=== PATIENT | male | born 1955 | race Caucasian/White ===

== ENCOUNTER → 2016-06-15 | Outpatient (CLI) | payer OTHER ==
--- NOTE | 2016-06-15 15:15 | NM ---
EXAMINATION TYPE: NM DatScan Brain SPECT DATE OF EXAM: 06/15/2016 3:11 PM COMPARISON: NONE HISTORY: TECHNIQUE: 10 drops of Lugol's solution was administered 1 hour prior to injection as a thyroid bloc robert agent. After the administration of 4.5 mCi I-123 Ioflupane DaTscan. Images obtained [address] injection. SPECT images of the brain were acquired with axial and coronal reconstructions. FINDINGS: The axial SPECT images demonstrate increased background activity and reduced activity withi n the bilateral striata. IMPRESSION: Abnormal appearance highly suggestive of idiopathic Parkinson's disease or Parkinsonian s yndrome.
== END | disposition home or self-care (01) ==
LOC: RADNMMAIN 09:57
PROVIDERS: ATTEND Psychiatry & Neurology Neurology
DX: R25.1 Tremor, unspecified (principal)
CPT/HCPCS: 78607; A9584

== ENCOUNTER → 2017-06-10 | Outpatient (CLI) | payer OTHER ==
--- NOTE | 2017-06-10 09:08 | US ---
EXAMINATION TYPE: US kidneys/renal and bladder DATE OF EXAM: 06/10/2017 COMPARISON: CT 10/24/2013 and US gallbladder 10/03/20132013 CLINICAL HISTORY: R31.9 hematuria. Weak urine stream, hematuria, lower back pain EXAM MEASUREMENTS: Right Kidney: 9.6 x 4.5 x 4.8 cm Left Kidney: 10.5 x 4.8 x 4.5 cm Right Kidney: no hydro or masses seen, inferior pole limited by overlying bowel gas Left Kidney: no hydro or masses seen, superior pole limited by overlying bowel gas Bladder: not fully distended, appears wnl as seen Bilateral Jets seen: no There is normal cortical medullary differentiation. No nephrolithiasis is seen. No masses are ident ified. The urinary bladder is anechoic but decompressed. Inferior margin of the bladder shows an imp ression likely due to prostate enlargement. IMPRESSION: Prostate is thought to be enlarged.
--- NOTE | 2017-06-13 07:25 | US ---
EXAMINATION TYPE: US prostate transrectal DATE OF EXAM: 06/10/2017 COMPARISON: NONE CLINICAL HISTORY: R39.12 weak urine stream. Weak urine stream, hematuria, lower back pain This examination was performed using the transrectal probe. EXAM MEASUREMENTS: Gland Size: 4.5 x 2.9 x 4.1cm Volume: 27.4ml Predicted PSA: 0.15 Actual PSA (if available):4.05 Heterogeneous gland with calcifications within central zone, 1.4 x 0.7 x 1.3cm hypoechoic area left b ase. IMPRESSION: Suspicious lesion left sided peripheral zone for which tissue diagnosis is recommended. Predicted PSA = volume x 0.12 ng/ml Calculated Volume = 0.5236 x L x W x H
== END | disposition home or self-care (01) ==
LOC: RADUSMAIN 07:46
PROVIDERS: ATTEND Internal Medicine
DX: R31.9 Hematuria, unspecified (principal); R39.12 Poor urinary stream
CPT/HCPCS: 76770; 76872

== ENCOUNTER 2018-02-22 17:17 | Emergency (ER) | payer OTHER ==
[2018-02-22 17:23] VITALS: BP 146/70; PULSE 80; RESP 18; TEMP 97.8
[2018-02-22] MEDS ORDERED: LIDOCAINE 1% INJ 10MG/ML (20 ML MDV) SQ STA (17:46)
[2018-02-22] MEDS ORDERED: GELATIN SPONGE,ABSORB (LARGE) 1 EACH SPONGE TOPICAL STA (17:48)
--- NOTE | 2018-02-22 17:53 | ED ---
General Adult HPI - General Chief complaint: Wound/Laceration Stated complaint: LEFT FINGER LACERATION LAWNMOWER BLADE Time Seen by Provider: 02/22/18 17:43 Source: patient, RN notes reviewed Mode of arrival: ambulatory Limitations: no limitations - History of Present Illness Initial comments: Patient 62-year-old male presented emergency room today with a chief complaint of laceration to the left middle finger that occurred approximately an hour ago. He does admit that he was cutting grass and put his hand underneath the running lawnmower to remove something and cut the tip of his finger off. Patient admits to pain locally. Patient states his tetanus is up-to-date within the past 5 years. Patient denies any other complaints or symptoms. Patient denies any recent fever, chills, shortness of breath, chest pain, back pain, abdominal pain, nausea or vomiting, or any other complaints. - Related Data Home Medications Medication Instructions Recorded Confirmed Aspirin 325 mg PO DAILY 10/24/13 10/24/13 Ferrous Sulfate [Feosol] 325 mg PO BID 10/24/13 10/24/13 Lisinopril 40 mg PO DAILY 10/24/13 10/24/13 Nicotine [Nicoderm Cq] 1 patch TRANSDERM DAILY 10/24/13 10/24/13 Omeprazole [PriLOSEC] 10 cap PO DAILY 10/24/13 10/24/13 traMADol HCl [Ultram] 1 tab PO Q6HR PRN 10/24/13 10/24/13 Previous Rx's Medication Instructions Recorded Cephalexin [Keflex] 500 mg PO Q12HR 10 Days cap 02/22/18 Allergies Allergy/AdvReac Type Severity Reaction Status Date / Time No Known Allergies Allergy Verified 02/22/18 17:22 Review of Systems ROS Statement: Those systems with pertinent positive or pertinent negative responses have been documented in the HPI. ROS Other: All systems not noted in ROS Statement are negative. 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 Neck: The neck is supple, there is no tenderness or JVD. Musculoskeletal: Patient does have a distal tip amputation of the third digit of the left hand. There is no active bleeding. Shows good range of motion. No other bony tenderness. Radial pulses 2+. Neurological: A&O x 3. CN II-XII intact, There are no obvious motor or sensory deficits. Coordination appears grossly intact. Speech is normal. Skin: Skin is warm and dry and no rashes or lesions are noted. Psychiatric: Normal mood and affect. Limitations: no limitations Course Vital Signs 02/22/18 17:20 Temperature 97.8 F Pulse Rate 80 Respiratory 18 Rate Blood Pressure 146/70 O2 Sat by Pulse 99 Oximetry Medical Decision Making - Medical Decision Making X-ray reviewed and does show distal tip amputation. Possibly small bone fragment. Patient's finger was irrigated under pressure with saline. His tetanus is up-to-date. He was given a dose of antibiotics here in the emergency room. Sterile nonstick dressing placed over top. He is advised follow-up with orthopedics tomorrow. Continue on antibiotics advised return for any other concerns. Disposition Clinical Impression: Amputation of finger tip Disposition: HOME SELF-CARE Condition: Good Instructions: Finger Amputation (ED) Additional Instructions: Please follow-up orthopedics tomorrow. Please use antibiotic as prescribed. Please return to emergency room symptoms increase or worsen or for any other concerns. Prescriptions: Cephalexin [Keflex] 500 mg PO Q12HR 10 Days cap Is patient prescribed a controlled substance at d/c from ED?: No Referrals: Haritha Castellano MD [Primary Care Provider] - 1-2 days Rajat Dawson MD [STAFF PHYSICIAN] - 1-2 days Time of Disposition: 18:28
--- NOTE | 2018-02-22 18:14 | XR ---
EXAMINATION TYPE: XR finger LT DATE OF EXAM: 02/22/2018 COMPARISON: NONE HISTORY: Trauma. Laceration TECHNIQUE: 3 views FINDINGS: There is some amputation of the soft tissues at the tip of the middle finger left hand. I s ee no fracture line. There is spurring at the DIP joint. IMPRESSION: Soft tissue amputation deformity. No fracture seen.
[2018-02-22] MEDS ORDERED: ceFAZolin 1,000 MG VIAL IM STA (18:21)
--- NOTE | 2018-02-23 05:47 | CDI ---
Documentation Clarification OP Dear Robert CANNON PA-C, PAC Please provide procedure done related to lidocaine administered. Thank you, Kedar Fields Mime Artist If you have any questions, please contact Medical Asst at [phone] [facility]
== END 2018-02-22 18:49 | disposition home or self-care (01) ==
LOC: EC 17:17
DX: S68.113A Complete traumatic metacarpophalangeal amputation of left middle finger, initial encounter (principal); I10 Essential (primary) hypertension; D64.9 Anemia, unspecified; F17.200 Nicotine dependence, unspecified, uncomplicated; Z79.82 Long term (current) use of aspirin; Z79.899 Other long term (current) drug therapy; W28.XXXA Contact with powered lawn mower, initial encounter; Y93.A6 Activity, grass drills; Y92.89 Other specified places as the place of occurrence of the external cause
CPT/HCPCS: 99283; 73140; J2001

== ENCOUNTER → 2019-04-05 | Outpatient (CLI) | payer OTHER ==
--- NOTE | 2019-04-05 10:47 | XR ---
EXAMINATION TYPE: XR chest 2V DATE OF EXAM: 04/05/2019 COMPARISON: 07/23/2013 HISTORY: Shortness of breath TECHNIQUE: Frontal and lateral views of the chest are obtained. FINDINGS: Scattered senescent parenchymal changes noted. No evidence for infiltrate. No evidence for atelectasis. Heart size is stable. Mediastinal structures are stable and grossly unremarkable. No evidence for hilar prominence. Degenerative changes dorsal spine. IMPRESSION: 1. No evidence for acute pulmonary disease.
[2019-04-05 12:33] LABS: Basophils % (A) 0 %; Eosinophils # (A) 0.2 k/uL (0-0.7); Eosinophils % (A) 2 %; HCT 31.3 % (39.0-53.0); HGB 10.6 gm/dL (13.0-17.5); Lymphocytes # (A) 1.3 k/uL (1.0-4.8); Lymphocytes % (A) 15 %; MCH 34.6 pg (25.0-35.0); MCHC 33.9 g/dL (31.0-37.0); MCV 101.8 fL (80.0-100.0); Mean Platelet Volume 9.3; Monocytes # (A) 0.7 k/uL (0-1.0); Monocytes % (A) 8 %; Neutrophils # (A) 6.1 k/uL (1.3-7.7); Neutrophils % (A) 73 %; Platelet Count 167 k/uL (150-450); RBC 3.08 m/uL (4.30-5.90); RDW 12.6 % (11.5-15.5); WBC 8.4 k/uL (3.8-10.6)
[2019-04-05 12:49] LABS: INR 0.9 (<1.2)
== END | disposition home or self-care (01) ==
LOC: LABPAT 09:52
PROVIDERS: ATTEND Orthopaedic Surgery Orthopaedic Surgery of the Spine
DX: Z01.812 Encounter for preprocedural laboratory examination (principal); Z01.818 Encounter for other preprocedural examination; M48.00 Spinal stenosis, site unspecified; M41.80 Other forms of scoliosis, site unspecified
CPT/HCPCS: 36415; 71046; 85025; 85610; 85730; 87070; 87086; 93005

== ENCOUNTER → 2019-04-10 | Outpatient (CLI) | payer MEDICARE, OTHER ==
[2019-04-10 11:04] LABS: Calcium 8.8 mg/dL (8.4-10.2); Potassium 4.5 mmol/L (3.5-5.1)
== END ==
LOC: LABPAT 10:00
PROVIDERS: ATTEND Orthopaedic Surgery Orthopaedic Surgery of the Spine
DX: Z01.812 Encounter for preprocedural laboratory examination (principal); M48.00 Spinal stenosis, site unspecified; M41.9 Scoliosis, unspecified
CPT/HCPCS: 80048; 86850; 86900; 86901

== ENCOUNTER → 2019-04-10 | Outpatient (CLI) | payer MEDICARE, OTHER ==
[2019-04-10 15:54] LABS: % Iron Saturation 13.49 (15.00-50.00)
== END ==
LOC: LABWHC1 10:04
PROVIDERS: ATTEND Internal Medicine
DX: D64.9 Anemia, unspecified (principal)
CPT/HCPCS: 36415; 82607; 83540; 83550

== ENCOUNTER 2019-04-18 06:22 | Inpatient (IN) | payer MEDICARE, OTHER ==
[2019-04-12 14:46] VITALS: BMI 27.0
[~2019-04-18 06:22] MED LIST: BACITRACIN 50,000 UNIT, POLYMYXIN B 500,000 UNIT in SODIUM CHLORIDE 0.9% IRRIGATIO 1,00... IRRIGATION ONE; DEXAMETHASONE SOD PHOSPHATE 10 MG/ML 1 ML VIAL IV ONE; HYDROmorphone 0.5 MG/0.5 ML SYRINGE IVP PRN; LACTATED RINGERS 1,000 ML IV SCH; MIDAZOLAM 2 MG/2 ML VIAL IV PRN; ONDANSETRON 4 MG/2 ML VIAL IVP ONE
[2019-04-18] MEDS ORDERED: LIDOCAINE 1% 20 ML VIAL (10MG/ML) FOR IV START INTRADERMA ONE (06:42)
[2019-04-18] MEDS ORDERED: PROPOFOL 10 MG/ML 20 ML VIAL IV ONE (07:25)
[2019-04-18] MEDS ORDERED: LIDOCAINE 1% INJ 10MG/ML (20 ML MDV) ONE (07:25)
[2019-04-18] MEDS ORDERED: ePHEDrine SULFATE/0.9% NACL/PF 50 MG/5 ML SYRINGE IV ONE (07:25)
[2019-04-18] MEDS ORDERED: KETAMINE 10 MG/ML 20 ML VIAL ONE (07:25)
[2019-04-18] MEDS ORDERED: diphenhydrAMINE 50 MG/ML 1 ML VIAL ONE (07:25)
[2019-04-18] MEDS ORDERED: ONDANSETRON 4 MG/2 ML VIAL ONE (07:25)
[2019-04-18] MEDS ORDERED: SODIUM CHLORIDE 0.9% IRRIG 1,000 ML BTL IRRIGATION ONE (07:25)
[2019-04-18] MEDS ORDERED: PHENYLEPHRINE-0.9% NACL SYG 1 MG/10 ML SYRINGE ONE (07:25)
[2019-04-18] MEDS ORDERED: HYDROmorphone (PF) 1 MG/ML ONE (07:25)
[2019-04-18] MEDS ORDERED: ALBUMIN HUMAN 5% (25gm) 500 ML VIAL IVPB ONE (07:25)
[2019-04-18] MEDS ORDERED: HEPARIN SODIUM,PORCINE 10,000 UNIT/ML 1 ML VIAL ONE (07:25)
[2019-04-18] MEDS ORDERED: MIDAZOLAM 2 MG/2 ML VIAL ONE (07:25)
[2019-04-18] MEDS ORDERED: ALBUTEROL INHALER 60 PUFF/8 GM INHALER INHALATION ONE (07:25)
[2019-04-18] MEDS ORDERED: ROCURONIUM BROMIDE 10 MG/ML 10 ML VIAL IV ONE (07:25)
[2019-04-18] MEDS ORDERED: fentaNYL (PF) 50 MCG/ML 2 ML AMP ONE (07:25)
[2019-04-18] MEDS ORDERED: LIDOCAINE 0.5%-EPI 1:200,000 50 ML VIAL SQ ONE (08:07)
[2019-04-18] MEDS ORDERED: THROMBIN (BOVINE) 5,000 UNIT VIAL TOPICAL ONE (08:46)
[2019-04-18] MEDS ORDERED: GELATIN SPONGE,ABSORB (SMALL) 1 EACH SPONGE TOPICAL ONE ×2 (08:46)
[2019-04-18] MEDS ORDERED: LACTATED RINGERS 1,000 ML IV ONE ×3 (08:47→12:50)
--- NOTE | 2019-04-18 09:00 | XR ---
EXAMINATION TYPE: XR lumbar spine 2 or 3V DATE OF EXAM: 04/18/2019 CLINICAL HISTORY: Low back pain. TECHNIQUE: Intraoperative Frontal and lateral images of the lumbar spine are obtained. COMPARISON: None. FINDINGS: Exam is for surgical planning and not for diagnostic purposes. Suboptimal due to portable t echnique and patient's large body habitus. Metallic pointer is thought present at posterior right L3 level. Scoliotic curvature noted on attempted frontal image to confirm positioning. IMPRESSION: As above.
[2019-04-18] MEDS ORDERED: SODIUM CHLORIDE 0.9% 50 ML with ceFAZolin 2,000 MG IV ONE ×4 (12:00)
[2019-04-18] MEDS ORDERED: BUPIVACAINE (PF) 0.5% 30 ML VIAL SQ ONE (13:15)
--- NOTE | 2019-04-18 13:22 | XR ---
EXAMINATION TYPE: XR lumbar spine 2 or 3V DATE OF EXAM: 04/18/2019 CLINICAL HISTORY: Hardware placement. TECHNIQUE: Intraoperative frontal and lateral images of the lumbar spine are obtained. COMPARISON: X-ray earlier today. FINDINGS: Exam is for surgical planning. There is new posterior interpedicular terri and screws from le ft L2-S1 level. Right side shows only new interpedicular screws L2-S1 level. New metallic disc materi al noted at L3-L4 and L4-L5 levels. Alignment remains satisfactory. IMPRESSION: As above.
[2019-04-18] MEDS ORDERED: NALOXONE 0.4 MG/ML 1 ML VIAL IV PRN (13:36)
[2019-04-18] MEDS ORDERED: HYDROmorphone 1 MG/ML 1 ML SYRINGE IVP PRN (13:36)
[2019-04-18] MEDS ORDERED: MAGNESIUM HYDROXIDE 2,400 MG/10 ML CUP PO PRN (13:36)
[2019-04-18] MEDS ORDERED: HYDROcodone/APAP 5-325MG 1 EACH TAB PO PRN ×2 (13:36)
[2019-04-18] MEDS ORDERED: BENZOCAINE/MENTHOL LOZENG 1 EACH LOZENGE MUCOUS MEM PRN (13:36)
[2019-04-18] MEDS ORDERED: HYDROmorphone 0.5 MG/0.5 ML SYRINGE IVP PRN (13:36)
--- NOTE | 2019-04-18 13:55 | P.OP ---
Date of Procedure: 04/18/19 Preoperative Diagnosis: Degenerative scoliosis, severe spinal stenosis, degenerative disc disease, facet arthrosis, low back pain, lower extremity radiculopathy Postoperative Diagnosis: Degenerative scoliosis, severe spinal stenosis, degenerative disc disease, facet arthrosis, low back pain, lower extremity radiculopathy Anesthesia: GETA Pathology: none sent Condition: stable Disposition: PACU Description of Procedure: BRIEF OPERATIVE NOTE Preoperative Diagnosis:Degenerative scoliosis, severe spinal stenosis, degenerative disc disease, facet arthrosis, low back pain, lower extremity radiculopathy Postoperative Diagnosis:Degenerative scoliosis, severe spinal stenosis, degenerative disc disease, facet arthrosis, low back pain, lower extremity radiculopathy Procedure: Wide bilateral Laminectomy and decompression with foraminotomies bilaterally L2-3 L3 4 L4 5 and L5-S1 Posterior lateral decompression and fusion L2-3 L3 4 L4 5 and L5-S1 Transforaminal lumbar interbody fusion for a 360 fusion L3 4 and L4 5 Discectomy for decompression L3 4 and L4 5 Placement of interbody graft L3 4 and L4 5 Local autogenous bone grafting Use of Cell Saver Harvesting of bone marrow aspirate in the pedicle and vertebral body of L4 Use of bone graft extenders Use of neuro monitoring Surgeon: Dr. Crane Precision Instrument Maker And Repairer: Gilmar LEBRON who is present throughout the entire the case persistence during positioning, dissection, exposure, visualization, and all crucial elements of the case as well as closure. Anesthesia: General anesthesia per Dr. Kelly Estimated blood loss: Approximately 600 mL with 194 back through Cell Saver Complications: None apparent Components implanted: K2M Randall pedicle screw system with 10 screws measuring 6.5 mm in diameter to rods to [place] interbody cages and one cross-link along with 10 mL of Bio4 bone graft as well as 30 mL of DBX bone fibers to supplement the local autogenous bone graft as well as the bone marrow aspirate Disposition: To recovery room in good stable condition. OPERATIVE INDICATIONS The patient has had long-standing issues in their lower back and lower extremities. He has a long history of severe pain with lower extremity radiculopathy. He was found have a severe short segment degenerative scoliotic curvature as well as severe stenosis at L2-3 L3 4 L4 5 and L5-S1. These findings correlate well with his low back and lower extremity symptoms. His symptoms have been progressive for him despite aggressive conservative care and he was not having significant benefit. He was having worsening ability to perform activities. The patient has been through conservative treatment. We discussed various treatment options including surgery, and the patient wishes to proceed with surgery We discussed the risk, patient's alternatives and benefits of surgery including but not limited to, risk of bleeding risk of infection, risk of need for further surgery, risk of decreased, loss of motion, muscle function, malunion nonunion, hardware failure, nerve damage, paralysis, heart attack, blindness and . OPERATIVE SUMMARY After discussing all the risks, patient alternatives and benefits at length, the patient elected to proceed with surgical intervention, signed informed consent, and presented for their procedure. The patient was seen and examined in the preoperative holding area and the surgical site was marked. The patient was g iven antibiotics and brought to the operating room. The patient was sedated and intubated by anesthesia in standard fashion. The patient was positioned on to the operating room table in a prone position on the appropriate frame which was well-padded and well molded. We were careful to pad any bony prominences and pressure points. We were careful to maintain the patient's cervical spine and good neutral alignment and position throughout. The patient was prepped and draped in a normal standard fashion. An appropriate timeout and keystone protocol performed. We were able to proceed with the surgery. The local wound area was infiltrated with local anesthetic. An incision was made at the midline longitudinally over the appropriate levels from L2 to S1. Dissection was taken down subcutaneously to the level of the fascia which was split midline. Dissection was taken over the lamina bilaterally over the facet joints and to the transverse processes from L2 to S1. Intraoperative x-ray was taken which showed a marker at the appropriate level at L3. With the appropriate level positively confirmed, we were able to proceed with placement of the pedicle holes and screws. The patient had obvious deformity with scoliotic curvature and rotation to his back which added to the complexity of the case. The patient had all their twitches back. The wound was copiously irrigated and suctioned dry as had been done periodically throughout the case. Screw holes were established similarly at each level at L2-L3 L4-L5 and S1 bilaterally. A sharp awl was used to establish the starting hole. It was palpated and found to have good for shaikh and good base. A monitored Steffee probe was used to establish the pedicle hole. It was positioned so there was no stimulation at 12 mA. The hole was palpated and found to have good for shaikh and a good base. The hole was tapped with the appropriate sized tap. At L4 on the right I was able to use a large bore Jamshidi needle to withdraw a pproximately 25 mL of bone marrow aspirate from the vertebral body for use later in the case as supplement to the graft. The transverse process or sacral ala was decorticated with a high-speed bur. I was able to use these holes to place the appropriate size screw and good alignment and good position with good bony purchase. When the screws were inserted there were stimulated, and found to have no stimulation at 20 mA. this was done at L2 L3 L4 and L5 and S1 bilaterally I was able to turn my attention to the decompression. decompression was performed with a combination of rongeurs, curettes, Kerrison rongeurs and a ball-tip feeler. He was found to have severe stenosis at L2-3 L3 4 L4 5 and L5- S1 particularly at L23 L3 4. I was able get excellent central and bilateral foraminal decompression. All of the bone that was removed was stripped and morcellized for use as autogenous bone graft later in the case. I was able to obtain good central decompression as well as wide bilateral foraminal decompression. There is no evidence of dural tear or leak. Good hemostasis was maintained. The wound was irrigated and suctioned dry. I performed a complete facetectomy at the appropriate level of L34 and L4 5 on the left side. All bone that was removed was saved for local autogenous bone grafting. I was able to gain access to the disc space at the appropriate level/levels of L3 4 and L4 5. Good hemostasis was maintained. I was able to protect the neurologic structures. Note was made of significant disc protrusion causing further stenosis and A discectomy was performed. This provided further decompression. I was also able to perform complete discectomy and endplate preparation with a combination of pituitary curettes, rasps and scrapers. With the interbody space prepared, I was able to do appropriate sizing. The appropriate size cage was chosen. The wound was irrigated and suctioned dry. The interbody space was packed with local autogenous bone graft and a small portion of bone graft substitute, as was the cage itself. Protecting the soft tissue structures, I was able place the cage in good alignment and good position with good fit and fill. There is no evidence of extrusion of the graft material nor protrusion of the interbody device. The wound was irrigated and suctioned dry. This was done first at L4 5 and then L3 4. This helped to provide some co rrection of the curvature as well. With the hardware intact, intraoperative x-ray was again taken which showed good alignment and position of the hardware at the appropriate levels from L2 to S1. We were then able to measure, contour and place the rods and appropriate hardware bilaterally. I was able to place capcrews, tighten them down, and torque them appropriately. I was able get some further correction of the scoliosis with placement of the rods. With this intact I was able to place the local autogenous bone graft with additional bone graft enhancer as necessary into the posterior lateral gutters bilaterally. With the bone graft intact, a stable construct, and good decompression at the appropriate levels, we were able to proceed with closure. Good hemostasis was maintained. There is no evidence of dural tear or leak. The fascia was closed for a watertight closure. The subcutaneous tissue was closed over a superficial drain. The subcuticular tissue was closed with absorbable suture. The wound was cleaned and dried and dressed with the appropriate dressing. The drapes were broken down. The patient was gently rolled back onto their hospital bed being careful to maintain their cervical spine and good neutral alignment and position. They were woken up by anesthesia, extubated, and brought to the recovery room in good stable condition. The patient will be admitted to the hospital for appropriate postoperative care, medical management and monitoring. We will continue to follow them closely about the postoperative course.
[2019-04-18] MEDS: GABAPENTIN 300 MG CAP PO SCH ×2 (15:55→21:40)
[2019-04-18] MEDS: SODIUM CHLORIDE 0.9% 1,000 ML IV SCH (16:11)
[2019-04-18] MEDS: PANTOPRAZOLE 40 MG TABLET PO SCH (16:17)
[2019-04-18] MEDS: ONDANSETRON 4 MG/2 ML VIAL IVP PRN (16:46)
[2019-04-18] MEDS: LISINOPRIL-HCTZ 20-12.5 MG 1 EACH TAB PO SCH (21:39)
[2019-04-18] MEDS: TOPIRAMATE 25 MG TAB PO SCH (21:40)
--- NOTE | 2019-04-18 22:11 | CONS ---
CONSULTATION DATE OF SERVICE: 04/18/2019 REASON FOR CONSULTATION: Advice regarding hypertension and multiple medical issues, requested by Dr. Crane. HISTORY OF PRESENT ILLNESS: This 63-year-old gentleman with a past medical history of hypertension, history of 50% blockage in the heart, history of nicotine dependence and history of cholecystectomy, being followed by Dr. Castellano in the outpatient setting, underwent bilateral laminectomy and decompression with foraminotomy bilaterally at L2-3, L3-4, L4-5 and L5-S1 for severe DJD and severe spinal stenosis. There is no history of any fever or rigors, no history of headache, loss of consciousness, no history of chest pain, palpitations, hematochezia, melena, nausea, diarrhea, fever, rigors or chills at this time. The patient also complains of mild postoperative nausea. PAST MEDICAL HISTORY: 1. History of hypertension. 2. History of cholecystectomy. 3. History of nicotine dependence. HOME MEDICATIONS: 1. Norvasc 10 mg each morning. 2. Topamax 25 mg at bedtime. 3. Flomax 0.4 daily. 4. Omeprazole 20 mg p.o. b.i.d. 5. Zestoretic 20/12.5 mg p.o. b.i.d. 6. Ibuprofen 400 mg p.o. t.i.d. 7. Neurontin 300 mg p.o. t.i.d. 8. Iron sulfate 320 mg p.o. daily. 9. Lipitor 40 mg p.o. daily. ALLERGIES: NONE. FAMILY HISTORY: History of cancer in the family. SOCIAL HISTORY: History of smoking on a daily basis with occasional THC. REVIEW OF SYSTEMS: ENT: No diminished hearing. No diminished vision. CARDIOVASCULAR SYSTEM: No angina, palpitations. RESPIRATORY SYSTEM: No cough, hemoptysis. GI: No nausea, vomiting. : No dysuria or retention. NERVOUS SYSTEM: No numbness, weakness. ALLERGY/IMMUNOLOGY: No asthma, hayfever. MUSCULOSKELETAL: As mentioned earlier. HEMATOLOGY/ONCOLOGY: No history of anemia. ENDOCRINE: No history of diabetes, hypothyroidism. CONSTITUTIONAL: As mentioned earlier. DERMATOLOGY: Negative. RHEUMATOLOGY: Negative. PSYCHIATRY: As mentioned earlier. PHYSICAL EXAMINATION: Patient is alert, oriented x3. Pulse is 76, blood pressure 116/69, respirations 16, temperature normal, pulse ox 93% on room air. HEENT: Conjunctivae normal. Oral mucosa moist. NECK: No jugular venous distention. No carotid bruit. No lymph node enlargement. CARDIOVASCULAR SYSTEM: S1, S2 muffled. RESPIRATORY SYSTEM: Breath sounds diminished at the bases. No rhonchi. No crackles. ABDOMEN: Soft, non-tender. No mass palpable. LEGS: No edema. No swelling. NERVOUS SYSTEM: Higher functions as mentioned earlier. Moves all 4 limbs. No focal motor or sensory deficit. LYMPHATICS: No lymph node palpable in neck, axillae or groin. SKIN: No ulcer, rash, bleeding. JOINTS: No active deforming arthropathy. EXAMINATION OF THE BACK: Status post surgery. LABS: The labs are noted. ASSESSMENT: 1. Status post bilateral laminectomy and decompression with foraminotomy bilaterally at L2-3, L3-4, L4-5 and L5-S1. 2. Hypertension. 3. History of anemia. 4. History of tremors. 5. History of cholecystectomy. 6. History of nicotine dependence. 7. History of tetrahydrocannabinol. 8. Mild postoperative nausea. RECOMMENDATIONS AND DISCUSSION: In this 63-year-old gentleman who presented after surgery, at this time I recommend to continue the current medications. I recommend resuming the home medications. DVT prophylaxis. I would also recommend proton pump inhibitors. Otherwise, we will follow the patient closely with you and the patient may be asked to follow with Dr. Castellano closely after discharge. Thank you, Dr. Crane, for letting us participate in the care of this patient. MMODL / IJN: [id number] /
[2019-04-19] MEDS: ONDANSETRON 4 MG/2 ML VIAL IVP PRN ×4 (00:51→18:48)
[2019-04-19] MEDS: SODIUM CHLORIDE 0.9% 1,000 ML IV SCH ×2 (07:59→17:28)
[2019-04-19] MEDS: LISINOPRIL-HCTZ 20-12.5 MG 1 EACH TAB PO SCH ×2 (08:05→21:02)
[2019-04-19] MEDS: SENNOSIDES-DOCUSATE SODIUM 1 EACH TAB PO SCH (08:05)
[2019-04-19] MEDS: GABAPENTIN 300 MG CAP PO SCH ×3 (08:05→21:01)
[2019-04-19] MEDS: TAMSULOSIN 0.4 MG CAP.ER.24H PO SCH (08:05)
[2019-04-19] MEDS: PANTOPRAZOLE 40 MG TABLET PO SCH (08:05)
[2019-04-19] MEDS: ATORVASTATIN 40 MG TAB PO SCH (08:05)
[2019-04-19] MEDS: amLODIPine 10 MG TAB PO SCH (08:05)
[2019-04-19 08:14] LABS: Basophils % (A) 0 %; Eosinophils % (A) 0 %; HCT 24.3 % (39.0-53.0); Lymphocytes # (A) 0.5 k/uL (1.0-4.8); Lymphocytes % (A) 3 %; MCH 34.1 pg (25.0-35.0); MCHC 34.1 g/dL (31.0-37.0); MCV 100.1 fL (80.0-100.0); Mean Platelet Volume 10.1; Monocytes # (A) 0.8 k/uL (0-1.0); Monocytes % (A) 5 %; Neutrophils # (A) 15.4 k/uL (1.3-7.7); Neutrophils % (A) 92 %; Platelet Count 145 k/uL (150-450); RBC 2.43 m/uL (4.30-5.90); RDW 12.6 % (11.5-15.5); WBC 16.8 k/uL (3.8-10.6)
[2019-04-19 08:18] LABS: HGB 8.3 gm/dL (13.0-17.5)
[2019-04-19 08:30] LABS: Calcium 8.6 mg/dL (8.4-10.2); Potassium 3.5 mmol/L (3.5-5.1)
[2019-04-19] MEDS ORDERED: FERROUS SULFATE 325 MG TAB PO SCH (09:00)
--- NOTE | 2019-04-19 10:01 | P.PN ---
Subjective Progress Note Date: 04/19/19 Principal diagnosis: Status post PLDF L2-S1 and TLIF L3-4 and L4-5 This is a 63 year-old male post PLDF L2-S1 and TLIF L3-4 and L4-[address] Crane. This is post-op day 1. The patient was evaluated at the bedside today. The patient denies nausea, vomiting, abdominal pain, shortness of breath, and chest pain this morning. He states his pain is only mildly controlled at this time. The patient has not been up with physical therapy but sat on the side of the bed last night. The patient's Hemovac was accidentally pulled out last night. Objective - Vital Signs Vital signs: Vital Signs Temp 97.7 F 04/19/19 07:00 Pulse 84 04/19/19 07:00 Resp 18 04/19/19 07:00 BP 125/61 04/19/19 07:00 Pulse Ox 97 04/19/19 07:00 Intake & Output 04/18/19 04/19/19 04/19/19 18:59 06:59 18:59 Intake Total 3202 900 Output Total 1025 1040 Balance 2177 -140 Intake: IV 3202 Intake, IV Titration 900 Amount Sodium Chloride 0.9% 1, 900 000 ml @ 75 mls/hr IV . [id number] [facility] Rx#:[id number] Output: Gastric Drainage 100 Drainage 140 Back 140 Urine 325 900 Uretheral ([place]) 900 Estimated Blood Loss 600 Other: Voiding Method Indwelling Catheter Indwelling Catheter Indwelling Catheter - Exam The patient is a 63-year-old female who is in no acute distress. He is alert and oriented 3. Abdomen is soft and nontender. Chest has good excursion with deep inspiration. Incision site is clean dry and intact. No erythema or purulent drainage. Hemovac site looks ok. Extremities reveal improved neurological change from prior to surgery. He has sustained dorsiflexion and plantar flexion and EHL function. He has good foot and ankle motion. Bilateral calves are soft and nontender. Neurological and circulatory status is intact. - Labs CBC & Chem 7: 04/19/19 07:41 04/19/19 07:41 Labs: Abnormal Lab Results - Last 24 Hours (Table) 04/19/19 04/19/19 Range/Units 07:41 07:41 WBC 16.8 H (3.8-10.6) k/uL RBC 2.43 L (4.30-5.90) m/uL Hgb 8.3 L D (13.0-17.5) gm/dL Hct 24.3 L (39.0-53.0) % MCV 100.1 H (80.0-100.0) fL Plt Count 145 L (150-450) k/uL Neutrophils # 15.4 H (1.3-7.7) k/uL Lymphocytes # 0.5 L (1.0-4.8) k/uL Chloride 109 H (98-107) mmol/L BUN 25 H (9-20) mg/dL Creatinine 1.38 H (0.66-1.25) mg/dL Glucose 128 H (74-99) mg/dL Assessment and Plan (1) Low back pain Current Visit: Yes Status: Acute Code(s): M54.5 - LOW BACK PAIN SNOMED Code(s): 309162791 (2) Degenerative scoliosis Current Visit: Yes Status: Acute Code(s): M41.50 - OTHER SECONDARY SCOLIOSIS, SITE UNSPECIFIED SNOMED Code(s): 053968185 (3) Spinal stenosis Current Visit: Yes Status: Acute Code(s): M48.00 - SPINAL STENOSIS, SITE UNSPECIFIED SNOMED Code(s): 79653854 (4) Degenerative disc disease Current Visit: Yes Status: Acute Code(s): HBE8765 - SNOMED Code(s): 91504068 (5) Radiculopathy Current Visit: Yes Status: Acute Code(s): M54.10 - RADICULOPATHY, SITE UNSPECIFIED SNOMED Code(s): 27491050 (6) Status post lumbar surgery Current Visit: Yes Status: Acute Code(s): Z98.890 - OTHER SPECIFIED POSTPROCEDURAL STATES SNOMED Code(s): 219305611 Plan: 1. Continue pain control, increase to [place] to 7.5. Dilaudid as needed for breakthrough pain. 2. SCDs for DVT prophylaxis 3. Start physical therapy and ambulation, discontinue mitchell catheter today. 4. Anticipate discharge home in 2-3 days depending on ambulatory status and pain control.
[2019-04-19 12:49] LABS: Basophils % (A) 0 %; Eosinophils % (A) 0 %; HCT 24.2 % (39.0-53.0); HGB 8.1 gm/dL (13.0-17.5); Lymphocytes # (A) 0.5 k/uL (1.0-4.8); Lymphocytes % (A) 3 %; MCH 33.7 pg (25.0-35.0); MCHC 33.6 g/dL (31.0-37.0); MCV 100.3 fL (80.0-100.0); Mean Platelet Volume 11.2; Monocytes # (A) 0.9 k/uL (0-1.0); Monocytes % (A) 5 %; Neutrophils # (A) 17.3 k/uL (1.3-7.7); Neutrophils % (A) 92 %; Platelet Count 134 k/uL (150-450); RBC 2.41 m/uL (4.30-5.90); RDW 12.7 % (11.5-15.5); WBC 18.8 k/uL (3.8-10.6)
[2019-04-19 13:00] LABS: Albumin 3.6 g/dL (3.5-5.0); Calcium 8.6 mg/dL (8.4-10.2); Potassium 3.6 mmol/L (3.5-5.1); Total Bilirubin 0.4 mg/dL (0.2-1.3); Total Protein 5.7 g/dL (6.3-8.2)
[2019-04-19] MEDS: PANTOPRAZOLE 40 MG/10 ML VIAL IVP SCH (13:08)
[2019-04-19] MEDS: HYDROcodone/APAP 7.5-325MG 1 EACH TAB PO PRN ×2 (13:08→18:47)
[2019-04-19] MEDS ORDERED: METOCLOPRAMIDE 5 MG/ML 2 ML VIAL IVP PRN (13:20)
[2019-04-19 20:20] LABS: Glucose,Whole Blood 148 mg/dL (75-99)
[2019-04-19] MEDS: TOPIRAMATE 25 MG TAB PO SCH (21:02)
[2019-04-19] MEDS: HEPARIN SODIUM,PORCINE 5,000 UNIT/ML 1 ML VIAL SQ SCH (21:03)
--- NOTE | 2019-04-19 23:11 | PN ---
PROGRESS NOTE DATE OF SERVICE: 04/19/2019 This 63-year-old gentleman who was admitted after laminectomy and decompression and foraminotomy is improving significantly. No chest pain. No palpitations. No fever. EXAM: Alert and oriented x3. The pulse is 88, blood pressure is 149/70, respirations 16, temperature 98.2, pulse ox 94% on 2 L HEENT: Conjunctivae normal. Oral mucosa moist. NECK: No jugular venous distention. No lymph node enlargement. CARDIOVASCULAR: S1, S2. RESPIRATORY: Diminished breath sounds at the bases. No rhonchi, no crackles. ABDOMEN: Soft, nontender. LEGS: No swelling. NERVOUS SYSTEM: No focal deficits. LABS: WBC 18.2, hemoglobin is 8.1, sodium 140, potassium 3.6, creatinine 1.33. ASSESSMENT: 1. Status post bilateral laminectomy decompression and foraminotomy bilaterally at L2- 3, L3-4, L4-5 and L5-S1. 2. Increased WBC, possibly reactive. 3. Anemia. 4. Hypertension. 5. History of tremors. 6. History of cholecystectomy. 7. History of nicotine dependence. 8. History of THC. 9. Mild postoperative nausea. 10.Possible acute renal failure. RECOMMENDATIONS AND DISCUSSION: Continue current medications, symptomatic treatment. The patient has significant nausea at this time. I recommend continue with IV fluids. Recommend to avoid NSAIDs and recommend IV fluids. Hold iron tablets at this time. IV Protonix. Guarded prognosis. Further recommendations to follow. MMODL / IJN: [id number] /
[2019-04-20] MEDS: HYDROcodone/APAP 7.5-325MG 1 EACH TAB PO PRN ×4 (02:49→22:04)
[2019-04-20] MEDS: SODIUM CHLORIDE 0.9% 1,000 ML IV SCH ×2 (03:35→19:15)
--- NOTE | 2019-04-20 07:58 | CDI ---
Documentation Clarification Form Date: 04/20/2019 7:51:15 AM From: Khushi HamptonJAH davis, CCDS Admit Date: 04/18/2019 6:22:00 AM Patient Name: Pascual Nolan Visit Number: [id number] Discharge Date: ATTENTION: The Clinical Documentation Specialists (CDI) and [facility] Coding Staff appreciate your assistance in clarifying documentation. Please respond to the clarification below the line at the bottom and electronically sign. The CDI & [facility] Coding staff will review the response and follow-up if needed. Please note: Queries are made part of the Legal Health Record. If you have any questions, please contact the author of this message via ITS. Dr. Jacki Rodriguez: A diagnosis of anemia lacks specificity to accurately reflect your patients severity of condition and clarification is needed. Anemia is documented in the medical management consult as a history of and also as a current diagnosis without further specificity. History/Risk Factors: Hypertension, Anemia, Nicotine dependence. Clinical indicators: Presented for elective spinal surgery: 360 degree fusion with discectomy L3-4 L4-5. Hemoglobin: 8.3* - 8.1* Hematocrit: 24.3* - 24.2* Treatment: IV Cefazolin, IV Dilaudid, IV Zofran, IV fluid rate 75 & IV Protonix. In order to capture the severity of condition, please clarify the type of anemia and etiology if known: Acute blood loss anemia o Please specify if this is a postoperative condition with cause & significance to the patient's surgery, if known. Acute on chronic blood loss anemia Chronic blood loss anemia Iron deficiency anemia Hemolytic anemia Drug induced anemia Nutritional anemia Anemia of other chronic disease, please specify: Unable to determine Other, please specify (Last Revision: February 2017) Unable to determine MTDD
[2019-04-20 08:19] LABS: Basophils % (A) 0 %; Eosinophils % (A) 0 %; HCT 22.9 % (39.0-53.0); HGB 7.9 gm/dL (13.0-17.5); Lymphocytes # (A) 0.6 k/uL (1.0-4.8); Lymphocytes % (A) 3 %; MCH 34.2 pg (25.0-35.0); MCHC 34.6 g/dL (31.0-37.0); MCV 98.9 fL (80.0-100.0); Monocytes # (A) 0.8 k/uL (0-1.0); Monocytes % (A) 5 %; Neutrophils # (A) 16.3 k/uL (1.3-7.7); Neutrophils % (A) 91 %; Platelet Count 150 k/uL (150-450); RBC 2.32 m/uL (4.30-5.90); RDW 12.9 % (11.5-15.5); WBC 17.9 k/uL (3.8-10.6)
[2019-04-20 08:28] LABS: Calcium 8.8 mg/dL (8.4-10.2); Potassium 3.5 mmol/L (3.5-5.1)
[2019-04-20] MEDS ORDERED: DIAZEPAM 5 MG TAB PO PRN (08:43)
--- NOTE | 2019-04-20 08:48 | P.PN ---
Subjective Progress Note Date: 04/20/19 Principal diagnosis: Status post PLDF L2-S1 and TLIF L3-4 and L4-5 This is a 63 year-old male post PLDF L2-S1 and TLIF L3-4 and L4-[address] Crane. This is post-op day 2. The patient was evaluated at the bedside today. The patient denies nausea, vomiting, abdominal pain, shortness of breath, and chest pain this morning. He states his pain is not controlled at this time. The patient has been up with physical therapy and ambulated in the hallway this mo rning. No new complaints today. Objective - Vital Signs Vital signs: Vital Signs Temp 98.3 F 04/20/19 07:00 Pulse 83 04/20/19 07:00 Resp 12 04/20/19 07:00 BP 147/68 04/20/19 07:00 Pulse Ox 93 L 04/20/19 07:00 Intake & Output 04/19/19 04/20/19 04/20/19 18:59 06:59 18:59 Intake Total 705 Output Total 900 375 Balance -900 330 Intake: Intake, IV Titration 225 Amount Sodium Chloride 0.9% 1, 225 000 ml @ 75 mls/hr IV . [id number] [facility] Rx#:[id number] Oral 480 Output: Urine 900 375 Uretheral ([place]) 900 Other: Voiding Method Indwelling Catheter Urinal # Voids 3 2 - Exam The patient is a 63-year-old male who is in no acute distress. He is alert and oriented 3. Abdomen is soft and nontender. Chest has good excursion with deep inspiration. Incision site is clean dry and intact. Some old drainage on the Optifoam dressing. No erythema or purulent drainage. Old hemovac site looks ok. Extremities reveal improved neurological change from prior to surgery. He has sustained dorsiflexion and plantar flexion and EHL function. He has good foot and ankle motion. Bilateral calves are soft and nontender. Neurological and circulatory status is intact. - Labs CBC & Chem 7: 04/20/19 07:09 04/20/19 07:09 Labs: Abnormal Lab Results - Last 24 Hours (Table) 04/19/19 04/19/19 04/19/19 Range/Units 12:38 12:38 20:08 WBC 18.8 H (3.8-10.6) k/uL RBC 2.41 L (4.30-5.90) m/uL Hgb 8.1 L (13.0-17.5) gm/dL Hct 24.2 L (39.0-53.0) % MCV 100.3 H (80.0-100.0) fL Plt Count 134 L (150-450) k/uL Neutrophils # 17.3 H (1.3-7.7) k/uL Lymphocytes # 0.5 L (1.0-4.8) k/uL Chloride 110 H (98-107) mmol/L BUN 25 H (9-20) mg/dL Creatinine 1.33 H (0.66-1.25) mg/dL Glucose 127 H (74-99) mg/dL POC Glucose (mg/dL) 148 H (75-99) mg/dL AST 71 H (17-59) U/L Total Protein 5.7 L (6.3-8.2) g/dL 04/20/19 04/20/19 Range/Units 07:09 07:09 WBC 17.9 H (3.8-10.6) k/uL RBC 2.32 L (4.30-5.90) m/uL Hgb 7.9 L (13.0-17.5) gm/dL Hct 22.9 L (39.0-53.0) % MCV (80.0-100.0) fL Plt Count (150-450) k/uL Neutrophils # 16.3 H (1.3-7.7) k/uL Lymphocytes # 0.6 L (1.0-4.8) k/uL Chloride 108 H (98-107) mmol/L BUN 26 H (9-20) mg/dL Creatinine (0.66-1.25) mg/dL Glucose 114 H (74-99) mg/dL POC Glucose (mg/dL) (75-99) mg/dL AST (17-59) U/L Total Protein (6.3-8.2) g/dL Assessment and Plan (1) Low back pain Current Visit: Yes Status: Acute Code(s): M54.5 - LOW BACK PAIN SNOMED Code(s): 084252222 (2) Degenerative scoliosis Current Visit: Yes Status: Acute Code(s): M41.50 - OTHER SECONDARY SCOLIOSI S, SITE UNSPECIFIED SNOMED Code(s): 681148742 (3) Spinal stenosis Current Visit: Yes Status: Acute Code(s): M48.00 - SPINAL STENOSIS, SITE UNSPECIFIED SNOMED Code(s): 87408443 (4) Degenerative disc disease Current Visit: Yes Status: Acute Code(s): IAG0609 - SNOMED Code(s): 17230956 (5) Radiculopathy Current Visit: Yes Status: Acute Code(s): M54.10 - RADICULOPATHY, SITE UNSPECIFIED SNOMED Code(s): 02376262 (6) Status post lumbar surgery Current Visit: Yes Status: Acute Code(s): Z98.890 - OTHER SPECIFIED POSTPROCEDURAL STATES SNOMED Code(s): 597473599 Plan: 1. Continue pain control with [place] to 7.5. Dilaudid as needed for breakthrough pain. Valium added today for muscle spasms. 2. SCDs for DVT prophylaxis 3. Continue physical therapy and ambulation. 4. Anticipate discharge home in 1-2 days depending on ambulatory status and pain control.
[2019-04-20] MEDS: PANTOPRAZOLE 40 MG/10 ML VIAL IVP SCH (09:04)
[2019-04-20] MEDS: LISINOPRIL-HCTZ 20-12.5 MG 1 EACH TAB PO SCH ×2 (09:23→21:01)
[2019-04-20] MEDS: HEPARIN SODIUM,PORCINE 5,000 UNIT/ML 1 ML VIAL SQ SCH ×2 (09:23→21:00)
[2019-04-20] MEDS: SENNOSIDES-DOCUSATE SODIUM 1 EACH TAB PO SCH (09:24)
[2019-04-20] MEDS: GABAPENTIN 300 MG CAP PO SCH ×3 (09:24→21:00)
[2019-04-20] MEDS: TAMSULOSIN 0.4 MG CAP.ER.24H PO SCH (09:24)
[2019-04-20] MEDS: amLODIPine 10 MG TAB PO SCH (09:24)
[2019-04-20] MEDS: ATORVASTATIN 40 MG TAB PO SCH (09:24)
[2019-04-20 14:59] VITALS: RESP 16
--- NOTE | 2019-04-20 17:27 | PN ---
PROGRESS NOTE DATE OF SERVICE: 04/20/2019 This 63-year-old gentleman admitted after back surgery is being closely monitored. Patient had elevated WBC, possibly reactive in nature. No chest pain. No palpitations. No fever. PHYSICAL EXAMINATION: Alert and oriented x3. Pulse 96, blood pressure 135/73, respirations 16, temperature 98.4, pulse ox 96% on room air. HEENT: Conjunctivae normal. NECK: No jugular venous distention. CARDIOVASCULAR SYSTEM: S1, S2 muffled. RESPIRATORY SYSTEM: Breath sounds diminished at the bases. No rhonchi. No crackles. ABDOMEN: Soft. LEGS: No edema. No swelling. NERVOUS SYSTEM: No focal deficit. EXAMINATION OF BACK: Status post surgery. LABS: WBC 17.9, hemoglobin 7.9. Otherwise, glucose 114. ASSESSMENT: 1. Status post bilateral laminectomy with decompression foraminectomy bilaterally, L2- 3, L3-4, L4-5 and L5-S1. 2. Increased white count, possibly reactive, improving. 3. History of anemia. 4. History of hypertension. 5. History of tremors. 6. History of cholecystectomy. 7. History of nicotine dependence. 8. History of tetrahydrocannabinol. 9. Mild postoperative nausea. 10.Possible acute renal failure. RECOMMENDATIONS AND DISCUSSION: I recommend to continue current medications, continue with the monitoring, symptomatic treatment. Otherwise, I would recommend incentive spirometry. The labs could be repeated on an outpatient basis. Further recommendations to follow. MMODL / DENILSONN: [id number] /
[2019-04-20] MEDS: TOPIRAMATE 25 MG TAB PO SCH (21:01)
[2019-04-21] MEDS: HYDROcodone/APAP 7.5-325MG 1 EACH TAB PO PRN ×2 (04:16→12:19)
[2019-04-21] MEDS: SODIUM CHLORIDE 0.9% 1,000 ML IV SCH (04:19)
[2019-04-21 07:42] VITALS: BP 140/69; PULSE 85; TEMP 98.6
[2019-04-21] MEDS: GABAPENTIN 300 MG CAP PO SCH (07:47)
[2019-04-21] MEDS: SENNOSIDES-DOCUSATE SODIUM 1 EACH TAB PO SCH (07:47)
[2019-04-21] MEDS: amLODIPine 10 MG TAB PO SCH (07:47)
[2019-04-21] MEDS: TAMSULOSIN 0.4 MG CAP.ER.24H PO SCH (07:48)
[2019-04-21] MEDS: HEPARIN SODIUM,PORCINE 5,000 UNIT/ML 1 ML VIAL SQ SCH (07:48)
[2019-04-21] MEDS: PANTOPRAZOLE 40 MG/10 ML VIAL IVP SCH (07:48)
[2019-04-21] MEDS: ATORVASTATIN 40 MG TAB PO SCH (07:48)
[2019-04-21] MEDS: LISINOPRIL-HCTZ 20-12.5 MG 1 EACH TAB PO SCH (07:49)
--- NOTE | 2019-04-21 09:41 | P.DS ---
Providers Date of admission: 04/18/19 06:22 Expected date of discharge: 04/21/19 Attending physician: Yvonne Crane Consults: 04/18/19 13:36 Consult Physician Routine Consulting Provider: Jacki Rodriguez Consult Reason/Comments: Medical management Do you want consulting provider notified?: Yes Primary care physician: Nona Ajbal - Discharge Diagnosis(es) (1) Low back pain Current Visit: Yes Status: Acute (2) Degenerative scoliosis Current Visit: Yes Status: Acute (3) Spinal stenosis Current Visit: Yes Status: Acute (4) Degenerative disc disease Current Visit: Yes Status: Acute (5) Radiculopathy Current Visit: Yes Status: Acute (6) Status post lumbar surgery Current Visit: Yes Status: Acute Hospital Course: The patient is a 63 -year-old male who is status post PLDF L2-S1 and TLIF L3-4 and L4-5 on 04/18/[address] Crane. Patient has known history of low back pain and presented to discuss options. After discussion and consideration, patient elected to proceed with surgery. The patient was seen preoperatively and medically cleared for surgery by his primary care physician. The procedure was performed without complications or sequelae. The patient was seen and evaluated at bedside today and denies any new complaints. Pain is reasonably controlled. Dressing is clean dry and intact. Incision is without drainage and erythema. His abdomen is soft and nontender. Dorsiflexion, plantarflexion, extensor hallucis longus positive sustaining bilaterally. Calves are soft and nontender. The patient has full foot and ankle motion wit hout difficulty. Patient's bilateral lower extremities are neurovascular intact. Patient is orthopedically stable for discharge to home today. See medication reconciliation for accurate list of discharge medications. Pertinent Studies: Laboratory Tests 04/20/19 04/20/19 07:09 07:09 WBC 17.9 H RBC 2.32 L Hgb 7.9 L Hct 22.9 L Neutrophils # 16.3 H Monocytes # 0.8 Chloride 108 H BUN 26 H Glucose 114 H Patient Condition at Discharge: Stable Plan - Discharge Summary Discharge Rx Participant: Yes New Discharge Prescriptions: New Hydrocodone/Acetaminophen [[place] 7.5-325] 1 - 2 tab PO Q4-6H PRN #50 tab PRN Reason: Pain Sennosides-Docusate Sodium [Senokot-S] 1 tab PO DAILY #30 tablet No Action Ferrous Sulfate [Feosol] 325 mg PO DAILY Topiramate [Topamax] 25 mg PO HS Tamsulosin [Flomax] 0.4 mg PO DAILY Lisinopril-Hctz 20-12.5 mg [Zestoretic 20-12.5] 1 tab PO BID amLODIPine BESYLATE 10 mg PO QAM Atorvastatin [Lipitor] 40 mg PO DAILY Omeprazole 20 mg PO BID Ibuprofen 400 mg PO TID Gabapentin [Neurontin] 300 mg PO TID Discharge Medication List Ferrous Sulfate [Feosol] 325 mg PO DAILY 10/24/13 [History] Atorvastatin [Lipitor] 40 mg PO DAILY 04/12/19 [History] Gabapentin [Neurontin] 300 mg PO TID 04/12/19 [History] Ibuprofen 400 mg PO TID 04/12/19 [History] Lisinopril-Hctz 20-12.5 mg [Zestoretic 20-12.5] 1 tab PO BID 04/12/19 [History] Omeprazole 20 mg PO BID 04/12/19 [History] Tamsulosin [Flomax] 0.4 mg PO DAILY 04/12/19 [History] Topiramate [Topamax] 25 mg PO HS 04/12/19 [History] amLODIPine BESYLATE 10 mg PO QAM 04/12/19 [History] Hydrocodone/Acetaminophen [[place] 7.5-325] 1 - 2 tab PO Q4-6H PRN #50 tab 04/21/19 [Rx] Sennosides-Docusate Sodium [Senokot-S] 1 tab PO DAILY #30 tablet 04/21/19 [Rx] Follow up Appointment(s)/Referral(s): Gilmar Lew, HEATH [PHYSICIAN SOFTWARE BUILD ENGINEER] - 2 Weeks (Patient may follow-up with Gilmar Lew PA-C or Dr. Dimas Crane at [facility] in 2-3 weeks following discharge. ) [facility], [NON-STAFF] - 1-2 Days Activity/Diet/Wound Care/Special Instructions: 1. Patient may shower with Optifoam dressing in place. 2. Patient to removed Optifoam dressing 10 days after surgery. 3. Patient should refrain from driving until at least after their first follow- up appointment in the office. 4. Patient should avoid excessive bending, twisting, and lifting; no lifting greater than 10 pounds 5. Take medications as prescribed 6. Do not soak in tub Discharge Disposition: HOME WITH HOME HEALTH SERVICES
--- NOTE | 2019-04-21 19:18 | PN ---
PROGRESS NOTE DATE OF SERVICE: 04/21/2019 This 63-year-old gentleman admitted after back surgery is improving significantly. No chest pain. No palpitations. No fever. EXAM: Alert and oriented x3. Pulse is 85, blood pressure 140/69, respirations 16, temperature 98.2, pulse ox 94% on 2 L. HEENT: Conjunctivae normal. Oral mucosa moist. NECK: No jugular venous distention. No lymph node enlargement. CARDIOVASCULAR: S1, S2. RESPIRATORY: Diminished breath sounds at the bases. No rhonchi, no crackles. ABDOMEN: Soft, nontender. BACK: Status post surgery. NERVOUS SYSTEM: No focal deficits. LABS: WBC 17.2, hemoglobin 7.9, sodium 142, potassium 3.5. ASSESSMENT: 1. Status post bilateral laminectomy and decompression foraminectomy bilaterally, L2- 3, L3-4, L4-5 and L5-S1. 2. Increased WBC, possibly reactive, improving. 3. History of anemia. 4. History of hypertension. 5. History of tremors. 6. History of cholecystectomy. 7. History of nicotine dependence. 8. History of THC. 9. Mild postoperative nausea. 10.Possible acute renal failure, improved. RECOMMENDATIONS AND DISCUSSION: Recommend to continue current medications, continue to monitor, continue symptomatic treatment. I recommend repeat labs in the outpatient setting. Otherwise, continue with the rest of the medications. Further recommendations to follow. Recommend close followup with primary physician in the outpatient setting. MMODL / IJN: [id number] /
--- NOTE | 2019-04-24 01:42 | CDI ---
Documentation Clarification Form Date: 04/24/19 From: Lalit Huffman Phone: If you have a question about this query, please contact Ginny Serrano [employer] Rec[employer]iter at [phone] between 8am and 5pm. Admit Date: 04/18/19 Discharge Date: 04/21/19 Patient Name: Pascual Nolan Visit Number: [id number] ATTENTION: The Clinical Documentation Specialists (CDI) and [facility] Coding Staff appreciate your assistance in clarifying documentation. Please respond to the clarification below the line at the bottom and electronically sign. The CDI & [facility] Coding staff will review the response and follow-up if needed. Please note: Queries are made part of the Legal Health Record. If you have any questions, please contact the author of this message via ITS. Dear Dr Royce Paige, A diagnosis of anemia lacks specificity to accurately reflect your patients severity of condition and clarification is needed. Anemia is documented in the medical management consult as a history of and also as a current diagnosis without further specificity by Dr. jess Echeverria. History/Risk Factors: Hypertension, Anemia, Nicotine dependence. Clinical indicators: Presented for elective spinal surgery: 360 degree fusion with discectomy L3-4 L4-5. Hemoglobin: 8.3* - 8.1* Hematocrit: 24.3* - 24.2* Treatment: IV Cefazolin, IV Dilaudid, IV Zofran, IV fluid rate 75 IV Protonix. Estimated blood loss: Approximately 600 mL with 194 back through [employer]. In order to capture the severity of condition, please clarify the type of anemia and etiology if known: Acute blood loss anemia o Please specify if this is a postoperative condition with cause significance to the patient's surgery, if known. Acute on chronic blood loss anemia Chronic blood loss anemia Iron deficiency anemia Hemolytic anemia Drug induced anemia Nutritional anemia Anemia of other chronic disease, please specify: Unable to determine Other, please specify The patient has has anemia and due to a number of sources. He is acute blood loss anemia as well as iron deficiency anemia. His acute blood loss anemia due to surgery has been stabilized and he will continue workup and treatment in terms of his iron deficiency anemia on outpatient basis. MTDD
== END 2019-04-21 14:13 | disposition home health service (06) | DRG 454 ==
LOC: 2ORMAIN 06:22 → 4SSUR 13:54
PROVIDERS: ADMIT Orthopaedic Surgery Orthopaedic Surgery of the Spine; ATTEND Orthopaedic Surgery Orthopaedic Surgery of the Spine
PROC: 0SG3071 Fusion of Lumbosacral Joint with Autologous Tissue Substitute, Posterior Approach, Posterior Column, Open Approach (ICD-10-PCS; principal; 2019-04-18 07:30)
PROC: 01NB0ZZ Release Lumbar Nerve, Open Approach (ICD-10-PCS; principal; 2019-04-18 07:30)
PROC: 00NY0ZZ Release Lumbar Spinal Cord, Open Approach (ICD-10-PCS; principal; 2019-04-18 07:30)
PROC: 0SG10AJ Fusion of 2 or more Lumbar Vertebral Joints with Interbody Fusion Device, Posterior Approach, Anterior Column, Open Approach (ICD-10-PCS; principal; 2019-04-18 07:30)
PROC: 30233H0 Transfusion of Autologous Whole Blood into Peripheral Vein, Percutaneous Approach (ICD-10-PCS; principal; 2019-04-18 07:30)
PROC: 0SG1071 Fusion of 2 or more Lumbar Vertebral Joints with Autologous Tissue Substitute, Posterior Approach, Posterior Column, Open Approach (ICD-10-PCS; principal; 2019-04-18 07:30)
PROC: 0ST20ZZ Resection of Lumbar Vertebral Disc, Open Approach (ICD-10-PCS; principal; 2019-04-18 07:30)
DX: M48.061 Spinal stenosis, lumbar region without neurogenic claudication (principal); N17.9 Acute kidney failure, unspecified; D62 Acute posthemorrhagic anemia; I10 Essential (primary) hypertension; R26.89 Other abnormalities of gait and mobility; M47.26 Other spondylosis with radiculopathy, lumbar region; D50.9 Iron deficiency anemia, unspecified; E78.2 Mixed hyperlipidemia; R11.0 Nausea; M41.56 Other secondary scoliosis, lumbar region; M51.16 Intervertebral disc disorders with radiculopathy, lumbar region; Z97.3 Presence of spectacles and contact lenses; Z90.49 Acquired absence of other specified parts of digestive tract; Z79.899 Other long term (current) drug therapy; Z86.2 Personal history of diseases of the blood and blood-forming organs and certain disorders involving the immune mechanism; Z86.59 Personal history of other mental and behavioral disorders; Z83.3 Family history of diabetes mellitus; Z82.49 Family history of ischemic heart disease and other diseases of the circulatory system; Z83.2 Family history of diseases of the blood and blood-forming organs and certain disorders involving the immune mechanism; Z80.9 Family history of malignant neoplasm, unspecified; Z87.891 Personal history of nicotine dependence
CPT/HCPCS: 72100; 80048; 80053; 85025; 86850; 86891; 86900; 86901

== ENCOUNTER → 2021-01-20 | Outpatient (CLI) | payer MEDICARE, OTHER ==
--- NOTE | 2021-02-04 13:41 | P.ARTDOP ---
Arterial Doppler LOWER EXTREMITY ARTERIAL DOPPLER: DATE OF SERVICE: 01/20/2021 Reason for study: Hip pain. Doppler waveforms: Multiphasic bilaterally throughout. Pulse volume recording: []. Pressure gradients: None. Ankle-brachial indices: Greater than 1 bilaterally. Toe brachial indices: 0.82 on the right, 0.63 on the left Impression: Normal study.
== END | disposition home or self-care (01) ==
LOC: RADUSWWP 13:33
PROVIDERS: ATTEND Internal Medicine
DX: I73.9 Peripheral vascular disease, unspecified (principal); M25.551 Pain in right hip
CPT/HCPCS: 93922

== ENCOUNTER → 2021-07-02 | Outpatient (CLI) | payer MEDICARE, OTHER ==
[2021-07-02 11:54] LABS: Appearance,Urine Clear (Clear); Bilirubin,Urine Negative (Negative); Blood,Urine Negative (Negative); Color,Urine Yellow; Glucose,Urine (UA) Negative (Negative); Hyaline Casts,Urine 3 /lpf (0-2); Ketones,Urine Negative (Negative); Leukocyte Esterase,Urine Trace (Negative); Mucus,Urine Rare /hpf; Nitrite,Urine Negative (Negative); Protein,Urine Trace (Negative); RBC,Urine 1 /hpf (0-5); Specific Gravity,Urine 1.019 (1.001-1.035); Squamous Epithelial Cell,Urine <1 /hpf (0-4); WBC,Urine 3 /hpf (0-5)
[2021-07-02 14:57] LABS: Basophils # (A) 0.04 X 10*3/uL (0.00-0.10); Basophils % (A) 0.5 %; Eosinophils % (A) 1.3 %; HCT 32.7 % (39.6-50.0); HGB 10.4 g/dL (13.0-17.0); Immature Grans, Automated 0.4 %; Lymphocytes # (A) 0.79 X 10*3/uL (0.90-5.00); Lymphocytes % (A) 10.2 %; MCHC 31.8 g/dL (32.0-37.0); MCV 100.6 fL (80.0-97.0); Mean Platelet Volume 12.3 fL (9.5-12.2); Monocytes # (A) 0.76 X 10*3/uL (0.20-1.00); Monocytes % (A) 9.8 %; NRBC Per 100 WBC 0 /100 WBCS (0.0-0.0); Neutrophils # (A) 6.05 X 10*3/uL (1.80-7.70); Neutrophils % (A) 77.8 %; Platelet Count 207 X 10*3/uL (140-440); RBC 3.25 X 10*6/uL (4.40-5.60); RDW 12.6 % (11.5-14.5); WBC 7.77 X 10*3/uL (4.50-10.00)
[2021-07-02 15:54] LABS: African American GFR (CKD) 55.9 (60.0-200.0); Anion Gap 10.4 mmol/L (10.00-18.00); BUN/Creat Ratio 11.22 Ratio (12.00-20.00); Blood Urea Nitrogen 16.6 mg/dL (9.0-27.0); Calcium 9.4 mg/dL (8.7-10.3); Carbon Dioxide 24.6 mmol/L (20.0-27.5); Non-African American GFR(CKD) 48.3 (60.0-200.0); Potassium 4.5 mmol/L (3.5-5.5)
== END | disposition home or self-care (01) ==
LOC: LABPAT 09:26
PROVIDERS: ATTEND Urology
DX: Z01.812 Encounter for preprocedural laboratory examination (principal); C61 Malignant neoplasm of prostate
CPT/HCPCS: 36415; 80048; 81001; 85025; 87086

== ENCOUNTER 2021-07-09 06:17 | Day surgery (SDC) | payer MEDICARE, OTHER ==
--- NOTE | 2021-07-06 08:54 | P.HPIHPCON ---
History of Present Illness H&P Date: 07/06/21 This is a 65-year-old male with history of [place] 7(3+4) prostate cancer, elected to proceed with radiation therapy. Option of SpaceOR placement was discussed with him. Discussed the risk which includes but not limited to bleeding, infection, rectal perforation. Discussed with him the rationale of doing this which is to reduce the rectal toxicity to the rectum from radiation. He understood all the risk and agreed to proceed Prostate size is 37 g Consent for Procedure: I have explained the operation/procedure to the patient, including the risks, benefits, side effects, alternative therapies (including not receiving the proposed treatment or service), the likelihood of the patient achieving his/her goals, and potential recuperation problems for the procedure/sedation/analgesia, as well as any blood products, if indicated. I also explained to the patient the risks, benefits and side effects of the alternatives, as well as the risks related to not receiving the proposed procedure, care, treatment, or services. 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 Past Drug Use History: Marijuana Additional Drug Use History / Comment(s): "Social Marijuana use." Aware no use 24 hrs prior to procedure. - Past Family History Brother(s) Family Medical History: Cancer Medications and Allergies Home Medications Medication Instructions Recorded Confirmed Type Ferrous Sulfate [Feosol] 325 mg PO DAILY 10/24/13 04/18/19 History Atorvastatin [Lipitor] 40 mg PO DAILY 04/12/19 04/18/19 History Gabapentin [Neurontin] 300 mg PO TID 04/12/19 04/18/19 History Ibuprofen 400 mg PO TID 04/12/19 04/18/19 History Lisinopril-Hctz 20-12.5 mg 1 tab PO BID 04/12/19 04/18/19 History [Zestoretic 20-12.5] Omeprazole 20 mg PO BID 04/12/19 04/18/19 History Tamsulosin [Flomax] 0.4 mg PO DAILY 04/12/19 04/18/19 History Topiramate [Topamax] 25 mg PO HS 04/12/19 04/18/19 History amLODIPine BESYLATE 10 mg PO QAM 04/12/19 04/18/19 History Hydrocodone/Acetaminophen [[place] 1 - 2 tab PO Q4-6H PRN #50 tab 04/21/19 Rx 7.5-325] Sennosides-Docusate Sodium 1 tab PO DAILY #30 tablet 04/21/19 Rx [Senokot-S] Allergies Allergy/AdvReac Type Severity Reaction Status Date / Time No Known Allergies Allergy Verified 04/18/19 06:48 Surgical - Exam - General no distress, no pain - Eyes normal ocular movement - ENT normal nares, normal mucosa - Respiratory normal expansion, normal respiratory effort - Abdomen Abdomen: soft, non tender Assessment and Plan Assessment: 65-year-old male with history of [place] 7(3+4) prostate cancer -OR for SpaceOR placement
[2021-07-07 12:58] VITALS: BMI 29.7
[2021-07-09] MEDS ORDERED: DEXAMETHASONE SOD PHOSPHATE 4 MG/ML 1 ML VIAL IV ONE (06:48)
[2021-07-09] MEDS ORDERED: ONDANSETRON 4 MG/2 ML VIAL IVP ONE (06:48)
[2021-07-09] MEDS ORDERED: LACTATED RINGERS 1,000 ML IV SCH (06:48)
[2021-07-09] MEDS ORDERED: MIDAZOLAM 2 MG/2 ML VIAL IV PRN (06:48)
[2021-07-09] MEDS ORDERED: LIDOCAINE 1% (10MG/ML) FOR IV START INTRADERMA PRN (06:48)
[2021-07-09 06:52] VITALS: PULSE 71; RESP 16; TEMP 97.6
[2021-07-09] MEDS ORDERED: HYDROmorphone 0.5 MG/0.5 ML SYRINGE IVP PRN (07:00)
[2021-07-09] MEDS ORDERED: PROPOFOL 10 MG/ML 20 ML VIAL IV ONE (07:32)
[2021-07-09] MEDS ORDERED: fentaNYL (PF) 50 MCG/ML 2 ML AMP ONE (07:32)
[2021-07-09] MEDS ORDERED: MIDAZOLAM 2 MG/2 ML VIAL ONE (07:32)
[2021-07-09] MEDS ORDERED: LIDOCAINE 2% (PF) 20 MG/ML 2 ML VIAL SQ ONE (08:00)
[2021-07-09 08:38] VITALS: BP 107/59
--- NOTE | 2021-07-09 08:50 | P.OP ---
Date of Procedure: 07/09/21 Preoperative Diagnosis: Adenocarcinoma the prostate Postoperative Diagnosis: Same Procedure(s) Performed: SpaceOAR Implant Anesthesia: MAC Surgeon: Martín Martin Estimated Blood Loss (ml): 10 IV fluids (ml): 400 Pathology: none sent Condition: stable Disposition: PACU Indications for Procedure: This is a 65-year-old male with history of Carnegie 7 (3+4) prostate cancer, elected to proceed with radiation therapy. Option of SpaceOAR implant was discussed with him, and he has elected to proceed with this to reduce rectal toxicity. Operative Findings: Excellent separation created between the prostate and rectum. Description of Procedure: The patient was taken to the operating room and placed in the dorsolithotomy position, with his legs supported in Toby stirrups. The external genitalia was prepped and draped sterilely. The Bruel and Kjaer transrectal ultrasound probe was placed intrarectally. The prostate was imaged. The probe was then placed within the stabilizing stand. A spinal needle was advanced under ultrasonic guidance to the level of the urogenital diaphragm, and lidocaine was used to infiltrate the tissues as the needle was withdrawn. Next, the SpaceOAR needle was passed through the midline of the perineum, 1-2 cm anterior to the anal opening. The needle was slowly advanced under ultrasonic guidance until the needle tip was located within the fat plane between the prostate and rectum, at the level of the mid prostate gland. The needle was confirmed to be midline on the axial imaging. A small amount of normal saline was injected for hydrodissection. Next, the SpaceOAR components were mixed and loaded into the Y connector per protocol. The Y connector was then connected to the needle, and the components were injected slowly over a course of approximately 12 seconds. A total of 10 ml was injected. Significant distance was created between the prostate and rectum, as desired. It should be noted that at no point was there any concern of rectal perforation. The needle was withdrawn, as well as the transrectal ultrasound probe, and the procedure was terminated. The patient tolerated the procedure well and was taken to the recovery room in stable condition.
== END 2021-07-09 08:59 | disposition home or self-care (01) ==
LOC: OR 06:17
PROVIDERS: ATTEND Urology
DX: C61 Malignant neoplasm of prostate (principal); I10 Essential (primary) hypertension; I45.5 Other specified heart block; D64.9 Anemia, unspecified; R25.1 Tremor, unspecified; F17.210 Nicotine dependence, cigarettes, uncomplicated; I25.10 Atherosclerotic heart disease of native coronary artery without angina pectoris; E78.5 Hyperlipidemia, unspecified; N28.9 Disorder of kidney and ureter, unspecified; K21.9 Gastro-esophageal reflux disease without esophagitis; Z97.2 Presence of dental prosthetic device (complete) (partial); Z79.1 Long term (current) use of non-steroidal anti-inflammatories (NSAID); Z80.9 Family history of malignant neoplasm, unspecified; Z79.899 Other long term (current) drug therapy
CPT/HCPCS: 55874; C1889; J2250; J1100; J0690; J2405; J3010; J2704; J2001

== ENCOUNTER → 2022-03-29 | Outpatient (CLI) | payer MEDICARE, OTHER | END | disposition home or self-care (01) | LOC: LABWHC1 10:28 | PROVIDERS: ATTEND Radiology Radiation Oncology | DX: C61 Malignant neoplasm of prostate (principal); Z90.49 Acquired absence of other specified parts of digestive tract; R35.1 Nocturia | CPT/HCPCS: 36415; 84153 ==

== ENCOUNTER → 2022-05-26 | Outpatient (CLI) | payer MEDICARE, OTHER ==
[2022-05-26 16:03] LABS: HGB 10.3 g/dL (13.0-17.0); MCH 33.9 pg (27.0-32.0); MCHC 33.2 g/dL (32.0-37.0); Mean Platelet Volume 11.6 fL (9.5-12.2); NRBC Per 100 WBC 0 /100 WBCS (0.0-0.0); Platelet Count 199 X 10*3/uL (140-440); RBC 3.04 X 10*6/uL (4.40-5.60); RDW 13.2 % (11.5-14.5)
[2022-05-26 16:25] LABS: % Iron Saturation 15.16 (15.00-50.00); Phosphorus 2.9 mg/dL (2.4-5.1); Uric Acid 7.2 mg/dL (3.7-8.7)
[2022-05-26 17:34] LABS: Appearance,Urine Clear (Clear); Bilirubin,Urine Negative (Negative); Blood,Urine Negative (Negative); Color,Urine Yellow (Yellow); Ketones,Urine Trace mg/dL (Negative); Nitrite,Urine Negative (Negative); PH, Urine 5.5 (5.0-8.0); Specific Gravity,Urine 1.025 (1.001-1.030)
[2022-05-26 17:40] LABS: African American GFR (CKD) 52.5 (60.0-200.0); Albumin 4.4 g/dL (3.8-4.9); Albumin/Globulin Ratio 2.26 (1.60-3.17); BUN/Creat Ratio 14.32 Ratio (12.00-20.00); Blood Urea Nitrogen 22.2 mg/dL (9.0-27.0); Calcium 9.5 mg/dL (8.7-10.3); Carbon Dioxide 27.8 mmol/L (20.0-27.5); Globulin 1.9 g/dL (1.6-3.3); Non-African American GFR(CKD) 45.3 (60.0-200.0); Potassium 4.6 mmol/L (3.5-5.5); Total Bilirubin 0.2 mg/dL (0.30-1.20); Total Protein 6.3 g/dL (6.2-8.2)
[2022-05-26 17:41] LABS: Bacteria,Urine Trace /HPF (None Seen)
[2022-05-27 12:15] LABS: Ferritin 17.3 ng/mL (22.0-322.0)
[2022-05-27 14:09] LABS: C-ANCA <1:20 Titer (<1:20)
== END | disposition home or self-care (01) ==
LOC: LABWHC1 09:20
PROVIDERS: ATTEND Nurse Practitioner Family
DX: N18.32 Chronic kidney disease, stage 3b (principal); D63.1 Anemia in chronic kidney disease; N39.0 Urinary tract infection, site not specified; E55.9 Vitamin D deficiency, unspecified; M10.9 Gout, unspecified
CPT/HCPCS: 36415; 80053; 81001; 82043; 82306; 82570; 82728; 83516; 83540; 83550; 83735; 83970; 84100; 84550; 85027; 86255

== ENCOUNTER → 2023-03-25 | Outpatient (CLI) | payer MEDICARE, OTHER | END | disposition home or self-care (01) | LOC: LABWHC1 09:41 | PROVIDERS: ATTEND Radiology Radiation Oncology | DX: C61 Malignant neoplasm of prostate (principal); K22.70 Barrett's esophagus without dysplasia; R35.1 Nocturia; Z90.49 Acquired absence of other specified parts of digestive tract | CPT/HCPCS: 36415; 84153 ==

== ENCOUNTER → 2023-09-15 | Outpatient (CLI) | payer MEDICARE, OTHER ==
[2023-09-15 10:14] LABS: INR 0.9 (<1.2); Partial Thromboplastin Time 23.2 sec (22.0-30.0); Prothrombin Time 9.9 sec (10.0-12.5)
--- NOTE | 2023-09-15 10:38 | XR ---
EXAMINATION TYPE: XR chest 2V DATE OF EXAM: 09/15/2023 COMPARISON: 04/05/2019 HISTORY: Preop evaluation TECHNIQUE: Frontal and lateral views of the chest are obtained. FINDINGS: There is no focal air space opacity, pleural effusion, or pneumothorax seen. The cardiac silhouette size is within normal limits. The osseous structures are intact. IMPRESSION: No acute cardiopulmonary process.
[2023-09-15 15:35] LABS: HCT 42.1 % (39.6-50.0); HGB 13.7 g/dL (13.0-17.0); MCH 34.9 pg (27.0-32.0); MCHC 32.5 g/dL (32.0-37.0); MCV 107.1 FL (80.0-97.0); Mean Platelet Volume 12.1 FL (9.5-12.2); NRBC Per 100 WBC 0 X 10*3/uL (0.00-0.01); Platelet Count 166 X 10*3/uL (140-440); RBC 3.93 X 10*6/uL (4.40-5.60); RDW 14.1 % (11.5-14.5); WBC 13.51 X 10*3/uL (4.50-10.00)
[2023-09-15 16:13] LABS: BUN/Creat Ratio 24.69 Ratio (12.00-20.00); Blood Urea Nitrogen 32.1 mg/dL (9.0-27.0); Calcium 9.4 mg/dL (8.7-10.3); Carbon Dioxide 31.2 mmol/L (21.6-31.8); Chloride 100 mmol/L (96-109); Glucose 109 mg/dL (70-110); Potassium 4.7 mmol/L (3.5-5.5); Sodium 141 mmol/L (135-145)
[2023-09-15 16:36] LABS: Basophils # (A) 0.03 X 10*3/uL (0.00-0.10); Basophils % (A) 0.2 %; Eosinophils # (A) 0.15 X 10*3/uL (0.04-0.35); Eosinophils % (A) 1.1 %; Lymphocytes % (A) 5.9 %; Monocytes # (A) 1.13 X 10*3/uL (0.20-1.00); Monocytes % (A) 8.4 %; Neutrophils # (A) 11.33 X 10*3/uL (1.80-7.70); Neutrophils % (A) 83.9 %
== END | disposition home or self-care (01) ==
LOC: LABPAT 08:41
PROVIDERS: ATTEND Orthopaedic Surgery Orthopaedic Surgery of the Spine
DX: Z01.818 Encounter for other preprocedural examination (principal); Z22.322 Carrier or suspected carrier of Methicillin resistant Staphylococcus aureus; M50.00 Cervical disc disorder with myelopathy, unspecified cervical region; R94.31 Abnormal electrocardiogram [ECG] [EKG]
CPT/HCPCS: 71046; 80048; 85025; 85610; 85730; 87070; 93005

== ENCOUNTER 2023-10-02 16:15 | Inpatient (IN) | payer MEDICARE, OTHER ==
--- NOTE | 2023-10-02 16:42 | ED ---
General Adult HPI - General Chief complaint: Shortness of Breath Stated complaint: DOMINIC Time Seen by Provider: 10/02/23 16:25 Source: patient, RN notes reviewed, old records reviewed Mode of arrival: ambulatory Limitations: no limitations - History of Present Illness Initial comments: Patient is a 67-year-old male who presents emergency department complaining of shortness of breath. Has a history of chronic tobacco use, hypertension, hyperlipidemia, prostate cancer. Also has chronic neck pain for which she is being worked up for possible cervical spine surgery with Dr. Crane. Patient states he recently completed treatment for pneumonia on an outpatient basis however over the last 1 to 2 days has gotten worse. Woke up today with nausea and vomiting as well as diarrhea. Denies any abdominal pain or chest pain. Is not normally on oxygen. Denies any known fevers. Has had symmetrical lower extremity pitting edema of his lower EXTR legs for the last few weeks as his cervical spine issue has caused him to be less active at home. Denies any other acute complaints at this time. Was hypoxic on room room air to 87 to 88%. Improved on 2 L nasal cannula. Presents for further evaluation. - Related Data Home Medications Medication Instructions Recorded Confirmed Atorvastatin [Lipitor] 40 mg PO DAILY 04/12/19 10/02/23 Lisinopril-Hctz 20-12.5 mg 1 tab PO DAILY 04/12/19 10/02/23 [Zestoretic 20-12.5] Tamsulosin [Flomax] 0.4 mg PO DAILY 04/12/19 10/02/23 amLODIPine BESYLATE 10 mg PO DAILY 04/12/19 10/02/23 Docusate Sodium [Dok] 100 mg PO DAILY 09/29/23 10/02/23 Ferrous Sulfate [Iron] 325 mg PO DAILY 09/29/23 10/02/23 Folic Acid 0.4 mg PO DAILY 09/29/23 10/02/23 Pantoprazole Sodium [Protonix] 40 mg PO DAILY 10/02/23 10/02/23 Allergies Allergy/AdvReac Type Severity Reaction Status Date / Time No Known Allergies Allergy Verified 10/02/23 17:35 Review of Systems ROS Statement: Those systems with pertinent positive or pertinent negative responses have been documented in the HPI. Review of Systems: CONST: Denies fever EYES: Denies blurry vision ENT: Denies nasal congestion C/V: Denies Chest pain RESP: Endorses cough GI: Endorses nausea, vomiting, diarrhea : Denies dysuria SKIN: Denies rash. MSK: Denies joint pain. NEURO: Denies headache ROS Other: All systems not noted in ROS Statement are negative. Past Medical History Past Medical History: Cancer, GERD/Reflux, Hyperlipidemia, Hypertension, Prostate Disorder Additional Past Medical History / Comment(s): 50% blockage in heart, anemia, tremors, prostate cancer History of Any Multi-Drug Resistant Organisms: None Reported Past Surgical History: Back Surgery, Cholecystectomy Additional Past Anesthesia/Blood Transfusion Reaction / Comment(s): "Woke up during gallbladder surgery." Past Psychological History: No Psychological Hx Reported Smoking Status: Current every day smoker Past Alcohol Use History: None Reported Past Drug Use History: None Reported - Past Family History Brother(s) Family Medical History: Cancer General Exam - General Exam Comments Initial Comments: General: Peers in mild respiratory distress. HEAD: Normal with no signs of head trauma. EYES: PERRLA, EOMI, conjunctiva normal, no discharge. ENT: Hearing grossly intact, normal oropharynx. RESPIRATORY: Coarse breath sounds with bilateral end expiratory wheezing. Hypoxia on room air to 88%. Improved on 2 L nasal cannula. Increased work of breathing. C/V: Regular rate and rhythm. S1 and S2 auscultated, symmetrical bilateral lower extremity pitting edema, peripheral pulses 2+ and intact throughout ABD: Abd is soft, nontender, nondistended EXT: Normal range of motion, no obvious deformity SKIN: No rashes or lesions observed on exposed skin. NEURO: Alert and oriented x 4. No focal deficits. Limitations: no limitations Course Vital Signs 10/02/23 10/02/23 10/02/23 16:26 16:50 17:56 Temperature 98.9 F Pulse Rate 88 96 92 Respiratory 28 H 24 Rate Blood Pressure 121/74 O2 Sat by Pulse 87 L 95 Oximetry 10/02/23 10/02/23 10/02/23 18:08 21:25 21:33 Temperature Pulse Rate 88 79 81 Respiratory Rate Blood Pressure O2 Sat by Pulse Oximetry Medical Decision Making - Medical Decision Making Was pt. sent in by a medical professional or institution (, PA, CORRECTIONAL CAPTAIN, urgent care, hospital, or senior care...) When possible be specific @ -No Did you speak to anyone other than the patient for history (EMS, parent, family, police, friend...)? What history was obtained from this source @ -No Did you review nursing and triage notes (agree or disagree)? Why? @ -I reviewed and agree with nursing and triage notes Were old charts reviewed (outside hosp., previous admission, EMS record, old EKG, old radiological studies, urgent care reports/EKG's, senior care records)? Report findings @ -No old charts were reviewed Differential Diagnosis (chest pain, altered mental status, abdominal pain women, abdominal pain men, vaginal bleeding, weakness, fever, dyspnea, syncope, headache, dizziness, GI bleed, back pain, seizure, CVA, palpatations, mental health, musculoskeletal)? @ -Differential Dyspnea: Coronary syndrome, arrhythmia, tamponade, asthma, COPD, pulmonary embolism, pneumonia, pneumothorax, pulmonary effusion, anaphylaxis, diabetic ketoacidosis, flailed chest, pulmonary contusion, diaphragmatic rupture, anemia, neuromuscular, this is not meant to be an all-inclusive list. EKG interpreted by me (3pts min.). @ -As above X-rays interpreted by me (1pt min.). @ -Chest x-ray shows no obvious acute cardiopulmonary process. CT interpreted by me (1pt min.). @ -None done U/S interpreted by me (1pt. min.). @ -None done What testing was considered but not performed or refused? (CT, X-rays, U/S, labs)? Why? @ -None What meds were considered but not given or refused? Why? @ -None Did you discuss the management of the patient with other professionals (professionals i.e. , PA, CORRECTIONAL CAPTAIN, lab, RT, psych nurse, social services specialist, senior sas developer, teacher, chief school finance officer, special education case manager)? Give summary @ -No Was smoking cessation discussed for >3mins.? @ -No Was critical care preformed (if so, how long)? @ -Yes 32 minutes. Were there social determinants of health that impacted care today? How? (Homelessness, low income, unemployed, alcoholism, drug addiction, transportation, low edu. Level, literacy, decrease access to med. care, custodial, rehab)? @ -No Was there de-escalation of care discussed even if they declined (Discuss DNR or withdrawal of care, Hospice)? DNR status @ -No What co-morbidities impacted this encounter? (DM, HTN, Smoking, COPD, CAD, Cancer, CVA, ARF, Chemo, Hep., AIDS, mental health diagnosis, sleep apnea, morbid obesity)? @ -None Was patient admitted / discharged? Hospital course, mention meds given and route, prescriptions, significant lab abnormalities, going to OR and other pertinent info. @ -Patient presents with new onset hypoxic respiratory failure. I do suspect infectious nature of this as patient had nausea and vomiting and diarrhea as well as productive cough and recent pneumonia. Also has a history of likely undiagnosed COPD with his chronic tobacco history. Patient placed on nasal cannula oxygen. Remainder the vital signs within acceptable limits. Will obtain basic labs, as well as provide DuoNeb breathing treatment, IV steroids and magnesium. Patient also receive IV Zofran. He was in agreement this plan. Chest x-ray unremarkable. EKG unremarkable. Patient's laboratory studies returned remarkable for leukocytosis of 16. Remainder the labs unremarkable including undetectable viral swabs. At this time, I updated the patient. He is still requiring supplemental oxygen at this time however wheezing is improved. I did discuss with him that with his chronic tobacco abuse I do believe he has undiagnosed COPD which is likely the current cause of his symptoms. He will be covered for tracheobronchitis with IV antibiotics and admitted to the hospital with hypoxic respiratory failure requiring nasal cannula oxygen. He will be continued on breathing treatments and IV steroids. Patient was in agreement this plan. Pulmonology consulted. I spoke with the admitting team, Dr. Vale who accepted the admission. Undiagnosed new problem with uncertain prognosis? @ -No Drug Therapy requiring intensive monitoring for toxicity (Heparin, Nitro, Insulin, Cardizem)? @ -No Were any procedures done? @ -No Diagnosis/symptom? @ -COPD, tracheobronchitis, hypoxic respiratory failure Acute, or Chronic, or Acute on Chronic? @ -Acute Uncomplicated (without systemic symptoms) or Complicated (systemic symptoms)? @ -Complicated Side effects of treatment? @ -None Exacerbation, Progression, or Severe Exacerbation] @ -No Poses a threat to life or bodily function? @ -Yes - Lab Data Result diagrams: 10/02/23 16:40 10/02/23 16:40 Lab Results 10/02/23 10/02/23 10/02/23 Range/Units 16:40 16:40 16:40 WBC 16.9 H (3.8-10.6) k/uL RBC 3.83 L (4.30-5.90) m/uL Hgb 13.6 (13.0-17.5) gm/dL Hct 40.5 (39.0-53.0) % MCV 105.8 H (80.0-100.0) fL MCH 35.4 H (25.0-35.0) pg MCHC 33.4 (31.0-37.0) g/dL RDW 13.0 (11.5-15.5) % Plt Count 190 (150-450) k/uL MPV 9.6 Neutrophils % 92 % Lymphocytes % 2 % Monocytes % 5 % Eosinophils % 1 % Basophils % 0 % Neutrophils # 15.6 H (1.3-7.7) k/uL Lymphocytes # 0.3 L (1.0-4.8) k/uL Monocytes # 0.8 (0-1.0) k/uL Eosinophils # 0.1 (0-0.7) k/uL Basophils # 0.0 (0-0.2) k/uL Macrocytosis Slight PT 10.4 (10.0-12.5) sec INR 0.9 (<1.2) APTT 19.0 L (22.0-30.0) sec Sodium 137 (137-145) mmol/L Potassium 4.3 (3.5-5.1) mmol/L Chloride 105 (98-107) mmol/L Carbon Dioxide 26 (22-30) mmol/L Anion Gap 6 mmol/L BUN 36 H (9-20) mg/dL Creatinine 1.06 (0.66-1.25) mg/dL Est GFR (CKD-EPI)AfAm 83 (>60 ml/min/1.73 sqM) Est GFR (CKD-EPI)NonAf 72 (>60 ml/min/1.73 sqM) Glucose 130 H (74-99) mg/dL Plasma Lactic Acid Quinn (0.7-2.0) mmol/L Calcium 8.8 (8.4-10.2) mg/dL Magnesium 1.8 (1.6-2.3) mg/dL Total Bilirubin 0.8 (0.2-1.3) mg/dL AST 23 (17-59) U/L ALT 26 (4-49) U/L Alkaline Phosphatase 74 (38-126) U/L NT-Pro-B Natriuret Pep 50 pg/mL Total Protein 6.1 L (6.3-8.2) g/dL Albumin 3.9 (3.5-5.0) g/dL Influenza Type A (PCR) (Not Detectd) Influenza Type B (PCR) (Not Detectd) RSV (PCR) (Not Detectd) SARS-CoV-2 (PCR) (Not Detectd) 10/02/23 10/02/23 Range/Units 16:40 16:40 WBC (3.8-10.6) k/uL RBC (4.30-5.90) m/uL Hgb (13.0-17.5) gm/dL Hct (39.0-53.0) % MCV (80.0-100.0) fL MCH (25.0-35.0) pg MCHC (31.0-37.0) g/dL RDW (11.5-15.5) % Plt Count (150-450) k/uL MPV Neutrophils % % Lymphocytes % % Monocytes % % Eosinophils % % Basophils % % Neutrophils # (1.3-7.7) k/uL Lymphocytes # (1.0-4.8) k/uL Monocytes # (0-1.0) k/uL Eosinophils # (0-0.7) k/uL Basophils # (0-0.2) k/uL Macrocytosis PT (10.0-12.5) sec INR (<1.2) APTT (22.0-30.0) sec Sodium (137-145) mmol/L Potassium (3.5-5.1) mmol/L Chloride (98-107) mmol/L Carbon Dioxide (22-30) mmol/L Anion Gap mmol/L BUN (9-20) mg/dL Creatinine (0.66-1.25) mg/dL Est GFR (CKD-EPI)AfAm (>60 ml/min/1.73 sqM) Est GFR (CKD-EPI)NonAf (>60 ml/min/1.73 sqM) Glucose (74-99) mg/dL Plasma Lactic Acid Quinn 0.8 (0.7-2.0) mmol/L Calcium (8.4-10.2) mg/dL Magnesium (1.6-2.3) mg/dL Total Bilirubin (0.2-1.3) mg/dL AST (17-59) U/L ALT (4-49) U/L Alkaline Phosphatase (38-126) U/L NT-Pro-B Natriuret Pep pg/mL Total Protein (6.3-8.2) g/dL Albumin (3.5-5.0) g/dL Influenza Type A (PCR) Not Detected (Not Detectd) Influenza Type B (PCR) Not Detected (Not Detectd) RSV (PCR) Not Detected (Not Detectd) SARS-CoV-2 (PCR) Not Detected (Not Detectd) - EKG Data -: EKG Interpreted by Me EKG Comments: 12-lead Electrocardiogram Interpretation Note EKG was reviewed and interpreted by myself. 12-lead ECG performed at 1647 is interpreted by me as revealing normal sinus rhythm at a rate of 96 beats per mi nute. Left axis deviation. AR interval is 175 ms, QRS duration is 67 ms, QTc is 354 ms.. There were no ST or T wave abnormalities to suggest myocardial ischemia or injury. R wave progression across the precordium was satisfactory. By my interpretation this EKG is non-diagnostic for acute ischemia. Critical Care Time Critical Care Time: Yes Total Critical Care Time: 32 Disposition Clinical Impression: COPD (chronic obstructive pulmonary disease), Tracheobronchitis, Hypoxic respiratory failure Disposition: ADMITTED IP TO THIS HOSP Condition: Stable Time of Disposition: 18:25
[2023-10-02 17:04] LABS: Basophils % (A) 0 %; Eosinophils # (A) 0.1 k/uL (0-0.7); Eosinophils % (A) 1 %; HCT 40.5 % (39.0-53.0); HGB 13.6 gm/dL (13.0-17.5); Lymphocytes # (A) 0.3 k/uL (1.0-4.8); Lymphocytes % (A) 2 %; MCH 35.4 pg (25.0-35.0); MCHC 33.4 g/dL (31.0-37.0); MCV 105.8 fL (80.0-100.0); Macrocytosis Slight; Mean Platelet Volume 9.6; Monocytes # (A) 0.8 k/uL (0-1.0); Monocytes % (A) 5 %; Neutrophils # (A) 15.6 k/uL (1.3-7.7); Neutrophils % (A) 92 %; Platelet Count 190 k/uL (150-450); RBC 3.83 m/uL (4.30-5.90); WBC 16.9 k/uL (3.8-10.6)
[2023-10-02] MEDS: methylPREDNISolone SOD SUCCI 125 MG/2 ML VIAL IV STA (17:14)
[2023-10-02 17:15] LABS: ALT 26 U/L (4-49); AST 23 U/L (17-59); African American GFR (CKD) 83 (>60 ml/min/1.73 sqM); Albumin 3.9 g/dL (3.5-5.0); Alkaline Phosphatase 74 U/L (38-126); Anion Gap 6 mmol/L; Blood Urea Nitrogen 36 mg/dL (9-20); Calcium 8.8 mg/dL (8.4-10.2); Carbon Dioxide 26 mmol/L (22-30); Chloride 105 mmol/L (98-107); Glucose 130 mg/dL (74-99); Magnesium 1.8 mg/dL (1.6-2.3); Non-African American GFR(CKD) 72 (>60 ml/min/1.73 sqM); Potassium 4.3 mmol/L (3.5-5.1); Sodium 137 mmol/L (137-145); Total Bilirubin 0.8 mg/dL (0.2-1.3); Total Protein 6.1 g/dL (6.3-8.2)
[2023-10-02] MEDS: ONDANSETRON 4 MG/2 ML VIAL IVP STA (17:15)
--- NOTE | 2023-10-02 17:16 | XR ---
EXAMINATION TYPE: XR chest 2V DATE OF EXAM: 10/02/2023 5:12 PM CLINICAL INDICATION:Male, 67 years old with history of difficulty breathing; [facility] COMPARISON: Chest radiographs from 09/15/2023 TECHNIQUE: XR chest 2V Frontal and lateral views of the chest. FINDINGS: Lungs/Pleura: Low lung volumes are present. There is no evidence of pleural effusion, focal consolida tion, or pneumothorax. Pulmonary vascularity: Unremarkable. Heart/mediastinum: Cardiomediastinal silhouette is unremarkable. Musculoskeletal: No acute osseous pathology. IMPRESSION: Low lung volumes with a generalized hazy appearance which could represent atelectasis versus pulmonar y edema correlate with serum BNP.
[2023-10-02 17:18] LABS: INR 0.9 (<1.2); Prothrombin Time 10.4 sec (10.0-12.5)
[2023-10-02] MEDS: MAGNESIUM SULFATE-D5W PMX 1 GM in DEXTROSE/WATER 1 100ML.BAG IVPB STA (17:18)
[2023-10-02 17:23] LABS: NT-Pro-B-Type Natriuretic Pept 50 pg/mL
[2023-10-02] MEDS: IPRATROPIUM-ALBUTEROL 3 ML NEB INHALATION STA (17:56)
[2023-10-02] MEDS ORDERED: ACETAMINOPHEN TAB 325 MG TAB PO PRN (18:18)
[2023-10-02] MEDS ORDERED: NALOXONE 0.4 MG/ML 1 ML VIAL IV PRN (18:18)
[2023-10-02] MEDS ORDERED: ONDANSETRON 4 MG/2 ML VIAL IVP PRN (18:18)
[2023-10-02] MEDS: IPRATROPIUM-ALBUTEROL 3 ML NEB INHALATION SCH (21:24)
[2023-10-02] MEDS: methylPREDNISolone SOD SUCCI 40 MG/ML 1 ML VIAL IV SCH (21:47)
[2023-10-02] MEDS: DOXYCYCLINE 100 MG in SODIUM CHLORIDE 0.9% 100 ML IVPB SCH (21:50)
[2023-10-02] MEDS: HEPARIN SODIUM,PORCINE 5,000 UNIT/ML 1 ML VIAL SQ SCH (23:54)
[2023-10-03 00:54] LABS: ABG Base Excess 5.2 mmol/L; ABG HCO3 31 mmol/L (21-25); ABG Oxygen Saturation 93.7 % (94-97); ABG PCO2 51 mmHg (35-45); ABG PH 7.39 (7.35-7.45); ABG PO2 70 mmHg (83-108); Allen Test Performed? Yes
--- NOTE | 2023-10-03 01:52 | P.HPIM ---
History of Present Illness H&P Date: 10/02/23 Chief Complaint: Generalized weakness diarrhea 67-year-old male with history of prostate cancer, hypertension, COPD not on home oxygen, CKD 3 Patient coming in for evaluation of 2-day history of generalized weakness worsening fatigue 1 day history of repeated diarrhea. Today while he was in the bathroom feeling very weak having diarrhea he sustained a fall denies any loss of consciousness or head injury he reports some occasional streaks of blood in his diarrhea but relates that to history of hemorrhoids he was feeling sick to the stomach but denies any vomiting he denies any coughing sore throat fevers however he recently was diagnosed with pneumonia and was treated with antibiotics and inhalers. Normally he does not use inhalers but have long history of smoking. Patient also reports bilateral lower extremity DVT but this may go ago for multiple weeks he relates that to decreased activity and being wheelchair dependent since his severe neck pain has progressed to requiring cervical spine surgery which is we waiting on Otherwise patient denies any known sick contacts recent travel or hospital stay. He does admit to recently using antibiotics for pneumonia. He is wheelchair dependent secondary to lower extremity weakness due to cervical spine degenerative joint disease review of systems Pertinent positives as noted in HPI. All other systems were reviewed and are negative on exam Constitutional: No acute distress, conversant, pleasant Eyes: Anicteric sclerae, moist conjunctiva, Pupils equal round reactive to light ENMT: NC/AT Oropharynx clear, no erythema, or exudates Neck: Supple, no masses, positive JVD No carotid bruits No thyromegaly Lungs: Clear to auscultation Clear to percussion Normal respiratory effort, no accessory muscle use Cardiovascular: Heart regular in rate and rhythm, No murmurs, gallops, or rubs +2 bilateral peripheral edema Abdominal: Soft Nontender, no guarding, rebound or rigidity Abdomen moving with respiration Normoactive bowel sounds Extremities: No digital cyanosis No clubbing Pedal pulses intact and symmetrical Radial pulses intact and symmetrical No calf tenderness Psychiatric: Alert and oriented to person, place and time Appropriate affect fair judgement Neuro Muscles Strength 4/5 in all 4 extremities Sensation to light touch grossly present throughout Cranial nerves II-XII grossly intact Past Medical History Past Medical History: Cancer, GERD/Reflux, Hyperlipidemia, Hypertension, Prostate Disorder Additional Past Medical History / Comment(s): 50% blockage in heart, anemia, tremors, prostate cancer History of Any Multi-Drug Resistant Organisms: None Reported Past Surgical History: Back Surgery, Cholecystectomy Additional Past Anesthesia/Blood Transfusion Reaction / Comment(s): "Woke up during gallbladder surgery." Past Psychological History: No Psychological Hx Reported Smoking Status: Current every day smoker Past Alcohol Use History: None Reported Past Drug Use History: None Reported - Past Family History Brother(s) Family Medical History: Cancer Medications and Allergies Home Medications Medication Instructions Recorded Confirmed Type Atorvastatin [Lipitor] 40 mg PO DAILY 04/12/19 10/02/23 History Lisinopril-Hctz 20-12.5 mg 1 tab PO DAILY 04/12/19 10/02/23 History [Zestoretic 20-12.5] Tamsulosin [Flomax] 0.4 mg PO DAILY 04/12/19 10/02/23 History amLODIPine BESYLATE 10 mg PO DAILY 04/12/19 10/02/23 History Docusate Sodium [Dok] 100 mg PO DAILY 09/29/23 10/02/23 History Ferrous Sulfate [Iron] 325 mg PO DAILY 09/29/23 10/02/23 History Folic Acid 0.4 mg PO DAILY 09/29/23 10/02/23 History Pantoprazole Sodium [Protonix] 40 mg PO DAILY 10/02/23 10/02/23 History Allergies Allergy/AdvReac Type Severity Reaction Status Date / Time No Known Allergies Allergy Verified 10/02/23 17:35 Physical Exam Vitals: Vital Signs Temp Pulse Resp BP Pulse Ox 10/03/23 01:20 87 10/03/23 01:11 87 20 117/62 92 L 10/03/23 01:05 85 10/03/23 00:00 77 20 120/75 92 L 10/02/23 23:00 82 20 128/77 93 L 10/02/23 22:00 77 20 153/64 94 L 10/02/23 21:52 98 20 129/76 98 10/02/23 21:33 81 10/02/23 21:25 79 10/02/23 19:00 101 H 20 136/78 94 L 10/02/23 18:08 88 10/02/23 17:56 92 10/02/23 17:00 98 20 121/77 95 10/02/23 16:50 96 24 95 10/02/23 16:26 98.9 F 88 28 H 121/74 87 L Intake and Output 10/02/23 10/02/23 10/03/23 14:59 22:59 06:59 Other: Weight 104.326 kg Results CBC & Chem 7: 10/02/23 16:40 10/02/23 16:40 Labs: Abnormal Lab Results - Last 24 Hours (Table) 10/02/23 10/02/23 10/02/23 Range/Units 16:40 16:40 16:40 WBC 16.9 H (3.8-10.6) k/uL RBC 3.83 L (4.30-5.90) m/uL MCV 105.8 H (80.0-100.0) fL MCH 35.4 H (25.0-35.0) pg Neutrophils # 15.6 H (1.3-7.7) k/uL Lymphocytes # 0.3 L (1.0-4.8) k/uL APTT 19.0 L (22.0-30.0) sec BUN 36 H (9-20) mg/dL Glucose 130 H (74-99) mg/dL Total Protein 6.1 L (6.3-8.2) g/dL Assessment and Plan Assessment: 67-year-old male with hypertension, CKD 3, clinical COPD coming in due to generalized weakness and a fall at home with 1 to 2-day history of new onset diarrhea recently was treated with antibiotics for upper respiratory infection/pneumonia discussed case with ED doctor and accepted the admission for exertional dyspnea to rule out CHF and diarrhea to rule out C. difficile with anticipated length of stay more than 2 midnights Acute hypoxic respiratory failure secondary to COPD exacerbation COPD exacerbation Chest x-ray showing pulmonary vascular congestion Acute respiratory viral panel negative for RSV influenza and COVID White count 16.9 elevated afebrile Follow-up cultures Continue with doxycycline 100 mg twice daily which was started as an anti- inflammatory for COPD exacerbation IV systemic steroids with Solu-Medrol 60 mg every 6 hours DuoNebs scheduled and as needed Acute diarrhea with recent treatment with antibiotic for pneumonia Check C. difficile Supportive care Bilateral leg edema and exertional dyspnea Rule out CHF check echocardiogram IV Lasix 20 mg IV push daily Daily weight Fluid restriction 2 L daily Hypertension controlled continue with Norvasc and lisinopril CKD 3 stable Avoid nephrotoxic meds Sodium 137 potassium 4.3 BUN 36 creatinine 1.06 BMP negative Chronic neck pain Patient has scheduled follow-up with orthospine for possible surgical intervention on her cervical spine once medically cleared and stable Pain control Full code DVT prophylaxis heparin subcu 3 times daily
--- NOTE | 2023-10-03 02:59 | P.CNPUL ---
History of Present Illness Consult date: 10/03/23 Requesting physician: Spike Trotter Reason for consult: COPD Chief complaint: Shortness of breath History of present illness: Patient is a 67-year-old white male with past medical history significant for chronic ongoing tobacco dependence, prostate cancer status post radiation, hypertension, hyperlipidemia, GERD, chronic kidney disease, among other things. His primary care provider is Dr. Castellano. Patient is a long-term tobacco smoker and does currently smoke approximately 1/2 pack/day. Denies ever previously being diagnosed with any lung disease such as COPD or asthma. Patient presented to the emergency room yesterday afternoon chiefly complaining of shortness of breath. States that he was recently treated outpatient for pneumonia 2 to 3 weeks ago. He was given a round of steroids and antibiotics, and initially felt better. States he finished his round of antibiotics and steroids. Since then, he is progressively more short of breath. He has occasional cough with a small amount of yellow sputum production. Denies hemoptysis. Denies chest pain. Denies fevers. He does admit some intermittent episodes of diarrhea. Denies mauricio blood or melanotic stools. Denies any significant abdominal pain. Denies nausea or vomiting. Oral intake has been reportedly good. Denies any urinary complaints. Patient is currently in the emergency department, room 22. He is on 2 L/min nasal cannula. SpO2 is 94%. He is lethargic, but does awaken and answer my questions and follows commands. He does quickly fall back asleep without verbal stimulation. ABG is a PaO2 of 70, pCO2 of 51, pH of 7.39. This was done on 2 L/min nasal cannula. Hypercapnia is compensated and likely chronic. Chest x-ray on arrival shows low lung volumes with generalized hazy appearance, likely atelectasis. NT proBNP only 50. Negative for influenza, RSV, COVID. CBC on arrival: WBC count 16.9, hemoglobin 13.6, hematocrit 40.5, platelets 190. BMP on arrival unremarkable. Afebrile. Vital signs are stable. Review of Systems REVIEW OF SYSTEMS: CONSTITUTIONAL: Denies any recent significant weight loss or weight gain. EYES: Denies change in vision. EARS, NOSE, MOUTH, THROAT: Denies headaches, denies sore throat. CARDIOVASCULAR: Denies chest pain, palpitations or syncopal episodes. Does admit some bilateral lower extremity swelling, noticed over the last 2 weeks.. RESPIRATORY: See HPI. GASTROINTESTINAL: See HPI GENITOURINARY: Denies hematuria, denies infections. MUSKULOSKELETAL: Denies pain, denies swelling. INTEGUMENTARY: Denies rash, denies eczema. NEUROLOGICAL: Denies recent memory loss, no recent seizure activity. PSYCHIATRIC: Denies anxiety, denies depression. HEMATOLOGIC/LYMPHATIC: Denies anemia, denies enlarged lymph node Past Medical History Past Medical History: Cancer, GERD/Reflux, Hyperlipidemia, Hypertension, Prostate Disorder Additional Past Medical History / Comment(s): 50% blockage in heart, anemia, tremors, prostate cancer History of Any Multi-Drug Resistant Organisms: None Reported Past Surgical History: Back Surgery, Cholecystectomy Additional Past Anesthesia/Blood Transfusion Reaction / Comment(s): "Woke up during gallbladder surgery." Past Psychological History: No Psychological Hx Reported Smoking Status: Current every day smoker Past Alcohol Use History: None Reported Past Drug Use History: None Reported - Past Family History Brother(s) Family Medical History: Cancer Medications and Allergies Home Medications Medication Instructions Recorded Confirmed Type Atorvastatin [Lipitor] 40 mg PO DAILY 04/12/19 10/02/23 History Lisinopril-Hctz 20-12.5 mg 1 tab PO DAILY 04/12/19 10/02/23 History [Zestoretic 20-12.5] Tamsulosin [Flomax] 0.4 mg PO DAILY 04/12/19 10/02/23 History amLODIPine BESYLATE 10 mg PO DAILY 04/12/19 10/02/23 History Docusate Sodium [Dok] 100 mg PO DAILY 09/29/23 10/02/23 History Ferrous Sulfate [Iron] 325 mg PO DAILY 09/29/23 10/02/23 History Folic Acid 0.4 mg PO DAILY 09/29/23 10/02/23 History Pantoprazole Sodium [Protonix] 40 mg PO DAILY 10/02/23 10/02/23 History Allergies Allergy/AdvReac Type Severity Reaction Status Date / Time No Known Allergies Allergy Verified 10/02/23 17:35 Physical Exam Vitals: Vital Signs Temp Pulse Resp BP Pulse Ox 10/03/23 01:20 87 10/03/23 01:11 87 20 117/62 92 L 10/03/23 01:05 85 05/13/24 00:00 77 20 120/75 92 L 10/02/23 23:00 82 20 128/77 93 L 10/02/23 22:00 77 20 153/64 94 L 10/02/23 21:52 98 20 129/76 98 10/02/23 21:33 81 10/02/23 21:25 79 10/02/23 19:00 101 H 20 136/78 94 L 10/02/23 18:08 88 10/02/23 17:56 92 10/02/23 17:00 98 20 121/77 95 10/02/23 16:50 96 24 95 10/02/23 16:26 98.9 F 88 28 H 121/74 87 L Intake and Output 10/02/23 10/02/23 10/03/23 14:59 22:59 06:59 Other: Weight 104.326 kg GENERAL EXAM: Lethargic, 67-year-old white male, fairly comfortable in no distress. HEAD: Normocephalic and atraumatic EYES: Normal reaction of pupils, equal size. NOSE: Clear with pink turbinates. THROAT: No erythema or exudates. NECK: No masses, no JVD. CHEST: No chest wall deformity. LUNGS: Equal air entry with scattered rhonchi. No crackles, wheezing, or focal dullness. On 2 L/min nasal cannula. SpO2 is 94%. No conversational dyspnea or accessory muscle use while at rest CVS: S1 and S2 normal with no audible murmur, regular rhythm. No extra heart sounds ABDOMEN: No hepatosplenomegaly, active bowel sounds, no guarding or rigidity. SPINE: No scoliosis or deformity SKIN: No rashes CENTRAL NERVOUS SYSTEM: No focal deficits, tone is normal in all 4 extremities. EXTREMITIES: There is mild bilateral lower extremity nonpitting edema. No clubbing, or cyanosis. Peripheral pulses are intact. Results - Laboratory Findings CBC and BMP: 10/02/23 16:40 10/02/23 16:40 PT/INR, D-dimer PT 10.4 sec (10.0-12.5) 10/02/23 16:40 INR 0.9 (<1.2) 10/02/23 16:40 Abnormal lab findings: Abnormal Labs 10/02/23 10/02/23 10/02/23 16:40 16:40 16:40 WBC 16.9 H RBC 3.83 L MCV 105.8 H MCH 35.4 H Neutrophils # 15.6 H Lymphocytes # 0.3 L APTT 19.0 L BUN 36 H Glucose 130 H Total Protein 6.1 L - Diagnostic Findings Chest x-ray: image reviewed Assessment and Plan Assessment: Acute hypoxemic respiratory failure, possibly secondary to acute COPD exacerb ation complicated by acute tracheobronchitis, Chest x-ray on arrival shows low lung volumes with generalized hazy appearance, likely atelectasis. NT proBNP only 50. No focal infiltrates or evidence of pneumonia. Negative for influenza, RSV, COVID. Acute leukocytosis Reportedly recently treated outpatient for pneumonia Frequent bouts of diarrhea and recent antibiotic use, rule out C. difficile Chronic ongoing tobacco dependence, currently smokes 1/2 pack/day Suspect underlying chronic obstructive pulmonary disease Chronic hypercapnic respiratory failure, likely secondary to above Bilateral lower extremity edema History of prostate cancer status post radiation History of hypertension History of hyperlipidemia History of GERD without esophagitis History of chronic kidney disease, stage III Plan: Patient's medications, labs, chest x-ray reviewed Continue supplemental oxygen, currently on 2 L/min nasal cannula Patient likely has some underlying COPD, will continue combination of DuoNebs and IV Solu-Medrol Continue empiric doxycycline, which was initiated in the emergency room Encourage pulmonary toileting Smoking cessation encouraged and nicotine replacement offered Echocardiogram is pending Check C. difficile We will continue to follow I have personally seen and examined the patient, performed the documentation and the assessment and plan as written. Number of minutes spent on the visit:20 . Time with Patient: Greater than 30
[2023-10-03 03:35] LABS: Appearance,Urine Clear (Clear); Bilirubin,Urine Negative (Negative); Blood,Urine Negative (Negative); Color,Urine Yellow; Glucose,Urine (UA) Negative (Negative); Ketones,Urine Negative (Negative); Leukocyte Esterase,Urine Negative (Negative); Nitrite,Urine Negative (Negative); Protein,Urine Trace (Negative); Urobilinogen,Urine <2.0 mg/dL (<2.0)
[2023-10-03] MEDS: methylPREDNISolone SOD SUCCI 40 MG/ML 1 ML VIAL IV SCH (08:46)
[2023-10-03] MEDS: DOCUSATE 100 MG CAP PO SCH (08:47)
[2023-10-03] MEDS: FUROSEMIDE 10 MG/ML 2 ML VIAL IV SCH (08:47)
[2023-10-03] MEDS: ATORVASTATIN 40 MG TAB PO SCH (08:47)
[2023-10-03] MEDS: FERROUS SULFATE 325 MG TAB PO SCH (08:48)
[2023-10-03] MEDS: PANTOPRAZOLE 40 MG TABLET PO SCH (08:48)
[2023-10-03] MEDS: NICOTINE 21MG/24HR PATCH TRANSDERM SCH (08:48)
[2023-10-03] MEDS: TAMSULOSIN 0.4 MG CAP.ER.24H PO SCH (08:48)
[2023-10-03] MEDS: amLODIPine 10 MG TAB PO SCH (08:48)
[2023-10-03 09:06] LABS: Basophils # (A) 0.01 X 10*3/uL (0.00-0.10); Basophils % (A) 0.1 %; Eosinophils # (A) 0 X 10*3/uL (0.04-0.35); Eosinophils % (A) 0 %; HCT 36.9 % (39.6-50.0); HGB 12.3 g/dL (13.0-17.0); Lymphocytes # (A) 0.21 X 10*3/uL (0.90-5.00); Lymphocytes % (A) 2.3 %; MCH 35.8 pg (27.0-32.0); MCHC 33.3 g/dL (32.0-37.0); MCV 107.3 FL (80.0-97.0); Mean Platelet Volume 12.5 FL (9.5-12.2); Monocytes # (A) 0.06 X 10*3/uL (0.20-1.00); Monocytes % (A) 0.6 %; NRBC Per 100 WBC 0 X 10*3/uL (0.00-0.01); Neutrophils # (A) 8.94 X 10*3/uL (1.80-7.70); Neutrophils % (A) 96.5 %; Platelet Count 155 X 10*3/uL (140-440); RBC 3.44 X 10*6/uL (4.40-5.60); RDW 13.2 % (11.5-14.5); WBC 9.27 X 10*3/uL (4.50-10.00)
[2023-10-03 09:15] LABS: ALT 22 U/L (10-49); AST 20 U/L (14-35); Alkaline Phosphatase 70 U/L (41-126); Blood Urea Nitrogen 31.9 mg/dL (9.0-27.0); Calcium 9.1 mg/dL (8.7-10.3); Carbon Dioxide 26.5 mmol/L (21.6-31.8); Chloride 102 mmol/L (96-109); Globulin 1.6 g/dL (1.6-3.3); Glucose 157 mg/dL (70-110); Potassium 4.3 mmol/L (3.5-5.5); Sodium 140 mmol/L (135-145); Total Bilirubin 0.5 mg/dL (0.3-1.2); Total Protein 5.6 g/dL (6.2-8.2)
[2023-10-03] MEDS: LISINOPRIL-HCTZ 20-12.5 MG 1 EACH TAB PO SCH (09:41)
--- NOTE | 2023-10-03 12:49 | CA ---
Transthoracic Echo Report Name: Pascual Nolan Age: 67 Gender: M : 1955 Exam Date: 10/03/2023 08:28 Exam Location: [facility] Ht (in): 73 Wt (lb): 230 Ordering Physician: Yamel Nunn MD Attending/Referring Phys: [id number], [facility] Daisy Frey RDCS Procedure CPT: Indications: edema , exertional dyspnea Cardiac Hx: Technical Quality: Fair Contrast 1: Total Dose (mL): Contrast 2: Total Dose (mL): MEASUREMENTS (Male / Female) Normal Values 2D ECHO LV Diastolic Diameter PLAX 4.3 cm 4.2 - 5.9 / 3.9 - 5.3 cm LV Systolic Diameter PLAX 3.1 cm IVS Diastolic Thickness 1.3 cm 0.6 - 1.0 / 0.6 - 0.9 cm LVPW Diastolic Thickness 1.2 cm 0.6 - 1.0 / 0.6 - 0.9 cm LV Relative Wall Thickness 0.6 RV Internal Dim ED PLAX 3.2 cm LA Systolic Diameter LX 3.7 cm 3.0 - 4.0 / 2.7 - 3.8 cm LV Diastolic Volume MOD 4C 115.9 cm??? LV Systolic Volume MOD 4C 50.9 cm??? LV Ejection Fraction MOD 4C 56.1 % LV Cardiac Index MOD 4C 1804.3 cm???/min???m??? LV Diastolic Length 4C 8.6 cm LV Systolic Length 4C 6.5 cm LV Diastolic Volume MOD 2C 80.0 cm??? LV Systolic Volume MOD 2C 34.0 cm??? LV Ejection Fraction MOD 2C 57.5 % LV Cardiac Index MOD 2C 1278.3 cm???/min???m??? LV Diastolic Length 2C 7.6 cm LV Systolic Length 2C 7.1 cm LA Volume 66.2 cm??? 18 - 58 / 22 - 52 cm??? LA Volume Index 28.3 cm???/m??? 16 - 28 cm???/m??? M-MODE Aortic Root Diameter MM 3.5 cm MV E Point Septal Separation 1.5 cm AV Cusp Separation MM 2.5 cm DOPPLER AV Peak Velocity 198.8 cm/s AV Peak Gradient 15.8 mmHg MV Area PHT 3.8 cm??? Mitral E Point Velocity 126.2 cm/s Mitral A Point Velocity 105.3 cm/s Mitral E to A Ratio 1.2 MV Deceleration Time 198.5 ms TR Peak Velocity 304.1 cm/s TR Peak Gradient 37.0 mmHg Right Ventricular Systolic Press 42.0 mmHg FINDINGS Left Ventricle Left ventricular ejection fraction is estimated at 55-60 %. Left ventricular cavity size normal. Normal left ventricular systolic function with no obvious regional wall motion abnormalities. Mildly increased left ventricular wall thickness. Right Ventricle Normal right ventricular size and function. Mild pulmonary hypertension. Right Atrium Normal right atrial size. Left Atrium Mildly increased left atrial volume. Mitral Valve Structurally normal mitral valve. No mitral stenosis, regurgitation or prolapse. Aortic Valve Trileaflet aortic valve. No aortic valve stenosis or regurgitation. Tricuspid Valve Structurally normal tricuspid valve. Mild tricuspid regurgitation. Pulmonic Valve Pulmonic valve not well visualized. . No pulmonic regurgitation. Pericardium No pericardial effusion. Aorta Normal size aortic root and proximal ascending aorta. CONCLUSIONS 1. Normal ventricle size and systolic function 2. Limited Doppler study with mild tricuspid regurgitation and mild pulmonary hypertension Previewed by: Dr. Veda Tomlin MD (Electronically Signed) Final Date: 03 Oct 2023 12:48
--- NOTE | 2023-10-03 16:37 | P.PN ---
Subjective Progress Note Date: 10/03/23 Hospital Course: 67-year-old male with history of prostate cancer, hypertension, COPD, CKD stage III, GERD, dyslipidemia, CAD presenting with generalized weakness and fatigue and history of repeated diarrhea. Patient is wheelchair dependent secondary to lower extremity weakness due to cervical spine degenerative joint disease. Patient is not on any oxygen at home. On initial presentation his respiratory was 28, saturating at 87% on room air. WBC was 16.9, creatinine 1.06, proBNP 50, respiratory viral panel negative. Chest x-ray independently interpreted showed interstitial opacities. Echocardiogram showed LVEF 55 to 60%, EKG showed normal sinus rhythm patient admitted for COPD exacerbation. Pulmonology consulted. Subjective: Patient seen and examined at bedside. No acute events overnight. Shortness of breath is improved. Has been having some cough. Denies any further bowel movements. Pertinent positives and negatives as discussed above, a complete review of systems was performed and all other systems are negative. Vitals Signs Reviewed. General: Nontoxic, no distress, appears at stated age Derm: Warm, dry Head: Atraumatic, normocephalic, symmetric Eyes: EOMI, no lid lag, anicteric sclera Mouth: No lip lesion, mucus membranes moist Cardiovascular: S1S2 reg, no murmur Lungs: Scattered wheezing, no accessory muscle use, supplemental oxygen Abdominal: Soft, nontender to palpation, no guarding, no appreciable organomegaly Ext: No gross muscle atrophy, trace peripheral edema, no contractures Neuro: CN II-XI grossly intact, no focal neuro deficits Psych: Alert, oriented, appropriate affect Data Reviewed Today: Pertinent Labs: Hemoglobin 12.3, creatinine 1.1 Imaging: Echocardiogram showed normal LV systolic function Assessment and Plan: Active: Acute hypoxic respiratory failure secondary to COPD exacerbation Nicotine dependence -Pulmonology note reviewed, continue empiric doxycycline 100 mg IV every 12 hours, wean oxygen, DuoNebs every 4 hours, Solu-Medrol 40 IV every 8 hours -Echocardiogram showed normal LV systolic function, proBNP has not been elevated, less likely to be CHF exacerbation -Patient is on Lasix 20 IV daily, will change to oral Lasix tomorrow, monitor renal function and electrolytes Chronic neck pain Wheelchair dependent Chronic debility -Was planned for outpatient surgical repair of cervical spine on Tuesday, however this would need to be pushed due to acute illness -Communicated with orthopedic surgery team's PA Resolved: Leukocytosis, likely reactive Chronic: Hypertension Dyslipidemia GERD BPH DVT ppx: Subcu heparin Code status: Full code Anticipated discharge place: Pending clinical course Anticipated discharge time: Pending clinical course Objective - Vital Signs Vital signs: Vital Signs Temp 98.2 F 10/03/23 12:50 Pulse 75 10/03/23 15:50 Resp 18 10/03/23 15:50 BP 100/68 10/03/23 12:50 Pulse Ox 92 L 10/03/23 12:50 FiO2 Intake & Output 10/02/23 10/03/23 10/03/23 18:59 06:59 18:59 Weight 104.326 kg - Labs CBC & Chem 7: 10/03/23 02:57 10/03/23 02:57 Labs: Abnormal Lab Results - Last 24 Hours (Table) 10/02/23 10/02/23 10/02/23 Range/Units 16:40 16:40 16:40 WBC 16.9 H (3.8-10.6) k/uL RBC 3.83 L (4.30-5.90) m/uL Hgb (13.0-17.0) g/dL Hct (39.6-50.0) % MCV 105.8 H (80.0-100.0) fL MCH 35.4 H (25.0-35.0) pg MPV (9.5-12.2) FL Immature Gran # (0.00-0.04) X 10*3/uL Neutrophils # 15.6 H (1.3-7.7) k/uL Lymphocytes # 0.3 L (1.0-4.8) k/uL Monocytes # (0.20-1.00) X 10*3/uL Eosinophils # (0.04-0.35) X 10*3/uL APTT 19.0 L (22.0-30.0) sec ABG pCO2 (35-45) mmHg ABG pO2 (83-108) mmHg ABG HCO3 (21-25) mmol/L ABG O2 Saturation (94-97) % BUN 36 H (9-20) mg/dL BUN/Creatinine Ratio (12.00-20.00) Ratio Glucose 130 H (74-99) mg/dL Total Protein 6.1 L (6.3-8.2) g/dL Urine Protein (Negative) 10/03/23 10/03/23 10/03/23 Range/Units 00:48 02:57 02:57 WBC (3.8-10.6) k/uL RBC 3.44 L (4.30-5.90) m/uL Hgb 12.3 L (13.0-17.0) g/dL Hct 36.9 L (39.6-50.0) % MCV 107.3 H (80.0-100.0) fL MCH 35.8 H (25.0-35.0) pg MPV 12.5 H (9.5-12.2) FL Immature Gran # 0.05 H (0.00-0.04) X 10*3/uL Neutrophils # 8.94 H (1.3-7.7) k/uL Lymphocytes # 0.21 L (1.0-4.8) k/uL Monocytes # 0.06 L (0.20-1.00) X 10*3/uL Eosinophils # 0 L (0.04-0.35) X 10*3/uL APTT (22.0-30.0) sec ABG pCO2 51 H (35-45) mmHg ABG pO2 70 L (83-108) mmHg ABG HCO3 31 H (21-25) mmol/L ABG O2 Saturation 93.7 L (94-97) % BUN 31.9 H (9-20) mg/dL BUN/Creatinine Ratio 29.00 H (12.00-20.00) Ratio Glucose 157 H (74-99) mg/dL Total Protein 5.6 L (6.3-8.2) g/dL Urine Protein (Negative) 10/03/23 Range/Units 03:12 WBC (3.8-10.6) k/uL RBC (4.30-5.90) m/uL Hgb (13.0-17.0) g/dL Hct (39.6-50.0) % MCV (80.0-100.0) fL MCH (25.0-35.0) pg MPV (9.5-12.2) FL Immature Gran # (0.00-0.04) X 10*3/uL Neutrophils # (1.3-7.7) k/uL Lymphocytes # (1.0-4.8) k/uL Monocytes # (0.20-1.00) X 10*3/uL Eosinophils # (0.04-0.35) X 10*3/uL APTT (22.0-30.0) sec ABG pCO2 (35-45) mmHg ABG pO2 (83-108) mmHg ABG HCO3 (21-25) mmol/L ABG O2 Saturation (94-97) % BUN (9-20) mg/dL BUN/Creatinine Ratio (12.00-20.00) Ratio Glucose (74-99) mg/dL Total Protein (6.3-8.2) g/dL Urine Protein Trace H (Negative)
[2023-10-04 09:01] LABS: BUN/Creat Ratio 32.08 Ratio (12.00-20.00); Blood Urea Nitrogen 38.5 mg/dL (9.0-27.0); Carbon Dioxide 28.9 mmol/L (21.6-31.8); Chloride 100 mmol/L (96-109); Glucose 175 mg/dL (70-110); Potassium 4.2 mmol/L (3.5-5.5); Sodium 140 mmol/L (135-145)
--- NOTE | 2023-10-04 12:47 | P.PN ---
Progress Note - Text Progress Note Date: 10/04/23 Patient is seen and examined today at bedside. He is well-known to our service and he is scheduled for surgery for his severe cervical stenosis with severe cervical myelopathy and upper and lower extremity weakness on schedule for tomorrow for anterior and posterior cervical decompression and fusion. Unfortunately the patient had to be hospitalized due to his acute lung issues. He has a number of medical issues and had significant exacerbation of his breathing and his overall status. He had new generalized weakness and diarrhea. He has occasional falls. This seemed to have had worsened with his breathing issues. Some of this is due to his myelopathy. He was diagnosed with pneumonia and was treated with antibiotics and inhalers. He feels he is making progress here in the hospital. He feels that the medication is helping his lungs and his breathing. He continues to have severe issues at his upper and lower extremities and difficulty with any walking. He is essentially in a wheelchair at home and has severe weakness of the bilateral upper extremities as well. He is eager to try to have surgery at his cervical spine On exam he has significant myelopathic hand bilaterally. He has weakness in his bilateral upper extremities and lower extremities. He has hyperreflexia. He is not able to stand on his own. He is breathing on nebulizer machine. His labs seem to be improving here in the hospital his white count has stabilized. Medicine has been monitoring the patient very closely Assessment and plan Severe cervical myelopathy with severe cervical stenosis scheduled for surgery 10/05/2023, tomorrow Pneumonia, actively being treated Multiple medical histories, issues The patient is making some progress with his medical treatment in terms of his pneumonia. He is eager to have his surgery but medicine does not feel that he would be stable for a significant surgery as scheduled. I would agree with this is that surgery would be quite involved and is scheduled to be somewhat lengthy for 5 to 7 hours. It is difficult to predict if he would be able to recover well from this and be able to be on vented after prolonged operation such as this. I agree with the medical service that I think it would be most felipe to postpone his surgery to make sure that he would be able to tolerate treatment. I understand that he has significant weakness at his upper extremities this has been somewhat chronic for him and does not seem to be acutely worsening. I think that he can have improvement in stabilization of his myelopathy with surgical intervention and I would still plan anterior and posterior cervical spinal surgery. Given his current status of his lungs we may consider staged procedure on separate days rather than 1 lengthy staged operative time. We may be able to break up the anesthesia time 2 under 3 hours for each portion of the procedure rather than 1 lengthy procedure potentially greater than 7 hours. I explained this to him. From a spine standpoint it would be okay for him to be discharged home when he is cleared with medicine and we could potentially plan for surgical intervention next week. We could consider surgery for , October 11 if the patient is cleared for surgical intervention by that point. I answered the patient's questions best my ability. I tried to explain it and discussed the risks involved with his medical status and the proposed surgery. I discussed the possibility of staging the procedure on different days for anterior and posterior cervical decompression and fusion to be done potentially on different days. I also discussed the possibility of surgery next week if he would be able to be cleared with medicine. He understands these things and is agreeable. We will cancel surgery for tomorrow and plan for rescheduling potentially next week
--- NOTE | 2023-10-04 12:55 | P.PN ---
Subjective Progress Note Date: 10/04/23 Patient is a 67-year-old white male with past medical history significant for chronic ongoing tobacco dependence, prostate cancer status post radiation, hypertension, hyperlipidemia, GERD, chronic kidney disease, among other things. His primary care provider is Dr. Castellano. Patient is a long-term tobacco smoker and does currently smoke approximately 1/2 pack/day. Denies ever previously being diagnosed with any lung disease such as COPD or asthma. Patient presented to the emergency room yesterday afternoon chiefly complaining of shortness of breath. States that he was recently treated outpatient for pneumonia 2 to 3 weeks ago. He was given a round of steroids and antibiotics, and initially felt better. States he finished his round of antibiotics and steroids. Since then, he is progressively more short of breath. He has occasional cough with a small amount of yellow sputum production. Denies hemoptysis. Denies chest pain. Denies fevers. He does admit some intermittent episodes of diarrhea. Denies mauricio blood or melanotic stools. Denies any significant abdominal pain. Denies nausea or vomiting. Oral intake has been reportedly good. Denies any urinary complaints. Patient is currently in the emergency department, room 22. He is on 2 L/min nasal cannula. SpO2 is 94%. He is lethargic, but does awaken and answer my questions and follows commands. He does quickly fall back asleep without verbal stimulation. ABG is a PaO2 of 70, pCO2 of 51, pH of 7.39. This was done on 2 L/min nasal cannula. Hypercapnia is compensated and likely chronic. Chest x-ray on arrival shows low lung volumes with generalized hazy appearance, likely atelectasis. NT proBNP only 50. Negative for influenza, RSV, COVID. CBC on arrival: WBC count 16.9, hemoglobin 13.6, hematocrit 40.5, platelets 190. BMP on arrival unremarkable. Afebrile. Vital signs are stable. The patient is seen today October 04, 2023 in follow-up on the regular medical floor. He is currently sitting up in bed. Awake and alert in no acute distress. Maintaining good O2 saturations in the 90s on 2 L/min per nasal cannula. Sodium 140. Potassium 4.2. Bicarb 29. BUN 38. Creatinine 1.2. Glucose 175. He is continued on DuoNeb inhalations. Empiric antibiotics in the form of doxycycline. NicoDerm patch in place. He remains on IV steroids. Remains on IV diuretics. Currently in a negative balance. Echocardiogram reveals a preserved left ventricular systolic function. No significant valvular abnormalities. Objective - Vital Signs Vital signs: Vital Signs Temp 98.2 F 10/04/23 07:31 Pulse 88 10/04/23 12:27 Resp 18 10/04/23 09:35 BP 142/71 10/04/23 07:31 Pulse Ox 95 10/04/23 09:26 FiO2 Intake & Output 10/03/23 10/04/23 10/04/23 18:59 06:59 18:59 Output Total 600 600 Balance -600 -600 Weight 101 kg Output: Urine 600 600 Other: Voiding Method Urinal - Exam GENERAL EXAM: Alert, pleasant 67-year-old male, on 2 L nasal cannula, c omfortable in no apparent distress. HEAD: Normocephalic. EYES: Normal reaction of pupils, equal size. NOSE: Clear with pink turbinates. THROAT: No erythema or exudates. NECK: No masses, no JVD. CHEST: No chest wall deformity. LUNGS: Equal air entry with bibasilar crackles. CVS: S1 and S2 normal with no audible murmur, regular rhythm. ABDOMEN: No hepatosplenomegaly, normal bowel sounds, no guarding or rigidity. SPINE: No scoliosis or deformity SKIN: No rashes CENTRAL NERVOUS SYSTEM: No focal deficits, tone is normal in all 4 extremities. EXTREMITIES: There is no peripheral edema. No clubbing, no cyanosis. Peripheral pulses are intact. - Labs CBC & Chem 7: 10/03/23 02:57 10/04/23 03:49 Labs: Abnormal Lab Results - Last 24 Hours (Table) 10/04/23 Range/Units 03:49 BUN 38.5 H (9.0-27.0) mg/dL BUN/Creatinine Ratio 32.08 H (12.00-20.00) Ratio Glucose 175 H (70-110) mg/dL Assessment and Plan Assessment: Acute hypoxemic respiratory failure, possibly secondary to acute COPD exacerbation complicated by acute tracheobronchitis, Chest x-ray on arrival show s low lung volumes with generalized hazy appearance, likely atelectasis. No focal infiltrates or evidence of pneumonia. Negative for influenza, RSV, COVID. NT proBNP only 50. Echocardiogram reveals preserved left ventricular systolic function. No significant valvular abnormalities. Acute leukocytosis, improved Reportedly recently treated outpatient for pneumonia Frequent bouts of diarrhea and recent antibiotic use, rule out C. difficile Chronic ongoing tobacco dependence, currently smokes 1/2 pack/day Suspect underlying chronic obstructive pulmonary disease Chronic hypercapnic respiratory failure, likely secondary to above Bilateral lower extremity edema History of prostate cancer status post radiation History of hypertension History of hyperlipidemia History of GERD without esophagitis History of chronic kidney disease, stage III Plan: The patient was seen and evaluated Echocardiogram, labs and medications reviewed Continue diuretics Continue empiric antibiotics Continue with bronchodilators and steroids Titrate the FiO2 as tolerated We will continue to follow I have personally seen and examined the patient, performed the documentation and the assessment and plan as written. Number of minutes spent on the visit: 10.
--- NOTE | 2023-10-04 14:11 | P.PN ---
Subjective Progress Note Date: 10/04/23 Hospital Course: 67-year-old male with history of prostate cancer, hypertension, COPD, CKD stage III, GERD, dyslipidemia, CAD presenting with generalized weakness and fatigue and history of repeated diarrhea. Patient is wheelchair dependent secondary to lower extremity weakness due to cervical spine degenerative joint disease. Patient is not on any oxygen at home. On initial presentation his respiratory was 28, saturating at 87% on room air. WBC was 16.9, creatinine 1.06, proBNP 50, respiratory viral panel negative. Chest x-ray independently interpreted showed interstitial opacities. Echocardiogram showed LVEF 55 to 60%, EKG showed normal sinus rhythm patient admitted for COPD exacerbation. Pulmonology consulted. Subjective: Patient seen and examined at bedside. No acute events overnight. Shortness of breath is improved. Has been having some cough. Pertinent positives and negatives as discussed above, a complete review of systems was performed and all other systems are negative. Vitals Signs Reviewed. General: Nontoxic, no distress, appears at stated age Derm: Warm, dry Head: Atraumatic, normocephalic, symmetric Eyes: EOMI, no lid lag, anicteric sclera Mouth: No lip lesion, mucus membranes moist Cardiovascular: S1S2 reg, no murmur Lungs: Scattered wheezing, no accessory muscle use, supplemental oxygen Abdominal: Soft, nontender to palpation, no guarding, no appreciable organomegaly Ext: No gross muscle atrophy, trace peripheral edema, no contractures Neuro: CN II-XI grossly intact, no focal neuro deficits Psych: Alert, oriented, appropriate affect Data Reviewed Today: Pertinent Labs: Creatinine 1.2, magnesium 2 Imaging: No new imaging Assessment and Plan: Active: Acute hypoxic respiratory failure secondary to COPD exacerbation Nicotine dependence -Pulmonology note reviewed, continue current therapy continue empiric doxycycline 100 mg IV every 12 hours, wean oxygen, DuoNebs every 4 hours, Solu- Medrol 40 IV every 8 hours -IV Lasix discontinued, started on oral Lasix 20 daily, CHF exacerbation less likely Chronic neck pain Severe cervical stenosis Wheelchair dependent Chronic debility -Seen by orthospine, plan for surgery next week -Patient would benefit from clearance from pulmonology prior to surgical procedure Resolved: Leukocytosis, likely reactive Chronic: Hypertension Dyslipidemia GERD BPH DVT ppx: Subcu heparin Code status: Full code Anticipated discharge place: Pending clinical course Anticipated discharge time: Pending clinical course Objective - Vital Signs Vital signs: Vital Signs Temp 98 F 10/04/23 13:39 Pulse 105 H 10/04/23 13:39 Resp 18 10/04/23 13:39 BP 91/52 10/04/23 13:39 Pulse Ox 94 L 10/04/23 13:39 FiO2 Intake & Output 10/03/23 10/04/23 10/04/23 18:59 06:59 18:59 Output Total 600 600 Balance -600 -600 Weight 101 kg Output: Urine 600 600 Other: Voiding Method Urinal - Labs CBC & Chem 7: 10/03/23 02:57 10/04/23 03:49 Labs: Abnormal Lab Results - Last 24 Hours (Table) 10/04/23 Range/Units 03:49 BUN 38.5 H (9.0-27.0) mg/dL BUN/Creatinine Ratio 32.08 H (12.00-20.00) Ratio Glucose 175 H (70-110) mg/dL Microbiology - Last 24 Hours (Table) 10/02/23 21:30 Blood Culture - Preliminary Blood 10/02/23 21:15 Blood Culture - Preliminary Blood
[2023-10-05 05:17] LABS: African American GFR (CKD) 78 (>60 ml/min/1.73 sqM); Anion Gap 3 mmol/L; Blood Urea Nitrogen 43 mg/dL (9-20); Carbon Dioxide 31 mmol/L (22-30); Chloride 103 mmol/L (98-107); Glucose 182 mg/dL (74-99); Non-African American GFR(CKD) 68 (>60 ml/min/1.73 sqM); Sodium 137 mmol/L (137-145)
[2023-10-05 05:21] LABS: Basophils % (A) 0 %; Eosinophils % (A) 0 %; HCT 38.2 % (39.0-53.0); HGB 12.7 gm/dL (13.0-17.5); Lymphocytes # (A) 0.4 k/uL (1.0-4.8); Lymphocytes % (A) 2 %; MCH 35.3 pg (25.0-35.0); MCHC 33.3 g/dL (31.0-37.0); Macrocytosis Moderate; Mean Platelet Volume 11.3; Monocytes # (A) 0.6 k/uL (0-1.0); Monocytes % (A) 4 %; Neutrophils # (A) 13.3 k/uL (1.3-7.7); Neutrophils % (A) 93 %; Platelet Count 203 k/uL (150-450); RDW 13.1 % (11.5-15.5); WBC 14.4 k/uL (3.8-10.6)
[2023-10-05] MEDS: FUROSEMIDE 20 MG TAB PO SCH (08:14)
[2023-10-05] MEDS: DOXYCYCLINE 100 MG CAP PO SCH (09:40)
--- NOTE | 2023-10-05 10:14 | P.PN ---
Progress Note - Text Progress Note Date: 10/05/23 Patient is seen and examined Medicine and pulmonary notes are appreciated Patient is continuing his antibiotics and steroid for his exacerbation of COPD. His oxygen saturation is improving and he feels more comfortable with his breathing. He is rescheduled for surgery for his cervical spine due to his severe cervical myelopathy with upper extremity weakness and lower extremity weakness and inability to ambulate and severe cervical stenosis. We are tentatively planning for surgery as soon as October 20, 2023 if he is able to be cleared by medicine and pulmonary medicine by that point. From an orthopedic standpoint it is okay for her to be managed as an outpatient when he is cleared by medicine and should present for his surgery as scheduled if he is able to be cleared.
--- NOTE | 2023-10-05 11:35 | P.PN ---
Subjective Progress Note Date: 10/05/23 Patient is a 67-year-old white male with past medical history significant for chronic ongoing tobacco dependence, prostate cancer status post radiation, hypertension, hyperlipidemia, GERD, chronic kidney disease, among other things. His primary care provider is Dr. Castellano. Patient is a long-term tobacco smoker and does currently smoke approximately 1/2 pack/day. Denies ever previously being diagnosed with any lung disease such as COPD or asthma. Patient presented to the emergency room yesterday afternoon chiefly complaining of shortness of breath. States that he was recently treated outpatient for pneumonia 2 to 3 weeks ago. He was given a round of steroids and antibiotics, and initially felt better. States he finished his round of antibiotics and steroids. Since then, he is progressively more short of breath. He has occasional cough with a small amount of yellow sputum production. Denies hemoptysis. Denies chest pain. Denies fevers. He does admit some intermittent episodes of diarrhea. Denies mauricio blood or melanotic stools. Denies any significant abdominal pain. Denies nausea or vomiting. Oral intake has been reportedly good. Denies any urinary complaints. Patient is currently in the emergency department, room 22. He is on 2 L/min nasal cannula. SpO2 is 94%. He is lethargic, but does awaken and answer my questions and follows commands. He does quickly fall back asleep without verbal stimulation. ABG is a PaO2 of 70, pCO2 of 51, pH of 7.39. This was done on 2 L/min nasal cannula. Hypercapnia is compensated and likely chronic. Chest x-ray on arrival shows low lung volumes with generalized hazy appearance, likely atelectasis. NT proBNP only 50. Negative for influenza, RSV, COVID. CBC on arrival: WBC count 16.9, hemoglobin 13.6, hematocrit 40.5, platelets 190. BMP on arrival unremarkable. Afebrile. Vital signs are stable. The patient is seen today October 04, 2023 in follow-up on the regular medical floor. He is currently sitting up in bed. Awake and alert in no acute distress. Maintaining good O2 saturations in the 90s on 2 L/min per nasal cannula. Sodium 140. Potassium 4.2. Bicarb 29. BUN 38. Creatinine 1.2. Glucose 175. He is continued on DuoNeb inhalations. Empiric antibiotics in the form of doxycycline. NicoDerm patch in place. He remains on IV steroids. Remains on IV diuretics. Currently in a negative balance. Echocardiogram reveals a preserved left ventricular systolic function. No significant valvular abnormalities. The patient is seen today October 05, 2023 in follow-up on the regular medical floor. He remains awake and alert in no acute distress. He is maintaining good O2 saturations in the 90s on 3 L/min per nasal cannula. No IV fluids. Blood cultures revealed no growth. White count 14.4. Hemoglobin 12.7. Platelets 203. Sodium 137. Potassium 4.0. Bicarb 31. BUN 43. Creatinine 1.11. Glucose 182. He remains on DuoNeb inhalations, Solu-Medrol, antibiotics in form of Vibramycin. Continue on oral diuretics. Heparin for DVT prophylaxis. NicoDerm patch in place. Objective - Vital Signs Vital signs: Vital Signs Temp 97.4 F L 10/05/23 07:15 Pulse 87 10/05/23 09:22 Resp 19 10/05/23 07:15 BP 137/74 10/05/23 07:15 Pulse Ox 95 10/05/23 09:10 FiO2 Intake & Output 10/04/23 10/05/23 10/05/23 18:59 06:59 18:59 Intake Total 240 Output Total 1450 500 600 Balance -1450 -500 -360 Intake: Oral 240 Output: Urine 1450 500 600 Other: Voiding Method Urinal Urinal - Exam GENERAL EXAM: Alert, pleasant 67-year-old male, on 3 L nasal cannula, comfortable in no apparent distress. HEAD: Normocephalic. EYES: Normal reaction of pupils, equal size. NOSE: Clear with pink turbinates. THROAT: No erythema or exudates. NECK: No masses, no JVD. CHEST: No chest wall deformity. LUNGS: Equal air entry with bibasilar crackles. CVS: S1 and S2 normal with no audible murmur, regular rhythm. ABDOMEN: No hepatosplenomegaly, normal bowel sounds, no guarding or rigidity. SPINE: No scoliosis or deformity SKIN: No rashes CENTRAL NERVOUS SYSTEM: No focal deficits, tone is normal in all 4 extremities. EXTREMITIES: There is no peripheral edema. No clubbing, no cyanosis. Peripheral pulses are intact. - Labs CBC & Chem 7: 10/05/23 04:00 10/05/23 04:00 Labs: Abnormal Lab Results - Last 24 Hours (Table) 10/05/23 10/05/23 Range/Units 04:00 04:00 WBC 14.4 H (3.8-10.6) k/uL RBC 3.60 L (4.30-5.90) m/uL Hgb 12.7 L (13.0-17.5) gm/dL Hct 38.2 L (39.0-53.0) % MCV 106.0 H (80.0-100.0) fL MCH 35.3 H (25.0-35.0) pg Neutrophils # 13.3 H (1.3-7.7) k/uL Lymphocytes # 0.4 L (1.0-4.8) k/uL Carbon Dioxide 31 H (22-30) mmol/L BUN 43 H (9-20) mg/dL Glucose 182 H (74-99) mg/dL Microbiology - Last 24 Hours (Table) 10/02/23 21:30 Blood Culture - Preliminary Blood 10/02/23 21:15 Blood Culture - Preliminary Blood Assessment and Plan Assessment: Acute hypoxemic respiratory failure, possibly secondary to acute COPD exacerb ation complicated by acute tracheobronchitis, Chest x-ray on arrival shows low lung volumes with generalized hazy appearance, likely atelectasis. No focal infiltrates or evidence of pneumonia. Negative for influenza, RSV, COVID. NT proBNP only 50. Echocardiogram reveals preserved left ventricular systolic function. No significant valvular abnormalities. Acute leukocytosis, improved Reportedly recently treated outpatient for pneumonia Frequent bouts of diarrhea and recent antibiotic use, rule out C. difficile Chronic ongoing tobacco dependence, currently smokes 1/2 pack/day Suspect underlying chronic obstructive pulmonary disease Chronic hypercapnic respiratory failure, likely secondary to above Bilateral lower extremity edema History of prostate cancer status post radiation History of hypertension History of hyperlipidemia History of GERD without esophagitis History of chronic kidney disease, stage III Plan: The patient was seen and evaluated Labs and medications reviewed Transition to oral antibiotics Transition to oral prednisone Titrate down the FiO2 as tolerated Educated regarding the importance of smoking cessation We will continue to follow I have personally seen and examined the patient, performed the documentation and the assessment and plan as written. Number of minutes spent on the visit: 10.
--- NOTE | 2023-10-05 14:14 | P.DS ---
Providers Date of admission: 10/02/23 18:24 Expected date of discharge: 10/05/23 Attending physician: Brooke Garvey DO Consults: 10/02/23 18:18 Consult Physician Routine Consulting Provider: Cristina Stone Consult Reason/Comments: copd, tracheobronchitis Do you want consulting provider notified?: Yes Primary care physician: Stated None Hospital Course: Discharge Diagnosis: Acute hypoxic respiratory failure Acute COPD exacerbation Nicotine dependence Chronic neck pain Severe cervical myelopathy Wheelchair dependent Chronic debility Hospital Course: 67-year-old male with history of prostate cancer, hypertension, COPD, CKD stage III, GERD, dyslipidemia, CAD presenting with generalized weakness and fatigue and history of repeated diarrhea. Patient is wheelchair dependent secondary to lower extremity weakness due to cervical spine degenerative joint disease. Patient is not on any oxygen at home. On initial presentation his respiratory was 28, saturating at 87% on room air. WBC was 16.9, creatinine 1.06, proBNP 50, respiratory viral panel negative. Chest x-ray independently interpreted showed interstitial opacities. Echocardiogram showed LVEF 55 to 60%, EKG showed normal sinus rhythm patient admitted for COPD exacerbation. Pulmonology consulted. Was on IV steroids and bronchodilators. Able to wean off of oxygen. Was seen by Ortho spine surgery, cervical surgery moved to 10/20/2023. Patient will follow-up with pulmonology and get outpatient PFTs prior to his surgery for clearance. Patient seen and examined at bedside. Vital signs reviewed and stable. General: Nontoxic, no distress, appears at stated age Derm: Warm, dry Head: Atraumatic, normocephalic, symmetric Eyes: EOMI, no lid lag, anicteric sclera Mouth: No lip lesion, mucus membranes moist Cardiovascular: S1S2 reg, no murmur Lungs: CTA bilateral, no rhonchi, no rales, no accessory muscle use Abdominal: Soft, nontender to palpation, no guarding, no appreciable organomega ly Ext: No gross muscle atrophy, no edema, no contractures Neuro: CN II-XI grossly intact, no focal neuro deficits Psych: Alert, oriented, appropriate affect A total of 33 minutes of time were spent preparing this complex discharge summary. Patient was discharged on 10/05/2023 at 1410. Patient Condition at Discharge: Stable Plan - Discharge Summary Discharge Rx Participant: Yes New Discharge Prescriptions: New Furosemide [Lasix] 20 mg PO DAILY #60 tab predniSONE [Deltasone] 40 mg PO DAILY #4 tab Budesonide-Formot 160-4.5 Mcg [Symbicort 160-4.5 Mcg Inhaler] 2 puff INHALATION BID #10.2 gm Doxycycline [Vibramycin] 100 mg PO BID #4 cap Continue Tamsulosin [Flomax] 0.4 mg PO DAILY Lisinopril-Hctz 20-12.5 mg [Zestoretic 20-12.5] 1 tab PO DAILY amLODIPine BESYLATE 10 mg PO DAILY Atorvastatin [Lipitor] 40 mg PO DAILY Ferrous Sulfate [Iron] 325 mg PO DAILY Folic Acid 0.4 mg PO DAILY Docusate Sodium [Dok] 100 mg PO DAILY Pantoprazole Sodium [Protonix] 40 mg PO DAILY Discharge Medication List Atorvastatin [Lipitor] 40 mg PO DAILY 04/12/19 [History] Lisinopril-Hctz 20-12.5 mg [Zestoretic 20-12.5] 1 tab PO DAILY 04/12/19 [History] Tamsulosin [Flomax] 0.4 mg PO DAILY 04/12/19 [History] amLODIPine BESYLATE 10 mg PO DAILY 04/12/19 [History] Docusate Sodium [Dok] 100 mg PO DAILY 09/29/23 [History] Ferrous Sulfate [Iron] 325 mg PO DAILY 09/29/23 [History] Folic Acid 0.4 mg PO DAILY 09/29/23 [History] Pantoprazole Sodium [Protonix] 40 mg PO DAILY 10/02/23 [History] Budesonide-Formot 160-4.5 Mcg [Symbicort 160-4.5 Mcg Inhaler] 2 puff INHALATION BID #10.2 gm 10/05/23 [Rx] Doxycycline [Vibramycin] 100 mg PO BID #4 cap 10/05/23 [Rx] Furosemide [Lasix] 20 mg PO DAILY #60 tab 10/05/23 [Rx] predniSONE [Deltasone] 40 mg PO DAILY #4 tab 10/05/23 [Rx] Follow up Appointment(s)/Referral(s): Saul Nobles DO [Doctor of Osteopathic Medicine] - 3 Days (PFT for surgical clearance.) None,Stated [Primary Care Provider] - 1-2 days Patient Instructions/Handouts: COPD (Chronic Obstructive Pulmonary Disease) (DC), Community Acquired Pneumonia (DC) Activity/Diet/Wound Care/Special Instructions: Tentatively scheduled for surgery 10/20/2023 for his cervical spine for stage I cervical decompression fusion Please see pulmonology prior to surgery for clearance. You will need pulmonary function testing as well. Discharge Disposition: HOME SELF-CARE
[2023-10-05 14:30] VITALS: BP 131/74; PULSE 94; RESP 16; TEMP 97.5
[2023-10-06] MEDS ORDERED: predniSONE 20 MG TAB PO SCH (09:00)
== END 2023-10-05 15:05 | disposition home or self-care (01) | DRG 190 ==
LOC: EC 16:15 → 4SSUR 18:24
PROVIDERS: ADMIT Internal Medicine; ATTEND Internal Medicine
DX: J44.1 Chronic obstructive pulmonary disease with (acute) exacerbation (principal); J96.01 Acute respiratory failure with hypoxia; J98.11 Atelectasis; J96.12 Chronic respiratory failure with hypercapnia; M47.12 Other spondylosis with myelopathy, cervical region; J20.9 Acute bronchitis, unspecified; E78.5 Hyperlipidemia, unspecified; F17.210 Nicotine dependence, cigarettes, uncomplicated; G89.29 Other chronic pain; I12.9 Hypertensive chronic kidney disease with stage 1 through stage 4 chronic kidney disease, or unspecified chronic kidney disease; N18.30 Chronic kidney disease, stage 3 unspecified; D64.9 Anemia, unspecified; K21.9 Gastro-esophageal reflux disease without esophagitis; E11.22 Type 2 diabetes mellitus with diabetic chronic kidney disease; I25.10 Atherosclerotic heart disease of native coronary artery without angina pectoris; R53.1 Weakness; Z99.3 Dependence on wheelchair; R19.7 Diarrhea, unspecified; M48.02 Spinal stenosis, cervical region; N40.0 Benign prostatic hyperplasia without lower urinary tract symptoms; J44.0 Chronic obstructive pulmonary disease with (acute) lower respiratory infection; I27.20 Pulmonary hypertension, unspecified; I07.1 Rheumatic tricuspid insufficiency; Z79.899 Other long term (current) drug therapy; Z87.01 Personal history of pneumonia (recurrent); Z92.3 Personal history of irradiation; Z85.46 Personal history of malignant neoplasm of prostate; Z71.6 Tobacco abuse counseling
CPT/HCPCS: 36415; 36600; 71046; 80048; 80053; 81003; 82805; 83605; 83735; 83880; 85025; 85610; 85730; 87040; 87636; 93005; 93306; 94640; 94760; 96365; 96366; 96367; 96372; 96375; 96376; 99291

== ENCOUNTER 2023-10-09 17:56 | Observation (INO) | payer MEDICARE, OTHER ==
[2023-10-09 18:08] VITALS: TEMP 98.3
[2023-10-09] MEDS: SODIUM CHLORIDE 0.9% 1,000 ML IV ONE ×2 (18:26→19:26)
--- NOTE | 2023-10-09 18:30 | ED ---
SOB HPI - General Chief Complaint: Shortness of Breath Stated Complaint: SOB Source: patient, EMS Mode of arrival: EMS - History of Present Illness Initial Comments: 67-year-old male with past medical history of COPD who presents emergency department with shortness of breath. States that today he became acutely short of breath. He does not wear oxygen at home. Patient is only hospitalized for similar. He was discharged home on steroids, doxycycline. He has been taking his medications as directed but continues to feel short of breath and anxious. EMS states that he had significant work of breathing and attempted to put him on a CPAP however he did not tolerate it. Denies any chest pain. No history of congestive heart failure. Denies any fevers or cough. Patient does arrive ma rkedly hypotensive. He was recently started on Lasix. States he has not been eating or drinking much. Does admit to having significant watery stools today. He did take 3 Imodium. Unsure if they were black or bloody as he states he did not look in the toilet. No other alleviating, precipitating or modifying factors - Related Data Home Medications Medication Instructions Recorded Confirmed Atorvastatin [Lipitor] 40 mg PO DAILY 04/12/19 10/02/23 Lisinopril-Hctz 20-12.5 mg 1 tab PO DAILY 04/12/19 10/02/23 [Zestoretic 20-12.5] Tamsulosin [Flomax] 0.4 mg PO DAILY 04/12/19 10/02/23 amLODIPine BESYLATE 10 mg PO DAILY 04/12/19 10/02/23 Docusate Sodium [Dok] 100 mg PO DAILY 09/29/23 10/02/23 Ferrous Sulfate [Iron] 325 mg PO DAILY 09/29/23 10/02/23 Folic Acid 0.4 mg PO DAILY 09/29/23 10/02/23 Pantoprazole Sodium [Protonix] 40 mg PO DAILY 10/02/23 10/02/23 Previous Rx's Medication Instructions Recorded Doxycycline [Vibramycin] 100 mg PO BID #4 cap 10/05/23 Fluticasone/Umeclidin/Vilanter 1 inhalation INHALATION DAILY #1 10/05/23 [Trelegy Ellipta 100-62.5-25] each Furosemide [Lasix] 20 mg PO DAILY #60 tab 10/05/23 predniSONE [Deltasone] 40 mg PO DAILY #4 tab 10/05/23 Allergies Allergy/AdvReac Type Severity Reaction Status Date / Time No Known Allergies Allergy Verified 10/09/23 18:06 Review of Systems ROS Statement: Those systems with pertinent positive or pertinent negative responses have been documented in the HPI. ROS Other: All systems not noted in ROS Statement are negative. Past Medical History Past Medical History: Cancer, COPD, GERD/Reflux, Hyperlipidemia, Hypertension, Prostate Disorder Additional Past Medical History / Comment(s): 50% blockage in heart, anemia, tremors, prostate cancer History of Any Multi-Drug Resistant Organisms: None Reported Past Surgical History: Back Surgery, Cholecystectomy, Heart Catheterization Additional Past Surgical History / Comment(s): heart cath 1995 Additional Past Anesthesia/Blood Transfusion Reaction / Comment(s): "Woke up during gallbladder surgery." Past Psychological History: No Psychological Hx Reported Smoking Status: Current every day smoker Past Alcohol Use History: None Reported Past Drug Use History: None Reported - Past Family History Brother(s) Family Medical History: Cancer Course Vital Signs 10/09/23 10/09/23 10/09/23 17:58 18:00 18:10 Temperature 98.3 F Pulse Rate 80 80 Respiratory 22 24 21 Rate Blood Pressure 80/52 95/52 O2 Sat by Pulse 87 L 98 Oximetry 10/09/23 10/09/23 10/09/23 18:25 18:30 18:50 Temperature Pulse Rate 64 83 70 Respiratory 18 21 22 Rate Blood Pressure 71/53 64/51 88/55 O2 Sat by Pulse 92 L 97 98 Oximetry 10/09/23 10/09/23 10/09/23 19:29 20:00 21:00 Temperature Pulse Rate 63 64 67 Respiratory 18 16 15 Rate Blood Pressure 90/56 86/51 86/68 O2 Sat by Pulse 96 95 96 Oximetry 10/09/23 10/09/23 10/10/23 22:00 23:00 00:53 Temperature Pulse Rate 66 57 L 73 Respiratory 16 15 18 Rate Blood Pressure 96/61 109/73 110/77 O2 Sat by Pulse 95 96 95 Oximetry Medical Decision Making - Medical Decision Making Was pt. sent in by a medical professional or institution (, PA, TECHNICAL SERVICES REPRESENTATIVE, urgent care, hospital, or prison...) When possible be specific @ -[No] Did you speak to anyone other than the patient for history (EMS, parent, family, police, friend...)? What history was obtained from this source @ -[No] Did you review nursing and triage notes (agree or disagree)? Why? @ -[I reviewed and agree with nursing and triage notes] Were old charts reviewed (outside hosp., previous admission, EMS record, old EKG, old radiological studies, urgent care reports/EKG's, prison records)? Report findings @ -[No old charts were reviewed] Differential Diagnosis (chest pain, altered mental status, abdominal pain women, abdominal pain men, vaginal bleeding, weakness, fever, dyspnea, syncope, headache, dizziness, GI bleed, back pain, seizure, CVA, palpatations, mental health, musculoskeletal)? @ -[not applicable] EKG interpreted by me (3pts min.). @ -Yes and demonstrates sinus rhythm with a rate of 72. IA interval 148. QRS 77. QTc of 380. No acute ST segment elevations X-rays interpreted by me (1pt min.). @ -[None done] CT interpreted by me (1pt min.). @ -[None done] U/S interpreted by me (1pt. min.). @ -[None done] What testing was considered but not performed or refused? (CT, X-rays, U/S, labs)? Why? @ -[None] What meds were considered but not given or refused? Why? @ -[None] Did you discuss the management of the patient with other professionals (professionals i.e. , PA, TECHNICAL SERVICES REPRESENTATIVE, lab, RT, psych nurse, geriatric social worker, motorcycle designer, teacher, tactical intelligence officer, rehabilitation case coordinator)? Give summary @ -[No] Was smoking cessation discussed for >3mins.? @ -[No] Was critical care preformed (if so, how long)? @ -[No] Were there social determinants of health that impacted care today? How? (Homelessness, low income, unemployed, alcoholism, drug addiction, transportation, low edu. Level, literacy, decrease access to med. care, residential, rehab)? @ -[No] Was there de-escalation of care discussed even if they declined (Discuss DNR or withdrawal of care, Hospice)? DNR status @ -[No] What co-morbidities impacted this encounter? (DM, HTN, Smoking, COPD, CAD, Cancer, CVA, ARF, Chemo, Hep., AIDS, mental health diagnosis, sleep apnea, morbid obesity)? @ -[None] Was patient admitted / discharged? Hospital course, mention meds given and route, prescriptions, significant lab abnormalities, going to OR and other pertinent info. @ -[hospital course] Undiagnosed new problem with uncertain prognosis? @ -[No] Drug Therapy requiring intensive monitoring for toxicity (Heparin, Nitro, Insulin, Cardizem)? @ -[No] Were any procedures done? @ -[No] Diagnosis/symptom? @ -[default] Acute, or Chronic, or Acute on Chronic? @ -[default] Uncomplicated (without systemic symptoms) or Complicated (systemic symptoms)? @ -[default] Side effects of treatment? @ -[No] Exacerbation, Progression, or Severe Exacerbation? @ -[No] Poses a threat to life or bodily function? How? (Chest pain, [place], [place], pneumonia, PE, COPD, DKA, ARF, appy, cholecystitis, CVA, Diverticulitis, Homicidal, Suicidal, threat to staff... and all critical care pts) @ -[No] - Lab Data Result diagrams: 10/09/23 18:09 10/09/23 18:09 Lab Results 10/09/23 10/09/23 10/09/23 Range/Units 18:09 18:09 18:09 WBC 16.0 H (3.8-10.6) k/uL RBC 4.10 L (4.30-5.90) m/uL Hgb 14.3 (13.0-17.5) gm/dL Hct 42.9 (39.0-53.0) % MCV 104.7 H (80.0-100.0) fL MCH 34.9 (25.0-35.0) pg MCHC 33.4 (31.0-37.0) g/dL RDW 13.1 (11.5-15.5) % Plt Count 118 L (150-450) k/uL MPV 11.0 Neutrophils % 89 % Lymphocytes % 4 % Monocytes % 6 % Eosinophils % 1 % Basophils % 0 % Neutrophils # 14.2 H (1.3-7.7) k/uL Lymphocytes # 0.6 L (1.0-4.8) k/uL Monocytes # 0.9 (0-1.0) k/uL Eosinophils # 0.2 (0-0.7) k/uL Basophils # 0.0 (0-0.2) k/uL Macrocytosis Slight PT 10.1 (10.0-12.5) sec INR 0.9 (<1.2) APTT 16.8 L (22.0-30.0) sec Sodium 135 L (137-145) mmol/L Potassium 4.4 (3.5-5.1) mmol/L Chloride 100 (98-107) mmol/L Carbon Dioxide 28 (22-30) mmol/L Anion Gap 7 mmol/L BUN 50 H (9-20) mg/dL Creatinine 1.96 H (0.66-1.25) mg/dL Est GFR (CKD-EPI)AfAm 39 (>60 ml/min/1.73 sqM) Est GFR (CKD-EPI)NonAf 34 (>60 ml/min/1.73 sqM) Glucose 119 H (74-99) mg/dL Lactic Ac Sepsis Rflx Plasma Lactic Acid Quinn (0.7-2.0) mmol/L Calcium 9.0 (8.4-10.2) mg/dL Total Bilirubin 0.8 (0.2-1.3) mg/dL AST 27 (17-59) U/L ALT 48 (4-49) U/L Alkaline Phosphatase 69 (38-126) U/L Troponin I (0.000-0.034) ng/mL NT-Pro-B Natriuret Pep 71 pg/mL Total Protein 6.2 L (6.3-8.2) g/dL Albumin 3.8 (3.5-5.0) g/dL 10/09/23 10/09/23 10/09/23 Range/Units 18:09 18:09 19:09 WBC (3.8-10.6) k/uL RBC (4.30-5.90) m/uL Hgb (13.0-17.5) gm/dL Hct (39.0-53.0) % MCV (80.0-100.0) fL MCH (25.0-35.0) pg MCHC (31.0-37.0) g/dL RDW (11.5-15.5) % Plt Count (150-450) k/uL MPV Neutrophils % % Lymphocytes % % Monocytes % % Eosinophils % % Basophils % % Neutrophils # (1.3-7.7) k/uL Lymphocytes # (1.0-4.8) k/uL Monocytes # (0-1.0) k/uL Eosinophils # (0-0.7) k/uL Basophils # (0-0.2) k/uL Macrocytosis PT (10.0-12.5) sec INR (<1.2) APTT (22.0-30.0) sec Sodium (137-145) mmol/L Potassium (3.5-5.1) mmol/L Chloride (98-107) mmol/L Carbon Dioxide (22-30) mmol/L Anion Gap mmol/L BUN (9-20) mg/dL Creatinine (0.66-1.25) mg/dL Est GFR (CKD-EPI)AfAm (>60 ml/min/1.73 sqM) Est GFR (CKD-EPI)NonAf (>60 ml/min/1.73 sqM) Glucose (74-99) mg/dL Lactic Ac Sepsis Rflx Y Plasma Lactic Acid Quinn 2.1 H* (0.7-2.0) mmol/L Calcium (8.4-10.2) mg/dL Total Bilirubin (0.2-1.3) mg/dL AST (17-59) U/L ALT (4-49) U/L Alkaline Phosphatase (38-126) U/L Troponin I <0.012 (0.000-0.034) ng/mL NT-Pro-B Natriuret Pep pg/mL Total Protein (6.3-8.2) g/dL Albumin (3.5-5.0) g/dL Disposition Clinical Impression: COPD exacerbation, Hypotension, PAIGE (acute kidney injury) Disposition: ADMITTED IP TO THIS HOSP Condition: Stable Is patient prescribed a controlled substance at d/c from ED?: No Time of Disposition: 20:36 Decision to Admit Reason: Admit from EC Decision Date: 10/09/23 Decision Time: 20:36
[2023-10-09] MEDS: methylPREDNISolone SOD SUCCI 125 MG/2 ML VIAL IV STA (18:32)
[2023-10-09 18:33] LABS: Basophils % (A) 0 %; Eosinophils # (A) 0.2 k/uL (0-0.7); Eosinophils % (A) 1 %; HCT 42.9 % (39.0-53.0); HGB 14.3 gm/dL (13.0-17.5); Lymphocytes # (A) 0.6 k/uL (1.0-4.8); Lymphocytes % (A) 4 %; MCH 34.9 pg (25.0-35.0); MCHC 33.4 g/dL (31.0-37.0); MCV 104.7 fL (80.0-100.0); Macrocytosis Slight; Monocytes # (A) 0.9 k/uL (0-1.0); Monocytes % (A) 6 %; Neutrophils # (A) 14.2 k/uL (1.3-7.7); Neutrophils % (A) 89 %; Platelet Count 118 k/uL (150-450); RDW 13.1 % (11.5-15.5)
[2023-10-09] MEDS: MAGNESIUM SULFATE-D5W PMX 1 GM in DEXTROSE/WATER 1 100ML.BAG IVPB STA (18:33)
--- NOTE | 2023-10-09 18:38 | XR ---
EXAMINATION TYPE: XR chest 2V DATE OF EXAM: 10/09/2023 6:23 PM CLINICAL INDICATION:Male, 67 years old with history of difficulty breathing; [facility] COMPARISON: Chest radiographs from 10/02/2023 TECHNIQUE: XR chest 2V Frontal and lateral views of the chest. FINDINGS: Lungs/Pleura: There is no evidence of pleural effusion, focal consolidation, or pneumothorax. Pulmonary vascularity: Unremarkable. Heart/mediastinum: Cardiomediastinal silhouette is unremarkable. Musculoskeletal: No acute osseous pathology. IMPRESSION: No acute cardiopulmonary disease/process.
[2023-10-09 18:50] LABS: INR 0.9 (<1.2); Prothrombin Time 10.1 sec (10.0-12.5)
[2023-10-09 18:51] LABS: ALT 48 U/L (4-49); AST 27 U/L (17-59); African American GFR (CKD) 39 (>60 ml/min/1.73 sqM); Albumin 3.8 g/dL (3.5-5.0); Alkaline Phosphatase 69 U/L (38-126); Anion Gap 7 mmol/L; Blood Urea Nitrogen 50 mg/dL (9-20); Carbon Dioxide 28 mmol/L (22-30); Chloride 100 mmol/L (98-107); Glucose 119 mg/dL (74-99); Non-African American GFR(CKD) 34 (>60 ml/min/1.73 sqM); Potassium 4.4 mmol/L (3.5-5.1); Sodium 135 mmol/L (137-145); Total Bilirubin 0.8 mg/dL (0.2-1.3); Total Protein 6.2 g/dL (6.3-8.2)
[2023-10-09 18:57] LABS: NT-Pro-B-Type Natriuretic Pept 71 pg/mL
[2023-10-09 19:22] LABS: Partial Thromboplastin Time 16.8 sec (22.0-30.0)
[2023-10-09] MEDS ORDERED: NALOXONE 0.4 MG/ML 1 ML VIAL IV PRN (20:36)
[2023-10-09] MEDS ORDERED: IPRATROPIUM-ALBUTEROL 3 ML NEB INHALATION PRN (21:25)
[2023-10-09] MEDS: SODIUM CHLORIDE 0.9% 1,000 ML IV SCH (21:29)
--- NOTE | 2023-10-10 00:40 | P.HPIM ---
History of Present Illness H&P Date: 10/09/23 Patient is a 67-year-old male with a PMH of COPD, severe cervical myelopathy with chronic debility (wheelchair dependent), who presented to the emergency room with complaints of shortness of breath and diarrhea. The patient reports that he has been experiencing multiple bouts of nonbloody nonmelanotic loose stools throughout the day today. Has been experiencing progressive dyspnea while at rest. Also reports feeling dizzy just prior to arriving at the emergency room. Took 2 Imodium's at home without significant relief of his diarrhea. Denied experiencing abdominal pain, chest discomfort, fever, chills, cough, nausea, vomiting. Reports feeling significantly better at the time of interview. Chest x-ray in the emergency room was unremarkable with EKG showing sinus rhythm at 72 bpm with left axis deviation, with T wave flattening in lead III, as reviewed by me with poor R wave progression. Laboratory evaluation was remarkable for leukocytosis of 16.0, lactic acid 2.1, sodium 135, BUN 50, creatinine 1.96, troponin less than 0.012 with proBNP 71. ED documentation reviewed and case discussed with ED provider. Review of systems: Pertinent positives and negatives as discussed in HPI, a complete review of systems was performed and all other systems are negative. Physical examination: Vital signs reviewed General: non toxic, no distress, appears older than stated age, overweight Derm: no unusual rashes/lesions, warm Head: atraumatic, normocephalic, symmetric Eyes: EOMI, no lid lag, anicteric sclera, pupils equal round reactive to light ENT: Nose and ears atraumatic Neck: No cervical lymphadenopathy, trachea midline, supple Mouth: no lip lesion, mucus membranes moist Cardiovascular: S1S2 reg, no murmur, positive dorsalis pedis pulse bilateral, no edema Lungs: Somewhat diminished air entry bilaterally with expiratory wheezing without rhonchi or rales, no accessory muscle use Abdominal: soft, nontender to palpation, no guarding Ext: muscle strength 4 out of 5 in all 4 extremities grossly, no gross muscle atrophy, no contractures, Neuro: CN II-XI grossly intact, no gross focal neuro deficits Psych: Alert, oriented, appropriate affect Assessment: PAIGE, suspect secondary to dehydration from diarrhea Mild acute COPD exacerbation Lactic acidosis, suspect due to dehydration Thrombocytopenia Chronic conditions: Severe cervical myelopathy Imaging: Chest x-ray in the emergency room was unremarkable with EKG showing sinus rhythm at 72 bpm with left axis deviation, with T wave flattening in lead III, as reviewed by me with poor R wave progression. Data Review: Laboratory evaluation was remarkable for leukocytosis of 16.0, lactic acid 2.1, sodium 135, BUN 50, creatinine 1.96, troponin less than 0.012 with proBNP 71. Plan: Obtain C. difficile testing Continue with IV fluids with normal saline 130 cc/h Continue with prednisone 40 mg p.o. daily DuoNebs [id number] and as needed Cardiac monitoring Monitor BMP and lactic acid levels Monitor CBC DVT prophylaxis: Lovenox subcu The patient is admitted with an anticipated less than 2 midnight stay for evaluation of diarrhea CODE STATUS: Full Code Discussed with: Patient Anticipated discharge place: Home Past Medical History Past Medical History: Cancer, COPD, GERD/Reflux, Hyperlipidemia, Hypertension, Prostate Disorder Additional Past Medical History / Comment(s): 50% blockage in heart, anemia, tremors, prostate cancer History of Any Multi-Drug Resistant Organisms: None Reported Past Surgical History: Back Surgery, Cholecystectomy, Heart Catheterization Additional Past Surgical History / Comment(s): heart cath 1995 Additional Past Anesthesia/Blood Transfusion Reaction / Comment(s): "Woke up during gallbladder surgery." Past Psychological History: No Psychological Hx Reported Smoking Status: Current every day smoker Past Alcohol Use History: None Reported Past Drug Use History: None Reported - Past Family History Brother(s) Family Medical History: Cancer Medications and Allergies Home Medications Medication Instructions Recorded Confirmed Type Atorvastatin [Lipitor] 40 mg PO DAILY 04/12/19 10/02/23 History Lisinopril-Hctz 20-12.5 mg 1 tab PO DAILY 04/12/19 10/02/23 History [Zestoretic 20-12.5] Tamsulosin [Flomax] 0.4 mg PO DAILY 04/12/19 10/02/23 History amLODIPine BESYLATE 10 mg PO DAILY 04/12/19 10/02/23 History Docusate Sodium [Dok] 100 mg PO DAILY 09/29/23 10/02/23 History Ferrous Sulfate [Iron] 325 mg PO DAILY 09/29/23 10/02/23 History Folic Acid 0.4 mg PO DAILY 09/29/23 10/02/23 History Pantoprazole Sodium [Protonix] 40 mg PO DAILY 10/02/23 10/02/23 History Doxycycline [Vibramycin] 100 mg PO BID #4 cap 10/05/23 Rx Fluticasone/Umeclidin/Vilanter 1 inhalation INHALATION DAILY #1 10/05/23 Rx [Trelegy Ellipta 100-62.5-25] each Furosemide [Lasix] 20 mg PO DAILY #60 tab 10/05/23 Rx predniSONE [Deltasone] 40 mg PO DAILY #4 tab 10/05/23 Rx Allergies Allergy/AdvReac Type Severity Reaction Status Date / Time No Known Allergies Allergy Verified 10/09/23 18:06 Physical Exam Vitals: Vital Signs Temp Pulse Resp BP Pulse Ox 10/09/23 23:00 57 L 15 109/73 96 10/09/23 22:00 66 16 96/61 95 10/09/23 21:00 67 15 86/68 96 10/09/23 20:00 64 16 86/51 95 10/09/23 19:29 63 18 90/56 96 10/09/23 18:50 70 22 88/55 98 10/09/23 18:30 83 21 64/51 97 10/09/23 18:25 64 18 71/53 92 L 10/09/23 18:10 80 21 95/52 98 10/09/23 18:00 24 10/09/23 17:58 98.3 F 80 22 80/52 87 L Intake and Output 10/09/23 10/09/23 10/10/23 14:59 22:59 06:59 Other: Weight 91.989 kg Results CBC & Chem 7: 10/10/23 03:05 10/10/23 03:05 Labs: Abnormal Lab Results - Last 24 Hours (Table) 10/09/23 10/09/23 10/09/23 Range/Units 18:09 18:09 18:09 WBC 16.0 H (3.8-10.6) k/uL RBC 4.10 L (4.30-5.90) m/uL MCV 104.7 H (80.0-100.0) fL Plt Count 118 L (150-450) k/uL Neutrophils # 14.2 H (1.3-7.7) k/uL Lymphocytes # 0.6 L (1.0-4.8) k/uL APTT 16.8 L (22.0-30.0) sec Sodium 135 L (137-145) mmol/L BUN 50 H (9-20) mg/dL Creatinine 1.96 H (0.66-1.25) mg/dL Glucose 119 H (74-99) mg/dL Plasma Lactic Acid Quinn (0.7-2.0) mmol/L Total Protein 6.2 L (6.3-8.2) g/dL 10/09/23 Range/Units 18:09 WBC (3.8-10.6) k/uL RBC (4.30-5.90) m/uL MCV (80.0-100.0) fL Plt Count (150-450) k/uL Neutrophils # (1.3-7.7) k/uL Lymphocytes # (1.0-4.8) k/uL APTT (22.0-30.0) sec Sodium (137-145) mmol/L BUN (9-20) mg/dL Creatinine (0.66-1.25) mg/dL Glucose (74-99) mg/dL Plasma Lactic Acid Quinn 2.1 H* (0.7-2.0) mmol/L Total Protein (6.3-8.2) g/dL
[2023-10-10 04:07] LABS: Basophils % (A) 0 %; Eosinophils % (A) 0 %; HCT 39.2 % (39.0-53.0); HGB 13.2 gm/dL (13.0-17.5); Lymphocytes # (A) 0.3 k/uL (1.0-4.8); Lymphocytes % (A) 2 %; MCH 35.3 pg (25.0-35.0); MCHC 33.6 g/dL (31.0-37.0); Macrocytosis Slight; Mean Platelet Volume 10.9; Monocytes # (A) 0.3 k/uL (0-1.0); Monocytes % (A) 2 %; Neutrophils # (A) 16.3 k/uL (1.3-7.7); Neutrophils % (A) 97 %; Platelet Count 176 k/uL (150-450); RBC 3.73 m/uL (4.30-5.90); RDW 13.1 % (11.5-15.5); WBC 16.9 k/uL (3.8-10.6)
[2023-10-10 04:30] LABS: African American GFR (CKD) 58 (>60 ml/min/1.73 sqM); Anion Gap 7 mmol/L; Blood Urea Nitrogen 45 mg/dL (9-20); Calcium 8.4 mg/dL (8.4-10.2); Carbon Dioxide 24 mmol/L (22-30); Chloride 105 mmol/L (98-107); Glucose 174 mg/dL (74-99); Non-African American GFR(CKD) 50 (>60 ml/min/1.73 sqM); Potassium 4.1 mmol/L (3.5-5.1); Sodium 136 mmol/L (137-145)
[2023-10-10 06:21] VITALS: BP 120/70; PULSE 76; RESP 16
[2023-10-10] MEDS ORDERED: IPRATROPIUM-ALBUTEROL 3 ML NEB INHALATION SCH ×2 (08:00)
[2023-10-10] MEDS ORDERED: predniSONE 20 MG TAB PO SCH (09:00)
[2023-10-10] MEDS ORDERED: ENOXAPARIN 40 MG/0.4 ML SYRINGE SQ SCH (09:00)
== END 2023-10-10 06:29 | disposition left against medical advice (07) ==
LOC: EC 17:56 → 3SCARD 20:38
PROVIDERS: ADMIT Internal Medicine; ATTEND Internal Medicine
DX: J44.1 Chronic obstructive pulmonary disease with (acute) exacerbation (principal); N17.9 Acute kidney failure, unspecified; I95.9 Hypotension, unspecified; E87.20 Acidosis, unspecified; R19.7 Diarrhea, unspecified; R53.81 Other malaise; G95.9 Disease of spinal cord, unspecified; D69.6 Thrombocytopenia, unspecified; D72.829 Elevated white blood cell count, unspecified; F17.200 Nicotine dependence, unspecified, uncomplicated; Z99.3 Dependence on wheelchair; Z79.51 Long term (current) use of inhaled steroids; Z79.52 Long term (current) use of systemic steroids; Z79.899 Other long term (current) drug therapy; Z53.29 Procedure and treatment not carried out because of patient's decision for other reasons
CPT/HCPCS: 96361; 96365; 96375; 99285; 36415; 93005; 83880; 80053; 80048; 83605; 84484; 85025 ×2; 85610; 85730; 71046; G0378 ×2; J3475; J2919

== ENCOUNTER → 2023-10-11 | Outpatient (CLI) | payer MEDICARE, OTHER ==
[2023-10-11 09:15] LABS: INR 0.9 (<1.2); Prothrombin Time 10.4 sec (10.0-12.5)
[2023-10-11 09:24] LABS: Partial Thromboplastin Time 21.2 sec (22.0-30.0)
[2023-10-11 15:39] LABS: Basophils # (A) 0.01 X 10*3/uL (0.00-0.10); Basophils % (A) 0.1 %; Eosinophils % (A) 0.9 %; HGB 13.4 g/dL (13.0-17.0); Lymphocytes % (A) 5.2 %; MCH 35.8 pg (27.0-32.0); MCHC 33.5 g/dL (32.0-37.0); Mean Platelet Volume 12.4 FL (9.5-12.2); Monocytes # (A) 0.75 X 10*3/uL (0.20-1.00); Monocytes % (A) 6.5 %; NRBC Per 100 WBC 0 X 10*3/uL (0.00-0.01); Neutrophils # (A) 9.99 X 10*3/uL (1.80-7.70); Neutrophils % (A) 86.7 %; Platelet Count 178 X 10*3/uL (140-440); RBC 3.74 X 10*6/uL (4.40-5.60); RDW 13.2 % (11.5-14.5); WBC 11.52 X 10*3/uL (4.50-10.00)
[2023-10-11 16:04] LABS: BUN/Creat Ratio 29.75 Ratio (12.00-20.00); Blood Urea Nitrogen 35.7 mg/dL (9.0-27.0); Carbon Dioxide 28.2 mmol/L (21.6-31.8); Chloride 103 mmol/L (96-109); Glucose 123 mg/dL (70-110); Potassium 4.6 mmol/L (3.5-5.5); Sodium 143 mmol/L (135-145)
[2023-10-11 16:05] LABS: ALT 43 U/L (10-49); AST 21 U/L (14-35); Albumin 4.1 g/dL (3.8-4.9); Albumin/Globulin Ratio 2.16 Ratio (1.60-3.17); Alkaline Phosphatase 66 U/L (41-126); Calcium 9.7 mg/dL (8.7-10.3); Globulin 1.9 g/dL (1.6-3.3); Total Bilirubin 0.4 mg/dL (0.3-1.2)
== END | disposition home or self-care (01) ==
LOC: LABPAT 08:07
PROVIDERS: ATTEND Orthopaedic Surgery Orthopaedic Surgery of the Spine
DX: Z01.812 Encounter for preprocedural laboratory examination (principal); M48.02 Spinal stenosis, cervical region; Z22.322 Carrier or suspected carrier of Methicillin resistant Staphylococcus aureus
CPT/HCPCS: 36415; 80053; 85025; 85610; 85730; 86850; 86900; 86901; 87070

== ENCOUNTER 2023-10-20 06:26 | Inpatient (IN) | payer MEDICARE, OTHER ==
[~2023-10-20 06:26] MED LIST changes: -BACITRACIN 50,000 UNIT, POLYMYXIN B 500,000 UNIT in SODIUM CHLORIDE 0.9% IRRIGATIO 1,00... IRRIGATION ONE; -DEXAMETHASONE SOD PHOSPHATE 10 MG/ML 1 ML VIAL IV ONE; -HYDROmorphone 0.5 MG/0.5 ML SYRINGE IVP PRN; -LACTATED RINGERS 1,000 ML IV SCH; +LIDOCAINE 1% (10MG/ML) FOR IV START INTRADERMA PRN; -MIDAZOLAM 2 MG/2 ML VIAL IV PRN; -ONDANSETRON 4 MG/2 ML VIAL IVP ONE; +ceFAZolin 1,000 MG in SODIUM CHLORIDE 0.9% IRRIGATIO 1,000 ML IRRIGATION PRN
[2023-10-20] MEDS ORDERED: HYDROmorphone 0.5 MG/0.5 ML SYRINGE IVP PRN ×2 (07:00→11:10)
[2023-10-20] MEDS ORDERED: fentaNYL (PF) 50 MCG/ML 2 ML AMP IVP PRN (07:00)
[2023-10-20 07:08] LABS: Glucose,Whole Blood 122 mg/dL (70-110)
[2023-10-20] MEDS: LACTATED RINGERS 1,000 ML IV SCH (07:17)
[2023-10-20] MEDS: IV FLUID CONTINUATION 1,000 ML IV ONE ×2 (07:18)
[2023-10-20] MEDS: MIDAZOLAM 2 MG/2 ML VIAL IV PRN (07:21)
[2023-10-20] MEDS: ONDANSETRON 4 MG/2 ML VIAL IVP ONE (07:21)
[2023-10-20] MEDS: LACTATED RINGERS 1,000 ML IV ONE ×2 (07:30→08:25)
[2023-10-20] MEDS: THROMBIN (BOVINE) 5,000 UNIT VIAL TOPICAL ONE (08:22)
[2023-10-20] MEDS: BUPIVACAINE (PF) 0.25% 30 ML VIAL SQ ONE (08:22)
[2023-10-20] MEDS: LIDOCAINE 1%-EPI 1:100,000 20 ML VIAL SQ ONE (08:22)
[2023-10-20] MEDS: ceFAZolin 1,000 MG in SODIUM CHLORIDE 0.9% IRRIGATIO 1,000 ML IRRIGATION PRN (08:22)
--- NOTE | 2023-10-20 08:34 | P.ANPRN ---
Procedure Note - Anesthesia - Invasive Line Right Arterial Line Time Out Performed: Yes Date of Procedure: 10/20/23 Time of Procedure: 07:15 Location of Patient: PreOp Preparation: Sterile Prep Arterial Line Location: Radial Ultrasound Used: Yes Purpose - Visualization and Identification of Vasculature: Yes Image Stored and Saved: Yes Narrative: Invasive line placement per sterile protocol utilized.[email or web address].
--- NOTE | 2023-10-20 09:34 | XR ---
EXAMINATION TYPE: XR cervical spine limited (crosstable lateral view) DATE OF EXAM: 10/20/2023 Comparison: None Clinical History: 67-year-old male NEEDLE PLACEMENT Findings: Intraoperative lateral view demonstrating metal needle at the anterior C4-C5 disc interspace. The pat ient is intubated. Impression: Intraoperative view showing metal needle at the anterior C4-C5 disc interspace.
[2023-10-20] MEDS ORDERED: HYDROmorphone 1 MG/ML 1 ML SYRINGE IVP PRN (11:10)
[2023-10-20] MEDS ORDERED: ONDANSETRON 4 MG/2 ML VIAL IVP PRN (11:11)
[2023-10-20] MEDS ORDERED: CYCLOBENZAPRINE 5 MG TAB PO PRN (11:11)
[2023-10-20] MEDS ORDERED: ACETAMINOPHEN TAB 325 MG TAB PO PRN (11:11)
--- NOTE | 2023-10-20 11:20 | P.OP ---
Date of Procedure: 10/20/23 Preoperative Diagnosis: Severe cervical stenosis C3-4 C4-5 C5-6 C6-7, cervical myelopathy, upper extremity weakness, lower extremity weakness, herniated nucleus pulposus C3-4 C4-5 C5-6 C6-7, degenerative disc disease Postoperative Diagnosis: Same Anesthesia: GETA Pathology: none sent Condition: stable Disposition: PACU Description of Procedure: BRIEF OPERATIVE NOTE Preoperative Diagnosis:Severe cervical stenosis C3-4 C4-5 C5-6 C6-7, cervical myelopathy, upper extremity weakness, lower extremity weakness, herniated nucleus pulposus C3-4 C4-5 C5-6 C6-7, degenerative disc disease Postoperative Diagnosis:Severe cervical stenosis C3-4 C4-5 C5-6 C6-7, cervical myelopathy, upper extremity weakness, lower extremity weakness, herniated nucleus pulposus C3-4 C4-5 C5-6 C6-7, degenerative disc disease Procedure: Anterior cervical decompression with discectomy and fusion C3-4 C4-5 C5-6 C6-7 Placement of interbody graft C3-4 C4-5 C5-6 C6-7 Application of anterior cervical plate [id number] Surgeon: Dr. Crane Risk Control Officer: day care assistant Anesthesia: General anesthesia Dr. Spain Estimated blood loss: Approximate 100 cc Complications: None apparent Components implanted: K2M Gry[place]a Ullin anterior cervical plate with screws and Vikos interbody allograft bone graft with 1 cc of DBX bone putty Disposition: To recovery room in good stable condition. OPERATIVE INDICATIONS The patient has had long-standing issues in their neck and upper extremities. He has had significant worsening over the past couple of months. He was having significant changes at his upper extremities and with his gait. He was evaluated and found to have evidence of severe cervical stenosis with cervical myelopathy and myelopathic hand with weakness at his upper extremities and lower extremities stemming from his cervical spine. The patient has been through conservative treatment. On evaluation we felt that his best chance of limiting the issues with his cervical myelopathy and giving him potential for improvement would be to pursue surgical intervention. We discussed various treatment options including surgery, and the patient wishes to proceed with surgery We discussed the risk, patient's alternatives and benefits of surgery including but not limited to, risk of bleeding risk of infection, risk of need for further surgery, risk of decreased, loss of motion, muscle function, malunion nonunion, hardware failure, nerve damage, paralysis, heart attack, and . We had actually scheduled a procedure for anterior and posterior cervical decompression and fusion at an earlier date however the patient has a number of medical issues and we had to be hospitalized. He has been managed appropriately and has had significant improvement and has been cleared for surgical intervention. It was still difficult to determine if he would be able to tolerate both anterior and posterior cervical surgery at one setting and so we decided to split the stage procedure and go ahead with anterior cervical decompression with discectomy and fusion. After discussing all the risk complications alternatives benefits and discussing all the issues as explained above he decided proceed with surgery and signed informed consent. OPERATIVE SUMMARY After discussing all the risks, patient alternatives and benefits at length, the patient elected to proceed with surgical intervention, signed informed consent, and presented for their procedure. The patient was seen and examined in the preoperative holding area and the surgical site was marked. The patient was given antibiotics and brought to the operating room. The patient was positioned on the operating room table in a supine position being careful to pad any bony prominences and pressure points. The patient was sedated and intubated by anesthesia in standard fashion. Once the airway and C- spine were stabilized the patient's arms were padded and tucked at her side, with her shoulders gently taped. The head was placed in a donut pad with the neck in good neutral alignment and position. We were careful to maintain the patient's cervical spine and good neutral alignment and position throughout. The patient was prepped and draped in a normal standard fashion. An appropriate timeout and keystone protocol performed. We were able to proceed with the surgery. The local wound area was infiltrated with local anesthetic. An incision was made longitudinally on the right side approximately 4 cm over the appropriate levels some from C3-C7. Dissection was taken down s ubcutaneously to the level of the platysma which was split in line with its fibers. Dissection was taken with a carotid approach, with the trachea and esophagus medial and the carotid sheath laterally. We dissected down to the anterior surface of the vertebral bodies. Intraoperative x-ray was taken which showed a marker at the appropriate level at C4-5. With the appropriate level positively confirmed, we were able to proceed with discectomy at the appropriate levels. I started at C6-7 and then moved to C5-6 and then C4-5 and then C3-4. All of the operative levels were exposed appropriately. The patient had all their twitches back, and there was no evidence of recurrent laryngeal issue. The wound was copiously irrigated and suctioned dry as had been done periodically throughout the case. At the appropriate level/levels, I first remove the osteophytes with the rongeur and then I was able to approach the disc. I established an annulotomy with an 11 blade scalpel. A discectomy was performed with a combination of pituitary rongeurs, curettes, a high-speed bur, and Kerrison rongeurs. The posterior longitudinal ligament was taken down as were any posterior osteophytes. There was severe central and bilateral foraminal stenosis noted with significant disc herniation. This was remedied with the decompression and discectomy at each level. This gave good central and bilateral foraminal decompression. There is no evidence of any dural tear or leak. The endplates were prepared with a high-speed bur. With the endplates in good parallel position, I was able to size for the appropriate size interbody graft. The wound was irrigated and suctioned dry the graft was prepared and malleted into position. It had good alignment and position with the anterior surface flush with the anterior surface of the vertebral bodies. This was done similarly the appropriate levels at C6-7 and then C5-6 and then C4-5 and then C3-4. With the grafts intact, I was able to measure and contour and appropriate sized plate. The plate was positioned at the midline over the appropriate levels from C3-C7. Screw holes were established with a hand drill and drill guide. Screws were placed in good alignment and position with excellent bony purchase. They were seated under the locking device. I tried to reproduce some cervical lordosis. The construct was checked and found to be stable. Intraoperative x- ray was taken which showed good alignment and position of the implants at the appropriate levels. There was no evidence of any dural tear or leak. Good hemostasis was maintained. The wound was copiously irrigated and suctioned dry as had been done periodically throughout the case. The platysma was closed with absorbable suture. The subcutaneous tissue was closed. The subcuticular tissue was closed with absorbable suture. The wound was cleaned and dried and dressed appropriately. A hard cervical collar was placed appropriately. The patient was woken up by anesthesia, extubated, transferred back gently to their hospital bed and brought to the recovery room in good stable condition. The patient will be admitted to the hospital for appropriate postoperative care, medical management and monitoring. We will continue to follow them closely about the postoperative course.
--- NOTE | 2023-10-20 11:54 | XR ---
EXAMINATION TYPE: XR cervical spine limited DATE OF EXAM: 10/20/2023 Comparison: Earlier today Clinical History: 67-year-old male Hardware Placement Findings and impression: Single intraoperative crosstable lateral view with the patient intubated. Interval placement of C3-C6 ACDF hardware with satisfactory appearing positioning.
[2023-10-20] MEDS: DEXAMETHASONE SOD PHOSPHATE 4 MG/ML 1 ML VIAL IV ONE (12:27)
[2023-10-20] MEDS: SODIUM CHLORIDE 0.9% 1,000 ML IV SCH (12:32)
[2023-10-20] MEDS: ATORVASTATIN 40 MG TAB PO SCH (20:48)
[2023-10-20] MEDS: HYDROcodone/APAP 5-325MG 1 EACH TAB PO PRN (20:48)
[2023-10-20] MEDS: TAMSULOSIN 0.4 MG CAP.ER.24H PO SCH (20:48)
[2023-10-20] MEDS: BENZOCAINE/MENTHOL LOZENG 1 EACH LOZENGE MUCOUS MEM PRN (20:48)
[2023-10-20] MEDS: SYMBICORT 80-4.5 MCG INHALER INHALATION SCH (21:07)
--- NOTE | 2023-10-20 21:22 | CONS ---
CONSULTATION REASON FOR CONSULTATION: Advice regarding hypertension, hyperlipidemia, requested by Orthopedic Surgery. HISTORY OF PRESENT ILLNESS: This is a 67-year-old gentleman with a past medical history of multiple medical problems including hypertension hyperlipidemia, underwent anterior cervical decompression, diskectomy and fusion for severe cervical stenosis, C3-C7. There is no history of any fever, rigors, or chills. The patient is slightly drowsy after surgery. PAST MEDICAL HISTORY: Hypertension, hyperlipidemia. Rest of the history and rest of the chart is also reviewed. HOME MEDICATIONS: Norvasc. Doses and rest of medications reviewed. ALLERGIES: None. FAMILY HISTORY: History of cancer. SOCIAL HISTORY: History of smoking currently. REVIEW OF SYSTEMS: A 14-point review is negative except as mentioned earlier. PHYSICAL EXAMINATION: VITAL SIGNS: Pulse 72, blood pressure 116/66, respirations 20. HEENT: Conjunctivae normal. NECK: Status post surgery. CARDIOVASCULAR: S1, S2. RESPIRATIONS: A few scattered rhonchi. ABDOMEN: Soft, nontender. LEGS: No edema. NERVOUS SYSTEM: No focal deficits. SKIN: No ulcer. LABORATORY DATA: Glucose 122. ASSESSMENT: 1. Status post anterior cervical decompression, diskectomy, and fusion for cervical stenosis, C3-C7. 2. Hypertension. 3. Hyperlipidemia. 4. History of gastroesophageal reflux disease. 5. History of cholecystectomy. RECOMMENDATIONS AND DISCUSSION: In this 67-year-old gentleman, who presented after surgery. At this time, I recommend to continue the current management and continue symptomatic treatment. Baseline labs. Otherwise, incentive spirometry. Resume home medications. Monitor blood sugars. We will follow the patient closely with you. The patient may be asked to follow with Dr. Au closely after discharge. MMODL / IJN: [id number] /
[2023-10-21 04:11] VITALS: TEMP 98.2
--- NOTE | 2023-10-21 08:02 | P.DS ---
Providers Date of admission: 10/20/23 06:26 Attending physician: Yvonne Crane Consults: 10/20/23 11:11 Consult Physician Routine Consulting Provider: Jacki Rodriguez Consult Reason/Comments: Medical management Do you want consulting provider notified?: Yes Primary care physician: [facility] Course: The patient presented on the day of admission as per their operative note. He has severe cervical myelopathy with severe stenosis and underwent anterior cervical decompression with discectomy and fusion C3-4 C4-5 C5-6 C6-7 and feels that he is doing well since his surgery. He says the character of his symptoms in his upper extremities have changed. He is not having any worsening of his symptoms or worsening strength. He has been voiding freely. His pain is well- controlled. Physical Exam The incision site is clean dry and intact. There is no erythema no drainage. There is no purulence no evidence of infection. His neck is soft and supple. He is in a hard collar Abdomen soft and nontender. Chest has good excursion with deep inspiration and expiration. The patient has active and passive range of motion intact at the upper and lower extremities. There is no acute change in neurologic status. Hospital Course Postoperative day #1 status post anterior cervical decompression with discectomy and fusion C3-C7 for his severe cervical stenosis with myelopathy and upper extremity lower extremity weakness the patient has been making good progress postoperatively. They have completed the prophylactic antibiotics without any signs or symptoms of infection. The patient has been able to advance their diet, and is tolerating diet adequately. The pain was initially controlled with IV medications and is now controlled appropriately with oral medications. The patient has been able to increase their mobilization. The patient has progressed appropriately. I think they are in good stable condition for discharge today. I will see him back in his 1 week and will decide further for the likely staged posterior decompression with fusion. If he is doing quite well we might be able to hold off and see how he continues to progress before doing the second stage. I discussed this with him again. They will be sent home with appropriate prescriptions. I answered their questions to the best of my ability in a language that they can understand and they are agreeable with the plan. They will follow up as directed. Patient Condition at Discharge: Fair Plan - Discharge Summary Discharge Rx Participant: Yes New Discharge Prescriptions: New HYDROcodone/APAP 5-325MG [Manati 5-325] 1 tab PO Q4HR PRN #42 tab PRN Reason: Pain No Action Tamsulosin [Flomax] 0.4 mg PO HS Lisinopril-Hctz 20-12.5 mg [Zestoretic 20-12.5] 1 tab PO QAM amLODIPine BESYLATE 10 mg PO QAM Atorvastatin [Lipitor] 40 mg PO HS Ferrous Sulfate [Iron] 325 mg PO DAILY Folic Acid 0.4 mg PO DAILY Fluticasone/Umeclidin/Vilanter [Trelegy Ellipta 100-62.5-25] 1 inhalation INHALATION QAM Pantoprazole Sodium [Protonix] 40 mg PO QAM Discharge Medication List Atorvastatin [Lipitor] 40 mg PO HS 04/12/19 [History] Lisinopril-Hctz 20-12.5 mg [Zestoretic 20-12.5] 1 tab PO QAM 04/12/19 [History] Tamsulosin [Flomax] 0.4 mg PO HS 04/12/19 [History] amLODIPine BESYLATE 10 mg PO QAM 04/12/19 [History] Ferrous Sulfate [Iron] 325 mg PO DAILY 09/29/23 [History] Folic Acid 0.4 mg PO DAILY 09/29/23 [History] Pantoprazole Sodium [Protonix] 40 mg PO QAM 10/02/23 [History] Fluticasone/Umeclidin/Vilanter [Trelegy Ellipta 100-62.5-25] 1 inhalation INHALATION QAM 10/19/23 [History] HYDROcodone/APAP 5-325MG [Manati 5-325] 1 tab PO Q4HR PRN #42 tab 10/21/23 [Rx] Follow up Appointment(s)/Referral(s): Yvonne Crane DO [Doctor of Osteopathic Medicine] - 1 Week Activity/Diet/Wound Care/Special Instructions: Keep hard cervical collar intact at all times except for bathing. Keep site clean. May shower with waterproof Tegaderm intact. Do not soak in a tub. After 72 hours postoperatively, patient May remove dressing and then may shower with area uncovered. Leave glue intact and allow it to fray off on its own. May ambulate as tolerated. Avoid heavy or rigorous activity. No repetitive bending twisting or lifting. No overhead work. Discharge Disposition: HOME SELF-CARE
[2023-10-21 08:49] VITALS: BP 145/65
[2023-10-21] MEDS: LISINOPRIL-HCTZ 20-12.5 MG 1 EACH TAB PO SCH (08:59)
[2023-10-21] MEDS: PANTOPRAZOLE 40 MG TABLET PO SCH (09:01)
[2023-10-21] MEDS: SENNOSIDES-DOCUSATE SODIUM 1 EACH TAB PO SCH (09:01)
[2023-10-21] MEDS: FERROUS SULFATE 325 MG TAB PO SCH (09:01)
[2023-10-21] MEDS: FOLIC ACID 1 MG TAB PO SCH (09:01)
[2023-10-21] MEDS: amLODIPine 10 MG TAB PO SCH (09:01)
[2023-10-21 09:08] LABS: Basophils # (A) 0.01 X 10*3/uL (0.00-0.10); Basophils % (A) 0.1 %; Eosinophils # (A) 0 X 10*3/uL (0.04-0.35); Eosinophils % (A) 0 %; HCT 32.7 % (39.6-50.0); HGB 11.4 g/dL (13.0-17.0); Lymphocytes # (A) 0.55 X 10*3/uL (0.90-5.00); Lymphocytes % (A) 3.9 %; MCH 36.4 pg (27.0-32.0); MCHC 34.9 g/dL (32.0-37.0); MCV 104.5 FL (80.0-97.0); Monocytes # (A) 0.93 X 10*3/uL (0.20-1.00); Monocytes % (A) 6.7 %; NRBC Per 100 WBC 0 X 10*3/uL (0.00-0.01); Neutrophils # (A) 12.42 X 10*3/uL (1.80-7.70); Neutrophils % (A) 88.8 %; Platelet Count 144 X 10*3/uL (140-440); RBC 3.13 X 10*6/uL (4.40-5.60); RDW 12.6 % (11.5-14.5); WBC 13.98 X 10*3/uL (4.50-10.00)
[2023-10-21 09:31] LABS: Blood Urea Nitrogen 13.2 mg/dL (9.0-27.0); Calcium 8.8 mg/dL (8.7-10.3); Carbon Dioxide 27.3 mmol/L (21.6-31.8); Chloride 106 mmol/L (96-109); Glucose 112 mg/dL (70-110); Potassium 4.2 mmol/L (3.5-5.5); Sodium 144 mmol/L (135-145)
[2023-10-21] MEDS: IPRATROPIUM 0.5 MG/2.5 ML NEBU INHALATION SCH (10:08)
[2023-10-21 10:35] VITALS: PULSE 85
[2023-10-21 12:27] VITALS: RESP 17
--- NOTE | 2023-10-21 17:53 | P.PN ---
Subjective Progress Note Date: 10/21/23 This is a pleasant 67-year-old male who was recently admitted under orthopedic services underwent C3-C7 anterior cervical discectomy with decompression and fusion for severe cervical stenosis. Patient is currently sitting up in the chair with a hard collar noted reports to feeling well and did well with physical therapy. Plan is for returning home with home care being arranged. Patient is afebrile with no reports of chest pain or shortness of breath. Patient encouraged to continue using incentive spirometer at least 10 times every hour while awake. Patient instructed to follow-up with primary care provider on discharge and continue to monitor blood pressures. Patient to resume blood pressure medication. Review of systems: Constitutional: No reports of fatigue, fever, or chills Cardiovascular: No reports of chest pain or palpitations Respiratory: No reports of shortness of breath or cough GI: reports of nausea, no reports of of vomiting, : No reports of dysuria or retention Neurovascular: No reports of generalized weakness All medications have been reviewed PHYSICAL EXAMINATION: GENERAL: The patient is alert and oriented x4, Well developed, well nourished. HEENT: Pupils are round and equally reacting to light. EOMI. no scleral icterus. No conjunctival pallor. Normocephalic, atraumatic. No pharyngeal erythema. No thyromegaly. CARDIOVASCULAR: S1 and S2 muffled PULMONARY: diminished breath sounds bilaterally with no wheezing or rhonchi noted. ABDOMEN: soft. Nontender on exam. non-distended, normoactive bowel sounds. No palpable organomegaly. MUSCULOSKELETAL: No joint swelling or deformity. EXTREMITIES: No cyanosis, clubbing, or pedal edema. NEUROLOGICAL: Gross neurological examination did not reveal any focal deficits. Diffuse weakness SKIN: No rashes. Assessment: Status post anterior cervical decompression, discectomy, and fusion for cervical stenosis, C3-C7 Hypertension history Hyperlipidemia History of GERD History of cholecystectomy GI prophylaxis DVT prophylaxis Full code Plan: Recommend to continue with current medications and management per orthopedic services. Patient was able to work with physical therapy currently sitting up in the chair with a hard collar noted and is being discharged per orthopedic services. Home medications reviewed and resumed as appropriate and instructed to resume blood pressure medications Continue with incentive spirometer use 10 times every hour while awake Recommend follow-up with primary care provider on discharge as well as keeping orthopedic appointment Patient is stable for discharge once cleared by orthopedics. Thank you kindly for this consultation we will continue to follow with orthopedics during hospitalization. The impression and plan of care has been dictated by Jacquelin Lockhart, nurse practitioner as directed. Dr. Michael MD I have performed a history and examination and MDM of this patient, discussed the same with the dictator, and agree with the dictator's assessment and plan as written ,documented as a scribe. Based on total visit time, I have performed more than 50% of the visit. Any additional findings or plans will be noted. Objective - Vital Signs Vital signs: Vital Signs Temp 98.2 F 10/21/23 06:43 Pulse 76 10/21/23 06:43 Resp 19 10/21/23 06:43 BP 145/65 10/21/23 06:43 Pulse Ox 92 L 10/21/23 06:43 FiO2 Intake & Output 10/20/23 10/21/23 10/21/23 18:59 06:59 18:59 Intake Total 2451 Output Total 500 1000 Balance 1951 -1000 Weight 102.06 kg Intake: IV 2451 Output: Urine 400 1000 Estimated Blood Loss 100 Other: Voiding Method Urinal # Voids 3 # Bowel Movements 0 - Labs CBC & Chem 7: 10/21/23 04:22 10/21/23 04:22
== END 2023-10-21 11:26 | disposition home or self-care (01) | DRG 473 ==
LOC: 2ORMAIN 06:26 → 4SSUR 11:36
PROVIDERS: ADMIT Orthopaedic Surgery Orthopaedic Surgery of the Spine; ATTEND Orthopaedic Surgery Orthopaedic Surgery of the Spine
PROC: 0RT30ZZ Resection of Cervical Vertebral Disc, Open Approach (ICD-10-PCS; 2023-10-20)
PROC: 0PU30KZ Supplement Cervical Vertebra with Nonautologous Tissue Substitute, Open Approach (ICD-10-PCS; 2023-10-20)
PROC: 0RG20A0 Fusion of 2 or more Cervical Vertebral Joints with Interbody Fusion Device, Anterior Approach, Anterior Column, Open Approach (ICD-10-PCS; principal; 2023-10-20 07:30)
DX: M50.01 Cervical disc disorder with myelopathy, high cervical region (principal); I10 Essential (primary) hypertension; E78.5 Hyperlipidemia, unspecified; M25.78 Osteophyte, vertebrae; M48.02 Spinal stenosis, cervical region; F17.210 Nicotine dependence, cigarettes, uncomplicated; K21.9 Gastro-esophageal reflux disease without esophagitis
CPT/HCPCS: 72040; 80048; 85025; 94640

== ENCOUNTER 2023-10-26 19:21 | Inpatient (IN) | payer MEDICARE, OTHER ==
--- NOTE | 2023-10-26 21:39 | CT ---
EXAMINATION TYPE: CT brain cspine wo con CT DLP: 1433.1 mGycm, Automated exposure control for dose reduction was used. DATE OF EXAM: 10/26/2023 9:07 PM COMPARISON: 10/24/2013 CLINICAL INDICATION:Male, 67 years old with history of s/p fall head injury; Recent neck surgery, fal l yesterday and hit head, no LOC. TECHNIQUE: Brain: Multiple axial CT images of the brain were obtained without IV contrast. Cspine: Axial CT images from the skull base to the inferior aspect of T2 we obtained without intraven ous contrast. Coronal and sagittal reformatted images were also reviewed. . FINDINGS: Brain: Extra-axial spaces: No abnormal extra-axial fluid collections. Ventricular system: Within normal limits Cerebral parenchyma: No acute intraparenchymal hemorrhage or mass effect. The hdez-white junction is well differentiated. Cerebellum: Unremarkable. Mass effect: No evidence of midline shift. Intracranial vasculature: unremarkable Soft tissues: Normal. Calvarium/osseous structures: No depressed skull fracture. Paranasal sinuses and mastoid air cells: Clear. Visualized orbits: Orbital contents are intact. Cervical spine: Fracture: None. Osseous structures: Fixation hardware at C3-C7. Hardware appears intact. No evidence for loosening. M ultilevel degenerative disc disease changes with endplate spurring and disc osteophyte complex's. Vertebral alignment: Within normal limits. Spinal canal/Neural Foramina: Disc osteophyte complexes at C5-C7 with at least mild spinal canal sten osis. Facet joint uncovertebral joint arthropathy scattered throughout the cervical spine with varyin g degrees of neural foraminal stenosis. Neck soft tissues: Prevertebral soft tissues are within normal limits. Other: The airway is patent. The lung apices are clear. IMPRESSION: 1. No acute intracranial process. 2. Postsurgical changes of the spine without evidence for hardware failure. 3. No evidence of cervical spine fracture. 4. Mild multilevel degenerative disc disease.
--- NOTE | 2023-10-26 22:40 | ED ---
Fall HPI - General Chief Complaint: Fall Stated Complaint: Fall, Left arm Injury, Feet Swelling Time Seen by Provider: 10/26/23 19:41 Source: patient Mode of arrival: wheelchair - History of Present Illness Initial Comments: 67-year-old male presenting to the ED with complaint of fall. Patient had discectomy and fusion C3-C7 on 10/20/[address] Crane. Initially, had plans for placement to inpatient rehab as patient has ongoing complaints of bilateral lower extremity weakness and has troubles ambulating secondary to this. However, patient reported that he wanted to go home at this time and deferred this option. States because of this ongoing issue, yesterday had a fall in his bathroom while attempting to get up. States he fell forward and hit his head on the toilet. Denies any other injuries other than hitting his head. Not on thinners. No preceding chest pain, shortness of breath, dizziness. Patient now presenting as he states that he would like to be put in a rehab facility. No other complaints at this time. - Related Data Home Medications Medication Instructions Recorded Confirmed Atorvastatin [Lipitor] 40 mg PO HS 04/12/19 10/20/23 Lisinopril-Hctz 20-12.5 mg 1 tab PO QAM 04/12/19 10/20/23 [Zestoretic 20-12.5] Tamsulosin [Flomax] 0.4 mg PO HS 04/12/19 10/20/23 amLODIPine BESYLATE 10 mg PO QAM 04/12/19 10/20/23 Ferrous Sulfate [Iron] 325 mg PO DAILY 09/29/23 10/20/23 Folic Acid 0.4 mg PO DAILY 09/29/23 10/20/23 Pantoprazole Sodium [Protonix] 40 mg PO QAM 10/02/23 10/20/23 Fluticasone/Umeclidin/Vilanter 1 inhalation INHALATION QAM 10/19/23 10/20/23 [Trelegy Ellipta 100-62.5-25] Previous Rx's Medication Instructions Recorded Acetaminophen Tab [Tylenol] 650 mg PO Q6HR PRN tab 10/21/23 HYDROcodone/APAP 5-325MG [[place] 1 tab PO Q4HR PRN #42 tab 10/21/23 5-325] Allergies Allergy/AdvReac Type Severity Reaction Status Date / Time No Known Allergies Allergy Verified 10/20/23 06:53 Review of Systems ROS Statement: Those systems with pertinent positive or pertinent negative responses have been documented in the HPI. ROS Other: All systems not noted in ROS Statement are negative. Past Medical History Past Medical History: Cancer, COPD, GERD/Reflux, Hyperlipidemia, Hypertension, Prostate Disorder Additional Past Medical History / Comment(s): 50% blockage in heart, anemia, tremors, prostate cancer. History of Any Multi-Drug Resistant Organisms: None Reported Past Surgical History: Back Surgery, Cholecystectomy, Heart Catheterization Additional Past Surgical History / Comment(s): heart cath 1995 Past Anesthesia/Blood Transfusion Reactions: Previous Problems w/ Anesthesia Additional Past Anesthesia/Blood Transfusion Reaction / Comment(s): "Woke up during gallbladder surgery." Past Psychological History: No Psychological Hx Reported Smoking Status: Current every day smoker Past Alcohol Use History: None Reported Past Drug Use History: None Reported - Past Family History Brother(s) Family Medical History: Cancer General Exam Limitations: no limitations General appearance: alert Head exam: Present: other (No collier signs or raccoon's eyes.) Eye exam: Present: normal appearance ENT exam: Present: other (Wearing an Ruthven collar) Respiratory exam: Present: normal lung sounds bilaterally Cardiovascular Exam: Present: regular rate GI/Abdominal exam: Present: soft, normal bowel sounds. Absent: distended, tenderness, guarding, rebound, rigid Extremities exam: Present: other (No midline thoracic or lumbar spinal tenderness to palpation.) Neurological exam: Present: alert, oriented X3 Skin exam: Present: warm, dry Course Vital Signs 10/26/23 19:23 Temperature 97.9 F Pulse Rate 79 Respiratory 18 Rate Blood Pressure 98/62 O2 Sat by Pulse 90 L Oximetry Medical Decision Making - Medical Decision Making Was pt. sent in by a medical professional or institution (, PA, SOAP CHIPPER, urgent care, hospital, or senior care...) When possible be specific @ -No Did you speak to anyone other than the patient for history (EMS, parent, family, police, friend...)? What history was obtained from this source @ -No Did you review nursing and triage notes (agree or disagree)? Why? @ -I reviewed and agree with nursing and triage notes Were old charts reviewed (outside hosp., previous admission, EMS record, old EKG, old radiological studies, urgent care reports/EKG's, senior care records)? Report findings @ -No old charts were reviewed Differential Diagnosis (chest pain, altered mental status, abdominal pain women, abdominal pain men, vaginal bleeding, weakness, fever, dyspnea, syncope, headache, dizziness, GI bleed, back pain, seizure, CVA, palpatations, mental health, musculoskeletal)? @ -Differential Musculoskeletal Muscular strain, contusion, ligament sprain, fracture, arthritis, septic arthritis, bursitis, cellulitis, muscle spasm, nerve compression, DVT, arterial occlusion, herpes zoster, electrolyte abnormality, tumor.... This is not meant to be in all inclusive list EKG interpreted by me (3pts min.). @ -None X-rays interpreted by me (1pt min.). @ -None done CT interpreted by me (1pt min.). @ -CT brain and cervical spine interpreted me which revealed no evidence of acute finding. U/S interpreted by me (1pt. min.). @ -None done What testing was considered but not performed or refused? (CT, X-rays, U/S, labs)? Why? @ -None What meds were considered but not given or refused? Why? @ -None Did you discuss the management of the patient with other professionals (professionals i.e. , PA, SOAP CHIPPER, lab, RT, psych nurse, clinical social work aide, entertainment manager, teacher, aoc airspace control officer, manager case management)? Give summary @ -Case discussed with Dr. Dawson, who is in agreement with admission however to Dr. Crane Was smoking cessation discussed for >3mins.? @ -No Was critical care preformed (if so, how long)? @ -No Were there social determinants of health that impacted care today? How? (Homelessness, low income, unemployed, alcoholism, drug addiction, transportation, low edu. Level, literacy, decrease access to med. care, detention, rehab)? @ -No Was there de-escalation of care discussed even if they declined (Discuss DNR or withdrawal of care, Hospice)? DNR status @ -No What co-morbidities impacted this encounter? (DM, HTN, Smoking, COPD, CAD, Cancer, CVA, ARF, Chemo, Hep., AIDS, mental health diagnosis, sleep apnea, morbid obesity)? @ -None Was patient admitted / discharged? Hospital course, mention meds given and route, prescriptions, significant lab abnormalities, going to OR and other pertinent info. @ -Admission 67-year-old male presenting to the ED status post fall. Patient has ongoing issues with generalized weakness and falls secondary to this. Had recent discectomy and fusion C3-C7 and was initially recommended placement in rehab facility however patient did not want to do so. Had a fall yesterday secondary to ongoing complaints of weakness and admits he hit his head on the toilet. Imaging studies reviewed. No acute findings of the brain. There are postsurgical changes however hardware appears intact. Patient will be admitted for placement. Undiagnosed new problem with uncertain prognosis? @ -No Drug Therapy requiring intensive monitoring for toxicity (Heparin, Nitro, Insulin, Cardizem)? @ -No Were any procedures done? @ -No Diagnosis/symptom? @ -Generalized weakness, status post fall Acute, or Chronic, or Acute on Chronic? @ -Acute Uncomplicated (without systemic symptoms) or Complicated (systemic symptoms)? @ -Uncomplicated Side effects of treatment? @ -No Exacerbation, Progression, or Severe Exacerbation? @ -No Poses a threat to life or bodily function? How? (Chest pain, [place], [place], pneumonia, PE, COPD, DKA, ARF, appy, cholecystitis, CVA, Diverticulitis, Homicidal, Suicidal, threat to staff... and all critical care pts) @ -No Disposition Clinical Impression: Fall Disposition: ADMITTED IP TO THIS HOSP Condition: Good Referrals: None,Stated [Primary Care Provider] - 1-2 days Time of Disposition: 21:30
[2023-10-26] MEDS ORDERED: ACETAMINOPHEN TAB 325 MG TAB PO PRN (22:54)
[2023-10-26] MEDS ORDERED: ONDANSETRON 4 MG/2 ML VIAL IVP PRN (22:54)
[2023-10-26] MEDS ORDERED: NALOXONE 0.4 MG/ML 1 ML VIAL IV PRN (22:54)
[2023-10-27] MEDS: HYDROmorphone 0.5 MG/0.5 ML SYRINGE IVP PRN (11:22)
[2023-10-27 12:46] VITALS: BP 151/73; PULSE 90; RESP 20; TEMP 99.5
[2023-10-27] MEDS ORDERED: BENZOCAINE/MENTHOL LOZENG 1 EACH LOZENGE MUCOUS MEM PRN (14:17)
[2023-10-27] MEDS ORDERED: MAGNESIUM HYDROXIDE 2,400 MG/30 ML CUP PO PRN (14:17)
[2023-10-27] MEDS ORDERED: HYDROcodone/APAP 5-325MG 1 EACH TAB PO PRN (14:17)
[2023-10-27] MEDS ORDERED: HYDROmorphone 1 MG/ML 1 ML SYRINGE IVP PRN (14:17)
[2023-10-27] MEDS ORDERED: HYDROmorphone 0.5 MG/0.5 ML SYRINGE IVP PRN (14:17)
[2023-10-27] MEDS ORDERED: CYCLOBENZAPRINE 10 MG TAB PO PRN (14:17)
[2023-10-27] MEDS ORDERED: ACETAMINOPHEN TAB 325 MG TAB PO PRN (14:18)
--- NOTE | 2023-10-27 14:25 | P.HPOR ---
History of Present Illness H&P Date: 10/27/23 Chief Complaint: Frequent falls, weakness The patient is a 67-year-old pleasant male who is seen and examined at bedside. He is well-known to our service. He has history of severe cervical myelopathy with myelomalacia with upper and lower extremity weakness and gait abnormality due to balance. The patient has recently undergone anterior cervical decompression with discectomy and fusion at C3-4 C4-5 C5-6 and C6-7 done on 10/20/2023. He initially did very well postoperatively and was mobilizing adequately with assistance. He was tolerating his diet adequately. He continues to have significant weakness. He was interested in try to go home and after discussions with him and his family he tried to return home postoperatively. However at home he has been struggling. He has had a couple of falls at home and he is having great difficulty with his mobility and his ambulation and transfers. He is having great difficulty with his daily activities including bathroom needs and bathing. He is not able to take care of himself and he does not have enough help at home to continue to be safe. He denies new changes in his motion or strength. He continues take medications for pain. Review of Systems Multiple falls at home. Some improvements with his upper extremity strength but still very limited function and difficulties with transfers and ambulation. Denies any new fevers chills or night sweats. He is swallowing better and tolerating his regular diet Denies any new problems with his incision site or surgical site Past Medical History Past Medical History: Cancer, COPD, GERD/Reflux, Hyperlipidemia, Hypertension, Prostate Disorder Additional Past Medical History / Comment(s): Severe cervical myelopathy with upper and lower extremity weakness due to his cervical stenosis with myelomalacia. Status post anterior cervical decompression with and fusion C3-3 7 on 10/20/2023. 50% blockage in heart, anemia, tremors, prostate cancer. History of Any Multi-Drug Resistant Organisms: None Reported Past Surgical History: Back Surgery, Cholecystectomy, Heart Catheterization Additional Past Surgical History / Comment(s): heart cath 1995 Past Anesthesia/Blood Transfusion Reactions: Previous Problems w/ Anesthesia Additional Past Anesthesia/Blood Transfusion Reaction / Comment(s): "Woke up during gallbladder surgery." Past Psychological History: No Psychological Hx Reported Smoking Status: Current every day smoker Past Alcohol Use History: None Reported Additional Past Alcohol Use History / Comment(s): Has been smoking for 50 yrs, trying to quit, down to 1/2 PPD. Past Drug Use History: None Reported Additional Drug Use History / Comment(s): "Social Marijuana use." Aware no use 24 hrs prior to procedure. - Past Family History Brother(s) Family Medical History: Cancer Medications and Allergies Home Medications Medication Instructions Recorded Confirmed Type Atorvastatin [Lipitor] 40 mg PO HS 04/12/19 10/27/23 History Lisinopril-Hctz 20-12.5 mg 1 tab PO DAILY 04/12/19 10/27/23 History [Zestoretic 20-12.5] Tamsulosin [Flomax] 0.4 mg PO HS 04/12/19 10/27/23 History amLODIPine BESYLATE 10 mg PO DAILY 04/12/19 10/27/23 History Ferrous Sulfate [Iron] 325 mg PO DAILY 09/29/23 10/27/23 History Folic Acid 0.4 mg PO DAILY 09/29/23 10/27/23 History Pantoprazole Sodium [Protonix] 40 mg PO DAILY 10/02/23 10/27/23 History Fluticasone/Umeclidin/Vilanter 1 puff INHALATION RT-DAILY 10/19/23 10/27/23 History [Trelegy Ellipta 100-62.5-25] Acetaminophen Tab [Tylenol] 650 mg PO Q6HR PRN tab 10/21/23 10/27/23 Rx HYDROcodone/APAP 5-325MG [[place] 1 tab PO Q4HR PRN #42 tab 10/21/23 10/27/23 Rx 5-325] Allergies Allergy/AdvReac Type Severity Reaction Status Date / Time No Known Allergies Allergy Verified 10/27/23 09:18 Physical Examination Osteopathic Statement: *. No significant issues noted on an osteopathic structural exam other than those noted in the History and Physical/Consult. - C Spine: dermatomal strength & reflexes bilateral Shoulder strength: flexion: 3/5 (His neck incision site appears to be healing appropriately. His neck is soft and supple. There is no drainage no swelling. His upper extremities he has great weakness with his hands and is unable to extend his fingers fully. He has 3 - strength with wrist flexion extension biceps and triceps) Results - Diagnostic results CT scan - cervical: report reviewed, image reviewed (New cervical CT scan is completed which shows his surgery at C3-C7. The hardware is intact and appears to be stable. There is no loosening. There is no new fractures. Postop changes are noted from C3-C7) Assessment and Plan Assessment: Cervical myelopathy with upper and lower extremity weakness Status post anterior cervical decompression with discectomy and fusion C3-4 C4-5 C5-6 C6-7 Gait abnormality due to myelopathy Multiple falls at home Inability to ambulate independently Plan: Cervical myelopathy with upper and lower extremity weakness Status post anterior cervical decompression with discectomy and fusion C3-4 C4-5 C5-6 C6-7 on October 20, 2023 Gait abnormality due to myelopathy Multiple falls at home Inability to ambulate independently The patient feels that he has made some progress postoperatively after his anterior cervical decompression and fusion at C3-4 C4-5 C5-6 and C6-7 for his cervical myelopathy, but he still having significant difficulties. He is not stable on his feet and has had a number of falls. He continues to have significant weakness in his arms though his pain is somewhat improved. He requires regular pain medications and spasm medications along with his home medications. The patient has had great deal of difficulty trying to manage at home and is not safe at home with the help that he has. He has had a number of falls and this is putting him in jeopardy in terms of his surgical recovery as well as the residual stenosis that is there that can cause further problems. I think that he needs in inpatient rehab or [facility] [facility] for continued monitoring, daily activities, physical therapy on a daily basis, and rehabilitation. I think that he would be much safer and would have a much better chance of successful outcome from his surgery with extended care. I discussed this with him and his at length. As I answered their questions best my ability and we are arranging for placement for him.
--- NOTE | 2023-10-27 14:33 | P.DS ---
Providers Date of admission: 10/26/23 22:09 Attending physician: Yvonne Crane Primary care physician: Stated None Hospital Course: The patient presented on the day of admission as per their operative note from 10/20/2023. The patient was able to be discharged home after his anterior cervical decompression with discectomy and fusion from C3-C7 for his severe cervical stenosis with cervical myelopathy and upper and lower extremity weakness and gait abnormality. However at home the patient has not been doing well has been struggling. He has had a number of falls and is having great difficulty with activities of daily living. He presented back to the hospital yesterday and was admitted in this regard. They are interested in placement and I think that is the best course of option for him. He denies any new changes in his upper or lower extremities. He still has great difficulty and significant weakness of bilateral upper extremities difficulty with any mobilization and ambulation. He is tolerating his regular diet. He is voiding freely. Physical Exam The incision site is clean dry and intact. There is no erythema no drainage. There is no purulence no evidence of infection. His neck is soft and supple Abdomen soft and nontender. Chest has good excursion with deep inspiration and expiration. The patient has active and passive range of motion intact at the upper and lower extremities. There is no acute change in neurologic status. He continues to have significant weakness at his bilateral upper extremities. He has great weakness with biceps triceps and throughout his hands He is unable to ambulate on his own. He has able to dorsiflex plantarflex but with about 3+ strength bilateral lower extremities Hospital Course The patient is postoperative from his anterior cervical decompression with discectomy and fusion C3-C7 due to his severe cervical stenosis with cervical myelopathy and upper and lower extremity weakness. The patient was making some progress and was hoping to be able to continue to heal at home however he has not been doing well at home and has been struggling. He has had multiple falls and had to return back to the hospital. They are not able to manage him appropriately and I think that he needs placement for continued strengthening mobilization and activities of daily living and to prevent further injury to himself. His imaging appears to be stable and he has made some progress but he needs significant help in order to continue to prosper. He has been accepted for placement for senior living and I think that is appropriate for him. I discussed this with him and answered his questions best my abilities and he is agreeable. Will continue his pain control with oral medications and continue his other home medications. Will plan to see him back in the office in 1 to 2 weeks for re check evaluation and repeat imaging. He will be discharged today to senior living with regular therapy. they will be sent home with appropriate prescriptions. I answered their questions to the best of my ability in a language that they can understand and they are agreeable with the plan. They will follow up as directed. Patient Condition at Discharge: Fair Plan - Discharge Summary Discharge Rx Participant: Yes New Discharge Prescriptions: New HYDROcodone/APAP 5-325MG [[place] 5-325] 1 - 2 tab PO Q6HR PRN #56 tab PRN Reason: Pain No Action Tamsulosin [Flomax] 0.4 mg PO HS Lisinopril-Hctz 20-12.5 mg [Zestoretic 20-12.5] 1 tab PO DAILY amLODIPine BESYLATE 10 mg PO DAILY Atorvastatin [Lipitor] 40 mg PO HS Ferrous Sulfate [Iron] 325 mg PO DAILY Folic Acid 0.4 mg PO DAILY Fluticasone/Umeclidin/Vilanter [Trelegy Ellipta 100-62.5-25] 1 puff INHALA TION RT-DAILY Pantoprazole Sodium [Protonix] 40 mg PO DAILY HYDROcodone/APAP 5-325MG [[place] 5-325] 1 tab PO Q4HR PRN #42 tab PRN Reason: Pain Acetaminophen Tab [Tylenol] 650 mg PO Q6HR PRN tab PRN Reason: Pain Discharge Medication List Atorvastatin [Lipitor] 40 mg PO HS 04/12/19 [History] Lisinopril-Hctz 20-12.5 mg [Zestoretic 20-12.5] 1 tab PO DAILY 04/12/19 [History] Tamsulosin [Flomax] 0.4 mg PO HS 04/12/19 [History] amLODIPine BESYLATE 10 mg PO DAILY 04/12/19 [History] Ferrous Sulfate [Iron] 325 mg PO DAILY 09/29/23 [History] Folic Acid 0.4 mg PO DAILY 09/29/23 [History] Pantoprazole Sodium [Protonix] 40 mg PO DAILY 10/02/23 [History] Fluticasone/Umeclidin/Vilanter [Trelegy Ellipta 100-62.5-25] 1 puff INHALATION RT-DAILY 10/19/23 [History] Acetaminophen Tab [Tylenol] 650 mg PO Q6HR PRN tab 10/21/23 [Rx] HYDROcodone/APAP 5-325MG [[place] 5-325] 1 tab PO Q4HR PRN #42 tab 10/21/23 [Rx] HYDROcodone/APAP 5-325MG [[place] 5-325] 1 - 2 tab PO Q6HR PRN #56 tab 10/27/23 [Rx] Follow up Appointment(s)/Referral(s): Yvonne Crane, [Doctor of Osteopathic Medicine] - 2 Weeks None,Stated [Primary Care Provider] - 1 Week Activity/Diet/Wound Care/Special Instructions: Avoid heavy or rigorous activity. Limited motion at cervical spine. Do not try to gain further motion of the cervical spine actively. May ambulate to tolerance with assistance. Continue physical therapy daily for activities of daily living, mobilization, ambulation, strength of his bilateral upper extremities and motion
[2023-10-27] MEDS: HYDROcodone/APAP 5-325MG 1 EACH TAB PO PRN (14:34)
[2023-10-27] MEDS ORDERED: SYMBICORT 80-4.5 MCG INHALER INHALATION SCH (20:00)
[2023-10-27] MEDS ORDERED: TAMSULOSIN 0.4 MG CAP.ER.24H PO SCH (21:00)
[2023-10-27] MEDS ORDERED: ATORVASTATIN 40 MG TAB PO SCH (21:00)
[2023-10-28] MEDS ORDERED: IPRATROPIUM 0.5 MG/2.5 ML NEBU INHALATION SCH (08:00)
[2023-10-28] MEDS ORDERED: LISINOPRIL-HCTZ 20-12.5 MG 1 EACH TAB PO SCH (09:00)
[2023-10-28] MEDS ORDERED: FERROUS SULFATE 325 MG TAB PO SCH (09:00)
[2023-10-28] MEDS ORDERED: amLODIPine 10 MG TAB PO SCH (09:00)
[2023-10-28] MEDS ORDERED: PANTOPRAZOLE 40 MG TABLET PO SCH (09:00)
[2023-10-28] MEDS ORDERED: FOLIC ACID 1 MG TAB PO SCH (09:00)
== END 2023-10-27 16:40 | DRG 552 ==
LOC: EC 19:21 → 5NMEDONC 22:09
PROVIDERS: ADMIT Orthopaedic Surgery Orthopaedic Surgery of the Spine; ATTEND Orthopaedic Surgery Orthopaedic Surgery of the Spine
DX: M50.01 Cervical disc disorder with myelopathy, high cervical region (principal); J44.9 Chronic obstructive pulmonary disease, unspecified; I10 Essential (primary) hypertension; E78.5 Hyperlipidemia, unspecified; R53.1 Weakness; R29.6 Repeated falls; R26.9 Unspecified abnormalities of gait and mobility; K21.9 Gastro-esophageal reflux disease without esophagitis; R25.1 Tremor, unspecified; F17.210 Nicotine dependence, cigarettes, uncomplicated; Z79.51 Long term (current) use of inhaled steroids; Z79.899 Other long term (current) drug therapy; Z98.1 Arthrodesis status; Z91.81 History of falling; Z85.46 Personal history of malignant neoplasm of prostate; W18.12XA Fall from or off toilet with subsequent striking against object, initial encounter; Y92.002 Bathroom of unspecified non-institutional (private) residence as the place of occurrence of the external cause
CPT/HCPCS: 70450; 72125; 99285

== ENCOUNTER 2023-11-07 16:17 | Inpatient (IN) | payer MEDICARE, OTHER ==
--- NOTE | 2023-11-07 17:06 | ED ---
General Adult HPI - General Chief complaint: Recheck/Abnormal Lab/Rx Stated complaint: Neck pain Time Seen by Provider: 11/07/23 16:19 Source: patient, family, RN/MD, EMS, RN notes reviewed Mode of arrival: EMS Limitations: no limitations - History of Present Illness Initial comments: Patient is a 67-year-old male present to the emergency department with concerns for neck pain. Patient did have neck surgery just a week ago. Patient has been in [facility]. Patient has not getting better since that time. Patient does plan on having a second neck surgery that has been moved up and now they are planning to do it on Tuesday. Patient is no longer able to move around and take care of himself. Patient does have right-sided weakness however that is not new. Patient was sent over from orthopedics for admission and plan for inpatient surgery. - Related Data Home Medications Medication Instructions Recorded Confirmed Atorvastatin [Lipitor] 40 mg PO HS 04/12/19 10/27/23 Lisinopril-Hctz 20-12.5 mg 1 tab PO DAILY 04/12/19 10/27/23 [Zestoretic 20-12.5] Tamsulosin [Flomax] 0.4 mg PO HS 04/12/19 10/27/23 amLODIPine BESYLATE 10 mg PO DAILY 04/12/19 10/27/23 Ferrous Sulfate [Iron] 325 mg PO DAILY 09/29/23 10/27/23 Folic Acid 0.4 mg PO DAILY 09/29/23 10/27/23 Pantoprazole Sodium [Protonix] 40 mg PO DAILY 10/02/23 10/27/23 Fluticasone/Umeclidin/Vilanter 1 puff INHALATION RT-DAILY 10/19/23 10/27/23 [Trelegy Ellipta 100-62.5-25] Previous Rx's Medication Instructions Recorded Acetaminophen Tab [Tylenol] 650 mg PO Q6HR PRN tab 10/21/23 Acetaminophen Tab [Tylenol] 650 mg PO Q6HR PRN tab 10/27/23 HYDROcodone/APAP 5-325MG [[place] 1 - 2 tab PO Q6HR PRN #56 tab 10/27/23 5-325] Allergies Allergy/AdvReac Type Severity Reaction Status Date / Time No Known Allergies Allergy Verified 11/07/23 16:44 Review of Systems ROS Statement: Those systems with pertinent positive or pertinent negative responses have been documented in the HPI. ROS Other: All systems not noted in ROS Statement are negative. Constitutional: Denies: fever Eyes: Denies: eye pain ENT: Denies: ear pain Cardiovascular: Denies: chest pain Endocrine: Reports: fatigue Gastrointestinal: Denies: abdominal pain Musculoskeletal: Reports: as per HPI Neurological: Reports: as per HPI, weakness Past Medical History Past Medical History: Cancer, COPD, GERD/Reflux, Hyperlipidemia, Hypertension, Prostate Disorder Additional Past Medical History / Comment(s): Severe cervical myelopathy with upper and lower extremity weakness due to his cervical stenosis with myelomalacia. Status post anterior cervical decompression with and fusion C3-3 7 on 10/20/2023. 50% blockage in heart, anemia, tremors, prostate cancer. History of Any Multi-Drug Resistant Organisms: None Reported Past Surgical History: Back Surgery, Cholecystectomy, Heart Catheterization Additional Past Surgical History / Comment(s): heart cath 1995 Past Anesthesia/Blood Transfusion Reactions: Previous Problems w/ Anesthesia Additional Past Anesthesia/Blood Transfusion Reaction / Comment(s): "Woke up during gallbladder surgery." Past Psychological History: No Psychological Hx Reported Smoking Status: Current every day smoker Past Alcohol Use History: None Reported Past Drug Use History: None Reported - Past Family History Brother(s) Family Medical History: Cancer General Exam Limitations: no limitations General appearance: alert, in no apparent distress Head exam: Present: normocephalic Eye exam: Present: normal appearance ENT exam: Present: normal oropharynx Neck exam: Present: other (Anterior neck incision is clean dry and intact) Respiratory exam: Present: normal lung sounds bilaterally Cardiovascular Exam: Present: regular rate, normal rhythm GI/Abdominal exam: Present: soft. Absent: tenderness Extremities exam: Present: normal inspection Neurological exam: Present: alert Expanded Neurological exam: Present: protecting the airway Speech: Present: fluid speech Motor strength exam: RUE: 2/1, LUE: 5, RLE: 3, LLE: 4 Eye Response: (4) open spontaneously Motor Response: (6) obeys commands Verbal Response: (5) oriented Psychiatric exam: Present: normal affect, normal mood Skin exam: Present: normal color Course Vital Signs 11/07/23 16:42 Temperature 98 F Pulse Rate 86 Respiratory 18 Rate Blood Pressure 93/61 O2 Sat by Pulse 91 L Oximetry EKG Findings - EKG Results: EKG: interpreted by ERMD (Left axis. Anterior Q waves), sinus rhythm, normal ST/T Medical Decision Making - Medical Decision Making Was pt. sent in by a medical professional or institution (, [facility], REFRIGERATED CARGO CLERK, urgent care, hospital, or [facility]...) When possible be specific @ -Patient was sent in by Dr. Rangel's office Did you speak to anyone other than the patient for history (EMS, parent, family, police, friend...)? What history was obtained from this source @ - is present helps provide history including recent surgery Did you review nursing and triage notes (agree or disagree)? Why? @ -I reviewed and agree with nursing and triage notes Were old charts reviewed (outside hosp., previous admission, EMS record, old EKG, old radiological studies, urgent care reports/EKG's, [facility] records)? Report findings @ -Office notes from Dr. Rangel Differential Diagnosis (chest pain, altered mental status, abdominal pain women, abdominal pain men, vaginal bleeding, weakness, fever, dyspnea, syncope, headache, dizziness, GI bleed, back pain, seizure, CVA, palpatations, mental health, musculoskeletal)? @ -Differential Musculoskeletal Muscular strain, contusion, ligament sprain, fracture, arthritis, septic arthritis, bursitis, cellulitis, muscle spasm, nerve compression, DVT, arterial occlusion, herpes zoster, electrolyte abnormality, tumor.... This is not meant to be in all inclusive list EKG interpreted by me (3pts min.). @ -As above X-rays interpreted by me (1pt min.). @ -None done CT interpreted by me (1pt min.). @ -None done U/S interpreted by me (1pt. min.). @ -None done What testing was considered but not performed or refused? (CT, X-rays, U/S, labs)? Why? @ -None What meds were considered but not given or refused? Why? @ -None Did you discuss the management of the patient with other professionals (professionals i.e. [facility] Rodriguez, REFRIGERATED CARGO CLERK, lab, RT, psych nurse, social welfare research worker, business office representative, teacher, electronic intelligence officer, case packer and sealer)? Give summary @ -Ortho Dr. Rahman who will admit patient covering for Dr. Rangel Was smoking cessation discussed for >3mins.? @ -No Was critical care preformed (if so, how long)? @ -No Were there social determinants of health that impacted care today? How? (Homelessness, low income, unemployed, alcoholism, drug addiction, transportation, low edu. Level, literacy, decrease access to med. care, care home, rehab)? @ -No Was there de-escalation of care discussed even if they declined (Discuss DNR or withdrawal of care, Hospice)? DNR status @ -No What co-morbidities impacted this encounter? (DM, HTN, Smoking, COPD, CAD, Cancer, CVA, ARF, Chemo, Hep., AIDS, mental health diagnosis, sleep apnea, morbid obesity)? @ -None Was patient admitted / discharged? Hospital course, mention meds given and route, prescriptions, significant lab abnormalities, going to OR and other pertinent info. @ -Patient presents with neck pain and weakness. Patient needs repeat surgery. Patient will be admitted for orthopedics. Admission orders written. Undiagnosed new problem with uncertain prognosis? @ -No Drug Therapy requiring intensive monitoring for toxicity (Heparin, Nitro, Insulin, Cardizem)? @ -No Were any procedures done? @ -No Diagnosis/symptom? @ -Weakness, neck pain Acute, or Chronic, or Acute on Chronic? @ -Acute on chronic, acute on chronic Uncomplicated (without systemic symptoms) or Complicated (systemic symptoms)? @ -Default Side effects of treatment? @ -No Exacerbation, Progression, or Severe Exacerbation? @ -No Poses a threat to life or bodily function? How? (Chest pain, USA, AR, pneumonia, PE, COPD, DKA, ARF, appy, cholecystitis, CVA, Diverticulitis, Homicidal, Suicidal, threat to staff... and all critical care pts) @ -No - Lab Data Lab Results 11/07/23 Range/Units 17:15 PT 11.6 (10.0-12.5) sec INR 1.1 (<1.2) APTT 23.1 (22.0-30.0) sec Disposition Clinical Impression: Weakness, Neck pain Disposition: ADMITTED IP TO THIS HOSP Is patient prescribed a controlled substance at d/c from ED?: No Referrals: Jalen Au MD [Primary Care Provider] - 1-2 days Time of Disposition: 17:36
[2023-11-07] MEDS: HYDROmorphone 1 MG/ML 1 ML SYRINGE IVP STA (17:23)
[2023-11-07] MEDS: SODIUM CHLORIDE 0.9% 1,000 ML IV STA (17:24)
[2023-11-07 17:37] LABS: Basophils # (A) 0.1 k/uL (0-0.2); Basophils % (A) 0 %; Eosinophils # (A) 0.2 k/uL (0-0.7); Eosinophils % (A) 1 %; HCT 38.2 % (39.0-53.0); HGB 12.9 gm/dL (13.0-17.5); Lymphocytes # (A) 0.8 k/uL (1.0-4.8); Lymphocytes % (A) 4 %; MCH 34.1 pg (25.0-35.0); MCHC 33.9 g/dL (31.0-37.0); MCV 100.6 fL (80.0-100.0); Mean Platelet Volume 8.9; Monocytes # (A) 0.8 k/uL (0-1.0); Monocytes % (A) 4 %; Neutrophils # (A) 17.3 k/uL (1.3-7.7); Neutrophils % (A) 90 %; RDW 12.6 % (11.5-15.5); WBC 19.2 k/uL (3.8-10.6)
[2023-11-07 17:39] LABS: ALT 27 U/L (4-49); African American GFR (CKD) >90 (>60 ml/min/1.73 sqM); Albumin 3.7 g/dL (3.5-5.0); Anion Gap 5 mmol/L; Blood Urea Nitrogen 25 mg/dL (9-20); Calcium 9.2 mg/dL (8.4-10.2); Carbon Dioxide 26 mmol/L (22-30); Chloride 101 mmol/L (98-107); Glucose 106 mg/dL (74-99); Non-African American GFR(CKD) 85 (>60 ml/min/1.73 sqM); Sodium 132 mmol/L (137-145); Total Bilirubin 0.9 mg/dL (0.2-1.3); Total Protein 6.2 g/dL (6.3-8.2)
[2023-11-07] MEDS ORDERED: ACETAMINOPHEN TAB 325 MG TAB PO PRN (17:39)
[2023-11-07 17:42] LABS: INR 1.1 (<1.2); Partial Thromboplastin Time 23.1 sec (22.0-30.0); Prothrombin Time 11.6 sec (10.0-12.5)
--- NOTE | 2023-11-07 17:43 | XR ---
EXAMINATION TYPE: XR chest 1V portable DATE OF EXAM: 11/07/2023 5:37 PM CLINICAL INDICATION:Male, 67 years old with history of weak; [facility] COMPARISON: Chest radiographs from 10/09/2023 TECHNIQUE: XR chest 1V portable Frontal view of the chest. FINDINGS: Lungs/Pleura: There is no evidence of pleural effusion, focal consolidation, or pneumothorax. Pulmonary vascularity: Unremarkable. Heart/mediastinum: Cardiomediastinal silhouette is unremarkable. Musculoskeletal: No acute osseous pathology. IMPRESSION: 1. No acute cardiopulmonary disease process. 2. COPD changes.
[2023-11-07 17:49] LABS: Platelet Count 383 k/uL (150-450)
[2023-11-07 17:59] LABS: AST 26 U/L (17-59); Alkaline Phosphatase 100 U/L (38-126); Potassium 4.7 mmol/L (3.5-5.1)
[2023-11-07] MEDS: SODIUM CHLORIDE 0.9% 1,000 ML IV SCH (18:01)
[2023-11-07] MEDS: FAMOTIDINE 20 MG TAB PO SCH (20:07)
[2023-11-07] MEDS: HYDROmorphone 0.5 MG/0.5 ML SYRINGE IVP PRN (22:30)
--- NOTE | 2023-11-08 07:27 | P.CONS ---
History of Present Illness - Reason for Consult Consult date: 11/08/23 Medical management Requesting physician: Yvonne Crnae - Chief Complaint Severe intractable cervical spine pain with worsening weakness on the right - History of Present Illness HISTORY OF PRESENT ILLNESS: 67-year-old with active medical history of cervical myelopathy, severe spinal stenosis, also known to have history of prostate cancer, hypertension, hyperlipidemia, COPD, chronic anemia, tremor, CAD with over 50 percentile blockage with angioplasty and stent placement. Patient had from October 20, 2023 C-spine decompression and fusion to C3-C7 area with some physical therapy initially and ended up going to custodial rehab for more physical therapy. Continue to have significant numbness and weakness on the right side mostly in the right upper extremity with some weakness in the right lower extremity as well. Was in to see Dr. Crane for his follow-up and found to have significant weakness in the right upper extremity more than expe cted the plan all along originally to have posterior decompression apparently was scheduled for 11/09/2023 but because of his symptoms was sent to the emergency department and decided to admit patient to the hospital for urgent surgery to go for possible decompression not a clear whether he need hardware or not of the cervical spine. REVIEW OF SYSTEMS: CONSTITUTIONAL: Well-developed no acute respiratory distress. In quite the discomfort and pain. EYES: No icterus sclerae, no conjunctivitis. EARS, NOSE, MOUTH, THROAT, and FACE: No sore throat, lymphadenopathy, carotid bruits or deformity. RESPIRATORY: No SOB cough or wheezes. CARDIOVASCULAR: No CP, Palpitation, PND, Orthopnea, or angina. GASTROINTESTINAL: No Abd pain, Nausea or vomiting, no Diarrhea or constipation, No GI Bleed, no distention or masses. GENITOURINARY: Negative for Hematuria or UTI, no kidney stones. INTEGUMENT/BREAST: Negative for any muscular injury with mild osteoarthritis.. HEMATOLOGIC/LYMPHATIC: Negative for bleed or purpura. MUSCULOSKELTAL: Significant myalgia and arthralgia severe neck pain. NEURLOGICAL: No LOC, Sz or syncope, blurred vision dizziness or abnormality. Qu ite the pain and discomfort in the cervical spine area with weakness in the right side.. BEHAVIORAL/PSYCH: Negative. ENDOCRINE: Negative. PHYSICAL EXAMINATION: General Appearance: Alert, cooperative, no distress, appears stated age. Neck HEENT: Supple, no lymphadenopathy, no thyroid enlargement, no carotid bruits. Significant pain and discomfort in the cervical spine area incision and anterior side of the cervical spine looks fine Lungs: Clear to auscultation without crackles or wheezes no rhonchi, no deformity. Chest Wall: Chest wall normal expansion with deep inspiration no tenderness and no deformity was found on exam, no costochondral pain or discomfort. Heart: Regular rate and rhythm, S1, S2 normal, no murmur, rub or gallop. Back: Symmetric, no curvature, ROM normal, no CVA tenderness. Abdomen: Soft, non-tender, bowel sounds active all four quadrants, no masses, no organomegaly. Extremities: Extremities normal, atraumatic, no cyanosis or edema. Pulses: 2+ and symmetric. Skin: Skin color, texture, tugor normal, no rashes or lesions. Neurologic: Alert oriented x3 cranial nerves II through XII intact, upper extremity has significant weakness in the right side compared to the left side. ASSESSMENT AND PLAN: _Severe cervical spine myelopathy and significant pain and discomfort with weakness in the right side: Patient apparently was going back to the OR for another surgery at this point. _Debilitated with worsening pain and discomfort: Continue to have significant weakness in the right side did not improve well still require cervical spine collar along with more help with PT and OT which will be done after surgery this time. _Hypertension: Still on amlodipine 5 mg a day along with lisinopril hydrochlorothiazide 20/12.5 mg a day, will hold off medication because blood pressure remain well-controlled. _Hyperlipidemia: Remain on atorvastatin 40 mg a day. _COPD: Remain on DuoNeb along with Trelegy resume both medication. Still having mild symptoms might benefit and require oxygen as well and if needed will start smaller dose of steroid. _History of prostate cancer postradiation therapy no sign of obstruction still on Flomax currently still able to void on his own. _Hiatal hernia/GERD: Continue omeprazole 20 mg a day. _Chronic anemia: Has been on iron and folate acid continue both. _GI prophylaxis: Will continue omeprazole 20 mg a day. _DVT prophylaxis: Knee-high MIGDALIA hose and early mobilization to be done. CODE STATUS: Full code. Dr. Crane thank you much for the consult, with the urgent need for the surgery I do not see any absolute indication, patient has been off anti-inflammatory medication will watch him hemodynamically during after surgery in the meanwhile resume home meds and watch for any urinary retention also will have slightly bit more tighter program for his COPD for better oxygenation and help and recovery. If I can be any further help to please let me know. Past Medical History Past Medical History: Cancer, COPD, GERD/Reflux, Hyperlipidemia, Hypertension, Prostate Disorder Additional Past Medical History / Comment(s): Severe cervical myelopathy with upper and lower extremity weakness due to his cervical stenosis with myelomalacia. Status post anterior cervical decompression with and fusion C3-3 7 on 10/20/2023. 50% blockage in heart, anemia, tremors, prostate cancer. History of Any Multi-Drug Resistant Organisms: None Reported Past Surgical History: Back Surgery, Cholecystectomy, Heart Catheterization Additional Past Surgical History / Comment(s): heart cath 1995 Past Anesthesia/Blood Transfusion Reactions: Previous Problems w/ Anesthesia Additional Past Anesthesia/Blood Transfusion Reaction / Comm: "Woke up during gallbladder surgery." Past Psychological History: No Psychological Hx Reported Smoking Status: Current every day smoker Past Alcohol Use History: None Reported Additional Past Alcohol Use History / Comment(s): Has been smoking for 50 yrs, trying to quit, down to 1/2 PPD. Nothing in past 12 days. Past Drug Use History: None Reported Additional Drug Use History / Comment(s): "Social Marijuana use." Aware no use 24 hrs prior to procedure. Denies any alcohol - Past Family History Brother(s) Family Medical History: Cancer Medications and Allergies Home Medications Medication Instructions Recorded Confirmed Type Atorvastatin [Lipitor] 40 mg PO HS 04/12/19 11/07/23 History Lisinopril-Hctz 20-12.5 mg 1 tab PO DAILY 04/12/19 11/07/23 History [Zestoretic 20-12.5] Tamsulosin [Flomax] 0.4 mg PO HS 04/12/19 11/07/23 History Ferrous Sulfate [Iron] 325 mg PO DAILY 09/29/23 11/07/23 History Folic Acid 0.4 mg PO DAILY 09/29/23 11/07/23 History Fluticasone/Umeclidin/Vilanter 1 puff INHALATION RT-DAILY 10/19/23 11/07/23 History [Trelegy Ellipta 100-62.5-25] Acetaminophen Tab [Tylenol] 650 mg PO Q6HR PRN tab 10/27/23 11/07/23 Rx HYDROcodone/APAP 5-325MG [[place] 1 - 2 tab PO Q6HR PRN #56 tab 10/27/23 11/07/23 Rx 5-325] Clotrimazole/Betameth Cream 1 applic TOPICAL Q12H 11/07/23 11/07/23 History [Lotrisone] Doxycycline Monohydrate 100 mg PO BID 11/07/23 11/07/23 History Ipratropium-Albuterol Nebulize 3 ml INHALATION RT-QID 11/07/23 11/07/23 History [Duoneb 0.5 mg-3 mg/3 ml Soln] Omeprazole 20 mg PO DAILY 11/07/23 11/07/23 History amLODIPine [Norvasc] 5 mg PO DAILY 11/07/23 11/07/23 History methocarbamoL [Robaxin-750] 750 mg PO Q8H 11/07/23 11/07/23 History Allergies Allergy/AdvReac Type Severity Reaction Status Date / Time No Known Allergies Allergy Verified 11/07/23 16:44 Physical Exam Vitals: Vital Signs Temp Pulse Pulse Resp BP BP Pulse Ox 11/08/23 00:56 98.2 F 69 17 119/70 91 L 11/07/23 21:26 98.2 F 72 18 102/69 91 L 11/07/23 20:52 98.8 F 78 20 112/65 95 11/07/23 20:34 76 18 122/79 90 L 11/07/23 19:12 87 18 107/67 90 L 11/07/23 18:42 57 L 18 104/54 92 L 11/07/23 18:41 98.6 F 90 18 104/54 92 L 11/07/23 16:42 98 F 86 18 93/61 91 L Intake and Output 11/07/23 11/07/23 11/08/23 14:59 22:59 06:59 Output Total 200 Balance -200 Output: Urine 200 Other: Voiding Method External Catheter # Voids 1 Weight 90.718 kg Results CBC & Chem 7: 11/07/23 17:15 11/07/23 17:15 Labs: Abnormal Lab Results - Last 24 Hours (Table) 06/17/24 06/17/24 Range/Units 17:15 17:15 WBC 19.2 H (3.8-10.6) k/uL RBC 3.80 L (4.30-5.90) m/uL Hgb 12.9 L (13.0-17.5) gm/dL Hct 38.2 L (39.0-53.0) % MCV 100.6 H (80.0-100.0) fL Neutrophils # 17.3 H (1.3-7.7) k/uL Lymphocytes # 0.8 L (1.0-4.8) k/uL Sodium 132 L (137-145) mmol/L BUN 25 H (9-20) mg/dL Glucose 106 H (74-99) mg/dL Total Protein 6.2 L (6.3-8.2) g/dL
[2023-11-08] MEDS: FERROUS SULFATE 325 MG TAB PO SCH (07:44)
[2023-11-08] MEDS: amLODIPine 5 MG TAB PO SCH (07:44)
[2023-11-08] MEDS: FOLIC ACID 1 MG TAB PO SCH (07:44)
[2023-11-08] MEDS: PANTOPRAZOLE 40 MG TABLET PO SCH (07:44)
--- NOTE | 2023-11-08 09:01 | P.HPOR ---
History of Present Illness H&P Date: 11/08/23 Chief Complaint: Inability to mobilize, UE & LE weakness, cervical stenosis History of present illness: Patient is a very pleasant 67-year-old male well-known to our service who is status post C3-4, C4-5, C5-6, and C6-7 anterior cervical decompression and fusion performed on 10/26/2023. He was originally scheduled to undergo two-stage anterior and posterior cervical decompression and fusion. Due to clearance, his initial surgical date was canceled. He then underwent his anterior cervical decompression and fusion on 10/20/2023. Following surgical intervention, he has continued have significant difficulty with mobilization and ambulation. He has profound weakness with his right upper extremity and lower extremity. He has weakness with his left upper extremity left lower extremity as well but much better range of motion as compared to the right. He was discharged to a rehabilitation facility and has remained there postoperatively. He was seen and examined in our office yesterday. He states he continues have significant difficulty with his mobilization and does not feel he is making significant progress. Given his significant difficulty and his known severe spinal stenosis, he was admitted to [facility] with plans to proceed forward with posterior cervical decompression and fusion at C3-4, C4-5, C5-6, and C6-7 tomorrow, 11/09/2023. Patient feels he is ready to proceed forward surgical intervention tomorrow. He has been seen and examined by medicine who has already cleared the patient for surgical intervention tomorrow. Patient's other medical diagnoses include COPD, hyperlipidemia, hypertension, and history of prostate cancer. Past Medical History Past Medical History: Cancer, COPD, GERD/Reflux, Hyperlipidemia, Hypertension, Prostate Disorder Additional Past Medical History / Comment(s): Severe cervical myelopathy with upper and lower extremity weakness due to his cervical stenosis with myelomalacia. Status post anterior cervical decompression with and fusion C3-3 7 on 10/20/2023. 50% blockage in heart, anemia, tremors, prostate cancer. History of Any Multi-Drug Resistant Organisms: None Reported Past Surgical History: Back Surgery, Cholecystectomy, Heart Catheterization Additional Past Surgical History / Comment(s): heart cath 1996 Past Anesthesia/Blood Transfusion Reactions: Previous Problems w/ Anesthesia Additional Past Anesthesia/Blood Transfusion Reaction / Comment(s): "Woke up d uring gallbladder surgery." Past Psychological History: No Psychological Hx Reported Smoking Status: Current every day smoker Past Alcohol Use History: None Reported Additional Past Alcohol Use History / Comment(s): Has been smoking for 50 yrs, trying to quit, down to 1/2 PPD. Nothing in past 12 days. Past Drug Use History: None Reported Additional Drug Use History / Comment(s): "Social Marijuana use." Aware no use 24 hrs prior to procedure. Denies any alcohol - Past Family History Brother(s) Family Medical History: Cancer Medications and Allergies Home Medications Medication Instructions Recorded Confirmed Type Atorvastatin [Lipitor] 40 mg PO HS 04/12/19 11/07/23 History Lisinopril-Hctz 20-12.5 mg 1 tab PO DAILY 04/12/19 11/07/23 History [Zestoretic 20-12.5] Tamsulosin [Flomax] 0.4 mg PO HS 04/12/19 11/07/23 History Ferrous Sulfate [Iron] 325 mg PO DAILY 09/29/23 11/07/23 History Folic Acid 0.4 mg PO DAILY 09/29/23 11/07/23 History Fluticasone/Umeclidin/Vilanter 1 puff INHALATION RT-DAILY 10/19/23 11/07/23 History [Trelegy Ellipta 100-62.5-25] Acetaminophen Tab [Tylenol] 650 mg PO Q6HR PRN tab 10/27/23 11/07/23 Rx HYDROcodone/APAP 5-325MG [Wilmer 1 - 2 tab PO Q6HR PRN #56 tab 10/27/23 11/07/23 Rx 5-325] Clotrimazole/Betameth Cream 1 applic TOPICAL Q12H 11/07/23 11/07/23 History [Lotrisone] Doxycycline Monohydrate 100 mg PO BID 11/07/23 11/07/23 History Ipratropium-Albuterol Nebulize 3 ml INHALATION RT-QID 11/07/23 11/07/23 History [Duoneb 0.5 mg-3 mg/3 ml Soln] Omeprazole 20 mg PO DAILY 11/07/23 11/07/23 History amLODIPine [Norvasc] 5 mg PO DAILY 11/07/23 11/07/23 History methocarbamoL [Robaxin-750] 750 mg PO Q8H 11/07/23 11/07/23 History Allergies Allergy/AdvReac Type Severity Reaction Status Date / Time No Known Allergies Allergy Verified 11/07/23 16:44 Physical Examination Physical exam: Patient is awake, alert, and oriented 3 Vital signs stable Adequate chest excursion with deep inspiration and expiration Examination of the cervical spine reveals skin is intact with no abrasions, lacerations, or bruises; no erythema, purulence or signs of infection Adequate but reduced range of motion of the cervical spine with adequate flexion, extension, and bilateral rotation Surgical incision site over the anterior cervical spine is healing appropriately No bruising, erythema, drainage, or obvious sign of infection over the surgical site of the anterior cervical spine Profound weakness with his right upper extremity and right lower extremity Patient is able to perform active range of motion of his left upper extremity and left lower extremity but continues to be weak throughout range of motion No signs or symptoms of DVT; no calf pain Results - Labs Labs: Abnormal Lab Results - Last 24 Hours (Table) 11/07/23 11/07/23 Range/Units 17:15 17:15 WBC 19.2 H (3.8-10.6) k/uL RBC 3.80 L (4.30-5.90) m/uL Hgb 12.9 L (13.0-17.5) gm/dL Hct 38.2 L (39.0-53.0) % MCV 100.6 H (80.0-100.0) fL Neutrophils # 17.3 H (1.3-7.7) k/uL Lymphocytes # 0.8 L (1.0-4.8) k/uL Sodium 132 L (137-145) mmol/L BUN 25 H (9-20) mg/dL Glucose 106 H (74-99) mg/dL Total Protein 6.2 L (6.3-8.2) g/dL H & H 11/07/23 Range/Units 17:15 Hgb 12.9 L (13.0-17.5) gm/dL Hct 38.2 L (39.0-53.0) % Coagulation 11/07/23 Range/Units 17:15 INR 1.1 (<1.2) Result Diagrams: 11/07/23 17:15 11/07/23 17:15 Assessment and Plan Assessment: Assessment: Status post C3-4, C4-5, C5-6, and C6-7 anterior cervical decompression and fusion performed on 10/20/2023 C3-4, C4-5, C5-6, and C6-7 severe cervical spinal stenosis Cervical myelopathy Inability to ambulate and mobilize independently Upper extremity weakness greater on the right than the left Lower extremity weakness greater on the right than the left Cervical herniated nucleus pulposus Cervical degenerative disc disease COPD Hypertension Hyperlipidemia History of prostate cancer postradiation (1) Unable to mobilize in home Current Visit: Yes Status: Acute Code(s): R26.89 - OTHER ABNORMALITIES OF GAIT AND MOBILITY SNOMED Code(s): 120736517 (2) Upper extremity weakness Current Visit: Yes Status: Acute Code(s): R29.898 - OTH SYMPTOMS AND SIGNS INVOLVING THE MUSCULOSKELETAL SYSTEM SNOMED Code(s): 929035713 (3) Lower extremity weakness Current Visit: Yes Status: Acute Code(s): R29.898 - OTH SYMPTOMS AND SIGNS INVOLVING THE MUSCULOSKELETAL SYSTEM SNOMED Code(s): 606126738 (4) Cervical myelopathy Current Visit: Yes Status: Acute Code(s): G95.9 - DISEASE OF SPINAL CORD, UNSPECIFIED SNOMED Code(s): 612473513 (5) Cervical stenosis of spinal canal Current Visit: Yes Status: Acute Code(s): M48.02 - SPINAL STENOSIS, CERVICAL REGION SNOMED Code(s): 90328113 (6) Status post cervical spinal fusion Current Visit: Yes Status: Acute Code(s): Z98.1 - ARTHRODESIS STATUS SNOMED Code(s): 0987905640360 (7) Hypertension Current Visit: Yes Status: Acute Code(s): I10 - ESSENTIAL (PRIMARY) H YPERTENSION SNOMED Code(s): 70838530 (8) Hyperlipidemia Current Visit: Yes Status: Acute Code(s): E78.5 - HYPERLIPIDEMIA, UNSPECIFIED SNOMED Code(s): 38074457 (9) History of prostate cancer Current Visit: Yes Status: Acute Code(s): Z85.46 - PERSONAL HISTORY OF MALIGNANT NEOPLASM OF PROSTATE SNOMED Code(s): 624072537 (10) Degenerative cervical disc Current Visit: Yes Status: Acute Code(s): M50.30 - OTHER CERVICAL DISC DEGENERATION, UNSP CERVICAL REGION SNOMED Code(s): 80346472 (11) Cervical herniated disc Current Visit: Yes Status: Acute Code(s): M50.20 - OTHER CERVICAL DISC DISPLACEMENT, UNSP CERVICAL REGION SNOMED Code(s): 609512335 (12) Neck pain Current Visit: Yes Status: Acute Code(s): M54.2 - CERVICALGIA SNOMED Code(s): 78581687 (13) COPD (chronic obstructive pulmonary disease) Current Visit: No Status: Acute Code(s): J44.9 - CHRONIC OBSTRUCTIVE PULMONARY DISEASE, UNSPECIFIED SNOMED Code(s): 66089409 Plan: Plan: Patient is status post C3-4, C4-5, C5-6, and C6-7 anterior cervical decompression and fusion performed on 10/26/2023. He is known to have C3-4, C4-5, C5-6, and C6-7 severe cervical spinal stenosis. He was originally scheduled to undergo two-stage anterior and posterior cervical decompression and fusion. Due to clearance, his initial surgical date was canceled. He then underwent his anterior cervical decompression and fusion on 10/20/2023. Following surgical intervention, he has continued have significant difficulty with mobilization and ambulation. He has profound weakness with his right upper extremity and lower extremity. He has weakness with his left upper extremity left lower extremity as well but much better range of motion as compared to the right. He was discharged to a rehabilitation facility and has remained there postoperatively. He was seen and examined in our office yesterday. He states he continues have significant difficulty with his mobilization and does not feel he is making significant progress. Given his significant difficulty and his known severe spinal stenosis, he was admitted to [facility] with plans to proceed forward with posterior cervical decompression and fusion at C3-4, C4-5, C5-6, and C6/7 tomorrow, 11/09/2023. Patient feels he is ready to proceed forward surgical intervention tomorrow. Patient may remain in bed until following surgical intervention tomorrow. We did discuss we will plan to place him in a hard cervical collar at the time of surgical intervention. We will also add hydrocodone 5 mg / 325 mg, 1-2 tabs, every 6 hours as needed for pain as well as baclofen 10 mg, 1 tab, 3 times daily, as needed for muscle spasm. Patient has been seen and examined by Dr. Au and medicine who has cleared the patient for surgical intervention tomorrow. Patient may continue with regular diet today. He will become NPO status at midnight, 11/09/2023 in anticipation for surgical intervention. Time with Patient: Greater than 30
[2023-11-08] MEDS: SYMBICORT 80-4.5 MCG INHALER INHALATION SCH (09:06)
[2023-11-08] MEDS: IPRATROPIUM-ALBUTEROL 3 ML NEB INHALATION SCH (09:06)
[2023-11-08] MEDS: TAMSULOSIN 0.4 MG CAP.ER.24H PO SCH (20:24)
[2023-11-08] MEDS: ATORVASTATIN 40 MG TAB PO SCH (20:24)
[2023-11-08] MEDS: HYDROcodone/APAP 5-325MG 1 EACH TAB PO PRN (23:41)
[2023-11-09] MEDS ORDERED: VANCOMYCIN IV PER PHARMACY 1 EACH MISC MISCELLANE PRN (07:34)
[2023-11-09] MEDS: IV FLUID CONTINUATION 1,000 ML IV ONE (07:39)
[2023-11-09] MEDS: LACTATED RINGERS 1,000 ML BAG IV STA (07:57)
[2023-11-09] MEDS: MIDAZOLAM 2 MG/2 ML VIAL IVP ONE (08:02)
[2023-11-09] MEDS: VANCOMYCIN 1,250 MG in SODIUM CHLORIDE 0.9% 250 ML IVPB PRN (08:10)
[2023-11-09] MEDS ORDERED: fentaNYL (PF) 50 MCG/ML 2 ML AMP ONE (08:20)
[2023-11-09] MEDS ORDERED: LIDOCAINE 1% INJ 10MG/ML (20 ML MDV) ONE (08:20)
[2023-11-09] MEDS ORDERED: SUCCINYLCHOLINE CHLORIDE 200 MG/10 ML VIAL IV ONE (08:20)
[2023-11-09] MEDS ORDERED: KETAMINE HCL IN 0.9 % NACL 50 MG/5 ML SYRINGE ONE (08:20)
[2023-11-09] MEDS ORDERED: SUGAMMADEX SODIUM 200 MG/2 ML SDV IV ONE (08:20)
[2023-11-09] MEDS ORDERED: ROCURONIUM 10 MG/ML (5 ML VIAL) IV ONE (08:20)
[2023-11-09] MEDS ORDERED: PHENYLEPHRINE-0.9% NACL SYG 1,000 MCG/10 ML SYRINGE ONE (08:20)
[2023-11-09] MEDS ORDERED: PHENYLEPHRINE 10 MG/ML VIAL ONE (08:20)
[2023-11-09] MEDS ORDERED: PROPOFOL 10 MG/ML 20 ML VIAL IV ONE (08:20)
[2023-11-09] MEDS: ONDANSETRON 4 MG/2 ML VIAL IVP STA (08:23)
[2023-11-09] MEDS: BACITRACIN ZINC 500 UNIT/GM OINT 28.4 GM TUBE TOPICAL ONE (09:20)
[2023-11-09] MEDS: LIDOCAINE 2%-EPI 1:100,000 20 ML VIAL SQ ONE ×2 (09:28)
[2023-11-09] MEDS: BUPIVACAINE (PF) 0.25% 30 ML VIAL SQ ONE ×2 (09:28)
[2023-11-09] MEDS: LACTATED RINGERS 1,000 ML IV ONE ×2 (09:30→12:03)
[2023-11-09] MEDS: THROMBIN (BOVINE) 5,000 UNIT VIAL MISCELLANE ONE (09:43)
[2023-11-09] MEDS: ceFAZolin 1,000 MG in SODIUM CHLORIDE 0.9% 1,000 ML IRRIGATION ONE (09:44)
--- NOTE | 2023-11-09 11:05 | P.ANPRN ---
Procedure Note - Anesthesia - Invasive Line Left Arterial Line Date of Procedure: 11/09/23 Time of Procedure: 08:00 Location of Patient: PreOp Preparation: Sterile Prep, Sterile Dressing Arterial Line Location: Briachial Ultrasound Used: Yes Purpose - Visualization and Identification of Vasculature: Yes Image Stored and Saved: Yes Narrative: Invasive line placement per sterile protocol utilized.
[2023-11-09] MEDS ORDERED: BENZOCAINE/MENTHOL LOZENG 1 EACH LOZENGE MUCOUS MEM PRN (12:28)
[2023-11-09] MEDS ORDERED: HYDROcodone/APAP 5-325MG 1 EACH TAB PO PRN (12:28)
[2023-11-09] MEDS ORDERED: methocarbamoL 750 MG TAB PO PRN (12:30)
[2023-11-09] MEDS ORDERED: VANCOMYCIN 1,250 MG in SODIUM CHLORIDE 0.9% 250 ML IVPB SCH (12:45)
--- NOTE | 2023-11-09 12:53 | P.OP ---
Date of Procedure: 11/09/23 Preoperative Diagnosis: Severe cervical stenosis C3-4 C4-5 C5-6 C6-7, severe cervical myelopathy, upper and lower extremity weakness, myelopathic hand, degenerative disc disease, status post anterior cervical decompression with discectomy and fusion C3-4 C4-5 C5-6 C6-7 Postoperative Diagnosis: Same Anesthesia: GETA Pathology: none sent Condition: stable Disposition: PACU Description of Procedure: BRIEF OPERATIVE NOTE Preoperative Diagnosis:Severe cervical stenosis C3-4 C4-5 C5-6 C6-7, severe cervical myelopathy, upper and lower extremity weakness, myelopathic hand, degenerative disc disease, status post anterior cervical decompression with discectomy and fusion C3-4 C4-5 C5-6 C6-7 Postoperative Diagnosis:Severe cervical stenosis C3-4 C4-5 C5-6 C6-7, severe cervical myelopathy, upper and lower extremity weakness, myelopathic hand, degenerative disc disease, status post anterior cervical decompression with discectomy and fusion C3-4 C4-5 C5-6 C6-7 Procedure: Posterior cervical wide decompression C3-4 C4-5 C5-6 C6-7, posterior cervical fusion C3-4 C4-5 C5-6 C6-7, placement of lateral mass screws and pedicle screws at C5 345 and 7, placement of [place] headend technician for positioning, use of CT-guided navigation for placement of hardware, local autogenous bone grafting, neuromonitoring Surgeon: Dr. Crane Rn Clinical Documentation: Gilmar LEBRON who is present throughout the entire the case persistence during positioning, dissection, exposure, visualization, and all crucial elements of the case as well as closure. Anesthesia: General anesthesia per Dr. Will Estimated blood loss: Approximately 150 cc Complications: None apparent Components implanted: [place] K2 M posterior cervical screw system with 3.5 and 4.0 millimeter screws and 2 rods with local autogenous bone grafting and DBX bone fibers Disposition: To recovery room in good stable condition. OPERATIVE INDICATIONS Patient is a 67-year-old male with longstanding history of severe issues at his upper extremities and his neck. He has been having severe weakness and changes in his gait and difficulties with his mobilization and dexterity. Patient was found to have severe cervical stenosis and severe cervical myelopathy which correlated well with his neck and cervical and upper extremity findings and lower extremity findings. Patient was initially slated for a two-stage anterior and posterior cervical spinal fusion. He had a number of health issues which prohibited going through both stages simultaneously. He had undergone anterior cervical decompression with discectomy and fusion C3-4 C4-5 C5-6 C6-7 as per his prior operative notes which had gone on appropriately. Postoperatively he is not been making rapid progression. He continues to have severe weakness instability as he ambulates and difficulty with any mobilization. We felt he had to go through with his posterior cervical decompression and fusion as well. We discussed this at length. We discussed the different risk complications alternatives and benefits including but limited to the risk of bleeding risk infection was significant for the surgery risk of decrease loss of motion loss of function malunion nonunion hardware failure nerve damage paralysis heart attack blindness as well as fact that surgery may not alleviate his symptoms was explained. Patient like to proceed with surgical intervention and presented for posterior cervical decompression with fusion at C3-4 C4-5 C5-6 and C6-7. OPERATIVE SUMMARY After discussing all the risks, patient alternatives and benefits at length, the patient elected to proceed with surgical intervention, signed informed consent, and presented for their procedure. The patient was seen and examined in the preoperative holding area and the surgical site was marked. The patient was given antibiotics and brought to the operating room. The patient was sedated and intubated by anesthesia in standard fashion. I then sterilized the lateral aspect of his scalp and placed a Beard headend technician clamp appropriately with appropriate tensioning and stability. The patient was positioned on to the operating room table in a prone position on the appropriate frame which was well-padded and well molded. His head was placed in the Beard headend technician clamp and secured appropriately with his neck in good neutral alignment and position. We were careful to pad any bony prominences and pressure points. We were careful to maintain the patient's cervical spine and good neutral alignment and position throughout. His arms were padded and tucked at his sides appropriately. His posterior hair was shaved. The patient was prepped and draped in a normal standard fashion. An appropriate timeout and keystone protocol performed. We were able to proceed with the surgery. The local wound area was infiltrated with local anesthetic. An incision was made at the midline longitudinally over the appropriate levels from C3-C7. Dissection was taken down subcutaneously to the level of the fascia which was split midline. Dissection was taken over the lamina bilaterally over the facet joints and to the lateral masses from C3-C6 and 7. Intraoperative x- ray was taken which showed a marker at the appropriate level at C4-5. With the appropriate level positively confirmed, we were able to proceed with placement of the pedicle holes and screws. At this point we are able to dissect out at the T1 spinous process and placed a older adult social work specialist clamp for appropriate spin with the CT-guided navigation system. The area was draped and we provided a spin to visualize each area appropriately. The patient had all their twitches back. The wound was copiously irrigated and suctioned dry as had been done periodically throughout the case. I started with pedicle screws at C7 and then moved to lateral mass screws at C3-4 and 5 bilaterally. Screw holes were established similarly at each level. The lateral masses and facet joints were decorticated with a high-speed bur. I was able to use these holes to place the appropriate size screw and good alignment and good position with good bony purchase. I was able to place pedicle screws at C7 and lateral mass screws at C3-4 and 5. Spin was again completed to show excellent alignment position of all the screws at each level. I was able to turn my attention to the decompression. decompression was performed with a combination of high-speed bur rongeurs, curettes, Kerrison rongeurs and a ball-tip feeler. I did complete laminectomy at C3-4 C4-5 and C5- 6 and C6-7 removing the lamina of C4-5 and 6. All of the bone that was removed was stripped and morcellized for use as autogenous bone graft later in the case. I was able to obtain excellent central decompression as well as wide bilateral foraminal decompression. There is no evidence of dural tear or leak. Good hemostasis was maintained. The wound was irrigated and suctioned dry. With the hardware intact, intraoperative x-ray was again taken which showed good alignment and position of the hardware at the appropriate levels from C3-C7. We were then able to measure, contour and place the rods and appropriate hardware bilaterally. I was able to place capcrews, tighten them down, and shear them off appropriately. The screw heads were torqued appropriately with this intact I was able to place the local autogenous bone graft with additional bone graft enhancer as necessary into the posterior lateral gutters bilaterally. With the bone graft intact, a stable construct, and good decompression at the appropriate levels, we were able to proceed with closure. Good hemostasis was maintained. There is no evidence of dural tear or leak. The fascia was closed for a watertight closure. The subcutaneous tissue was closed over a superficial drain. The subcuticular tissue was closed with absorbable suture. The wound was cleaned and dried and dressed with the appropriate dressing. The drapes were broken down. The patient was gently rolled back onto their hospital bed being careful to maintain their cervical spine and good neutral alignment and position. The Beard headend technician was removed and there is no evidence of any bleeding at the sites. He was placed in a hard cervical collar appropriately. They were woken up by anesthesia, extubated, and brought to the recovery room in good stable condition. The patient will be admitted to the hospital for appropriate postoperative care, medical management and monitoring. We will continue to follow them closely about the postoperative course.
[2023-11-09] MEDS: HYDROmorphone 0.5 MG/0.5 ML SYRINGE IVP ONE (13:19)
--- NOTE | 2023-11-09 13:27 | XR ---
EXAMINATION TYPE: XR cervical spine limited, FL guidance operating room Intraoperative/procedural flu oroscopic services were provided. Total fluoroscopy time is 24 seconds with a total of 5 submitted im ages to PACS. Please see the operative/procedural note for further details. DAP: 373.73 Gycm2
[2023-11-09] MEDS: ONDANSETRON 4 MG/2 ML VIAL IM STA (14:11)
[2023-11-09] MEDS: SODIUM CHLORIDE 0.9% 1,000 ML IV SCH (14:20)
[2023-11-09] MEDS: VANCOMYCIN 1,500 MG in SODIUM CHLORIDE 0.9% 500 ML 500 ML IVPB SCH (19:37)
[2023-11-09] MEDS: HYDROmorphone 1 MG/ML 1 ML SYRINGE IVP PRN (19:37)
[2023-11-10] MEDS: BACLOFEN 10 MG TAB PO PRN (02:45)
[2023-11-10] MEDS ORDERED: diazePAM 5 MG TAB PO PRN (05:42)
--- NOTE | 2023-11-10 06:17 | P.PN ---
Subjective Progress Note Date: 11/09/23 HISTORY OF PRESENT ILLNESS: 67-year-old with active medical history of cervical myelopathy, severe spinal stenosis, also known to have history of prostate cancer, hypertension, hy perlipidemia, COPD, chronic anemia, tremor, CAD with over 50 percentile blockage with angioplasty and stent placement. Patient had from October 20, 2023 C-spine decompression and fusion to C3-C7 area with some physical therapy initially and ended up going to assisted rehab for more physical therapy. Continue to have significant numbness and weakness on the right side mostly in the right upper extremity with some weakness in the right lower extremity as well. Was in to see Dr. Crane for his follow-up and found to have significant weakness in the right upper extremity more than expected the plan all along originally to have posterior decompression apparently was scheduled for 11/09/2023 but because of his symptoms was sent to the emergency department and decided to admit patient to the hospital for urgent surgery to go for possible decompression not a clear whether he need hardware or not of the cervical spine. 11/09/2023: Patient apparently will be going for surgery today for posterior cervical decompression and fusion at C3-4, C4-5, C5-6 and C6-7. He continues to have significant weakness in the right upper extremity and lower extremity as well from the severity of his compression, spinal stenosis, and cervical neuropathy. Hopefully will advance to physical therapy little bit faster after his procedures done this time at this point patient remain require more help than what he can do at home hopefully after 1 or 2 extra day in the hospital might require to go back to rehab. REVIEW OF SYSTEMS: CONSTITUTIONAL: Well-developed no acute respiratory distress. In quite the discomfort and pain. EYES: No icterus sclerae, no conjunctivitis. EARS, NOSE, MOUTH, THROAT, and FACE: No sore throat, lymphadenopathy, carotid bruits or deformity. RESPIRATORY: No SOB cough or wheezes. CARDIOVASCULAR: No CP, Palpitation, PND, Orthopnea, or angina. GASTROINTESTINAL: No Abd pain, Nausea or vomiting, no Diarrhea or constipation, No GI Bleed, no distention or masses. GENITOURINARY: Negative for Hematuria or UTI, no kidney stones. INTEGUMENT/BREAST: Negative for any muscular injury with mild osteoarthritis.. HEMATOLOGIC/LYMPHATIC: Negative for bleed or purpura. MUSCULOSKELTAL: Significant myalgia and arthralgia severe neck pain. NEURLOGICAL: No LOC, Sz or syncope, blurred vision dizziness or abnormality. Quite the pain and discomfort in the cervical spine area with weakness in the right side.. BEHAVIORAL/PSYCH: Negative. ENDOCRINE: Negative. PHYSICAL EXAMINATION: General Appearance: Alert, cooperative, no distress, appears stated age. Neck HEENT: Supple, no lymphadenopathy, no thyroid enlargement, no carotid bruits. Significant pain and discomfort in the cervical spine area incision and anterior side of the cervical spine looks fine Lungs: Clear to auscultation without crackles or wheezes no rhonchi, no deformity. Chest Wall: Chest wall normal expansion with deep inspiration no tenderness and no deformity was found on exam, no costochondral pain or discomfort. Heart: Regular rate and rhythm, S1, S2 normal, no murmur, rub or gallop. Back: Symmetric, no curvature, ROM normal, no CVA tenderness. Abdomen: Soft, non-tender, bowel sounds active all four quadrants, no masses, no organomegaly. Extremities: Extremities normal, atraumatic, no cyanosis or edema. Pulses: 2+ and symmetric. Skin: Skin color, texture, tugor normal, no rashes or lesions. Neurologic: Alert oriented x3 cranial nerves II through XII intact, upper extremity has significant weakness in the right side compared to the left side. ASSESSMENT AND PLAN: _Severe cervical spine myelopathy and significant pain and discomfort with weakness in the right side: Is going back today for posterior cervical fusion and dissected. _Debilitated with worsening pain and discomfort: Patient is currently bedridden and requires more than 1 person assistance not able to ambulate with a weakness in his right side will require more help hopefully this will improve to some degree after surgery. _Hypertension: Still on amlodipine 5 mg a day and keep holding lisinopril the blood pressure still slightly below. _Hyperlipidemia: Remain on atorvastatin 40 mg a day. _COPD: Remain on DuoNeb along with Trelegy resume both medication. Still having mild symptoms might benefit and require oxygen as well and if needed will start smaller dose of steroid. _History of prostate cancer postradiation therapy no sign of obstruction still on Flomax currently still able to void on his own. _Hiatal hernia/GERD: Continue omeprazole 20 mg a day. _Chronic anemia: Has been on iron and folate acid continue both. _Chronic pain management, remain on baclofen, [place] 5/325 mg every 6 hours and still on Dilaudid while in the hospital. _GI prophylaxis: Will continue omeprazole 20 mg a day. _DVT prophylaxis: Knee-high MIGDALIA hose and early mobilization to be done. Patient be going for surgery today require more help with physical therapy and Occupational Therapy afterward he still has significant weakness in the right side. Objective - Vital Signs Vital signs: Vital Signs Temp 98 F 11/09/23 00:42 Pulse 84 11/09/23 00:42 Resp 17 11/09/23 00:42 BP 99/57 11/09/23 00:42 Pulse Ox 95 11/09/23 00:42 FiO2 Intake & Output 11/08/23 11/08/23 11/09/23 06:59 18:59 06:59 Output Total 500 850 200 Balance -500 -850 -200 Weight 90.718 kg Output: Urine 500 850 200 Other: Voiding Method External Catheter External Catheter Diaper External Catheter # Voids 2 1 # Bowel Movements 1 - Labs CBC & Chem 7: 11/07/23 17:15 11/07/23 17:15
[2023-11-10] MEDS: HYDROcodone/APAP 7.5-325MG 1 EACH TAB PO PRN (07:05)
--- NOTE | 2023-11-10 07:18 | P.PN ---
Progress Note - Text Progress Note Date: 11/10/23 Postoperative day #1 Patient is seen and examined today at bedside. The patient has some significant pain around the surgical site as expected posteriorly. This is different than his prior pain and is expected with the posterior cervical surgery. I explained this to him today. Pain is being controlled with medication. He has not yet been up and out of bed. He is voiding freely. He has been able to swallow and tolerate some diet. He feels his arms and legs have been able to move better since last night after his surgery. He still has significant weakness at his bilateral upper and lower extremities. Physical Exam Afebrile with stable vital signs Abdomen is soft nontender. Chest has good excursion deep and space expiration The incision site is clean dry and intact. The dressing on the back of his neck is intact. Hard collar is intact. No erythema there is no purulence. Extremities have not had neurologic change from prior to surgery. There is still weakness particularly on the right upper extremity and right side. He is able to move his arms and legs and says that he feels like his arms and legs are moving better today. He is not having any decline. Calves and thighs were soft nontender without evidence of DVT. Assessment/Plan Severe cervical stenosis with myelopathy postoperative day #1 status post posterior cervical decompression and fusion C3-C7 Postoperative day #20 status post anterior cervical decompression and fusion C3- C7 Bilateral upper and lower extremity weakness worse on the right than the left Upper extremity contractures at the hands right worse than left Patient is progressing as expected from the surgery. We expected him to have m ore pain with the surgery than his last surgery and he has been experiencing that overnight. He is managing adequately with medications. He should keep his hard cervical collar intact essentially all the time. We need to improve his mobility and his function of his extremities. He is developing contractures in his upper extremities, and needs functional physical therapy and Occupational Therapy for his activities of daily living as well as his mobilization and transfers We will continue to increase the patient's mobilization with therapy. I think he will be in the hospital another night or 2 before he is able to return to rehab so that he can be more significantly functional to participate with his therapy We will continue pain control with oral or IV medications. We'll continue to fo llow patient closely.
[2023-11-10] MEDS: SENNOSIDES-DOCUSATE SODIUM 1 EACH TAB PO SCH (07:58)
[2023-11-10] MEDS: LISINOPRIL-HCTZ 20-12.5 MG 1 EACH TAB PO SCH (07:58)
[2023-11-10] MEDS: NALOXONE 0.4 MG/ML 1 ML VIAL IV PRN (11:56)
[2023-11-10] MEDS: diazePAM 5 MG TAB PO PRN (14:03)
--- NOTE | 2023-11-10 15:48 | XR ---
EXAMINATION TYPE: XR chest 1V portable DATE OF EXAM: 11/10/2023 3:33 PM CLINICAL INDICATION:Male, 67 years old with history of congestion; COMPARISON: Chest radiographs from 11/07/2023 TECHNIQUE: XR chest 1V portable Frontal view of the chest. FINDINGS: Lungs/Pleura: There is no evidence of pleural effusion, focal consolidation, or pneumothorax. Pulmonary vascularity: Unremarkable. Heart/mediastinum: Cardiomediastinal silhouette is unremarkable. Musculoskeletal: No acute osseous pathology. There is fixation hardware in the lower cervical spine. IMPRESSION: Low lung volumes, no evidence for airspace consolidation.
[2023-11-10] MEDS: busPIRone HCl 5 MG TAB PO PRN (18:26)
[2023-11-10 18:42] LABS: Glucose,Whole Blood 140 mg/dL (70-110)
[2023-11-10 18:55] LABS: ABG Base Excess 5.7 mmol/L; ABG HCO3 31 mmol/L (21-25); ABG Oxygen Saturation 82.6 % (94-97); ABG PCO2 46 mmHg (35-45); ABG PH 7.43 (7.35-7.45); ABG TCO2 32 mmol/L (19-24); Allen Test Performed? Yes
[2023-11-10 18:58] LABS: ABG PO2 44 mmHg (83-108)
[2023-11-10] MEDS ORDERED: RX INFO: IV CONTRAST WAS GIVEN 1 EACH MISC MISCELLANE PRN (20:28)
[2023-11-10 20:43] LABS: Glucose,Whole Blood 125 mg/dL (70-110)
[2023-11-10 20:55] LABS: ABG Base Excess 5.7 mmol/L; ABG HCO3 30 mmol/L (21-25); ABG Oxygen Saturation 97.4 % (94-97); ABG PCO2 44 mmHg (35-45); ABG PH 7.45 (7.35-7.45); ABG PO2 82 mmHg (83-108); ABG TCO2 32 mmol/L (19-24); Allen Test Performed? Yes
[2023-11-10 21:09] LABS: Basophils % (A) 0 %; Eosinophils # (A) 0.1 k/uL (0-0.7); Eosinophils % (A) 0 %; HCT 33.8 % (39.0-53.0); HGB 11.3 gm/dL (13.0-17.5); Lymphocytes # (A) 0.6 k/uL (1.0-4.8); Lymphocytes % (A) 2 %; MCH 34.4 pg (25.0-35.0); MCHC 33.4 g/dL (31.0-37.0); MCV 102.9 fL (80.0-100.0); Macrocytosis Slight; Mean Platelet Volume 9.8; Monocytes # (A) 1.8 k/uL (0-1.0); Monocytes % (A) 7 %; Neutrophils # (A) 23.5 k/uL (1.3-7.7); Neutrophils % (A) 90 %; Platelet Count 241 k/uL (150-450); Poikilocytosis Slight; RBC 3.29 m/uL (4.30-5.90); RDW 13.1 % (11.5-15.5); WBC 26.2 k/uL (3.8-10.6)
[2023-11-10 21:15] LABS: ALT 19 U/L (4-49); AST 26 U/L (17-59); African American GFR (CKD) >90 (>60 ml/min/1.73 sqM); Albumin 3.1 g/dL (3.5-5.0); Alkaline Phosphatase 83 U/L (38-126); Anion Gap 3 mmol/L; Blood Urea Nitrogen 15 mg/dL (9-20); Calcium 8.4 mg/dL (8.4-10.2); Carbon Dioxide 28 mmol/L (22-30); Chloride 102 mmol/L (98-107); Glucose 114 mg/dL (74-99); Magnesium 1.7 mg/dL (1.6-2.3); Non-African American GFR(CKD) >90 (>60 ml/min/1.73 sqM); Potassium 4.1 mmol/L (3.5-5.1); Sodium 133 mmol/L (137-145); Total Bilirubin 0.8 mg/dL (0.2-1.3); Total Protein 5.3 g/dL (6.3-8.2)
[2023-11-10] MEDS: FUROSEMIDE 10 MG/ML 2 ML VIAL IV ONE ×2 (21:57→23:30)
--- NOTE | 2023-11-10 22:06 | CT ---
EXAMINATION TYPE: CT angio chest CT DLP: 619.4 mGycm, Automated exposure control for dose reduction was used. DATE OF EXAM: 11/10/2023 9:51 PM COMPARISON: Chest radiograph from same day. CLINICAL INDICATION:Male, 67 years old with history of PULMONARY EMBOLUS; Chest pain, SOB, post surge ry TECHNIQUE/CONTRAST: CTA scan of the thorax is performed with IV Contrast, patient injected with 80ml mL of Isovue 370, CA P images are created and reviewed these are created on a separate workstation.. FINDINGS: Pulmonary Artery: Evaluation of the pulmonary arteries is limited secondary to bolus timing. No evide nce of filling defects within the main pulmonary artery. The pulmonary artery is of normal caliber. Lungs/Pleura: Subsegmental atelectasis is identified in the lung bases. Airway: Large airways are patent. Heart: Heart is within normal limits for size. Vasculature: Mild atherosclerotic calcifications are present throughout the aorta and its branches. Mediastinum: No gross evidence of adenopathy. Musculoskeletal: Partially visualized cervical fusion hardware. Postsurgical changes and foci of gas are noted in the posterior soft tissues. Mild multilevel degenerative changes of thoracic spine. Lower neck: No significant findings. Upper Abdomen: No significant findings. IMPRESSION: 1. Limited exam due to contrast bolus timing without evidence of embolus within the main pulmonary ar uma. 2. Atelectasis involving the lower lungs. 3. Partially visualized postsurgical changes.
[2023-11-10] MEDS: ACETAMINOPHEN TAB 325 MG TAB PO PRN (22:35)
--- NOTE | 2023-11-10 23:01 | P.PN ---
Subjective Progress Note Date: 11/10/23 HISTORY OF PRESENT ILLNESS: 67-year-old with active medical history of cervical myelopathy, severe spinal stenosis, also known to have history of prostate cancer, hypertension, hy perlipidemia, COPD, chronic anemia, tremor, CAD with over 50 percentile blockage with angioplasty and stent placement. Patient had from October 20, 2023 C-spine decompression and fusion to C3-C7 area with some physical therapy initially and ended up [facility] physical therapy. Continue to have significant numbness and weakness on the right side mostly in the right upper extremity with some weakness in the right lower extremity as well. Was in to see Dr. Crane for his follow-up and found to have significant weakness in the right upper extremity more than expected the plan all along originally to have posterior decompression apparently was scheduled for 11/09/2023 but because of his symptoms was sent to the emergency department and decided to admit patient to the hospital for urgent surgery to go for possible decompression not a clear whether he need hardware or not of the cervical spine. 11/09/2023: Patient apparently will be going for surgery today for posterior cervical decompression and fusion at C3-4, C4-5, C5-6 and C6-7. He continues to have significant weakness in the right upper extremity and lower extremity as well from the severity of his compression, spinal stenosis, and cervical neuropathy. Hopefully will advance to physical therapy little bit faster after his procedures done this time at this point patient remain require more help than what he can do at home hopefully after 1 or 2 extra day in the hospital might require to go back to rehab. 11/10/2023: Patient had his surgery yesterday for posterior cervical wide dec ompression at C3-4, C4-5, C5-6 and C6/7. And ended up placing some hardware C5 3 4 and 5 lumbar 7. The patient is in bed still have quite a bit of pain he is bothered by the cervical collar specially the hard shell for now restricting him little bit. He had mild throat congestion mostly without any shortness of breath revealed finding no sign of aspiration no fever or chills. He is continue to have slight hypoxia. May require O2 nonproductive monoblock. Also still slightly bit confused. REVIEW OF SYSTEMS: CONSTITUTIONAL: Well-developed no acute respiratory distress. In quite the discomfort and pain. EYES: No icterus sclerae, no conjunctivitis. EARS, NOSE, MOUTH, THROAT, and FACE: No sore throat, lymphadenopathy, carotid bruits or deformity. RESPIRATORY: No SOB cough or wheezes. CARDIOVASCULAR: No CP, Palpitation, PND, Orthopnea, or angina. GASTROINTESTINAL: No Abd pain, Nausea or vomiting, no Diarrhea or constipation, No GI Bleed, no distention or masses. GENITOURINARY: Negative for Hematuria or UTI, no kidney stones. INTEGUMENT/BREAST: Negative for any muscular injury with mild osteoarthritis.. HEMATOLOGIC/LYMPHATIC: Negative for bleed or purpura. MUSCULOSKELTAL: Significant myalgia and arthralgia severe neck pain. NEURLOGICAL: No LOC, Sz or syncope, blurred vision dizziness or abnormality. Quite the pain and discomfort in the cervical spine area with weakness in the right side.. BEHAVIORAL/PSYCH: Negative. ENDOCRINE: Negative. PHYSICAL EXAMINATION: General Appearance: Alert, cooperative, no distress, appears stated age. Neck HEENT: Supple, no lymphadenopathy, no thyroid enlargement, no carotid brui ts. Significant pain and discomfort in the cervical spine area incision and anterior side of the cervical spine looks fine Lungs: Clear to auscultation without crackles or wheezes no rhonchi, no defo rmity. Chest Wall: Chest wall normal expansion with deep inspiration no tenderness and no deformity was found on exam, no costochondral pain or discomfort. Heart: Regular rate and rhythm, S1, S2 normal, no murmur, rub or gallop. Back: Symmetric, no curvature, ROM normal, no CVA tenderness. Abdomen: Soft, non-tender, bowel sounds active all four quadrants, no masses, no organomegaly. Extremities: Extremities normal, atraumatic, no cyanosis or edema. Pulses: 2+ and symmetric. Skin: Skin color, texture, tugor normal, no rashes or lesions. Neurologic: Alert oriented x3 cranial nerves II through XII intact, upper extremity has significant weakness in the right side compared to the left side. ASSESSMENT AND PLAN: _Severe cervical spine myelopathy and significant pain and discomfort with weakness in the right side he had decompression of the posterior area along with hardware. _Debilitated with worsening pain and discomfort: Patient is currently bedridden and requires more than 1 person assistance not able to ambulate with a weakness in his right side will require more help hopefully this will improve to some degree after surgery. _Slight confusion: Most likely primary: Metabolic at this point hopefully treat underlying disease and should improve. _Hypertension: Still on amlodipine 5 mg a day and keep holding lisinopril the blood pressure still slightly below. _Hyperlipidemia: Remain on atorvastatin 40 mg a day. _COPD: Remain on DuoNeb along with Trelegy resume both medication. Still having mild symptoms might benefit and require oxygen as well and if needed will start smaller dose of steroid. _History of prostate cancer postradiation therapy no sign of obstruction still on Flomax currently still able to void on his own. _Hiatal hernia/GERD: Continue omeprazole 20 mg a day. _Chronic anemia: Has been on iron and folate acid continue both. _Chronic pain management, remain on baclofen, [place] 5/325 mg every 6 hours and still on Dilaudid while in the hospital. _GI prophylaxis: Will continue omeprazole 20 mg a day. _DVT prophylaxis: Knee-high MIGDALIA hose and early mobilization to be done. Had surgery already. A little confused, pain is under control expectation patient to submit show today. Also continues to have significant discomfort on the surgical site area shooting down to to the right upper extremity mostly. Initiate and titrate physical therapy gradually at this point. Objective - Vital Signs Vital signs: Vital Signs Temp 98.3 F 11/10/23 00:45 Pulse 96 11/10/23 00:45 Resp 18 11/10/23 00:45 BP 128/71 11/10/23 00:45 Pulse Ox 90 L 11/10/23 00:45 FiO2 Intake & Output 11/09/23 11/09/23 11/10/23 06:59 18:59 06:59 Intake Total 1501 Output Total 550 650 275 Balance -550 851 -275 Weight 90.718 kg Intake: IV 1501 Output: Urine 550 500 275 Estimated Blood Loss 150 Other: Voiding Method Diaper Diaper External Catheter External Catheter # Voids 2 1 - Labs CBC & Chem 7: 11/10/23 20:51 11/10/23 20:51
[2023-11-10] MEDS: MORPHINE SULFATE 2 MG/ML SYRINGE IVP STA (23:30)
[2023-11-11] MEDS: propofoL 100 ML IV ONE (00:09)
[2023-11-11] MEDS: HYDROmorphone 1 MG/ML 1 ML SYRINGE IVP PRN (01:08)
[2023-11-11 01:11] LABS: ABG Base Excess 4.1 mmol/L; ABG HCO3 30 mmol/L (21-25); ABG Oxygen Saturation 100.3 % (94-97); ABG PCO2 48 mmHg (35-45); ABG PO2 231 mmHg (83-108); ABG TCO2 31 mmol/L (19-24); Allen Test Performed? Yes
[2023-11-11] MEDS: SODIUM CHLORIDE 0.9% 1,000 ML IV ONE ×2 (01:45→21:24)
[2023-11-11] MEDS: NOREPINEPHRINE 4 MG in SODIUM CHLORIDE 0.9% 250 ML IV SCH (01:46)
--- NOTE | 2023-11-11 01:55 | XR ---
EXAM: XR Chest, 1 View CLINICAL HISTORY: ITS.REASON XR Reason: Apnea episodes TECHNIQUE: Frontal view of the chest. COMPARISON: CXR 11/10/2023. FINDINGS: Lungs: Unremarkable. No consolidation. Pleural space: Unremarkable. No pneumothorax. Heart: Unremarkable. No cardiomegaly. Mediastinum: Unremarkable. Normal mediastinal contour. Bones/joints: Anterior and posterior cervical fusion hardware. No acute fracture. Soft tissues: Cutaneous skin harris. Tubes, lines and devices: Feeding tube terminates in the stomach. Endotracheal tube terminates 4 cm above the radha. IMPRESSION: 1. Feeding tube terminates in the stomach. 2. Endotracheal tube terminates 4 cm above the radha.
[2023-11-11] MEDS: HYDROmorphone 0.5 MG/0.5 ML SYRINGE IVP PRN (03:19)
[2023-11-11 04:18] LABS: Basophils % (A) 0 %; Eosinophils # (A) 0.1 k/uL (0-0.7); Eosinophils % (A) 0 %; HCT 31.2 % (39.0-53.0); HGB 10.4 gm/dL (13.0-17.5); Lymphocytes # (A) 0.6 k/uL (1.0-4.8); Lymphocytes % (A) 3 %; MCH 34.2 pg (25.0-35.0); MCHC 33.3 g/dL (31.0-37.0); MCV 102.8 fL (80.0-100.0); Macrocytosis Slight; Mean Platelet Volume 9.6; Monocytes # (A) 1.2 k/uL (0-1.0); Monocytes % (A) 6 %; Neutrophils # (A) 17.2 k/uL (1.3-7.7); Neutrophils % (A) 90 %; Platelet Count 226 k/uL (150-450); RBC 3.04 m/uL (4.30-5.90); RDW 12.8 % (11.5-15.5); WBC 19.1 k/uL (3.8-10.6)
[2023-11-11 04:29] LABS: African American GFR (CKD) >90 (>60 ml/min/1.73 sqM); Anion Gap 4 mmol/L; Blood Urea Nitrogen 14 mg/dL (9-20); Carbon Dioxide 28 mmol/L (22-30); Chloride 102 mmol/L (98-107); Glucose 109 mg/dL (74-99); Non-African American GFR(CKD) >90 (>60 ml/min/1.73 sqM); Potassium 3.4 mmol/L (3.5-5.1); Sodium 134 mmol/L (137-145)
--- NOTE | 2023-11-11 05:06 | CT ---
EXAM: CT Head Without Intravenous Contrast CLINICAL HISTORY: ITS.REASON CT Reason: AMS TECHNIQUE: Axial computed tomography images of the head/brain without intravenous contrast. CTDI is 49.1 mGy and DLP is 1168.4 mGy-cm. This CT exam was performed using one or more of the following dose reduction techniques: automated exposure control, adjustment of the mA and/or kV according to patient size, and/or use of iterative reconstruction technique. COMPARISON: No relevant prior studies available. FINDINGS: No acute intracranial hemorrhage. No midline shift or mass effect. The territorial hdez-white matter differentiation is maintained throughout. Age-related cerebral volume loss. Periventricular and subcortical white matter hypoattenuation, consistent with chronic microangiopathy. The visualized orbits appear grossly unremarkable. The calvarium is intact. The visualized paranasal sinuses and mastoid air cells are grossly clear. IMPRESSION: No acute intracranial hemorrhage, midline shift, or mass effect.
[2023-11-11] MEDS: POTASSIUM BICARBONATE/CIT AC 20 MEQ TABLET.EFF NG-TUBE SCH ×2 (05:46→20:41)
--- NOTE | 2023-11-11 07:48 | P.CRDCN ---
History of Present Illness Consult date: 11/11/23 History of present illness: History of Present Illness: The patient is a 67-year-old male who was admitted with severe cervical myelopathy with upper and lower extremities weakness and severe cervical stenosis, underwent surgery by Dr. Crane on November 08 with anterior cervical decompression and fusion. Yesterday he became more dyspneic, transferred to the ICU and subsequently intubated. Cardiology consultation was requested. Reviewing the records patient has a history of CAD with stenting although details are not available. According to the records there is no documented history of CHF or malignant arrhythmia. He had an echocardiogram performed in September of this year that showed a preserved systolic function. According to the record patient has a history of chronic tobacco use history of prostate cancer, hypertension and hyperlipidemia. He had an admission for exacerbation of COPD in September. Prior to intubation he had sinus arrhythmia with PACs and PVCs that resolved. He had a brief episode of hypertension but he is not on any vasopressors at this point. He is in sinus mechanism and hemodynamically stable. Intubated and sedated. His chest CT angiogram did not reveal evidence of pulmonary embolism. Medications: Her home include atorvastatin 40 mg daily, amlodipine 5 mg daily, iron, Flomax, omeprazole, Trelegy, folic acid Review of Systems: Could not be obtained, patient intubated and sedated Physical Examination: 67-year-old male intubated,Blood pressure 137/50, Heart rate 70 Head: Normocephalic. Eyes: Sclerae nonicteric. Neck: Collar noted Lungs: Clear to auscultation. Heart: Regular rate and rhythm, S1-S2, no S3, no rub. No murmur. Abdomen: Soft , positive bowel sounds no organomegaly. Extremities: No edema, intact distal pulses. Labs: Hemoglobin 10.4, WBC 19.1, potassium 3.4. BUN 14, creatinine 0.70. Troponin less than 0.012. Blood gases this morning revealed a pH 7.4, pCO2 48 and pO2 231. EKG: Pending Impression: 1. Respiratory failure, hypoxemia and possible exacerbation of COPD. No evidence to suggest ischemia or acute CHF 2. Status post cervical fusion 3. Prior history of smoking 4. History of hypertension 5. History of hyperlipidemia 6. History of CAD although details not available Plan: 1. Obtain an echocardiogram with Doppler 2. Management of ventilator per pulmonary service 3. Follow renal functions 4. Adjust antihypertensive regimen depending on blood pressure reading after extubation 5. Depending on his progress further recommendations will be made 6. Resume aspirin and statin when extubated 7. Thank you for this consult we will follow with you Past Medical History Past Medical History: Cancer, COPD, GERD/Reflux, Hyperlipidemia, Hypertension, Prostate Disorder Additional Past Medical History / Comment(s): Severe cervical myelopathy with upper and lower extremity weakness due to his cervical stenosis with myelomalac ia. Status post anterior cervical decompression with and fusion C3-3 7 on 10/20/2023. 50% blockage in heart, anemia, tremors, prostate cancer. History of Any Multi-Drug Resistant Organisms: None Reported Past Surgical History: Back Surgery, Cholecystectomy, Heart Catheterization Additional Past Surgical History / Comment(s): heart cath 1995 Past Anesthesia/Blood Transfusion Reactions: Previous Problems w/ Anesthesia Additional Past Anesthesia/Blood Transfusion Reaction / Comment(s): "Woke up during gallbladder surgery." Past Psychological History: No Psychological Hx Reported Smoking Status: Current every day smoker Past Alcohol Use History: None Reported Additional Past Alcohol Use History / Comment(s): Has been smoking for 50 yrs, trying to quit, down to 1/2 PPD. Nothing in past 12 days. Past Drug Use History: None Reported Additional Drug Use History / Comment(s): "Social Marijuana use." Aware no use 24 hrs prior to procedure. Denies any alcohol - Past Family History Brother(s) Family Medical History: Cancer Medications and Allergies Home Medications Medication Instructions Recorded Confirmed Type Atorvastatin [Lipitor] 40 mg PO HS 04/12/19 11/07/23 History Lisinopril-Hctz 20-12.5 mg 1 tab PO DAILY 04/12/19 11/07/23 History [Zestoretic 20-12.5] Tamsulosin [Flomax] 0.4 mg PO HS 04/12/19 11/07/23 History Ferrous Sulfate [Iron] 325 mg PO DAILY 09/29/23 11/07/23 History Folic Acid 0.4 mg PO DAILY 09/29/23 11/07/23 History Fluticasone/Umeclidin/Vilanter 1 puff INHALATION RT-DAILY 10/19/23 11/07/23 History [Trelegy Ellipta 100-62.5-25] Acetaminophen Tab [Tylenol] 650 mg PO Q6HR PRN tab 10/27/23 11/07/23 Rx HYDROcodone/APAP 5-325MG [[place] 1 - 2 tab PO Q6HR PRN #56 tab 10/27/23 11/07/23 Rx 5-325] Clotrimazole/Betameth Cream 1 applic TOPICAL Q12H 11/07/23 11/07/23 History [Lotrisone] Doxycycline Monohydrate 100 mg PO BID 11/07/23 11/07/23 History Ipratropium-Albuterol Nebulize 3 ml INHALATION RT-QID 11/07/23 11/07/23 History [Duoneb 0.5 mg-3 mg/3 ml Soln] Omeprazole 20 mg PO DAILY 11/07/23 11/07/23 History amLODIPine [Norvasc] 5 mg PO DAILY 11/07/23 11/07/23 History methocarbamoL [Robaxin-750] 750 mg PO Q8H 11/07/23 11/07/23 History Allergies Allergy/AdvReac Type Severity Reaction Status Date / Time No Known Allergies Allergy Verified 11/07/23 16:44 Physical Exam Vitals: Vital Signs Temp Pulse Pulse Resp BP BP Pulse Ox 11/11/23 07:00 73 20 100 11/11/23 06:45 76 20 99 11/11/23 06:30 71 20 100 11/11/23 06:15 72 20 99 11/11/23 06:00 72 20 99 11/11/23 05:45 72 20 99 11/11/23 05:31 74 20 99 11/11/23 05:16 74 20 98 11/11/23 05:00 76 20 98 11/11/23 04:45 75 20 98 11/11/23 04:30 74 20 98 11/11/23 04:15 73 20 98 11/11/23 04:00 99.1 F 81 20 100 11/11/23 03:45 73 20 100 11/11/23 03:32 11/11/23 03:30 71 20 95 11/11/23 03:15 71 20 98 11/11/23 03:00 79 20 96 11/11/23 02:45 78 20 11/11/23 02:30 76 20 100 11/11/23 02:00 74 20 100 11/11/23 01:30 77 20 97 11/11/23 01:13 06/21/24 01:00 81 20 100/62 100 11/11/23 00:30 92 20 85/56 100 11/11/23 00:00 99.6 F 100 22 113/57 99 11/10/23 23:56 11/10/23 23:30 85 19 105/59 98 11/10/23 23:20 88 17 105/59 97 11/10/23 23:04 11/10/23 23:00 100 24 144/83 97 11/10/23 22:30 86 22 93 L 11/10/23 22:00 77 24 122/72 95 11/10/23 21:30 96 38 H 89 L 11/10/23 21:11 71 11/10/23 21:04 85 11/10/23 21:00 77 27 H 122/72 97 11/10/23 20:37 87 18 95 11/10/23 18:23 98.8 F 98 19 113/62 95 11/10/23 16:35 96 11/10/23 16:23 92 11/10/23 13:59 98.2 F 100 19 104/68 93 L 11/10/23 12:48 88 11/10/23 12:36 88 11/10/23 11:56 16 11/10/23 09:21 100 11/10/23 09:06 100 FiO2 11/11/23 07:00 11/11/23 06:45 11/11/23 06:30 11/11/23 06:15 11/11/23 06:00 11/11/23 05:45 11/11/23 05:31 11/11/23 05:16 11/11/23 05:00 11/11/23 04:45 11/11/23 04:30 11/11/23 04:15 11/11/23 04:00 50 11/11/23 03:45 11/11/23 03:32 50 11/11/23 03:30 11/11/23 03:15 11/11/23 03:00 11/11/23 02:45 11/11/23 02:30 11/11/23 02:00 11/11/23 01:30 11/11/23 01:13 50 11/11/23 01:00 11/11/23 00:30 100 11/11/23 00:00 100 11/10/23 23:56 100 11/10/23 23:30 11/10/23 23:20 11/10/23 23:04 50 11/10/23 23:00 50 11/10/23 22:30 11/10/23 22:00 11/10/23 21:30 11/10/23 21:11 11/10/23 21:04 11/10/23 21:00 11/10/23 20:37 11/10/23 18:23 11/10/23 16:35 11/10/23 16:23 11/10/23 13:59 11/10/23 12:48 11/10/23 12:36 11/10/23 11:56 11/10/23 09:21 11/10/23 09:06 Intake and Output 11/10/23 11/11/23 11/11/23 22:59 06:59 14:59 Intake Total 75 864.646 75 Output Total 120 1010 115 Balance -45 -145.354 -40 Intake: IV 75 675 75 Sodium Chloride 0.9% 1, 75 675 75 000 ml @ 75 mls/hr IV . [id number] ROSA Rx#:[id number] Intake, IV Titration 189.646 Amount Norepinephrine 4 mg In 31.798 Sodium Chloride 0.9% 250 ml @ 0.03 MCG/KG/MIN 10. 369 mls/hr IV .Q24H ROSA Rx#:[id number] propofoL 1,000 mg In 157.848 Empty Bag 1 bag @ 15 MCG/ KG/MIN 8.165 mls/hr IV . [id number] ROSA Rx#:[id number] Output: Urine 120 1010 115 Other: Voiding Method Indwelling Catheter Indwelling Catheter # Bowel Movements 1 Weight 91.4 kg ABP, PAP, CO, CI - Last 8 Hours Arterial Blood Pressure 137/51 Arterial Blood Pressure 140/54 Arterial Blood Pressure 124/48 Arterial Blood Pressure 129/49 Arterial Blood Pressure 119/47 Arterial Blood Pressure 128/50 Arterial Blood Pressure 129/49 Arterial Blood Pressure 128/49 Arterial Blood Pressure 127/49 Arterial Blood Pressure 128/49 Arterial Blood Pressure 137/53 Arterial Blood Pressure 120/49 Arterial Blood Pressure 118/52 Arterial Blood Pressure 112/46 Arterial Blood Pressure 124/43 Arterial Blood Pressure 141/53 Arterial Blood Pressure 127/48 Arterial Blood Pressure 114/47 Arterial Blood Pressure 96/44 Results 11/11/23 03:55 11/11/23 03:55 Cardiac Enzymes 11/10/23 11/10/23 Range/Units 20:51 23:37 AST 26 (17-59) U/L Troponin I <0.012 (0.000-0.034) ng/mL CBC 11/10/23 11/11/23 Range/Units 20:51 03:55 WBC 26.2 H 19.1 H (3.8-10.6) k/uL RBC 3.29 L 3.04 L (4.30-5.90) m/uL Hgb 11.3 L 10.4 L (13.0-17.5) gm/dL Hct 33.8 L 31.2 L (39.0-53.0) % Plt Count 241 226 (150-450) k/uL Comprehensive Metabolic Panel 11/10/23 11/11/23 Range/Units 20:51 03:55 Sodium 133 L 134 L (137-145) mmol/L Potassium 4.1 3.4 L (3.5-5.1) mmol/L Chloride 102 102 (98-107) mmol/L Carbon Dioxide 28 28 (22-30) mmol/L BUN 15 14 (9-20) mg/dL Creatinine 0.64 L 0.70 (0.66-1.25) mg/dL Glucose 114 H 109 H (74-99) mg/dL Calcium 8.4 8.0 L (8.4-10.2) mg/dL AST 26 (17-59) U/L ALT 19 (4-49) U/L Alkaline Phosphatase 83 (38-126) U/L Total Protein 5.3 L (6.3-8.2) g/dL Albumin 3.1 L (3.5-5.0) g/dL Current Medications Generic Name Dose Route Start Last Admin Trade Name Freq PRN Reason Stop Dose Admin Acetaminophen 650 mg 11/08/23 05:52 11/10/23 22:35 Acetaminophen Tab 325 Mg Tab PO 650 mg Q6HR PRN Administration Mild Pain or Fever > 100.5 Hydrocodone Bitart/Acetaminophen 1 each 11/09/23 12:30 Hydrocodone/Apap 5-325mg 1 Each Tab PO Q6HR PRN Pain Hydrocodone Bitart/Acetaminophen 1 each 11/10/23 05:42 11/10/23 07:05 Hydrocodone/Apap 7.5-325mg 1 Each Tab PO 1 each Q4HR PRN Administration Pain Albuterol/Ipratropium 3 ml 11/08/23 08:00 11/10/23 21:00 Ipratropium-Albuterol 3 Ml Neb INHALATION 3 ml RT-QID ROSA Administration Amlodipine Besylate 5 mg 11/08/23 09:00 11/10/23 07:58 Amlodipine 5 Mg Tab PO Not Given DAILY ROSA Atorvastatin Calcium 40 mg 11/08/23 21:00 11/10/23 20:19 Atorvastatin 40 Mg Tab PO 40 mg HS ROSA Administration Baclofen 10 mg 11/08/23 08:55 11/10/23 07:05 Baclofen 10 Mg Tab PO 10 mg TID PRN Administration Muscle Spasm Benzocaine/Menthol 1 each 11/09/23 12:28 Benzocaine/Menthol Lozeng 1 Each Lozenge MUCOUS MEM Q4HR PRN Sore Throat Budesonide/Formoterol Fumarate 1 puff 11/08/23 08:00 11/10/23 21:00 Symbicort 80-4.5 Mcg Inhaler INHALATION 1 puff RT-BID ROSA Administration Buspirone HCl 5 mg 11/10/23 18:16 11/10/23 18:26 Buspirone Hcl 5 Mg Tab PO 5 mg QID PRN Administration Anxiety Chlorhexidine Gluconate 15 ml 11/11/23 09:00 Chlorhexidine Gluconate 15 Ml Cup MUCOUS MEM BID ROSA Diazepam 5 mg 11/10/23 12:38 11/10/23 14:03 Diazepam 5 Mg Tab PO 5 mg QID PRN Administration Anxiety Famotidine 20 mg 11/07/23 21:00 11/10/23 20:19 Famotidine 20 Mg Tab PO 20 mg BID ROSA Administration Ferrous Sulfate 325 mg 11/08/23 09:00 11/10/23 07:58 Ferrous Sulfate 325 Mg Tab PO 325 mg DAILY ROSA Administration Folic Acid 0.5 mg 11/08/23 09:00 11/10/23 07:58 Folic Acid 1 Mg Tab PO 0.5 mg DAILY ROSA Administration Lisinopril/HCTZ 1 each 11/10/23 09:00 11/10/23 07:58 Lisinopril-Hctz 20-12.5 Mg 1 Each Tab PO Not Given DAILY ROSA Hydromorphone HCl 0.5 mg 11/09/23 12:28 11/11/23 03:19 Hydromorphone 0.5 Mg/0.5 Ml Syringe IVP 0.5 mg Q4HR PRN Administration Pain Hydromorphone HCl 1 mg 11/09/23 12:28 11/11/23 01:08 Hydromorphone 1 Mg/Ml 1 Ml Syringe IVP 1 mg Q4HR PRN Administration Pain Sodium Chloride 1,000 mls @ 75 mls/hr 11/09/23 12:30 11/11/23 05:48 Saline 0.9% IV 75 mls/hr .[id number] ROSA Administration Propofol 1,000 mg/ IV Solution 100 mls @ 8.165 mls/hr 11/10/23 23:45 11/11/23 06:46 IV 50 mcg/kg/min .[id number] ROSA 27.215 mls/hr Administration Protocol 15 MCG/KG/MIN Norepinephrine Bitartrate 4 mg 254 mls @ 10.369 mls/hr 11/11/23 01:30 11/11/23 05:15 / Sodium Chloride IV 0 mcg/kg/min .Q24H ROSA 0 mls/hr Titration Protocol 0.03 MCG/KG/MIN Methocarbamol 750 mg 11/09/23 12:30 Methocarbamol 750 Mg Tab PO Q8H PRN Spasms Miscellaneous Information 1 each 11/10/23 20:28 Rx Info: Iv Contrast Was Given 1 Each Misc MISCELLANE 11/12/23 20:28 DAILY PRN Per Protocol Naloxone HCl 0.2 mg 11/07/23 17:39 11/10/23 11:56 Naloxone 0.4 Mg/Ml 1 Ml Vial IV 0.2 mg Q2M PRN Administration Opioid Reversal Ondansetron HCl 4 mg 11/09/23 12:28 Ondansetron 4 Mg/2 Ml Vial IVP Q8HR PRN Nausea And Vomiting Pantoprazole Sodium 40 mg 11/08/23 09:00 11/10/23 07:58 Pantoprazole 40 Mg Tablet PO 40 mg DAILY ROSA Administration Senna/Docusate Sodium 1 each 11/10/23 09:00 11/10/23 07:58 Sennosides-Docusate Sodium 1 Each Tab PO 1 each DAILY ROSA Administration Tamsulosin HCl 0.4 mg 11/08/23 21:00 11/10/23 20:19 Tamsulosin 0.4 Mg Cap.Er.24h PO 0.4 mg HS ROSA Administration Intake and Output 11/10/23 11/11/23 11/11/23 22:59 06:59 14:59 Intake Total 75 864.646 75 Output Total 120 1010 115 Balance -45 -145.354 -40 Intake: IV 75 675 75 Sodium Chloride 0.9% 1, 75 675 75 000 ml @ 75 mls/hr IV . [id number] ROSA Rx#:[id number] Intake, IV Titration 189.646 Amount Norepinephrine 4 mg In 31.798 Sodium Chloride 0.9% 250 ml @ 0.03 MCG/KG/MIN 10. 369 mls/hr IV .Q24H ROSA Rx#:[id number] propofoL 1,000 mg In 157.848 Empty Bag 1 bag @ 15 MCG/ KG/MIN 8.165 mls/hr IV . [id number] ROSA Rx#:[id number] Output: Urine 120 1010 115 Other: Voiding Method Indwelling Catheter Indwelling Catheter # Bowel Movements 1 Weight 91.4 kg 11/11/23 03:55 11/11/23 03:55
--- NOTE | 2023-11-11 07:56 | P.PN ---
Progress Note - Text Progress Note Date: 11/11/23 The patient is seen and examined in the intensive care unit this morning. Patient is intubated overnight. He is postoperative day #2 status post posterior cervical decompression and fusion C3-7 for severe cervical stenosis with myelopathy, myelomalacia cord dysfunction and upper and lower extremity weakness. He is 2 weeks postop from his anterior cervical decompression and fusion for the same diagnosis. When he was seen yesterday morning he was a bit confused but he was comfortable on room air and conversing appropriately. He had felt that his upper extremities had been making some progress. Through the day he became more confused and was having desaturations with his oxygen. He was placed on further assistance and then moved to the intensive care unit. He was managing through the afternoon with BiPAP. His chest x-ray showed decreased volumes. Later in the evening he was having periods of apnea. He was having significant desaturations and the decision was made to have him intubated to protect his airway. He is continue to have further workup in terms of his brain and chest and cardiac status. The CT of the brain does not show any evidence of stroke. The CT of the chest does not show any evidence of embolus, but the test is suboptimal. Currently he has ventilated without pressors and sedated. His blood pressure is remaining stable and saturating appropriately on the vent On exam Ventilator is intact. He is sedated His chest seems to have good excursion with inspiration expiration on the vent He has some diffuse swelling of his right upper extremity. His neck incision anteriorly is clean dry and intact without any evidence of infection. Posteriorly his dressing is intact with scant serosanguineous drainage. He seems to have evacuated some fluid collection yesterday but does not have any active bleeding. Assessment and plan Severe cervical myelopathy Postoperative day #2 status post posterior cervical decompression fusion C3-7 and 2 weeks postop from anterior cervical decompression and fusion C3-C7 for his myelopathy Severe respiratory compromise necessitating intubation overnight. History of COPD No obvious sign of cardiac event or pulmonary embolus. Currently patient is maintaining adequately on the vent. His troponins have been negative and he had a recent echo and discussions with cardiology do not lean toward an acute cardiac event He has recent history of COPD exacerbation but was not having respiratory troubles after his procedure 2 weeks ago. His checks x-ray shows some low volumes but does not seem to have acute process. CT scan does not indicate obvious embolus but is somewhat suboptimal. Is difficult to determine the nature of his respiratory compromise fully. I do not think that the cervical spine incision site has any acute issue postoperatively the drainage is decreased and I do not think he has active bleed ing. The patient is going to continue management in intensive care unit as per critical care. The appropriate services are managing as well. He will continue to have critical management and monitoring on the ventilator. He will likely stay on the ventilator over the next couple of days before attempting to wean off. Continue current management through medical services and critical care.
[2023-11-11] MEDS: ONDANSETRON 4 MG/2 ML VIAL IVP PRN (08:44)
[2023-11-11] MEDS: CHLORHEXIDINE GLUCONATE 15 ML CUP MUCOUS MEM SCH (10:27)
[2023-11-11 11:34] LABS: Glucose,Whole Blood 117 mg/dL (70-110)
[2023-11-11 11:42] LABS: ABG Base Excess 5.5 mmol/L; ABG HCO3 30 mmol/L (21-25); ABG Oxygen Saturation 97.7 % (94-97); ABG PCO2 44 mmHg (35-45); ABG PH 7.44 (7.35-7.45); ABG PO2 89 mmHg (83-108); ABG TCO2 32 mmol/L (19-24); Allen Test Performed? Yes
--- NOTE | 2023-11-11 11:54 | P.CNPUL ---
History of Present Illness Consult date: 11/11/23 Requesting physician: Jalen Au Reason for consult: other (Impending respiratory failure) Chief complaint: Neck pain with radiculopathy History of present illness: This is a 67-year-old white male with known history of cervical myelopathy and upper and lower extremities weakness with severe cervical stenosis, on November 08, patient underwent anterior cervical decompression and fusion, patient developed postoperative shortness of breath, I was notified about this patient from his primary care physician/, arrange for the patient to go to the ICU mostly because of his low O2 saturation and abnormal ABG showing a pO2 in the 40s. His initial ABG was done while the patient was on the medical floor and this was on 40% FiO2 showed a pO2 of 44 pCO2 of 46 pH of 7.43. Chest x-ray with basically unremarkable, CT angiogram of the chest was also unremarkable. Patient was sent to the ICU shortly after this ABG, and in the ICU he was noted to have more dyspnea, placed on BiPAP, went on to develop more dyspnea and I was notified by the nurse that the patient was struggling to breathe. Hence I recommended intubation and mechanical ventilation. Patient is now on assist-control rate of 20 tidal volume 450 FiO2 50% and PEEP of 5 ABG postintubation showed a pO2 of 231 pCO2 48 pH of 7.41. This morning the patient was taken off propofol which was 50 mcg/kg/min, and I recommended 8 again a trial of pressure support and CPAP with a pressure support of 8 and CPAP of 5 for 2 hours. Repeat ABG after that showed a pO2 of 89 pCO2 44 pH of 7.44 hence we will try to extubate the patient to BiPAP and will keep the patient in the ICU for close monitoring. May consider sending the patient down for a sniff test, considering his recent cervical surgery, I would be concerned about the possibility of diaphragm paralysis. In the meantime I would recommend holding narcotics and sedatives, and I would recommend placing the patient on the bronchodilators for his underlying presumptive COPD. Review of Systems ROS unobtainable: due to endotracheal tube Past Medical History Past Medical History: Cancer, COPD, GERD/Reflux, Hyperlipidemia, Hypertension, Prostate Disorder Additional Past Medical History / Comment(s): Severe cervical myelopathy with upper and lower extremity weakness due to his cervical stenosis with myelomalacia. Status post anterior cervical decompression with and fusion C3-3 7 on 10/20/2023. 50% blockage in heart, anemia, tremors, prostate cancer. History of Any Multi-Drug Resistant Organisms: None Reported Past Surgical History: Back Surgery, Cholecystectomy, Heart Catheterization Additional Past Surgical History / Comment(s): heart cath 1995 Past Anesthesia/Blood Transfusion Reactions: Previous Problems w/ Anesthesia Additional Past Anesthesia/Blood Transfusion Reaction / Comment(s): "Woke up during gallbladder surgery." Past Psychological History: No Psychological Hx Reported Smoking Status: Current every day smoker Past Alcohol Use History: None Reported Additional Past Alcohol Use History / Comment(s): Has been smoking for 50 yrs, trying to quit, down to 1/2 PPD. Nothing in past 12 days. Past Drug Use History: None Reported Additional Drug Use History / Comment(s): "Social Marijuana use." Aware no use 24 hrs prior to procedure. Denies any alcohol - Past Family History Brother(s) Family Medical History: Cancer Medications and Allergies Home Medications Medication Instructions Recorded Confirmed Type Atorvastatin [Lipitor] 40 mg PO HS 04/12/19 11/07/23 History Lisinopril-Hctz 20-12.5 mg 1 tab PO DAILY 04/12/19 11/07/23 History [Zestoretic 20-12.5] Tamsulosin [Flomax] 0.4 mg PO HS 04/12/19 11/07/23 History Ferrous Sulfate [Iron] 325 mg PO DAILY 09/29/23 11/07/23 History Folic Acid 0.4 mg PO DAILY 09/29/23 11/07/23 History Fluticasone/Umeclidin/Vilanter 1 puff INHALATION RT-DAILY 10/19/23 11/07/23 History [Trelegy Ellipta 100-62.5-25] Acetaminophen Tab [Tylenol] 650 mg PO Q6HR PRN tab 10/27/23 11/07/23 Rx HYDROcodone/APAP 5-325MG [[place] 1 - 2 tab PO Q6HR PRN #56 tab 10/27/23 11/07/23 Rx 5-325] Clotrimazole/Betameth Cream 1 applic TOPICAL Q12H 11/07/23 11/07/23 History [Lotrisone] Doxycycline Monohydrate 100 mg PO BID 11/07/23 11/07/23 History Ipratropium-Albuterol Nebulize 3 ml INHALATION RT-QID 11/07/23 11/07/23 History [Duoneb 0.5 mg-3 mg/3 ml Soln] Omeprazole 20 mg PO DAILY 11/07/23 11/07/23 History amLODIPine [Norvasc] 5 mg PO DAILY 11/07/23 11/07/23 History methocarbamoL [Robaxin-750] 750 mg PO Q8H 11/07/23 11/07/23 History Allergies Allergy/AdvReac Type Severity Reaction Status Date / Time No Known Allergies Allergy Verified 11/07/23 16:44 Physical Exam Vitals: Vital Signs Temp Pulse Pulse Resp BP BP Pulse Ox 11/11/23 11:00 84 27 H 109/61 96 11/11/23 10:30 89 25 H 100/62 96 11/11/23 10:00 93 21 95 11/11/23 09:30 87 26 H 95 11/11/23 09:11 11/11/23 09:09 85 11/11/23 09:00 85 20 96 11/11/23 08:54 84 11/11/23 08:30 79 20 98 11/11/23 08:00 100.1 F H 74 20 100 11/11/23 07:30 75 20 99 11/11/23 07:00 73 20 100 11/11/23 06:45 76 20 99 11/11/23 06:30 71 20 100 11/11/23 06:15 72 20 99 11/11/23 06:00 72 20 99 11/11/23 05:45 72 20 99 11/11/23 05:31 74 20 99 11/11/23 05:16 74 20 98 11/11/23 05:00 76 20 98 11/11/23 04:45 75 20 98 11/11/23 04:30 74 20 98 11/11/23 04:15 73 20 98 11/11/23 04:00 99.1 F 81 20 100 11/11/23 03:45 73 20 100 11/11/23 03:32 11/11/23 03:30 71 20 95 11/11/23 03:15 71 20 98 11/11/23 03:00 79 20 96 11/11/23 02:45 78 20 11/11/23 02:30 76 20 100 11/11/23 02:00 74 20 100 11/11/23 01:30 77 20 97 11/11/23 01:13 11/11/23 01:00 81 20 100/62 100 11/11/23 00:30 92 20 85/56 100 11/11/23 00:00 99.6 F 100 22 113/57 99 11/10/23 23:30 85 19 105/59 98 11/10/23 23:20 88 17 105/59 97 11/10/23 23:04 11/10/23 23:00 100 24 144/83 97 11/10/23 22:30 86 22 93 L 11/10/23 22:00 77 24 122/72 95 11/10/23 21:30 96 38 H 89 L 11/10/23 21:11 71 11/10/23 21:04 85 11/10/23 21:00 77 27 H 122/72 97 11/10/23 20:37 87 18 95 11/10/23 18:23 98.8 F 98 19 113/62 95 11/10/23 16:35 96 11/10/23 16:23 92 11/10/23 13:59 98.2 F 100 19 104/68 93 L 11/10/23 12:48 88 11/10/23 12:36 88 11/10/23 11:56 16 FiO2 11/11/23 11:00 11/11/23 10:30 11/11/23 10:00 11/11/23 09:30 11/11/23 09:11 45 11/11/23 09:09 45 11/11/23 09:00 11/11/23 08:54 11/11/23 08:30 45 11/11/23 08:00 50 11/11/23 07:30 50 11/11/23 07:00 11/11/23 06:45 11/11/23 06:30 11/11/23 06:15 11/11/23 06:00 11/11/23 05:45 11/11/23 05:31 11/11/23 05:16 11/11/23 05:00 11/11/23 04:45 11/11/23 04:30 11/11/23 04:15 11/11/23 04:00 50 11/11/23 03:45 11/11/23 03:32 50 11/11/23 03:30 11/11/23 03:15 11/11/23 03:00 11/11/23 02:45 11/11/23 02:30 11/11/23 02:00 11/11/23 01:30 11/11/23 01:13 50 11/11/23 01:00 11/11/23 00:30 100 11/11/23 00:00 100 11/10/23 23:30 11/10/23 23:20 11/10/23 23:04 50 11/10/23 23:00 50 11/10/23 22:30 11/10/23 22:00 11/10/23 21:30 11/10/23 21:11 11/10/23 21:04 11/10/23 21:00 11/10/23 20:37 11/10/23 18:23 11/10/23 16:35 11/10/23 16:23 11/10/23 13:59 11/10/23 12:48 11/10/23 12:36 11/10/23 11:56 Intake and Output 11/10/23 11/11/23 11/11/23 22:59 06:59 14:59 Intake Total 75 864.646 411.967 Output Total 120 1010 235 Balance -45 -145.354 176.967 Intake: IV 75 675 375 Sodium Chloride 0.9% 1, 75 675 375 000 ml @ 75 mls/hr IV . [id number] ROSA Rx#:[id number] Intake, IV Titration 189.646 36.967 Amount Norepinephrine 4 mg In 31.798 Sodium Chloride 0.9% 250 ml @ 0.03 MCG/KG/MIN 10. 369 mls/hr IV .Q24H ROSA Rx#:[id number] propofoL 1,000 mg In 157.848 36.967 Empty Bag 1 bag @ 15 MCG/ KG/MIN 8.165 mls/hr IV . [id number] ROSA Rx#:[id number] Output: Urine 120 1010 235 Other: Voiding Method Indwelling Catheter Indwelling Catheter Indwelling Catheter # Bowel Movements 1 Weight 91.4 kg ABP, PAP, CO, CI - Last 8 Hours Arterial Blood Pressure 121/44 Arterial Blood Pressure 118/44 Arterial Blood Pressure 111/42 Arterial Blood Pressure 120/42 Arterial Blood Pressure 117/45 Arterial Blood Pressure 138/48 Arterial Blood Pressure 114/42 Arterial Blood Pressure 121/47 Arterial Blood Pressure 137/51 Arterial Blood Pressure 140/54 Arterial Blood Pressure 124/48 Arterial Blood Pressure 129/49 Arterial Blood Pressure 119/47 Arterial Blood Pressure 128/50 Arterial Blood Pressure 129/49 Arterial Blood Pressure 128/49 Arterial Blood Pressure 127/49 Arterial Blood Pressure 128/49 Arterial Blood Pressure 137/53 Arterial Blood Pressure 120/49 Arterial Blood Pressure 118/52 Arterial Blood Pressure 112/46 General: Reveals 67-year-old white male intubated mechanically ventilated Skin: Skin is warm and dry and no rashes or lesions are noted. Eye: Pupils are equal, round and reactive to light, extra-ocular movements are intact; there is normal conjunctiva bilaterally. Ears, nose, mouth and throat: There are moist mucous membranes and no oral lesions. Neck: Cervical collar is noted in place, no stridor. Cardiovascular: There is a regular rate and rhythm. No murmur, rub or gallop is appreciated. Respiratory: Diminished breath sound bilaterally no crackles rhonchi or wheezes Gastrointestinal: Soft, non-distended, non-tender abdomen without masses or organomegaly noted. There is no rebound or guarding present. Bowel sounds are unremarkable. Back: There is no tenderness to palpation in the midline. There is no obvious deformity. Musculoskeletal: Normal ROM, no tenderness, There is no pedal edema. There is no calf tenderness or swelling. No cords were appreciated. Neurological: CN II-XII intact, Cranial nerves III through XII are intact. There are no obvious motor or sensory deficits. Coordination appears grossly intact. Speech is normal. Psychiatric: Cooperative, appropriate mood & affect, normal judgment. Results - Laboratory Findings CBC and BMP: 11/11/23 03:55 11/11/23 03:55 ABG ABG pH 7.40 (7.35-7.45) 11/11/23 01:09 ABG pCO2 48 mmHg (35-45) H 11/11/23 01:09 ABG pO2 231 mmHg (83-108) H 11/11/23 01:09 ABG O2 Saturation 100.3 % (94-97) H 11/11/23 01:09 PT/INR, D-dimer PT 11.6 sec (10.0-12.5) 11/07/23 17:15 INR 1.1 (<1.2) 11/07/23 17:15 Abnormal lab findings: Abnormal Labs 11/07/23 11/07/23 11/10/23 17:15 17:15 18:40 WBC 19.2 H RBC 3.80 L Hgb 12.9 L Hct 38.2 L MCV 100.6 H Neutrophils # 17.3 H Lymphocytes # 0.8 L Monocytes # ABG pCO2 ABG pO2 ABG HCO3 ABG Total CO2 ABG O2 Saturation Sodium 132 L Potassium BUN 25 H Creatinine Glucose 106 H POC Glucose (mg/dL) 140 H Calcium Total Protein 6.2 L Albumin 11/10/23 11/10/23 11/10/23 18:51 20:42 20:51 WBC 26.2 H RBC 3.29 L Hgb 11.3 L Hct 33.8 L MCV 102.9 H Neutrophils # 23.5 H Lymphocytes # 0.6 L Monocytes # 1.8 H ABG pCO2 46 H ABG pO2 44 L* ABG HCO3 31 H ABG Total CO2 32 H ABG O2 Saturation 82.6 L Sodium Potassium BUN Creatinine Glucose POC Glucose (mg/dL) 125 H Calcium Total Protein Albumin 11/10/23 11/10/23 11/11/23 20:51 20:51 01:09 WBC RBC Hgb Hct MCV Neutrophils # Lymphocytes # Monocytes # ABG pCO2 48 H ABG pO2 82 L 231 H ABG HCO3 30 H 30 H ABG Total CO2 32 H 31 H ABG O2 Saturation 97.4 H 100.3 H Sodium 133 L Potassium BUN Creatinine 0.64 L Glucose 114 H POC Glucose (mg/dL) Calcium Total Protein 5.3 L Albumin 3.1 L 11/11/23 11/11/23 11/11/23 03:55 03:55 11:33 WBC 19.1 H RBC 3.04 L Hgb 10.4 L Hct 31.2 L MCV 102.8 H Neutrophils # 17.2 H Lymphocytes # 0.6 L Monocytes # 1.2 H ABG pCO2 ABG pO2 ABG HCO3 ABG Total CO2 ABG O2 Saturation Sodium 134 L Potassium 3.4 L BUN Creatinine Glucose 109 H POC Glucose (mg/dL) 117 H Calcium 8.0 L Total Protein Albumin - Diagnostic Findings Additional studies: CT angiogram of the chest as noted in HPI ruled out pulmonary embolism Assessment and Plan Assessment: Impression: Acute hypoxic respiratory failure with mild hypercapnia noted post cervical fusion requiring intubation mechanical ventilation. Throughout left diaphragm paralysis, rule out mechanical obstruction from his recent cervical surgery may consider CT of the soft tissues of the neck/cervical spine History of underlying COPD presently inactive Ex-smoker Benign essential hypertension History of cervical myelopathy Dyslipidemia History of underlying coronary artery disease Recommendation: Continue to monitor the patient in the ICU Continue ventilatory support, but will wean and extubate if the patient does well for the next 2 hours on pressure support and CPAP Will likely recommend a stress test, and a CT of the soft tissues of the neck/cervical spine If extubated would definitely recommend extubation to BiPAP again. Reviewed the results of the CT angiogram of the chest Start patient on bronchodilators for his COPD Will continue to follow. Time with Patient: Greater than 30
[2023-11-11] MEDS ORDERED: QUEtiapine 25 MG TAB PO PRN (13:03)
[2023-11-11] MEDS: ACETAMINOPHEN IV (For NPO) 1,000 MG in EMPTY BAG 1 BAG IVPB PRN (13:10)
--- NOTE | 2023-11-11 13:10 | P.CN ---
Psychiatric Consult - . Consult date: 11/11/23 Consult:: 11/11/23 12:50 IDENTIFYING DATA: This patient is a 67-year-old male, currently coming from a [facility]. REASON FOR REFERRAL: Psychiatry was consulted for "confused, yelling out" HISTORY OF PRESENT ILLNESS: The patient presented to the hospital initially on 11/06. Patient had neck pain at that time as his chief complaint, was in a recent surgery about a week ago, was sent by orthopedics for admission to the hospital. Patient apparently was not able to care for himself due to the neck injury. Patient had a surgery recently for cervical decompression on November 08. He was admitted to the ICU, intubated and extubated earlier this morning. Patient's nurse states that patient is resting at this time, recently extubated this morning, is doing better today and not as confused and claims that it was possibly related to the opiates that he has been receiving for the surgery. Patient was seen resting comfortably on the bed, was awoken by data analyst report writer, patient was fairly lethargic during the interview, he denied hearing any voices or any visual [place] who is [place]. Denies any suicidal homicidal ideations intent or plan. States that his mood is "fine". Denies any anxiety at this time. He was able to correctly identify his name and age and that he was in [facility]. He only knew the year was 2023. At this time patient denies any suicidal or homical ideations, intent or plan. Patient denies any auditory, visual osei not the specific date. Patient was somewhat sleepy and not able to give any further history and went back to sleep, unable to answer further questions. Patients admits to using no recreational drugs or alcohol PAST PSYCHIATRIC HISTORY: Unable to gather information PAST MEDICAL HISTORY:Past Medical History: Cancer, COPD, GERD/Reflux, Hyperlipidemia, Hypertension, Prostate Disorder Additional Past Medical History / Comment(s): Severe cervical myelopathy with upper and lower extremity weakness due to his cervical stenosis with myelomalacia. Status post anterior cervical decompression with and fusion C3-3 7 on 10/20/2023. 50% blockage in heart, anemia, tremors, prostate cancer. History of Any Multi-Drug Resistant Organisms: None Reported Past Surgical History: Back Surgery, Cholecystectomy, Heart Catheterization Additional Past Surgical History / Comment(s): heart cath 1995 Past Anesthesia/Blood Transfusion Reactions: Previous Problems w/ Anesthesia Additional Past Anesthesia/Blood Transfusion Reaction / Comment(s): "Woke up during gallbladder surgery." Past Psychological History: No Psychological Hx Reported Smoking Status: Current every day smoker Past Alcohol Use History: None Reported Past Drug Use History: None Reported ALLERGIES: as per EMR. CHEMICAL DEPENDENCY HISTORY: as per HPI. FAMILY PSYCHIATRIC/SUBSTANCE USE HISTORY: Able to gather information SOCIAL HISTORY: Patient is currently coming from [facility]. Unable to gather further social history. MENTAL STATUS EXAM: General Appearance: Patient appears to be fairly lethargic, stated age is laying in bed. Patient appears to have fair hygiene and grooming wearing hospital gown with poor eye contact. Behavior: Patient is calmly lying in bed without any agitated behavior. Fairly somnolent today Speech: Patient's speech is fluent and nonpressured. [place] Mood/Affect: Patient reports their mood is "ok", affect is congruent Suicidality/Homicidality: Patient denies having any suicidal or homicidal ideation intent or plan. Perceptions: Patient denies any visual hallucinations and denies any auditory hallucinations Though content/process: [place], poverty of content Memory and concentration: AOX2-3, only knew today's date, attention span poor. Patient was fairly lethargic. Judgment and insight: Poor IMPRESSIONS: Delirium likely multiple etiologies including opiates, DIRECTOR DIABETES sedatives, electrolytes, pain etc. PLAN: -At this time patient DOES NOT meet criteria for inpatient psychiatric admission. -Delirium precautions recommended with patient including - avoiding use of narcotics and [employer] sedatives, limit anticholinergic medications when possible, frequent re-orientation, minimize use of restraints, open window shades during the day and close them at night -Would recommend the following medication changes/additions: Melatonin 3 mg nightly for sleep, discontinue Valium as this will likely increase patient's confusion and delirium. Seroquel 25 mg twice daily as needed for agitation. Please attempt to cut down on opiates and any anticholinergic medications as well as this will further exacerbate patient's delirium. -Communicated plan to patient's nurse -Psychiatry will sign off at this time -Please contact with any questions. 11/11/23 13:04
[2023-11-11] MEDS: HYDROcodone/APAP 5-325MG 1 EACH TAB PO PRN (14:28)
[2023-11-11] MEDS: SODIUM CHLORIDE 0.9% 1,000 ML IV SCH (16:40)
[2023-11-11 17:06] LABS: Glucose,Whole Blood 110 mg/dL (70-110)
--- NOTE | 2023-11-11 18:35 | CA ---
Transthoracic Echo Report Name: Pascual Nolan Age: 67 Gender: M : 1955 Exam Date: 11/11/2023 13:16 Exam Location: [facility] Ht (in): 73 Wt (lb): 201 Ordering Physician: Veda Tomlin MD ([id number]) Attending/Referring Phys: Assistant Account Manager Julia Michelle RDCS Procedure CPT: Indications: CAD Cardiac Hx: Technical Quality: Fair Contrast 1: Total Dose (mL): Contrast 2: Total Dose (mL): MEASUREMENTS (Male / Female) Normal Values 2D ECHO LV Diastolic Diameter PLAX 4.1 cm 4.2 - 5.9 / 3.9 - 5.3 cm LV Systolic Diameter PLAX 2.8 cm IVS Diastolic Thickness 1.1 cm 0.6 - 1.0 / 0.6 - 0.9 cm LVPW Diastolic Thickness 1.1 cm 0.6 - 1.0 / 0.6 - 0.9 cm LV Relative Wall Thickness 0.5 RV Internal Dim ED PLAX 3.7 cm LA Systolic Diameter LX 3.5 cm 3.0 - 4.0 / 2.7 - 3.8 cm LV Diastolic Volume MOD BP 58.8 cm??? 67 - 155 / 56 - 104 cm??? LV Systolic Volume MOD BP 20.6 cm??? 22 - 58 / 19 - 49 cm??? LV Ejection Fraction MOD BP 64.9 % >= 55 % LV Cardiac Index MOD BP 1716.1 cm???/min???m??? LV Diastolic Volume MOD 4C 67.0 cm??? LV Systolic Volume MOD 4C 19.5 cm??? LV Ejection Fraction MOD 4C 71.0 % LV Cardiac Index MOD 4C 2139.0 cm???/min???m??? LV Diastolic Length 4C 6.9 cm LV Systolic Length 4C 5.5 cm LV Diastolic Volume MOD 2C 50.8 cm??? LV Systolic Volume MOD 2C 21.8 cm??? LV Ejection Fraction MOD 2C 57.0 % LV Cardiac Index MOD 2C 1303.6 cm???/min???m??? LV Diastolic Length 2C 7.0 cm LV Systolic Length 2C 5.6 cm LA Volume 54.7 cm??? 18 - 58 / 22 - 52 cm??? LA Volume Index 25.1 cm???/m??? 16 - 28 cm???/m??? M-MODE Aortic Root Diameter MM 3.3 cm LA Systolic Diameter MM 3.3 cm LA Ao Ratio MM 1.0 AV Cusp Separation MM 1.9 cm DOPPLER AV Peak Velocity 182.8 cm/s AV Peak Gradient 13.4 mmHg MV Area PHT 2.0 cm??? Mitral E Point Velocity 95.1 cm/s Mitral A Point Velocity 119.2 cm/s Mitral E to A Ratio 0.8 MV Deceleration Time 377.8 ms TR Peak Velocity 235.2 cm/s TR Peak Gradient 22.1 mmHg FINDINGS Left Ventricle Left ventricular ejection fraction is estimated at 60-65%. No obvious regional wall motion abnormalities. Left ventricular cavity size normal. Left ventricular wall thickness normal. Right Ventricle Moderate right ventricular dilatation. Normal right ventricular global systolic function. Right ventricular systolic pressure within normal limits. Right Atrium Normal right atrial size. Left Atrium Normal left atrial size. Mitral Valve Structurally normal mitral valve. Mitral valve thickened. Trace mitral regurgitation. Aortic Valve Trileaflet aortic valve. No aortic valve stenosis or regurgitation. Tricuspid Valve Structurally normal tricuspid valve. Mild tricuspid regurgitation. Pulmonic Valve Structurally normal pulmonic valve. Trace pulmonic regurgitation. No pulmonic stenosis. Pericardium No pericardial or pleural effusion. Aorta Normal size aortic root and proximal ascending aorta. CONCLUSIONS Normal LV systolic function Moderately dilated right ventricle Normal pulmonary artery systolic pressure Previewed by: Dr. John Parks MD (Electronically Signed) Final Date: 11 November 2023 18:34
[2023-11-11] MEDS ORDERED: Potassium Replacement Protocol 1 EACH MISC MISCELLANE PRN (18:51)
[2023-11-11] MEDS: FORMOTEROL FUMARATE 20 MCG/2 ML NEBU INHALATION SCH (20:31)
[2023-11-11] MEDS: BUDESONIDE 1 MG/2 ML NEBU INHALATION SCH (20:31)
[2023-11-11] MEDS: MELATONIN 3 MG TABLET PO SCH (20:41)
[2023-11-11 20:48] LABS: Glucose,Whole Blood 129 mg/dL (70-110)
[2023-11-11] MEDS: POTASSIUM CHLORIDE ER 10 MEQ TAB.ER.PRT PO STA (21:15)
[2023-11-12] MEDS: HYDROcodone/APAP 5-325MG 1 EACH TAB PO PRN (00:28)
[2023-11-12] MEDS: POTASSIUM CHLORIDE 10 MEQ in WATER FOR INJECTION 1 100ML.BAG IVPB SCH (02:08)
[2023-11-12 04:34] LABS: Basophils % (A) 0 %; Eosinophils # (A) 0.1 k/uL (0-0.7); Eosinophils % (A) 0 %; HCT 27.1 % (39.0-53.0); HGB 9.4 gm/dL (13.0-17.5); Lymphocytes # (A) 0.6 k/uL (1.0-4.8); Lymphocytes % (A) 3 %; MCH 35.5 pg (25.0-35.0); MCHC 34.6 g/dL (31.0-37.0); MCV 102.5 fL (80.0-100.0); Macrocytosis Slight; Monocytes # (A) 1.1 k/uL (0-1.0); Monocytes % (A) 5 %; Neutrophils # (A) 20.3 k/uL (1.3-7.7); Neutrophils % (A) 91 %; Platelet Count 193 k/uL (150-450); Poikilocytosis Slight; RBC 2.64 m/uL (4.30-5.90); RDW 13.2 % (11.5-15.5); WBC 22.2 k/uL (3.8-10.6)
[2023-11-12 04:54] LABS: African American GFR (CKD) >90 (>60 ml/min/1.73 sqM); Anion Gap 2 mmol/L; Blood Urea Nitrogen 12 mg/dL (9-20); Calcium 7.5 mg/dL (8.4-10.2); Carbon Dioxide 27 mmol/L (22-30); Chloride 105 mmol/L (98-107); Glucose 122 mg/dL (74-99); Magnesium 1.5 mg/dL (1.6-2.3); Non-African American GFR(CKD) >90 (>60 ml/min/1.73 sqM); Potassium 3.9 mmol/L (3.5-5.1); Sodium 134 mmol/L (137-145)
[2023-11-12] MEDS ORDERED: Magnesium Replacement Protocol 1 EACH MISC MISCELLANE PRN (04:57)
[2023-11-12] MEDS: MAGNESIUM SULFATE-D5W PMX 1 GM in DEXTROSE/WATER 1 100ML.BAG IVPB SCH (05:10)
[2023-11-12 05:32] LABS: Glucose,Whole Blood 145 mg/dL (70-110)
--- NOTE | 2023-11-12 07:13 | P.PN ---
Subjective Progress Note Date: 11/11/23 HISTORY OF PRESENT ILLNESS: 67-year-old with active medical history of cervical myelopathy, severe spinal stenosis, also known to have history of prostate cancer, hypertension, hy perlipidemia, COPD, chronic anemia, tremor, CAD with over 50 percentile blockage with angioplasty and stent placement. Patient had from October 20, 2023 C-spine decompression and fusion to C3-C7 area with some physical therapy initially and [facility]. Continue to have significant numbness and weakness on the right side mostly in the right upper extremity with some weakness in the right lower extremity as well. Was in to see Dr. Crane for his follow-up and found to have significant weakness in the right upper extremity more than expected the plan all along originally to have posterior decompression apparently was scheduled for 11/09/2023 but because of his symptoms was sent to the emergency department and decided to admit patient to the hospital for urgent surgery to go for possible decompression not a clear whether he need hardware or not of the cervical spine. 11/09/2023: Patient apparently will be going for surgery today for posterior cervical decompression and fusion at C3-4, C4-5, C5-6 and C6-7. He continues to have significant weakness in the right upper extremity and lower extremity as well from the severity of his compression, spinal stenosis, and cervical neuropathy. Hopefully will advance to physical therapy little bit faster after his procedures done this time at this point patient remain require more help than what he can do at home hopefully after 1 or 2 extra day in the hospital might require to go back to rehab. 11/10/2023: Patient had his surgery yesterday for posterior cervical wide dec ompression at C3-4, C4-5, C5-6 and C6/7. And ended up placing some hardware C5 3 4 and 5 lumbar 7. The patient is in bed still have quite a bit of pain he is bothered by the cervical collar specially the hard shell for now restricting him little bit. He had mild throat congestion mostly without any shortness of breath revealed finding no sign of aspiration no fever or chills. He is continue to have slight hypoxia. May require O2 nonproductive monoblock. Also still slightly bit confused. 11/11/2023: Slightly late in the evening yesterday patient started declining become more hypoxic after being more confused and agitated. He was started on BiPAP initially and the been transferred to the intensive care unit after speaking with Dr. Stone few hours later he become more decline and required to be intubated and On mechanical ventilation. He is resting comfortably this morning on mechanical ventilation still sedated on propofol. The etiology for his hypoxia and decline could have been either aspiration pneumonia, reaction to medication, worsening compression from the cervical spine fusion he had early or any other etiology also the possibility of left-sided diaphragmatic paralysis is there which is more testing might be required to be done for it. Patient also will be seeing cardiology he had recent cardiac testing blood pressure has been fluctuating slightly. His white blood cells still quite bit elevated at 19.1 was 26 yesterday's electrolyte with kidney function holding well troponin was done when he was declining and came back to be negative for decline. REVIEW OF SYSTEMS: CONSTITUTIONAL: Well-developed has an ET tube currently on mechanical ventilation does not look in any pain. EYES: No icterus sclerae, no conjunctivitis. EARS, NOSE, MOUTH, THROAT, and FACE: No sore throat, lymphadenopathy, carotid bruits or deformity. RESPIRATORY: No SOB cough or wheezes. CARDIOVASCULAR: No CP, Palpitation, PND, Orthopnea, or angina. GASTROINTESTINAL: No Abd pain, Nausea or vomiting, no Diarrhea or constipation, No GI Bleed, no distention or masses. GENITOURINARY: Negative for Hematuria or UTI, no kidney stones. INTEGUMENT/BREAST: Negative for any muscular injury with mild osteoarthritis.. HEMATOLOGIC/LYMPHATIC: Negative for bleed or purpura. MUSCULOSKELTAL: Significant myalgia and arthralgia severe neck pain. NEURLOGICAL: Patient is currently sedated on mechanical ventilation. BEHAVIORAL/PSYCH: Negative. ENDOCRINE: Negative. PHYSICAL EXAMINATION: General Appearance: Sedated with ET tube and mechanical ventilation. Neck HEENT: Supple, no lymphadenopathy, no thyroid enlargement, no carotid bruits. Significant pain and discomfort in the cervical spine area incision and anterior side of the cervical spine looks fine. ET tube is in place Lungs: Clear to auscultation without crackles or wheezes no rhonchi, no deformity. Chest Wall: Decreased expansion with deep inspiration no tenderness and no deformity was found on exam, no costochondral pain or discomfort. Decreased breath on the left side compared to the right side Heart: Regular rate and rhythm, S1, S2 normal, no murmur, rub or gallop. Back: Symmetric, no curvature, ROM normal, no CVA tenderness. Abdomen: Soft, non-tender, bowel sounds active all four quadrants, no masses, no organomegaly. Extremities: Extremities normal, atraumatic, no cyanosis or edema. Pulses: 2+ and symmetric. Skin: Skin color, texture, tugor normal, no rashes or lesions. Neurologic: Sedated on mechanical ventilation currently ASSESSMENT AND PLAN: _Respiratory failure: Currently on mechanical ventilation, what led him to his respiratory failure not clear can be aspiration pneumonia versus diaphragmatic paralysis versus cervical withdrawal versus narcotic. Patient is currently being managed on mechanical ventilation seen pulmonary and hopefully eventually can be extubated to go on BiPAP. _Severe cervical spine myelopathy post decompression and fusion posteriorly. _Debilitated with worsening pain and discomfort: Currently on mechanical ventilation after surgery wait till patient recovers on. Doing physical therapy. _Altered mental status with worsening confusion: Most likely primary, Metabolic at this point hopefully treat underlying disease and should improve. _Hypertension: Still on amlodipine 5 mg a day and keep holding lisinopril the blood pressure still slightly below. Will titrate medication higher if needed. _Hyperlipidemia: Medication on hold currently while he is on mechanical vent ilation will resume as soon as the ET tube is out. _COPD: Continue to use DuoNeb and probably Pulmicort and as soon as he is extubated can go back on Trelegy. _History of prostate cancer postradiation therapy no sign of obstruction still on Flomax currently still able to void on his own. _Hiatal hernia/GERD: Continue omeprazole 20 mg a day. _Chronic anemia: Has been on iron and folate acid continue both. _Chronic pain management, remain on baclofen, [place] 5/325 mg every 6 hours and still on Dilaudid while in the hospital. _GI prophylaxis: Will continue omeprazole 20 mg a day. _DVT prophylaxis: Knee-high MIGDALIA hose and early mobilization to be done. He declined quite a bit last night and had been transferred to the ICU on BiPAP and ended up declining having to go on mechanical ventilation which currently patient is resting comfortably review of all his lab does not show any major abnormality x-ray as well does not show infiltrate will watch patient closely and hopefully be able to extubate soon. Objective - Vital Signs Vital signs: Vital Signs Temp 99.1 F 11/11/23 04:00 Pulse 73 11/11/23 04:15 Resp 20 11/11/23 04:15 BP 100/62 11/11/23 01:00 Pulse Ox 98 11/11/23 04:15 FiO2 50 11/11/23 04:00 Intake & Output 11/10/23 11/10/23 11/11/23 06:59 18:59 06:59 Intake Total 622.569 Output Total 275 785 Balance -275 -162.431 Intake: IV 525 Sodium Chloride 0.9% 1, 525 000 ml @ 75 mls/hr IV . [id number] [facility] Rx#:[id number] Intake, IV Titration 97.569 Amount Norepinephrine 4 mg In 31.798 Sodium Chloride 0.9% 250 ml @ 0.03 MCG/KG/MIN 10. 369 mls/hr IV .Q24H [facility] Rx#:[id number] propofoL 1,000 mg In 65.771 Empty Bag 1 bag @ 15 MCG/ KG/MIN 8.165 mls/hr IV . [id number] [facility] Rx#:[id number] Output: Urine 275 785 Other: Voiding Method Diaper Indwelling Catheter External Catheter # Voids 1 # Bowel Movements 1 ABP, PAP, CO, CI - Last Documented Arterial Blood Pressure 120/49 - Labs CBC & Chem 7: 11/12/23 04:23 11/12/23 04:23 Labs: Abnormal Lab Results - Last 24 Hours (Table) 11/10/23 11/10/23 11/10/23 Range/Units 18:40 18:51 20:42 WBC (3.8-10.6) k/uL RBC (4.30-5.90) m/uL Hgb (13.0-17.5) gm/dL Hct (39.0-53.0) % MCV (80.0-100.0) fL Neutrophils # (1.3-7.7) k/uL Lymphocytes # (1.0-4.8) k/uL Monocytes # (0-1.0) k/uL ABG pCO2 46 H (35-45) mmHg ABG pO2 44 L* (83-108) mmHg ABG HCO3 31 H (21-25) mmol/L ABG Total CO2 32 H (19-24) mmol/L ABG O2 Saturation 82.6 L (94-97) % Sodium (137-145) mmol/L Potassium (3.5-5.1) mmol/L Creatinine (0.66-1.25) mg/dL Glucose (74-99) mg/dL POC Glucose (mg/dL) 140 H 125 H (70-110) mg/dL Calcium (8.4-10.2) mg/dL Total Protein (6.3-8.2) g/dL Albumin (3.5-5.0) g/dL 11/10/23 11/10/23 11/10/23 Range/Units 20:51 20:51 20:51 WBC 26.2 H (3.8-10.6) k/uL RBC 3.29 L (4.30-5.90) m/uL Hgb 11.3 L (13.0-17.5) gm/dL Hct 33.8 L (39.0-53.0) % MCV 102.9 H (80.0-100.0) fL Neutrophils # 23.5 H (1.3-7.7) k/uL Lymphocytes # 0.6 L (1.0-4.8) k/uL Monocytes # 1.8 H (0-1.0) k/uL ABG pCO2 (35-45) mmHg ABG pO2 82 L (83-108) mmHg ABG HCO3 30 H (21-25) mmol/L ABG Total CO2 32 H (19-24) mmol/L ABG O2 Saturation 97.4 H (94-97) % Sodium 133 L (137-145) mmol/L Potassium (3.5-5.1) mmol/L Creatinine 0.64 L (0.66-1.25) mg/dL Glucose 114 H (74-99) mg/dL POC Glucose (mg/dL) (70-110) mg/dL Calcium (8.4-10.2) mg/dL Total Protein 5.3 L (6.3-8.2) g/dL Albumin 3.1 L (3.5-5.0) g/dL 11/11/23 11/11/23 11/11/23 Range/Units 01:09 03:55 03:55 WBC 19.1 H (3.8-10.6) k/uL RBC 3.04 L (4.30-5.90) m/uL Hgb 10.4 L (13.0-17.5) gm/dL Hct 31.2 L (39.0-53.0) % MCV 102.8 H (80.0-100.0) fL Neutrophils # 17.2 H (1.3-7.7) k/uL Lymphocytes # 0.6 L (1.0-4.8) k/uL Monocytes # 1.2 H (0-1.0) k/uL ABG pCO2 48 H (35-45) mmHg ABG pO2 231 H (83-108) mmHg ABG HCO3 30 H (21-25) mmol/L ABG Total CO2 31 H (19-24) mmol/L ABG O2 Saturation 100.3 H (94-97) % Sodium 134 L (137-145) mmol/L Potassium 3.4 L (3.5-5.1) mmol/L Creatinine (0.66-1.25) mg/dL Glucose 109 H (74-99) mg/dL POC Glucose (mg/dL) (70-110) mg/dL Calcium 8.0 L (8.4-10.2) mg/dL Total Protein (6.3-8.2) g/dL Albumin (3.5-5.0) g/dL
--- NOTE | 2023-11-12 08:33 | P.PN ---
Subjective Progress Note Date: 11/12/23 PROGRESS NOTE The patient is a 67-year-old male who was admitted with severe cervical myelopathy with upper and lower extremities weakness and severe cervical stenosis, underwent surgery by Dr. Crane on November 08 with anterior cervical decompression and fusion. Yesterday he became more dyspneic, transferred to the ICU and subsequently intubated. Cardiology consultation was requested. Reviewing the records patient has a history of CAD with stenting although details are not available. According to the records there is no documented history of CHF or malignant arrhythmia. He had an echocardiogram performed in September of this year that showed a preserved systolic function. According to the record patient has a history of chronic tobacco use history of prostate cancer, hypertension and hyperlipidemia. He had an admission for exacerbation of COPD in September. Prior to intubation he had sinus arrhythmia with PACs and PVCs that resolved. He had a brief episode of hypertension but he is not on any vaso pressors at this point. He is in sinus mechanism and hemodynamically stable. Intubated and sedated. His chest CT angiogram did not reveal evidence of pulmonary embolism. November 11: The patient has been extubated, feels well this morning. He denies any chest discomfort, dizziness or palpitations. He continues to be in sinus mechanism and hemodynamically stable. His echocardiogram showed a normal ventricle size and systolic function with moderately dilated right ventricle and normal pulmonary pressure. He has no evidence of arrhythmia or ischemic changes. Medications: Amlodipine 5 mg daily, atorvastatin 40 mg daily, iron, lisinopril HCT 20-12-1/2 mg daily, Seroquel, Flomax PHYSICAL EXAMINATION: Blood pressure 122/70 heart rate 70 LUNGS: Clear to auscultation HEART: Regular rate and rhythm, S1, S2. No S3. Systolic ejection murmur ABDOMEN: Soft, nontender, no organomegaly EXTREMETIES: No edema LAB: Hemoglobin 9.4, WBC 22.2, BUN 12, creatinine 0.62, potassium 3.9, magnesium 1.5 IMPRESSION: 1. Acute episode of hypoxemia with respiratory failure resolved could be related to his COPD no evidence of acute ischemic event 2. History of hypertension stable 3. Status post cervical fusion 4. Prior history of smoking PLAN: 1. Continue present therapy 2. Increase physical activity 3. Probable transfer from ICU 4. Depending on his progress further recommendations will be made Objective - Vital Signs Vital signs: Vital Signs Temp 98.1 F 11/12/23 04:00 Pulse 80 11/12/23 08:02 Resp 14 11/12/23 07:00 BP 122/71 11/12/23 07:00 Pulse Ox 97 11/12/23 07:00 FiO2 40 11/11/23 11:47 Intake & Output 11/11/23 11/12/23 11/12/23 18:59 06:59 18:59 Intake Total 299.903 6158 225 Output Total 437 445 65 Balance 507.505 0488 160 Weight 94.3 kg Intake: IV 950 2675 225 Magnesium Sulfate-D5w Pmx 100 100 1 gm In Dextrose/Water 1 100ml.bag @ 100 mls/hr IVPB Q1H [facility] Rx#: [id number] Potassium Chloride 10 meq 200 In Water For Injection 1 100ml.bag @ 100 mls/hr IVPB Q1H [facility] Rx#: [id number] Sodium Chloride 0.9% 1, 125 1375 125 000 ml @ 125 mls/hr IV . Q8H [facility] Rx#:[id number] Sodium Chloride 0.9% 1, 825 000 ml @ 75 mls/hr IV . [id number] [facility] Rx#:[id number] Sodium Chloride 0.9% 1, 1000 000 ml @ 999 mls/hr IV . Q1H1M ONE Rx#:[id number] Intake, IV Titration 36.967 Amount propofoL 1,000 mg In 36.967 Empty Bag 1 bag @ 15 MCG/ KG/MIN 8.165 mls/hr IV . [id number] [facility] Rx#:[id number] Oral 480 Output: Urine 437 445 65 Other: Voiding Method Indwelling Catheter Indwelling Catheter ABP, PAP, CO, CI - Last Documented Arterial Blood Pressure 141/59 - Labs CBC & Chem 7: 11/12/23 04:23 11/12/23 04:23 Labs: Abnormal Lab Results - Last 24 Hours (Table) 11/11/23 11/11/23 11/11/23 Range/Units 11:33 11:35 20:46 WBC (3.8-10.6) k/uL RBC (4.30-5.90) m/uL Hgb (13.0-17.5) gm/dL Hct (39.0-53.0) % MCV (80.0-100.0) fL MCH (25.0-35.0) pg Neutrophils # (1.3-7.7) k/uL Lymphocytes # (1.0-4.8) k/uL Monocytes # (0-1.0) k/uL ABG HCO3 30 H (21-25) mmol/L ABG Total CO2 32 H (19-24) mmol/L ABG O2 Saturation 97.7 H (94-97) % Sodium (137-145) mmol/L Creatinine (0.66-1.25) mg/dL Glucose (74-99) mg/dL POC Glucose (mg/dL) 117 H 129 H (70-110) mg/dL Calcium (8.4-10.2) mg/dL Magnesium (1.6-2.3) mg/dL 11/12/23 11/12/23 11/12/23 Range/Units 04:23 04:23 05:30 WBC 22.2 H (3.8-10.6) k/uL RBC 2.64 L (4.30-5.90) m/uL Hgb 9.4 L (13.0-17.5) gm/dL Hct 27.1 L (39.0-53.0) % MCV 102.5 H (80.0-100.0) fL MCH 35.5 H (25.0-35.0) pg Neutrophils # 20.3 H (1.3-7.7) k/uL Lymphocytes # 0.6 L (1.0-4.8) k/uL Monocytes # 1.1 H (0-1.0) k/uL ABG HCO3 (21-25) mmol/L ABG Total CO2 (19-24) mmol/L ABG O2 Saturation (94-97) % Sodium 134 L (137-145) mmol/L Creatinine 0.62 L (0.66-1.25) mg/dL Glucose 122 H (74-99) mg/dL POC Glucose (mg/dL) 145 H (70-110) mg/dL Calcium 7.5 L (8.4-10.2) mg/dL Magnesium 1.5 L (1.6-2.3) mg/dL Microbiology - Last 24 Hours (Table) 11/11/23 03:15 Gram Stain - Preliminary Sputum
[2023-11-12] MEDS: methylPREDNISolone SOD SUCCI 40 MG/ML 1 ML VIAL IV SCH (09:26)
--- NOTE | 2023-11-12 09:27 | XR ---
EXAMINATION TYPE: XR chest 1V DATE OF EXAM: 11/12/2023 COMPARISON: 11/11/2023 INDICATION: Hypoxia TECHNIQUE: Single frontal view of the chest is obtained. FINDINGS: The heart size is normal. The pulmonary vasculature is normal. Mild left lower lobe infiltrate is developed. Correlate for atelectasis or pneumonia Postsurgical changes within the cervical spine IMPRESSION: 1. Mild developing infiltrate left lower lobe. Correlate for atelectasis or pneumonia
--- NOTE | 2023-11-12 10:18 | P.PN ---
Subjective Progress Note Date: 11/12/23 This is a 67-year-old male who is status post posterior cervical decompression and fusion C3 7 and this is postoperative day #3. Patient also had an anterior cervical decompression and fusion about 2 weeks ago. Patient is seen and evaluated at bedside today in the ICU. Patient has been extubated and per nursing is still quite tired during the day. Cervical collar is in place. Objective - Vital Signs Vital signs: Vital Signs Temp 97.8 F 11/12/23 08:00 Pulse 80 11/12/23 10:00 Resp 24 11/12/23 10:00 BP 118/65 11/12/23 10:00 Pulse Ox 90 L 11/12/23 10:00 FiO2 40 11/11/23 11:47 Intake & Output 11/11/23 11/12/23 11/12/23 18:59 06:59 18:59 Intake Total 812.131 5843 550 Output Total 437 445 265 Balance 797.845 5160 285 Weight 94.3 kg Intake: IV 950 2675 550 Magnesium Sulfate-D5w Pmx 100 100 1 gm In Dextrose/Water 1 100ml.bag @ 100 mls/hr IVPB Q1H [facility] Rx#: [id number] Potassium Chloride 10 meq 200 In Water For Injection 1 100ml.bag @ 100 mls/hr IVPB Q1H [facility] Rx#: [id number] Sodium Chloride 0.9% 1, 825 000 ml @ 75 mls/hr IV . [id number] [facility] Rx#:[id number] Sodium Chloride 0.9% 1, 125 1375 450 000 ml @ 75 mls/hr IV . [id number] [facility] Rx#:[id number] Sodium Chloride 0.9% 1, 1000 000 ml @ 999 mls/hr IV . Q1H1M ONE Rx#:[id number] Intake, IV Titration 36.967 Amount propofoL 1,000 mg In 36.967 Empty Bag 1 bag @ 15 MCG/ KG/MIN 8.165 mls/hr IV . [id number] [facility] Rx#:[id number] Oral 480 Output: Urine 437 445 265 Other: Voiding Method Indwelling Catheter Indwelling Catheter Indwelling Catheter ABP, PAP, CO, CI - Last Documented Arterial Blood Pressure 160/52 - Exam On exam patient is alert and resting comfortably in bed in no acute distress. Cervical collar is in place. Anterior incision is clean, dry and intact. There is minimal drainage present on inspection of the posterior dressing. - Labs CBC & Chem 7: 11/12/23 04:23 11/12/23 04:23 Labs: Abnormal Lab Results - Last 24 Hours (Table) 11/11/23 11/11/23 11/11/23 Range/Units 11:33 11:35 20:46 WBC (3.8-10.6) k/uL RBC (4.30-5.90) m/uL Hgb (13.0-17.5) gm/dL Hct (39.0-53.0) % MCV (80.0-100.0) fL MCH (25.0-35.0) pg Neutrophils # (1.3-7.7) k/uL Lymphocytes # (1.0-4.8) k/uL Monocytes # (0-1.0) k/uL ABG HCO3 30 H (21-25) mmol/L ABG Total CO2 32 H (19-24) mmol/L ABG O2 Saturation 97.7 H (94-97) % Sodium (137-145) mmol/L Creatinine (0.66-1.25) mg/dL Glucose (74-99) mg/dL POC Glucose (mg/dL) 117 H 129 H (70-110) mg/dL Calcium (8.4-10.2) mg/dL Magnesium (1.6-2.3) mg/dL 11/12/23 11/12/23 11/12/23 Range/Units 04:23 04:23 05:30 WBC 22.2 H (3.8-10.6) k/uL RBC 2.64 L (4.30-5.90) m/uL Hgb 9.4 L (13.0-17.5) gm/dL Hct 27.1 L (39.0-53.0) % MCV 102.5 H (80.0-100.0) fL MCH 35.5 H (25.0-35.0) pg Neutrophils # 20.3 H (1.3-7.7) k/uL Lymphocytes # 0.6 L (1.0-4.8) k/uL Monocytes # 1.1 H (0-1.0) k/uL ABG HCO3 (21-25) mmol/L ABG Total CO2 (19-24) mmol/L ABG O2 Saturation (94-97) % Sodium 134 L (137-145) mmol/L Creatinine 0.62 L (0.66-1.25) mg/dL Glucose 122 H (74-99) mg/dL POC Glucose (mg/dL) 145 H (70-110) mg/dL Calcium 7.5 L (8.4-10.2) mg/dL Magnesium 1.5 L (1.6-2.3) mg/dL Microbiology - Last 24 Hours (Table) 11/11/23 03:15 Gram Stain - Preliminary Sputum Assessment and Plan Assessment: Severe cervical stenosis with myelopathy Status post posterior cervical decompression and fusion C3-C7 on 11/09/2023. Status post anterior cervical decompression and fusion C3-C7 on 10/26/2023. Bilateral upper and lower extremity weakness worse on the right than the left Upper extremity contractures at the hands right worse than left (1) Cervical herniated disc Current Visit: Yes Status: Acute Code(s): M50.20 - OTHER CERVICAL DISC DISPLACEMENT, UNSP CERVICAL REGION SNOMED Code(s): 080271612 (2) Cervical myelopathy Current Visit: Yes Status: Acute Code(s): G95.9 - DISEASE OF SPINAL CORD, UNSPECIFIED SNOMED Code(s): 606534594 (3) Cervical stenosis of spinal canal Current Visit: Yes Status: Acute Code(s): M48.02 - SPINAL STENOSIS, CERVICAL REGION SNOMED Code(s): 12705530 Plan: 1. C-collar to be in place at all times. 2. Patient has been extubated and is being closely monitored.
--- NOTE | 2023-11-12 10:58 | P.PN ---
Subjective Progress Note Date: 11/12/23 Principal diagnosis: Cervical myelopathy This is a 67-year-old white male with known history of cervical myelopathy and upper and lower extremities weakness with severe cervical stenosis, on November 08, patient underwent anterior cervical decompression and fusion, patient developed postoperative shortness of breath, I was notified about this patient from his primary care physician/, arrange for the patient to go to the ICU mostly because of his low O2 saturation and abnormal ABG showing a pO2 in the 40s. His initial ABG was done while the patient was on the medical floor and this was on 40% FiO2 showed a pO2 of 44 pCO2 of 46 pH of 7.43. Chest x-ray with basically unremarkable, CT angiogram of the chest was also unremarkable. Patient was sent to the ICU shortly after this ABG, and in the ICU he was noted to have more dyspnea, placed on BiPAP, went on to develop more dyspnea and I was notified by the nurse that the patient was struggling to breathe. Hence I recommended intubation and mechanical ventilation. Patient is now on assist-control rate of 20 tidal volume 450 FiO2 50% and PEEP of 5 ABG postintubation showed a pO2 of 231 pCO2 48 pH of 7.41. This morning the patient was taken off propofol which was 50 mcg/kg/min, and I recommended 8 again a trial of pressure support and CPAP with a pressure support of 8 and CPAP of 5 for 2 hours. Repeat ABG after that showed a pO2 of 89 pCO2 44 pH of 7.44 hence we will try to extubate the patient to BiPAP and will keep the patient in the ICU for close monitoring. May consider sending the patient down for a sniff test, considering his recent cervical surgery, I would be concerned about the possibility of diaphragm paralysis. In the meantime I would recommend holding narcotics and sedatives, and I would recommend placing the patient on the bronchodilators for his underlying presumptive COPD. Patient was seen and examined today while in the ICU, patient remains on 6 L nasal cannula, remains on IV fluid at 125 cc/h extubated yesterday, and he tolerated the extubation well. Patient had issues with urine output overnight, however he responded to more fluids given overnight. His blood pressure is 160/50 heart rate is 90, patient is not in any distress. Continues to have cervical collar in place. X-ray is showing mostly mild atelectasis/infiltrate in the left lower lobe, I suspect mostly atelectasis. Doubt pneumonia WBC count today is 22.2 hemoglobin is 9.4. Hematocrit is 27.1 basic metabolic profile is normal, renal profile is casey, Magnesium is 1.5, being addressed accordingly Objective - Vital Signs Vital signs: Vital Signs Temp 97.8 F 11/12/23 08:00 Pulse 80 11/12/23 10:00 Resp 24 11/12/23 10:00 BP 118/65 11/12/23 10:00 Pulse Ox 90 L 11/12/23 10:00 FiO2 40 11/11/23 11:47 Intake & Output 11/11/23 11/12/23 11/12/23 18:59 06:59 18:59 Intake Total 352.836 4466 550 Output Total 437 445 265 Balance 595.530 6740 285 Weight 94.3 kg Intake: IV 950 2675 550 Magnesium Sulfate-D5w Pmx 100 100 1 gm In Dextrose/Water 1 100ml.bag @ 100 mls/hr IVPB Q1H [facility] Rx#: [id number] Potassium Chloride 10 meq 200 In Water For Injection 1 100ml.bag @ 100 mls/hr IVPB Q1H [facility] Rx#: [id number] Sodium Chloride 0.9% 1, 825 000 ml @ 75 mls/hr IV . [id number] [facility] Rx#:[id number] Sodium Chloride 0.9% 1, 125 1375 450 000 ml @ 75 mls/hr IV . [id number] [facility] Rx#:[id number] Sodium Chloride 0.9% 1, 1000 000 ml @ 999 mls/hr IV . Q1H1M [facility] Rx#:[id number] Intake, IV Titration 36.967 Amount propofoL 1,000 mg In 36.967 Empty Bag 1 bag @ 15 MCG/ KG/MIN 8.165 mls/hr IV . [id number] [facility] Rx#:[id number] Oral 480 Output: Urine 437 445 265 Other: Voiding Method Indwelling Catheter Indwelling Catheter Indwelling Catheter ABP, PAP, CO, CI - Last Documented Arterial Blood Pressure 160/52 - Exam General: Reveals 67-year-old white male on nasal cannula, not in distress Skin: Skin is warm and dry and no rashes or lesions are noted. Eye: Pupils are equal, round and reactive to light, extra-ocular movements are intact; there is normal conjunctiva bilaterally. Ears, nose, mouth and throat: There are moist mucous membranes and no oral lesions. Neck: Cervical collar is noted in place, no stridor. Cardiovascular: There is a regular rate and rhythm. No murmur, rub or gallop is appreciated. Respiratory: Scattered rhonchi and wheezing noted on forced expiratory maneuver bilaterally. Gastrointestinal: Soft, non-distended, non-tender abdomen without masses or or ganomegaly noted. There is no rebound or guarding present. Bowel sounds are unremarkable. Back: There is no tenderness to palpation in the midline. There is no obvious deformity. Musculoskeletal: Normal ROM, no tenderness, There is no pedal edema. There is no calf tenderness or swelling. No cords were appreciated. Neurological: CN II-XII intact, Cranial nerves III through XII are intact. The re are no obvious motor or sensory deficits. Coordination appears grossly intact. Speech is normal. Psychiatric: Cooperative, appropriate mood & affect, normal judgment. - Labs CBC & Chem 7: 11/12/23 04:23 11/12/23 04:23 Labs: Abnormal Lab Results - Last 24 Hours (Table) 11/11/23 11/11/23 11/11/23 Range/Units 11:33 11:35 20:46 WBC (3.8-10.6) k/uL RBC (4.30-5.90) m/uL Hgb (13.0-17.5) gm/dL Hct (39.0-53.0) % MCV (80.0-100.0) fL MCH (25.0-35.0) pg Neutrophils # (1.3-7.7) k/uL Lymphocytes # (1.0-4.8) k/uL Monocytes # (0-1.0) k/uL ABG HCO3 30 H (21-25) mmol/L ABG Total CO2 32 H (19-24) mmol/L ABG O2 Saturation 97.7 H (94-97) % Sodium (137-145) mmol/L Creatinine (0.66-1.25) mg/dL Glucose (74-99) mg/dL POC Glucose (mg/dL) 117 H 129 H (70-110) mg/dL Calcium (8.4-10.2) mg/dL Magnesium (1.6-2.3) mg/dL 11/12/23 11/12/23 11/12/23 Range/Units 04:23 04:23 05:30 WBC 22.2 H (3.8-10.6) k/uL RBC 2.64 L (4.30-5.90) m/uL Hgb 9.4 L (13.0-17.5) gm/dL Hct 27.1 L (39.0-53.0) % MCV 102.5 H (80.0-100.0) fL MCH 35.5 H (25.0-35.0) pg Neutrophils # 20.3 H (1.3-7.7) k/uL Lymphocytes # 0.6 L (1.0-4.8) k/uL Monocytes # 1.1 H (0-1.0) k/uL ABG HCO3 (21-25) mmol/L ABG Total CO2 (19-24) mmol/L ABG O2 Saturation (94-97) % Sodium 134 L (137-145) mmol/L Creatinine 0.62 L (0.66-1.25) mg/dL Glucose 122 H (74-99) mg/dL POC Glucose (mg/dL) 145 H (70-110) mg/dL Calcium 7.5 L (8.4-10.2) mg/dL Magnesium 1.5 L (1.6-2.3) mg/dL Microbiology - Last 24 Hours (Table) 11/11/23 03:15 Gram Stain - Preliminary Sputum Assessment and Plan Assessment: Impression: Acute hypoxic respiratory failure with mild hypercapnia noted post cervical fusion requiring intubation mechanical ventilation. Extubated 11/11/2023 Throughout left diaphragm paralysis, rule out mechanical obstruction from his recent cervical surgery may consider CT of the soft tissues of the neck/cervical spine Acute exacerbation of COPD, patient is noted to have more wheezing on physical examination today. Ex-smoker Benign essential hypertension History of cervical myelopathy Dyslipidemia History of underlying coronary artery disease Recommendation: Continue oxygen and titrate accordingly Maximize treatment for COPD and add Solu-Medrol Consider sniff test early next week, consider CT of the soft tissues of the neck. Continue to monitor in ICU for the next 24 hours Will continue to follow. Time with Patient: Less than 30
[2023-11-12 11:34] LABS: Glucose,Whole Blood 165 mg/dL (70-110)
--- NOTE | 2023-11-12 14:56 | P.PN ---
Subjective Progress Note Date: 11/12/23 HISTORY OF PRESENT ILLNESS: 67-year-old with active medical history of cervical myelopathy, severe spinal stenosis, also known to have history of prostate cancer, hypertension, hy perlipidemia, COPD, chronic anemia, tremor, CAD with over 50 percentile blockage with angioplasty and stent placement. Patient had from October 20, 2023 C-spine decompression and fusion to C3-C7 area with some physical therapy initially and ended up going to alf rehab for more physical therapy. Continue to have significant numbness and weakness on the right side mostly in the right upper extremity with some weakness in the right lower extremity as well. Was in to see Dr. Crane for his follow-up and found to have significant weakness in the right upper extremity more than expected the plan all along originally to have posterior decompression apparently was scheduled for 11/09/2023 but because of his symptoms was sent to the emergency department and decided to admit patient to the hospital for urgent surgery to go for possible decompression not a clear whether he need hardware or not of the cervical spine. 11/09/2023: Patient apparently will be going for surgery today for posterior cervical decompression and fusion at C3-4, C4-5, C5-6 and C6-7. He continues to have significant weakness in the right upper extremity and lower extremity as well from the severity of his compression, spinal stenosis, and cervical neuropathy. Hopefully will advance to physical therapy little bit faster after his procedures done this time at this point patient remain require more help than what he can do at home hopefully after 1 or 2 extra day in the hospital might require to go back to rehab. 11/10/2023: Patient had his surgery yesterday for posterior cervical wide dec ompression at C3-4, C4-5, C5-6 and C6/7. And ended up placing some hardware C5 3 4 and 5 lumbar 7. The patient is in bed still have quite a bit of pain he is bothered by the cervical collar specially the hard shell for now restricting him little bit. He had mild throat congestion mostly without any shortness of breath revealed finding no sign of aspiration no fever or chills. He is continue to have slight hypoxia. May require O2 nonproductive monoblock. Also still slightly bit confused. 11/11/2023: Slightly late in the evening yesterday patient started declining become more hypoxic after being more confused and agitated. He was started on BiPAP initially and the been transferred to the intensive care unit after speaking with Dr. Stone few hours later he become more decline and required to be intubated and On mechanical ventilation. He is resting comfortably this morning on mechanical ventilation still sedated on propofol. The etiology for his hypoxia and decline could have been either aspiration pneumonia, reaction to medication, worsening compression from the cervical spine fusion he had early or any other etiology also the possibility of left-sided diaphragmatic paralysis is there which is more testing might be required to be done for it. Patient also will be seeing cardiology he had recent cardiac testing blood pressure has been fluctuating slightly. His white blood cells still quite bit elevated at 19.1 was 26 yesterday's electrolyte with kidney function holding well troponin was done when he was declining and came back to be negative for decline. 11/12/2023: Patient was extubated successfully still in the ICU apparently had several episodes of sleep apnea with meltable apneic episode through the night. Eventually his cuca needs sleep study and if he is agreeable he should probably go to sleep with BiPAP for why he is in the hospital. Lab values today white blood cell is up to 22,200 hemoglobin at 9.4 kidney function is pretty normal with blood sugar running between 120 and 160 magnesium still slightly below. Chest x-ray shows mild developing infiltrate in the left lower lobe. Pulmonary still believe that is more lung pathology causing problem including possibility of left diaphragm paralysis the possibility of soft tissue obstruction of the cervical spine still an option specially the patient is haque ving little bit more wheezing and tightness. Patient will be monitored in ICU for 24 more hours added Solu-Medrol for COPD management pulmonary still believe SNF test and consider CT of the neck and soft tissue especially patient is still more symptomatic. Patient is awake alert interactive he is having less pain more function in the right side his leg is much stronger the right upper extremity still have slight weakness. REVIEW OF SYSTEMS: CONSTITUTIONAL: Well-developed alert no acute respiratory distress. EYES: No icterus sclerae, no conjunctivitis. EARS, NOSE, MOUTH, THROAT, and FACE: No sore throat, lymphadenopathy, carotid bruits or deformity. RESPIRATORY: No SOB cough or wheezes. CARDIOVASCULAR: No CP, Palpitation, PND, Orthopnea, or angina. GASTROINTESTINAL: No Abd pain, Nausea or vomiting, no Diarrhea or constipation, No GI Bleed, no distention or masses. GENITOURINARY: Negative for Hematuria or UTI, no kidney stones. INTEGUMENT/BREAST: Negative for any muscular injury with mild osteoarthritis.. HEMATOLOGIC/LYMPHATIC: Negative for bleed or purpura. MUSCULOSKELTAL: Significant myalgia and arthralgia severe neck pain. NEURLOGICAL: Alert and oriented moving all his fortunately with weakness in the right side. BEHAVIORAL/PSYCH: Negative. ENDOCRINE: Negative. PHYSICAL EXAMINATION: General Appearance: Alert oriented age-appropriate does not look in pain had very hard collar around the cervical spine area. Neck HEENT: Supple, no lymphadenopathy, no thyroid enlargement, no carotid bruits. Significant pain and discomfort in the cervical spine area incision and anterior side of the cervical spine looks fine. Lungs: Clear to auscultation without crackles or wheezes no rhonchi, no deformity. Chest Wall: Decreased expansion with deep inspiration no tenderness and no deformity was found on exam, no costochondral pain or discomfort. Decreased breath on the left side compared to the right side Heart: Regular rate and rhythm, S1, S2 normal, no murmur, rub or gallop. Back: Symmetric, no curvature, ROM normal, no CVA tenderness. Abdomen: Soft, non-tender, bowel sounds active all four quadrants, no masses, no organomegaly. Extremities: Extremities normal, atraumatic, no cyanosis or edema. Pulses: 2+ and symmetric. Skin: Skin color, texture, tugor normal, no rashes or lesions. Neurologic: Alert oriented with slight confusion moving all 4 extremity still have significant weakness in the right upper extremity compared to the left leg is little stronger. ASSESSMENT AND PLAN: _Respiratory failure: Off mechanical ventilation this is could be result of soft tissue swelling and obstruction along with possibility of left-sided diaphragm paralysis other etiology with COPD and obstructive sleep apnea causing many apneic attacks specially exacerbated by his sedation and pain management. _Severe cervical spine myelopathy post decompression and fusion posteriorly. _Debility: Patient will initiate physical therapy since his vent is out at this point and titrate physical therapy gradually. _Altered mental status with worsening confusion: Mental status is improved and almost back to normal. _Hypertension: Still on amlodipine 5 mg a day and keep holding lisinopril the blood pressure still slightly below. Will titrate medication higher if needed. _Hyperlipidemia: Medication on hold currently while he is on mechanical ventilation will resume as soon as the ET tube is out. _COPD: Slight increased wheezing and tightness added Solu-Medrol will continue Trelegy along with DuoNeb. _History of prostate cancer postradiation therapy no sign of obstruction still on Flomax currently still able to void on his own. _Hiatal hernia/GERD: Continue omeprazole 20 mg a day. _Chronic anemia: Has been on iron and folate acid continue both. _Chronic pain management, remain on baclofen, Quinn 5/325 mg every 6 hours and still on Dilaudid while in the hospital. _GI prophylaxis: Will continue omeprazole 20 mg a day. _DVT prophylaxis: Knee-high MIGDALIA hose and early mobilization to be done. Improved significantly last 24 hours he is out of the vent still having slight apneic episodes on and off with slight wheezing been monitoring and watch in the ICU for 24 more hours. Objective - Vital Signs Vital signs: Vital Signs Temp 98.1 F 11/12/23 04:00 Pulse 73 11/12/23 07:00 Resp 14 11/12/23 07:00 BP 122/71 11/12/23 07:00 Pulse Ox 97 11/12/23 07:00 FiO2 40 11/11/23 11:47 Intake & Output 11/11/23 11/12/23 11/12/23 18:59 06:59 18:59 Intake Total 902.750 5501 225 Output Total 437 445 65 Balance 073.033 1134 160 Weight 94.3 kg Intake: IV 950 2675 225 Magnesium Sulfate-D5w Pmx 100 100 1 gm In Dextrose/Water 1 100ml.bag @ 100 mls/hr IVPB Q1H [facility] Rx#: [id number] Potassium Chloride 10 meq 200 In Water For Injection 1 100ml.bag @ 100 mls/hr IVPB Q1H [facility] Rx#: [id number] Sodium Chloride 0.9% 1, 125 1375 125 000 ml @ 125 mls/hr IV . Q8H [facility] Rx#:[id number] Sodium Chloride 0.9% 1, 825 000 ml @ 75 mls/hr IV . [id number] [facility] Rx#:[id number] Sodium Chloride 0.9% 1, 1000 000 ml @ 999 mls/hr IV . Q1H1M [facility] Rx#:[id number] Intake, IV Titration 36.967 Amount propofoL 1,000 mg In 36.967 Empty Bag 1 bag @ 15 MCG/ KG/MIN 8.165 mls/hr IV . [id number] [facility] Rx#:[id number] Oral 480 Output: Urine 437 445 65 Other: Voiding Method Indwelling Catheter Indwelling Catheter ABP, PAP, CO, CI - Last Documented Arterial Blood Pressure 141/59 - Labs CBC & Chem 7: 11/12/23 04:23 11/12/23 08:00 Labs: Abnormal Lab Results - Last 24 Hours (Table) 11/11/23 11/11/23 11/11/23 Range/Units 11:33 11:35 20:46 WBC (3.8-10.6) k/uL RBC (4.30-5.90) m/uL Hgb (13.0-17.5) gm/dL Hct (39.0-53.0) % MCV (80.0-100.0) fL MCH (25.0-35.0) pg Neutrophils # (1.3-7.7) k/uL Lymphocytes # (1.0-4.8) k/uL Monocytes # (0-1.0) k/uL ABG HCO3 30 H (21-25) mmol/L ABG Total CO2 32 H (19-24) mmol/L ABG O2 Saturation 97.7 H (94-97) % Sodium (137-145) mmol/L Creatinine (0.66-1.25) mg/dL Glucose (74-99) mg/dL POC Glucose (mg/dL) 117 H 129 H (70-110) mg/dL Calcium (8.4-10.2) mg/dL Magnesium (1.6-2.3) mg/dL 11/12/23 11/12/23 11/12/23 Range/Units 04:23 04:23 05:30 WBC 22.2 H (3.8-10.6) k/uL RBC 2.64 L (4.30-5.90) m/uL Hgb 9.4 L (13.0-17.5) gm/dL Hct 27.1 L (39.0-53.0) % MCV 102.5 H (80.0-100.0) fL MCH 35.5 H (25.0-35.0) pg Neutrophils # 20.3 H (1.3-7.7) k/uL Lymphocytes # 0.6 L (1.0-4.8) k/uL Monocytes # 1.1 H (0-1.0) k/uL ABG HCO3 (21-25) mmol/L ABG Total CO2 (19-24) mmol/L ABG O2 Saturation (94-97) % Sodium 134 L (137-145) mmol/L Creatinine 0.62 L (0.66-1.25) mg/dL Glucose 122 H (74-99) mg/dL POC Glucose (mg/dL) 145 H (70-110) mg/dL Calcium 7.5 L (8.4-10.2) mg/dL Magnesium 1.5 L (1.6-2.3) mg/dL Microbiology - Last 24 Hours (Table) 11/11/23 03:15 Gram Stain - Preliminary Sputum
[2023-11-12 16:43] LABS: Glucose,Whole Blood 160 mg/dL (70-110)
[2023-11-12] MEDS: AZITHROMYCIN 500 MG in SODIUM CHLORIDE 0.9% 250 ML IVPB SCH (16:45)
[2023-11-12 20:46] LABS: Glucose,Whole Blood 199 mg/dL (70-110)
[2023-11-12] MEDS: INSULIN ASPART (NovoLOG) 100 UNIT/ML VIAL SQ SCH (21:52)
[2023-11-13 06:27] LABS: Glucose,Whole Blood 174 mg/dL (70-110)
[2023-11-13 06:46] LABS: ALT 20 U/L (4-49); AST 20 U/L (17-59); African American GFR (CKD) >90 (>60 ml/min/1.73 sqM); Albumin 2.6 g/dL (3.5-5.0); Alkaline Phosphatase 78 U/L (38-126); Anion Gap 6 mmol/L; Blood Urea Nitrogen 11 mg/dL (9-20); Calcium 8.1 mg/dL (8.4-10.2); Carbon Dioxide 26 mmol/L (22-30); Chloride 102 mmol/L (98-107); Glucose 141 mg/dL (74-99); Magnesium 1.9 mg/dL (1.6-2.3); Non-African American GFR(CKD) >90 (>60 ml/min/1.73 sqM); Sodium 134 mmol/L (137-145); Total Bilirubin 0.5 mg/dL (0.2-1.3); Total Protein 4.8 g/dL (6.3-8.2)
[2023-11-13] MEDS: MAGNESIUM SULFATE-D5W PMX 1 GM in DEXTROSE/WATER 1 100ML.BAG IVPB ONE (08:35)
--- NOTE | 2023-11-13 08:41 | P.PN ---
Subjective Progress Note Date: 11/13/23 PROGRESS NOTE The patient is a 67-year-old male who was admitted with severe cervical myelopathy with upper and lower extremities weakness and severe cervical stenosis, underwent surgery by Dr. Crane on November 08 with anterior cervical decompression and fusion. Yesterday he became more dyspneic, transferred to the ICU and subsequently intubated. Cardiology consultation was requested. Reviewing the records patient has a history of CAD with stenting although details are not available. According to the records there is no documented history of CHF or malignant arrhythmia. He had an echocardiogram performed in September of this year that showed a preserved systolic function. According to the record patient has a history of chronic tobacco use history of prostate cancer, hypertension and hyperlipidemia. He had an admission for exacerbation of COPD in September. Prior to intubation he had sinus arrhythmia with PACs and PVCs that resolved. He had a brief episode of hypertension but he is not on any vaso pressors at this point. He is in sinus mechanism and hemodynamically stable. Intubated and sedated. His chest CT angiogram did not reveal evidence of pulmonary embolism. November 11: The patient has been extubated, feels well this morning. He denies any chest discomfort, dizziness or palpitations. He continues to be in sinus mechanism and hemodynamically stable. His echocardiogram showed a normal ventricle size and systolic function with moderately dilated right ventricle and normal pulmonary pressure. He has no evidence of arrhythmia or ischemic changes. November 12: The patient is doing well this morning, he denies any chest discomfort, dizziness or palpitations. He continues to be in sinus mechanism. Hemodynamically stable. He has no evidence of arrhythmia. He has some neck discomfort but no other complaints. His urine output has been stable. Medications: Amlodipine 5 mg daily, atorvastatin 40 mg daily, iron, lisinopril HCT 20-12-1/2 mg daily, Seroquel, Flomax, BuSpar PHYSICAL EXAMINATION: Blood pressure 139/50 heart rate 66 LUNGS: Clear to auscultation HEART: Regular rate and rhythm, S1, S2. No S3. Systolic ejection murmur ABDOMEN: Soft, nontender, no organomegaly EXTREMETIES: No edema LAB: BUN 11, creatinine 0.61, potassium 4.0, IMPRESSION: 1. Acute episode of hypoxemia with respiratory failure resolved could be related to his COPD no evidence of acute ischemic event 2. History of hypertension stable 3. Status post cervical fusion 4. Prior history of smoking PLAN: 1. Continue present therapy 2. Increase physical activity 3. Follow blood pressure 4. Depending on his progress further recommendations will be made Objective - Vital Signs Vital signs: Vital Signs Temp 97.7 F 11/13/23 00:00 Pulse 66 11/13/23 08:25 Resp 12 11/13/23 07:00 BP 107/61 11/12/23 13:00 Pulse Ox 97 11/13/23 08:01 FiO2 35 11/13/23 08:22 Intake & Output 11/12/23 11/13/23 11/13/23 18:59 06:59 18:59 Intake Total 1450 900 75 Output Total 965 1205 20 Balance 485 -305 55 Weight 98 kg Intake: IV 1450 900 75 Azithromycin 500 mg In 250 Sodium Chloride 0.9% 250 ml @ 250 mls/hr IVPB DAILY [facility] Rx#:[id number] Magnesium Sulfate-D5w Pmx 100 1 gm In Dextrose/Water 1 100ml.bag @ 100 mls/hr IVPB Q1H [facility] Rx#: [id number] Sodium Chloride 0.9% 1, 1050 900 75 000 ml @ 75 mls/hr IV . [id number] [facility] Rx#:[id number] cefTRIAXone 1 gm In 50 Sodium Chloride 0.9% 50 ml @ 100 mls/hr IVPB Q24HR [facility] Rx#:[id number] Output: Urine 965 1205 20 Other: Voiding Method Indwelling Catheter Indwelling Catheter ABP, PAP, CO, CI - Last Documented Arterial Blood Pressure 139/46 - Labs CBC & Chem 7: 11/12/23 04:23 11/13/23 05:17 Labs: Abnormal Lab Results - Last 24 Hours (Table) 11/12/23 11/12/23 11/12/23 Range/Units 11:32 16:41 20:45 Sodium (137-145) mmol/L Creatinine (0.66-1.25) mg/dL Glucose (74-99) mg/dL POC Glucose (mg/dL) 165 H 160 H 199 H (70-110) mg/dL Calcium (8.4-10.2) mg/dL Total Protein (6.3-8.2) g/dL Albumin (3.5-5.0) g/dL 11/13/23 11/13/23 Range/Units 05:17 06:26 Sodium 134 L (137-145) mmol/L Creatinine 0.61 L (0.66-1.25) mg/dL Glucose 141 H (74-99) mg/dL POC Glucose (mg/dL) 174 H (70-110) mg/dL Calcium 8.1 L (8.4-10.2) mg/dL Total Protein 4.8 L (6.3-8.2) g/dL Albumin 2.6 L (3.5-5.0) g/dL Microbiology - Last 24 Hours (Table) 11/11/23 03:15 Gram Stain - Preliminary Sputum Sputum Culture - Preliminary Haemophilus influenzae Klebsiella pneumoniae
[2023-11-13] MEDS: DEXMEDETOMIDINE/0.9% NACL(PMX) 400 MCG in EMPTY BAG 1 BAG IV SCH (09:34)
--- NOTE | 2023-11-13 09:46 | P.PN ---
Subjective Progress Note Date: 11/13/23 This is a 67-year-old male who is status post posterior cervical decompression and fusion C3 7 and this is postoperative day #4. Patient also had an anterior cervical decompression and fusion about 2 weeks ago. Patient is seen and evaluated at bedside today. Patient denies any new complaints today. Objective - Vital Signs Vital signs: Vital Signs Temp 98.0 F 11/13/23 08:00 Pulse 87 11/13/23 09:00 Resp 28 H 11/13/23 09:00 BP 107/61 11/12/23 13:00 Pulse Ox 96 11/13/23 09:00 FiO2 35 11/13/23 08:22 Intake & Output 11/12/23 11/13/23 11/13/23 18:59 06:59 18:59 Intake Total 1450 900 375 Output Total 965 1205 120 Balance 485 -305 255 Weight 98 kg Intake: IV 1450 900 375 Azithromycin 500 mg In 250 250 Sodium Chloride 0.9% 250 ml @ 250 mls/hr IVPB DAILY [facility] Rx#:[id number] Magnesium Sulfate-D5w Pmx 100 1 gm In Dextrose/Water 1 100ml.bag @ 100 mls/hr IVPB Q1H [facility] Rx#: [id number] Sodium Chloride 0.9% 1, 1050 900 75 000 ml @ 75 mls/hr IV . [id number] [facility] Rx#:[id number] cefTRIAXone 1 gm In 50 50 Sodium Chloride 0.9% 50 ml @ 100 mls/hr IVPB Q24HR [facility] Rx#:[id number] Output: Urine 965 1205 120 Other: Voiding Method Indwelling Catheter Indwelling Catheter Indwelling Catheter ABP, PAP, CO, CI - Last Documented Arterial Blood Pressure 133/47 - Exam On exam patient is alert and oriented x3 and resting comfortably in a chair in no acute distress. Cervical collar is in place. Anterior incision is clean, dr y and intact. There is minimal drainage present on inspection of the posterior dressing. - Labs CBC & Chem 7: 11/12/23 04:23 11/13/23 05:17 Labs: Abnormal Lab Results - Last 24 Hours (Table) 11/12/23 11/12/23 11/12/23 Range/Units 11:32 16:41 20:45 Sodium (137-145) mmol/L Creatinine (0.66-1.25) mg/dL Glucose (74-99) mg/dL POC Glucose (mg/dL) 165 H 160 H 199 H (70-110) mg/dL Calcium (8.4-10.2) mg/dL Total Protein (6.3-8.2) g/dL Albumin (3.5-5.0) g/dL 11/13/23 11/13/23 Range/Units 05:17 06:26 Sodium 134 L (137-145) mmol/L Creatinine 0.61 L (0.66-1.25) mg/dL Glucose 141 H (74-99) mg/dL POC Glucose (mg/dL) 174 H (70-110) mg/dL Calcium 8.1 L (8.4-10.2) mg/dL Total Protein 4.8 L (6.3-8.2) g/dL Albumin 2.6 L (3.5-5.0) g/dL Microbiology - Last 24 Hours (Table) 11/11/23 03:15 Gram Stain - Final Sputum Sputum Culture - Final Haemophilus influenzae Klebsiella pneumoniae Assessment and Plan Assessment: Severe cervical stenosis with myelopathy Status post posterior cervical decompression and fusion C3-C7 on 11/09/2023. Status post anterior cervical decompression and fusion C3-C7 on 10/26/2023. Bilateral upper and lower extremity weakness worse on the right than the left Upper extremity contractures at the hands right worse than left (1) Cervical herniated disc Current Visit: Yes Status: Acute Code(s): M50.20 - OTHER CERVICAL DISC D ISPLACEMENT, UNSP CERVICAL REGION SNOMED Code(s): 244228701 (2) Cervical myelopathy Current Visit: Yes Status: Acute Code(s): G95.9 - DISEASE OF SPINAL CORD, UNSPECIFIED SNOMED Code(s): 400529442 (3) Cervical stenosis of spinal canal Current Visit: Yes Status: Acute Code(s): M48.02 - SPINAL STENOSIS, CERVICAL REGION SNOMED Code(s): 25321974 Plan: 1. C-collar to be in place at all times. 2. Patient is being closely monitored and is showing improvement daily.
[2023-11-13 10:21] LABS: Basophils % (A) 0 %; Eosinophils # (A) 0.1 k/uL (0-0.7); Eosinophils % (A) 1 %; HCT 31.3 % (39.0-53.0); HGB 10.3 gm/dL (13.0-17.5); Lymphocytes # (A) 0.3 k/uL (1.0-4.8); Lymphocytes % (A) 2 %; MCH 34.2 pg (25.0-35.0); MCV 103.7 fL (80.0-100.0); Macrocytosis Slight; Mean Platelet Volume 9.9; Monocytes # (A) 0.4 k/uL (0-1.0); Monocytes % (A) 3 %; Neutrophils # (A) 13.5 k/uL (1.3-7.7); Neutrophils % (A) 95 %; Platelet Count 244 k/uL (150-450); RBC 3.01 m/uL (4.30-5.90); RDW 12.8 % (11.5-15.5); WBC 14.3 k/uL (3.8-10.6)
--- NOTE | 2023-11-13 10:39 | P.PN ---
Subjective Progress Note Date: 11/13/23 HISTORY OF PRESENT ILLNESS: 67-year-old with active medical history of cervical myelopathy, severe spinal stenosis, also known to have history of prostate cancer, hypertension, hy perlipidemia, COPD, chronic anemia, tremor, CAD with over 50 percentile blockage with angioplasty and stent placement. Patient had from October 20, 2023 C-spine decompression and fusion to C3-C7 area with some physical therapy initially and ended up going to [facility] for more physical therapy. Continue to have significant numbness and weakness on the right side mostly in the right upper extremity with some weakness in the right lower extremity as well. Was in to see Dr. Crane for his follow-up and found to have significant weakness in the right upper extremity more than expected the plan all along originally to have posterior decompression apparently was scheduled for 11/09/2023 but because of his symptoms was sent to the emergency department and decided to admit patient to the hospital for urgent surgery to go for possible decompression not a clear whether he need hardware or not of the cervical spine. 11/09/2023: Patient apparently will be going for surgery today for posterior cervical decompression and fusion at C3-4, C4-5, C5-6 and C6-7. He continues to have significant weakness in the right upper extremity and lower extremity as well from the severity of his compression, spinal stenosis, and cervical neuropathy. Hopefully will advance to physical therapy little bit faster after his procedures done this time at this point patient remain require more help than what he can do at home hopefully after 1 or 2 extra day in the hospital might require to go back to rehab. 11/10/2023: Patient had his surgery yesterday for posterior cervical wide dec ompression at C3-4, C4-5, C5-6 and C6/7. And ended up placing some hardware C5 3 4 and 5 lumbar 7. The patient is in bed still have quite a bit of pain he is bothered by the cervical collar specially the hard shell for now restricting him little bit. He had mild throat congestion mostly without any shortness of breath revealed finding no sign of aspiration no fever or chills. He is continue to have slight hypoxia. May require O2 nonproductive monoblock. Also still slightly bit confused. 11/11/2023: Slightly late in the evening yesterday patient started declining become more hypoxic after being more confused and agitated. He was started on BiPAP initially and the been transferred to the intensive care unit after speaking with Dr. Stone few hours later he become more decline and required to be intubated and On mechanical ventilation. He is resting comfortably this morning on mechanical ventilation still sedated on propofol. The etiology for his hypoxia and decline could have been either aspiration pneumonia, reaction to medication, worsening compression from the cervical spine fusion he had early or any other etiology also the possibility of left-sided diaphragmatic paralysis is there which is more testing might be required to be done for it. Patient also will be seeing cardiology he had recent cardiac testing blood pressure has been fluctuating slightly. His white blood cells still quite bit elevated at 19.1 was 26 yesterday's electrolyte with kidney function holding well troponin was done when he was declining and came back to be negative for decline. 11/12/2023: Patient was extubated successfully still in the ICU apparently had several episodes of sleep apnea with meltable apneic episode through the night. Eventually his cuca needs sleep study and if he is agreeable he should probably go to sleep with BiPAP for why he is in the hospital. Lab values today white blood cell is up to 22,200 hemoglobin at 9.4 kidney function is pretty normal with blood sugar running between 120 and 160 magnesium still slightly below. Chest x-ray shows mild developing infiltrate in the left lower lobe. Pulmonary still believe that is more lung pathology causing problem including possibility of left diaphragm paralysis the possibility of soft tissue obstruction of the cervical spine still an option specially the patient is haque ving little bit more wheezing and tightness. Patient will be monitored in ICU for 24 more hours added Solu-Medrol for COPD management pulmonary still believe SNF test and consider CT of the neck and soft tissue especially patient is still more symptomatic. Patient is awake alert interactive he is having less pain more function in the right side his leg is much stronger the right upper extremity still have slight weakness. 11/13/2023: Patient remains in ICU, still been watched for sleep apnea using BiPAP through the night. Sputum culture from late yesterday came back as haemophilus influenza and Klebsiella, he was started on azithromycin and Rocephin which will be continued for now. Still on albuterol treatment. Feeling of shortness of breath is much better he is not symptomatic with any tachycardia or any arrhythmia. His right upper extremity is recovering some have little bit more strength compared to before. Cervical spine pain and discomfort is much better. Also white blood cell is down compared to yesterday. REVIEW OF SYSTEMS: CONSTITUTIONAL: Well-developed alert no acute respiratory distress. EYES: No icterus sclerae, no conjunctivitis. EARS, NOSE, MOUTH, THROAT, and FACE: No sore throat, lymphadenopathy, carotid br uits or deformity. RESPIRATORY: No SOB cough or wheezes. CARDIOVASCULAR: No CP, Palpitation, PND, Orthopnea, or angina. GASTROINTESTINAL: No Abd pain, Nausea or vomiting, no Diarrhea or constipation, No GI Bleed, no distention or masses. GENITOURINARY: Negative for Hematuria or UTI, no kidney stones. INTEGUMENT/BREAST: Negative for any muscular injury with mild osteoarthritis.. HEMATOLOGIC/LYMPHATIC: Negative for bleed or purpura. MUSCULOSKELTAL: Significant myalgia and arthralgia severe neck pain. NEURLOGICAL: Alert and oriented moving all his fortunately with weakness in the right side. BEHAVIORAL/PSYCH: Negative. ENDOCRINE: Negative. PHYSICAL EXAMINATION: General Appearance: Alert oriented age-appropriate does not look in pain had very hard collar around the cervical spine area. Neck HEENT: Supple, no lymphadenopathy, no thyroid enlargement, no carotid brui ts. Significant pain and discomfort in the cervical spine area incision and anterior side of the cervical spine looks fine. Lungs: Clear to auscultation without crackles or wheezes no rhonchi, no de formity. Chest Wall: Decreased expansion with deep inspiration no tenderness and no deformity was found on exam, no costochondral pain or discomfort. Decreased breath on the left side compared to the right side Heart: Regular rate and rhythm, S1, S2 normal, no murmur, rub or gallop. Back: Symmetric, no curvature, ROM normal, no CVA tenderness. Abdomen: Soft, non-tender, bowel sounds active all four quadrants, no masses, no organomegaly. Extremities: Extremities normal, atraumatic, no cyanosis or edema. Pulses: 2+ and symmetric. Skin: Skin color, texture, tugor normal, no rashes or lesions. Neurologic: Alert oriented with slight confusion moving all 4 extremity still have significant weakness in the right upper extremity compared to the left leg is little stronger. ASSESSMENT AND PLAN: _Respiratory failure: Still require BiPAP for the night is known to have sleep apnea eventually require sleep study and probably be on CPAP at nighttime. Other factor of his respiratory failure might be the atypical pneumonia he has with the Klebsiella and haemophilus influenza he is on treatment currently. _Atypical pneumonia: Was diagnosed as a Klebsiella and haemophilus influenza continue antibiotics will switch to oral azithromycin in few days. _Severe cervical spine myelopathy post decompression and fusion posteriorly. Doing much better so far has not done any physical therapy but the strength in his right upper extremity is much better. _Debility: Patient will initiate physical therapy since his vent is out at this point and titrate physical therapy gradually. Will require probably to go back to SNF for more rehab. _Altered mental status with worsening confusion: Has a clear he is back to his baseline today able to comprehend what he is with date and place and is feeling well. _Hypertension: Still on amlodipine 5 mg a day and keep holding lisinopril the blood pressure still slightly below. Will titrate medication higher if needed. _Hyperlipidemia: Medication on hold currently while he is on mechanical ventilation will resume as soon as the ET tube is out. _COPD: Slight increased wheezing and tightness added Solu-Medrol will continue Trelegy along with DuoNeb. _History of prostate cancer postradiation therapy no sign of obstruction still on Flomax currently still able to void on his own. _Hiatal hernia/GERD: Continue omeprazole 20 mg a day. _Chronic anemia: Has been on iron and folate acid continue both. _Chronic pain management, remain on baclofen, [place] 5/325 mg every 6 hours and still on Dilaudid while in the hospital. _GI prophylaxis: Will continue omeprazole 20 mg a day. _DVT prophylaxis: Knee-high MIGDALIA hose and early mobilization to be done. Discussion: Patient remain in the ICU on BiPAP for the night being treated for atypical pneumonia, he is recovering from his posterior cervical fusion and decompression feeling much better pain is under control. Objective - Vital Signs Vital signs: Vital Signs Temp 98.0 F 11/13/23 08:00 Pulse 85 11/13/23 10:00 Resp 21 11/13/23 10:00 BP 107/61 11/12/23 13:00 Pulse Ox 94 L 11/13/23 10:00 FiO2 35 11/13/23 08:22 Intake & Output 11/12/23 11/13/23 11/13/23 18:59 06:59 18:59 Intake Total 1450 900 375 Output Total 965 1205 120 Balance 485 -305 255 Weight 98 kg Intake: IV 1450 900 375 Azithromycin 500 mg In 250 250 Sodium Chloride 0.9% 250 ml @ 250 mls/hr IVPB DAILY [facility] Rx#:[id number] Magnesium Sulfate-D5w Pmx 100 1 gm In Dextrose/Water 1 100ml.bag @ 100 mls/hr IVPB Q1H [facility] Rx#: [id number] Sodium Chloride 0.9% 1, 1050 900 75 000 ml @ 75 mls/hr IV . [id number] [facility] Rx#:[id number] cefTRIAXone 1 gm In 50 50 Sodium Chloride 0.9% 50 ml @ 100 mls/hr IVPB Q24HR [facility] Rx#:[id number] Output: Urine 965 1205 120 Other: Voiding Method Indwelling Catheter Indwelling Catheter Indwelling Catheter ABP, PAP, CO, CI - Last Documented Arterial Blood Pressure 129/42 - Labs CBC & Chem 7: 11/13/23 10:13 11/13/23 05:17 Labs: Abnormal Lab Results - Last 24 Hours (Table) 11/12/23 11/12/23 11/12/23 Range/Units 11:32 16:41 20:45 WBC (3.8-10.6) k/uL RBC (4.30-5.90) m/uL Hgb (13.0-17.5) gm/dL Hct (39.0-53.0) % MCV (80.0-100.0) fL Neutrophils # (1.3-7.7) k/uL Lymphocytes # (1.0-4.8) k/uL Sodium (137-145) mmol/L Creatinine (0.66-1.25) mg/dL Glucose (74-99) mg/dL POC Glucose (mg/dL) 165 H 160 H 199 H (70-110) mg/dL Calcium (8.4-10.2) mg/dL Total Protein (6.3-8.2) g/dL Albumin (3.5-5.0) g/dL 11/13/23 11/13/23 11/13/23 Range/Units 05:17 06:26 10:13 WBC 14.3 H (3.8-10.6) k/uL RBC 3.01 L (4.30-5.90) m/uL Hgb 10.3 L (13.0-17.5) gm/dL Hct 31.3 L (39.0-53.0) % MCV 103.7 H (80.0-100.0) fL Neutrophils # 13.5 H (1.3-7.7) k/uL Lymphocytes # 0.3 L (1.0-4.8) k/uL Sodium 134 L (137-145) mmol/L Creatinine 0.61 L (0.66-1.25) mg/dL Glucose 141 H (74-99) mg/dL POC Glucose (mg/dL) 174 H (70-110) mg/dL Calcium 8.1 L (8.4-10.2) mg/dL Total Protein 4.8 L (6.3-8.2) g/dL Albumin 2.6 L (3.5-5.0) g/dL Microbiology - Last 24 Hours (Table) 11/11/23 03:15 Gram Stain - Final Sputum Sputum Culture - Final Haemophilus influenzae Klebsiella pneumoniae
--- NOTE | 2023-11-13 10:56 | P.PN ---
Subjective Progress Note Date: 11/13/23 Principal diagnosis: Cervical myelopathy This is a 67-year-old white male with known history of cervical myelopathy and upper and lower extremities weakness with severe cervical stenosis, on November 08, patient underwent anterior cervical decompression and fusion, patient developed postoperative shortness of breath, I was notified about this patient from his primary care physician/, arrange for the patient to go to the ICU mostly because of his low O2 saturation and abnormal ABG showing a pO2 in the 40s. His initial ABG was done while the patient was on the medical floor and this was on 40% FiO2 showed a pO2 of 44 pCO2 of 46 pH of 7.43. Chest x-ray with basically unremarkable, CT angiogram of the chest was also unremarkable. Patient was sent to the ICU shortly after this ABG, and in the ICU he was noted to have more dyspnea, placed on BiPAP, went on to develop more dyspnea and I was notified by the nurse that the patient was struggling to breathe. Hence I recommended intubation and mechanical ventilation. Patient is now on assist-control rate of 20 tidal volume 450 FiO2 50% and PEEP of 5 ABG postintubation showed a pO2 of 231 pCO2 48 pH of 7.41. This morning the patient was taken off propofol which was 50 mcg/kg/min, and I recommended 8 again a trial of pressure support and CPAP with a pressure support of 8 and CPAP of 5 for 2 hours. Repeat ABG after that showed a pO2 of 89 pCO2 44 pH of 7.44 hence we will try to extubate the patient to BiPAP and will keep the patient in the ICU for close monitoring. May consider sending the patient down for a sniff test, considering his recent cervical surgery, I would be concerned about the possibility of diaphragm paralysis. In the meantime I would recommend holding narcotics and sedatives, and I would recommend placing the patient on the bronchodilators for his underlying presumptive COPD. Patient was seen and examined today while in the ICU, patient remains on 6 L nasal cannula, remains on IV fluid at 125 cc/h extubated yesterday, and he tolerated the extubation well. Patient had issues with urine output overnight, however he responded to more fluids given overnight. His blood pressure is 160/50 heart rate is 90, patient is not in any distress. Continues to have cervical collar in place. X-ray is showing mostly mild atelectasis/infiltrate in the left lower lobe, I suspect mostly atelectasis. Doubt pneumonia WBC count today is 22.2 hemoglobin is 9.4. Hematocrit is 27.1 basic metabolic profile is normal, renal profile is casey, Magnesium is 1.5, being addressed accordingly Was reevaluated today on 11/13/2023, remains in the ICU, patient is on 2 L nasal cannula, patient continues to have episodes of obstructive sleep apnea symptoms with snoring and apnea episodes. Today I recommended that he should have BiPAP at bedside and to be used during sleep time with setting of 12//35%. His sputum came back positive for Klebsiella pneumonia and H. influenzae, patient is now on Zithromax and Rocephin. Continues to have rhonchi bilaterally. Chest x- ray showed minimal infiltrate in the left lower lobe. For his COPD patient is receiving bronchodilators and I have recommended steroids yesterday. Improving but not back to baseline WBC count is 14.3 hemoglobin 10.3 basic metabolic profile is normal and renal profile is normal Objective - Vital Signs Vital signs: Vital Signs Temp 98.0 F 11/13/23 08:00 Pulse 85 11/13/23 10:00 Resp 21 11/13/23 10:00 BP 107/61 11/12/23 13:00 Pulse Ox 94 L 11/13/23 10:00 FiO2 35 11/13/23 08:22 Intake & Output 11/12/23 11/13/23 11/13/23 18:59 06:59 18:59 Intake Total 1450 900 375 Output Total 965 1205 120 Balance 485 -305 255 Weight 98 kg Intake: IV 1450 900 375 Azithromycin 500 mg In 250 250 Sodium Chloride 0.9% 250 ml @ 250 mls/hr IVPB DAILY [facility] Rx#:[id number] Magnesium Sulfate-D5w Pmx 100 1 gm In Dextrose/Water 1 100ml.bag @ 100 mls/hr IVPB Q1H [facility] Rx#: [id number] Sodium Chloride 0.9% 1, 1050 900 75 000 ml @ 75 mls/hr IV . [id number] [facility]A Rx#:[id number] cefTRIAXone 1 gm In 50 50 Sodium Chloride 0.9% 50 ml @ 100 mls/hr IVPB Q24HR [facility]A Rx#:[id number] Output: Urine 965 1205 120 Other: Voiding Method Indwelling Catheter Indwelling Catheter Indwelling Catheter ABP, PAP, CO, CI - Last Documented Arterial Blood Pressure 129/42 - Exam General: Reveals 67-year-old white male on nasal cannula, not in distress Skin: Skin is warm and dry and no rashes or lesions are noted. Eye: Pupils are equal, round and reactive to light, extra-ocular movements are intact; there is normal conjunctiva bilaterally. Ears, nose, mouth and throat: There are moist mucous membranes and no oral lesions. Neck: Cervical collar is noted in place, no stridor. Cardiovascular: There is a regular rate and rhythm. No murmur, rub or gallop is appreciated. Respiratory: Rhonchi and wheezes noted bilaterally Gastrointestinal: Soft, non-distended, non-tender abdomen without masses or organomegaly noted. There is no rebound or guarding present. Bowel sounds are unremarkable. Back: There is no tenderness to palpation in the midline. There is no obvious deformity. Musculoskeletal: Normal ROM, no tenderness, There is no pedal edema. There is no calf tenderness or swelling. No cords were appreciated. Neurological: CN II-XII intact, Cranial nerves III through XII are intact. There are no obvious motor or sensory deficits. Coordination appears grossly intact. Speech is normal. Psychiatric: Cooperative, appropriate mood & affect, normal judgment. - Labs CBC & Chem 7: 11/13/23 10:13 11/13/23 05:17 Labs: Abnormal Lab Results - Last 24 Hours (Table) 11/12/23 11/12/23 11/12/23 Range/Units 11:32 16:41 20:45 WBC (3.8-10.6) k/uL RBC (4.30-5.90) m/uL Hgb (13.0-17.5) gm/dL Hct (39.0-53.0) % MCV (80.0-100.0) fL Neutrophils # (1.3-7.7) k/uL Lymphocytes # (1.0-4.8) k/uL Sodium (137-145) mmol/L Creatinine (0.66-1.25) mg/dL Glucose (74-99) mg/dL POC Glucose (mg/dL) 165 H 160 H 199 H (70-110) mg/dL Calcium (8.4-10.2) mg/dL Total Protein (6.3-8.2) g/dL Albumin (3.5-5.0) g/dL 11/13/23 11/13/23 11/13/23 Range/Units 05:17 06:26 10:13 WBC 14.3 H (3.8-10.6) k/uL RBC 3.01 L (4.30-5.90) m/uL Hgb 10.3 L (13.0-17.5) gm/dL Hct 31.3 L (39.0-53.0) % MCV 103.7 H (80.0-100.0) fL Neutrophils # 13.5 H (1.3-7.7) k/uL Lymphocytes # 0.3 L (1.0-4.8) k/uL Sodium 134 L (137-145) mmol/L Creatinine 0.61 L (0.66-1.25) mg/dL Glucose 141 H (74-99) mg/dL POC Glucose (mg/dL) 174 H (70-110) mg/dL Calcium 8.1 L (8.4-10.2) mg/dL Total Protein 4.8 L (6.3-8.2) g/dL Albumin 2.6 L (3.5-5.0) g/dL Microbiology - Last 24 Hours (Table) 11/11/23 03:15 Gram Stain - Final Sputum Sputum Culture - Final Haemophilus influenzae Klebsiella pneumoniae Assessment and Plan Assessment: Impression: Acute hypoxic respiratory failure with mild hypercapnia noted post cervical fusion requiring intubation mechanical ventilation. Extubated 11/11/2023 Suspect hospital-acquired pneumonia involving left lower lobe secondary to H. influenzae and Klebsiella pneumonia Acute exacerbation of COPD, likely triggered by his pneumonia Ex-smoker Benign essential hypertension History of cervical myelopathy Dyslipidemia History of underlying coronary artery disease Obstructive sleep apnea syndrome based on Witnessed findings during sleep Recommendation: Continue antibiotics including Rocephin and Zithromax Continue oxygen and titrate accordingly Utilize BiPAP 12/6/35% during sleep Continue bronchodilators and steroids for COPD Consider sniff test early next week Continue to monitor in ICU for now. Will continue to follow. Time with Patient: Less than 30
[2023-11-13 12:06] LABS: Glucose,Whole Blood 230 mg/dL (70-110)
[2023-11-13] MEDS: polyethylene glycoL 3350 17 GM POWD.PACK PO SCH (16:52)
[2023-11-13 17:15] LABS: Glucose,Whole Blood 212 mg/dL (70-110)
[2023-11-13 21:01] LABS: Glucose,Whole Blood 180 mg/dL (70-110)
[2023-11-13] MEDS ORDERED: INSULIN ASPART (NovoLOG) 100 UNIT/ML VIAL SQ SCH (21:09)
[2023-11-14 04:12] LABS: Basophils % (A) 0 %; Eosinophils # (A) 0.2 k/uL (0-0.7); Eosinophils % (A) 1 %; HCT 30.7 % (39.0-53.0); Lymphocytes # (A) 0.4 k/uL (1.0-4.8); Lymphocytes % (A) 3 %; MCH 33.7 pg (25.0-35.0); MCHC 32.6 g/dL (31.0-37.0); MCV 103.3 fL (80.0-100.0); Macrocytosis Slight; Mean Platelet Volume 9.4; Monocytes # (A) 0.6 k/uL (0-1.0); Monocytes % (A) 4 %; Neutrophils # (A) 12.2 k/uL (1.3-7.7); Neutrophils % (A) 91 %; Platelet Count 237 k/uL (150-450); RBC 2.97 m/uL (4.30-5.90); RDW 12.6 % (11.5-15.5); WBC 13.4 k/uL (3.8-10.6)
[2023-11-14 04:45] LABS: African American GFR (CKD) >90 (>60 ml/min/1.73 sqM); Anion Gap 3 mmol/L; Blood Urea Nitrogen 16 mg/dL (9-20); Calcium 8.3 mg/dL (8.4-10.2); Carbon Dioxide 28 mmol/L (22-30); Chloride 102 mmol/L (98-107); Glucose 146 mg/dL (74-99); Non-African American GFR(CKD) >90 (>60 ml/min/1.73 sqM); Sodium 133 mmol/L (137-145)
[2023-11-14 06:11] LABS: Glucose,Whole Blood 140 mg/dL (70-110)
--- NOTE | 2023-11-14 07:26 | P.PN ---
Subjective Progress Note Date: 11/14/23 This is a pleasant 67-year-old gentleman with a past medical history significant for hypertension and dyslipidemia who was admitted to the hospital and underwent neck surgery complicated by hypoxemia and also he had the chest pain. He underwent further investigation including CT scan of the chest which showed no evidence of pulmonary embolism and also cardiac enzymes came in to be unremarkable and he was ruled out for acute coronary event. The echo showed normal biventricular systolic function with a dilated right ventricle but no evidence of pulmonary embolism was noted on the CT scan. The echo also did not show any significant valvular abnormalities. November 14, 2023 The patient was seen and evaluated this morning. He is asymptomatic from a cardiovascular standpoint of view and he is maintaining normal sinus mechanism and he is hemodynamically stable. From the cardiovascular standpoint of view I will continue the current medical regimen and follow-up with the patient on as- needed basis. The examination is remarkable for regular rhythm with clear breathing sounds bilaterally and no edema was noted in the lower extremities Assessment Status post cervical surgery Hypoxemia with cardiac etiology was ruled out Hypertension appears to be under good control Dyslipidemia Plan Continue the current medical regimen No need for any further cardiac workup at this point Follow-up with the patient on as needed case is Objective - Vital Signs Vital signs: Vital Signs Temp 97.8 F 11/14/23 06:00 Pulse 68 11/14/23 06:00 Resp 17 11/14/23 06:00 BP 128/87 11/14/23 06:00 Pulse Ox 99 11/14/23 06:00 FiO2 35 11/14/23 05:00 Intake & Output 11/13/23 11/14/23 11/14/23 18:59 06:59 18:59 Intake Total 1050 1140 Output Total 650 765 Balance 400 375 Weight 98.5 kg Intake: IV 1050 900 Azithromycin 500 mg In 250 Sodium Chloride 0.9% 250 ml @ 250 mls/hr IVPB DAILY [facility] Rx#:[id number] Sodium Chloride 0.9% 1, 750 900 000 ml @ 75 mls/hr IV . [id number] ROSA Rx#:[id number] cefTRIAXone 1 gm In 50 Sodium Chloride 0.9% 50 ml @ 100 mls/hr IVPB Q24HR ROSA Rx#:[id number] Oral 240 Output: Urine 650 765 Other: Voiding Method Indwelling Catheter Indwelling Catheter # Bowel Movements 0 ABP, PAP, CO, CI - Last Documented Arterial Blood Pressure 135/78 - Labs CBC & Chem 7: 11/14/23 04:05 11/14/23 04:05 Labs: Abnormal Lab Results - Last 24 Hours (Table) 11/13/23 11/13/23 11/13/23 Range/Units 10:13 12:04 17:13 WBC 14.3 H (3.8-10.6) k/uL RBC 3.01 L (4.30-5.90) m/uL Hgb 10.3 L (13.0-17.5) gm/dL Hct 31.3 L (39.0-53.0) % MCV 103.7 H (80.0-100.0) fL Neutrophils # 13.5 H (1.3-7.7) k/uL Lymphocytes # 0.3 L (1.0-4.8) k/uL Sodium (137-145) mmol/L Creatinine (0.66-1.25) mg/dL Glucose (74-99) mg/dL POC Glucose (mg/dL) 230 H 212 H (70-110) mg/dL Calcium (8.4-10.2) mg/dL 11/13/23 11/14/23 11/14/23 Range/Units 20:49 04:05 04:05 WBC 13.4 H (3.8-10.6) k/uL RBC 2.97 L (4.30-5.90) m/uL Hgb 10.0 L (13.0-17.5) gm/dL Hct 30.7 L (39.0-53.0) % MCV 103.3 H (80.0-100.0) fL Neutrophils # 12.2 H (1.3-7.7) k/uL Lymphocytes # 0.4 L (1.0-4.8) k/uL Sodium 133 L (137-145) mmol/L Creatinine 0.56 L (0.66-1.25) mg/dL Glucose 146 H (74-99) mg/dL POC Glucose (mg/dL) 180 H (70-110) mg/dL Calcium 8.3 L (8.4-10.2) mg/dL 11/14/23 Range/Units 06:09 WBC (3.8-10.6) k/uL RBC (4.30-5.90) m/uL Hgb (13.0-17.5) gm/dL Hct (39.0-53.0) % MCV (80.0-100.0) fL Neutrophils # (1.3-7.7) k/uL Lymphocytes # (1.0-4.8) k/uL Sodium (137-145) mmol/L Creatinine (0.66-1.25) mg/dL Glucose (74-99) mg/dL POC Glucose (mg/dL) 140 H (70-110) mg/dL Calcium (8.4-10.2) mg/dL Microbiology - Last 24 Hours (Table) 11/11/23 03:15 Gram Stain - Final Sputum Sputum Culture - Final Haemophilus influenzae Klebsiella pneumoniae
--- NOTE | 2023-11-14 07:45 | XR ---
EXAMINATION TYPE: XR chest 1V portable DATE OF EXAM: 11/14/2023 HISTORY: Shortness of breath. COMPARISON: 11/12/2023 TECHNIQUE: Single view of the chest is submitted. FINDINGS: Demonstrated are scattered senescent parenchymal change. Patchy density left perihilar left lower lobe may reflect underlying pneumonia. Correlate clinically and progress studies are recommended. The heart is stable. Hilar and mediastinal structures are within normal limits. Degenerative changes are seen of the dorsal spine. IMPRESSION: 1. Patchy density left perihilar left lower lobe may reflect underlying pneumonia. Correlate clinica lly and progress studies are recommended.
--- NOTE | 2023-11-14 08:43 | P.PN ---
Progress Note - Text Progress Note Date: 11/14/23 Orthopedic spine: History of present illness: Patient is a very pleasant 67-year-old male who is seen and examined in the ICU at the bedside following C3-4, C4-5, C5-6, and C6-7 posterior cervical decompression and fusion performed on 11/09/2023. He is status post C3-4, C4-5, C5-6, and C6-7 anterior cervical decompression and fusion performed on 10/20/2023. From an orthopedic spine standpoint, patient states they are doing well postsurgically. Currently does not complain of nausea, vomiting, fever, or chills. Patient states pain has been adequately controlled. Patient is eating and voiding freely without difficulty. He continues to keep his hard cervical collar intact. He is not having any extensive drainage from his surgical site. He feels his upper extremity pain is better controlled. He has better range of motion of his left upper extremity. He is able to wiggle his feet bilaterally. He does have chronic weakness with his right upper extremity and lower extremity. He is currently in the ICU per pulmonology. He is currently being treated for H. influenzae and Klebsiella pneumonia. He is currently on antibiotics. Patient has had improvement in his plan to be transferred out of the ICU today. Patient has a history of COPD. He was previously experiencing acute hypoxic respiratory failure with mild hypercapnia which required intubation with mechanical ventilation and was extubated on 11/11/2023. He continues to be seen by multiple other medical providers including cardiology. Cardiology is not currently planning for any further treatment or evaluation during this admission. Physical Exam Cervical Fusion: Status post surgical day number 5 Patient is awake, alert, and oriented 3; patient communicating well in the ICU Vital signs stable Adequate chest excursion with deep inspiration and expiration Examination of the cervical spine reveals skin is intact with no abrasions, lacerations, or bruises; no erythema, purulence or signs of infection Reduced range of motion of the cervical spine with adequate flexion, extension, and bilateral rotation with hard cervical collar intact Surgical incision site over the anterior cervical spine is healing appropriately No bruising, erythema, significant active drainage, or obvious sign of infection over the surgical site of the anterior cervical spine Profound weakness with his right upper extremity and right lower extremity Patient is able to perform active range of motion of his left upper extremity and left lower extremity but continues to be weak throughout range of motion No signs or symptoms of DVT; no calf pain Patient is able to perform some dorsiflexion and plantarflexion of the lower extremities bilaterally Assessment: Status post C3-4, C4-5, C5-6, and C6-7 posterior cervical decompression and fusion performed on 11/09/2023 Status post C3-4, C4-5, C5-6, and C6-7 anterior cervical decompression and fusion performed on 10/20/2023 C3-4, C4-5, C5-6, and C6-7 severe cervical spinal stenosis Cervical myelopathy Inability to ambulate and mobilize independently Upper extremity weakness greater on the right than the left Lower extremity weakness greater on the right than the left Cervical herniated nucleus pulposus Cervical degenerative disc disease COPD Hypertension Hyperlipidemia History of prostate cancer postradiation Acute hypoxic respiratory failure with mild hypercapnia Suspect hospital-acquired pneumonia involving left lower lobe secondary to H influenza and Klebsiella pneumonia Plan: Patient is currently in the ICU per pulmonology. He has had improvement. He is currently being treated for H influenza and Klebsiella pneumonia. Patient states he is planning to be discharged out of the ICU up to the surgical floor today. 1. Ambulate as tolerated; work with Physical Therapy to increase mobilization; avoid overhead activity; no lifting greater than 10 pounds 2. Patient must keep hard cervical collar intact at all times 3. Continue pain control with oral and IV medications as needed for pain control 4. Keep surgical dressing intact of the posterior cervical spine 5. [place] to remain intact for 2 weeks postoperatively 6. Patient will continue be seen and examined by multiple medical providers including medicine and pulmonology for his multiple other medical diagnosis 7. We will continue to follow the patient closely 8. Patient can follow-up with Gilmar Lew PA-C or Dr. Dimas Crane at [facility] in 2-3 weeks following discharge
[2023-11-14 11:09] VITALS: BMI 28.6
[2023-11-14 11:14] LABS: Glucose,Whole Blood 194 mg/dL (70-110)
--- NOTE | 2023-11-14 13:20 | P.PN ---
Subjective Progress Note Date: 11/14/23 Principal diagnosis: Neck pain and weakness. This is a 67-year-old white male with known history of cervical myelopathy and upper and lower extremities weakness with severe cervical stenosis, on November 08, patient underwent anterior cervical decompression and fusion, patient developed postoperative shortness of breath, I was notified about this patient from his primary care physician/, arrange for the patient to go to the ICU mostly because of his low O2 saturation and abnormal ABG showing a pO2 in the 40s. His initial ABG was done while the patient was on the medical floor and this was on 40% FiO2 showed a pO2 of 44 pCO2 of 46 pH of 7.43. Chest x-ray with basically unremarkable, CT angiogram of the chest was also unremarkable. Patient was sent to the ICU shortly after this ABG, and in the ICU he was noted to have more dyspnea, placed on BiPAP, went on to develop more dyspnea and I was notified by the nurse that the patient was struggling to breathe. Hence I recommended intubation and mechanical ventilation. Patient is now on assist-control rate of 20 tidal volume 450 FiO2 50% and PEEP of 5 ABG postintubation showed a pO2 of 231 pCO2 48 pH of 7.41. This morning the patient was taken off propofol which was 50 mcg/kg/min, and I recommended 8 again a trial of pressure support and CPAP with a pressure support of 8 and CPAP of 5 for 2 hours. Repeat ABG after that showed a pO2 of 89 pCO2 44 pH of 7.44 hence we will try to extubate the patient to BiPAP and will keep the patient in the ICU for close monitoring. May consider sending the patient down for a sniff test, considering his recent cervical surgery, I would be concerned about the possibility of diaphragm paralysis. In the meantime I would recommend holding narcotics and sedatives, and I would recommend placing the patient on the bronchodilators for his underlying presumptive COPD. Patient was seen and examined today while in the ICU, patient remains on 6 L nasal cannula, remains on IV fluid at 125 cc/h extubated yesterday, and he tolerated the extubation well. Patient had issues with urine output overnight, however he responded to more fluids given overnight. His blood pressure is 160/50 heart rate is 90, patient is not in any distress. Continues to have cervical collar in place. X-ray is showing mostly mild atelectasis/infiltrate in the left lower lobe, I suspect mostly atelectasis. Doubt pneumonia WBC count today is 22.2 hemoglobin is 9.4. Hematocrit is 27.1 basic metabolic profile is normal, renal profile is casey, Magnesium is 1.5, being addressed accordingly Was reevaluated today on 11/13/2023, remains in the ICU, patient is on 2 L nasal cannula, patient continues to have episodes of obstructive sleep apnea symptoms with snoring and apnea episodes. Today I recommended that he should have BiPAP at bedside and to be used during sleep time with setting of 12/6/35%. His sputum came back positive for Klebsiella pneumonia and H. influenzae, patient is now on Zithromax and Rocephin. Continues to have rhonchi bilaterally. Chest x- ray showed minimal infiltrate in the left lower lobe. For his COPD patient is receiving bronchodilators and I have recommended steroids yesterday. Improving but not back to baseline WBC count is 14.3 hemoglobin 10.3 basic metabolic profile is normal and renal profile is normal Progress note dated November 14, 2023. 67-year-old male who was admitted on November 07. The patient underwent a posterior cervical fusion, on November 08. Because of low saturations, he was transferred to the intensive care unit, where he was intubated, on November 10, and extubated on the same day. He is currently on room air. He is resting comfortably in room 260. He is getting saline at 75 cc an hour. At nighttime, he did use BiPAP, with settings of 12/6, and 35%. Current labs include a white count 13.4, hemoglobin 10, hematocrit 30.7, platelet count 237,000. Sodium 133, potassium 4, chlorides 102, CO2 28, BUN 16, creatinine 0.56. Glucose is 194. Calcium 8.3, magnesium 2.0. Sputum reveals both Haemophilus influenzae, and Klebsiella pneumonia. Chest x-ray shows patchy density left perihilar region. The patient is currently on Rocephin, which Klebsiella and I am sure haemophilus, are sensitive to. Objective - Vital Signs Vital signs: Vital Signs Temp 98.3 F 11/14/23 09:00 Pulse 90 11/14/23 11:56 Resp 27 H 11/14/23 11:00 BP 132/60 11/14/23 11:00 Pulse Ox 93 L 11/14/23 11:00 FiO2 35 11/14/23 05:00 Intake & Output 11/13/23 11/14/23 11/14/23 18:59 06:59 18:59 Intake Total 1050 1140 225 Output Total 650 765 695 Balance 400 375 -470 Weight 98.5 kg 98.5 kg Intake: IV 1050 900 225 Azithromycin 500 mg In 250 Sodium Chloride 0.9% 250 ml @ 250 mls/hr IVPB DAILY ROSA Rx#:[id number] Sodium Chloride 0.9% 1, 750 900 225 000 ml @ 75 mls/hr IV . [id number] ROSA Rx#:[id number] cefTRIAXone 1 gm In 50 Sodium Chloride 0.9% 50 ml @ 100 mls/hr IVPB Q24HR ROSA Rx#:[id number] Oral 240 Output: Urine 650 765 695 Other: Voiding Method Indwelling Catheter Indwelling Catheter Indwelling Catheter # Bowel Movements 0 ABP, PAP, CO, CI - Last Documented Arterial Blood Pressure 135/78 - Exam No acute distress, oriented 3. The patient is currently on room air. HEENT examination is grossly unremarkable. Mucous membranes are moist. No oral lesions. Neck supple. Full range of motion. No adenopathy thyromegaly or neck vein distention. Cardiovascular examination reveals regular rhythm rate. S1-S2 normal. No S3 or S4. No discernible murmur noted. Sounds are distant. Heart rate 90 bpm. Lungs reveal mostly clear breath sounds. Breath sounds are equal bilaterally. Mild expiratory rhonchi. No wheezes or crackles. Saturations are 93% on room air. Abdomen soft with bowel sounds. No masses or tenderness. Extremities are intact. No cyanosis clubbing or edema. Skin is without rash or lesion. Neurologic examination is brief but nonfocal. - Labs CBC & Chem 7: 11/14/23 04:05 11/14/23 04:05 Labs: Abnormal Lab Results - Last 24 Hours (Table) 11/13/23 11/13/23 11/14/23 Range/Units 17:13 20:49 04:05 WBC (3.8-10.6) k/uL RBC (4.30-5.90) m/uL Hgb (13.0-17.5) gm/dL Hct (39.0-53.0) % MCV (80.0-100.0) fL Neutrophils # (1.3-7.7) k/uL Lymphocytes # (1.0-4.8) k/uL Sodium 133 L (137-145) mmol/L Creatinine 0.56 L (0.66-1.25) mg/dL Glucose 146 H (74-99) mg/dL POC Glucose (mg/dL) 212 H 180 H (70-110) mg/dL Calcium 8.3 L (8.4-10.2) mg/dL 11/14/23 11/14/23 11/14/23 Range/Units 04:05 06:09 11:12 WBC 13.4 H (3.8-10.6) k/uL RBC 2.97 L (4.30-5.90) m/uL Hgb 10.0 L (13.0-17.5) gm/dL Hct 30.7 L (39.0-53.0) % MCV 103.3 H (80.0-100.0) fL Neutrophils # 12.2 H (1.3-7.7) k/uL Lymphocytes # 0.4 L (1.0-4.8) k/uL Sodium (137-145) mmol/L Creatinine (0.66-1.25) mg/dL Glucose (74-99) mg/dL POC Glucose (mg/dL) 140 H 194 H (70-110) mg/dL Calcium (8.4-10.2) mg/dL Microbiology - Last 24 Hours (Table) 11/11/23 03:15 Gram Stain - Final Sputum Sputum Culture - Final Haemophilus influenzae Klebsiella pneumoniae Assessment and Plan Assessment: Acute hypoxemic respiratory failure with mild hypercapnia, noted, post cervical fusion, which required intubation/extubation, from mechanical ventilation, on November 11, 2023. Hospital-acquired pneumonia, involving the left lung, secondary to H. influenzae and Klebsiella pneumonia. Acute exacerbation of COPD. Previous history of tobacco use. Benign essential hypertension. History of cervical myelopathy. Dyslipidemia. History of underlying coronary artery disease. History of obstructive sleep apnea syndrome. Plan: Plan dated November 14, 2023. The patient is seen today in room 260. The patient is resting comfortably. He is on room air. He is getting saline at 75 cc an hour. He continues on Rocephin for the H. influenzae and Klebsiella pneumonia in the sputum. The patient was admitted back on November 07. He had surgery on the following day, November 08, and because of respiratory failure requiring intubation, on November 10, with successful extubation on the same day. He is using BiPAP at nighttime, with settings of 12/6, at 35%. Labs, x-rays, and medications are reviewed. We will continue to follow, and make recommendations along the way. Prognosis is guarded. Time with Patient: Less than 30
[2023-11-14 16:06] LABS: Glucose,Whole Blood 214 mg/dL (70-110)
[2023-11-14 20:01] LABS: Glucose,Whole Blood 233 mg/dL (70-110)
--- NOTE | 2023-11-14 22:01 | P.PN ---
Subjective Progress Note Date: 11/14/23 HISTORY OF PRESENT ILLNESS: 67-year-old with active medical history of cervical myelopathy, severe spinal stenosis, also known to have history of prostate cancer, hypertension, hy perlipidemia, COPD, chronic anemia, tremor, CAD with over 50 percentile blockage with angioplasty and stent placement. Patient had from October 20, 2023 C-spine decompression and fusion to C3-C7 area with some physical therapy initially and [facility]. Continue to have significant numbness and weakness on the right side mostly in the right upper extremity with some weakness in the right lower extremity as well. Was in to see Dr. Crane for his follow-up and found to have significant weakness in the right upper extremity more than expected the plan all along originally to have posterior decompression apparently was scheduled for 11/09/2023 but because of his symptoms was sent to the emergency department and decided to admit patient to the hospital for urgent surgery to go for possible decompression not a clear whether he need hardware or not of the cervical spine. 11/09/2023: Patient apparently will be going for surgery today for posterior cervical decompression and fusion at C3-4, C4-5, C5-6 and C6-7. He continues to have significant weakness in the right upper extremity and lower extremity as well from the severity of his compression, spinal stenosis, and cervical neuropathy. Hopefully will advance to physical therapy little bit faster after his procedures done this time at this point patient remain require more help than what he can do at home hopefully after 1 or 2 extra day in the hospital might require to go back to rehab. 11/10/2023: Patient had his surgery yesterday for posterior cervical wide dec ompression at C3-4, C4-5, C5-6 and C6/7. And ended up placing some hardware C5 3 4 and 5 lumbar 7. The patient is in bed still have quite a bit of pain he is bothered by the cervical collar specially the hard shell for now restricting him little bit. He had mild throat congestion mostly without any shortness of breath revealed finding no sign of aspiration no fever or chills. He is continue to have slight hypoxia. May require O2 nonproductive monoblock. Also still slightly bit confused. 11/11/2023: Slightly late in the evening yesterday patient started declining become more hypoxic after being more confused and agitated. He was started on BiPAP initially and the been transferred to the intensive care unit after speaking with Dr. Stone few hours later he become more decline and required to be intubated and On mechanical ventilation. He is resting comfortably this morning on mechanical ventilation still sedated on propofol. The etiology for his hypoxia and decline could have been either aspiration pneumonia, reaction to medication, worsening compression from the cervical spine fusion he had early or any other etiology also the possibility of left-sided diaphragmatic paralysis is there which is more testing might be required to be done for it. Patient also will be seeing cardiology he had recent cardiac testing blood pressure has been fluctuating slightly. His white blood cells still quite bit elevated at 19.1 was 26 yesterday's electrolyte with kidney function holding well troponin was done when he was declining and came back to be negative for decline. 11/12/2023: Patient was extubated successfully still in the ICU apparently had several episodes of sleep apnea with meltable apneic episode through the night. Eventually his cuca needs sleep study and if he is agreeable he should probably go to sleep with BiPAP for why he is in the hospital. Lab values today white blood cell is up to 22,200 hemoglobin at 9.4 kidney function is pretty normal with blood sugar running between 120 and 160 magnesium still slightly below. Chest x-ray shows mild developing infiltrate in the left lower lobe. Pulmonary still believe that is more lung pathology causing problem including possibility of left diaphragm paralysis the possibility of soft tissue obstruction of the cervical spine still an option specially the patient is haque ving little bit more wheezing and tightness. Patient will be monitored in ICU for 24 more hours added Solu-Medrol for COPD management pulmonary still believe SNF test and consider CT of the neck and soft tissue especially patient is still more symptomatic. Patient is awake alert interactive he is having less pain more function in the right side his leg is much stronger the right upper extremity still have slight weakness. 11/13/2023: Patient remains in ICU, still been watched for sleep apnea using BiPAP through the night. Sputum culture from late yesterday came back as haemophilus influenza and Klebsiella, he was started on azithromycin and Rocephin which will be continued for now. Still on albuterol treatment. Feeling of shortness of breath is much better he is not symptomatic with any tachycardia or any arrhythmia. His right upper extremity is recovering some have little bit more strength compared to before. Cervical spine pain and discomfort is much better. Also white blood cell is down compared to yesterday. 11/10/2023: Still in the ICU sitting in the chair comfortably had to use a BiPAP at night. Still being treated for atypical pneumonia with Klebsiella and haemophilus influenza has been on azithromycin and Rocephin which seem to respond well to it. Still has slight rhonchi when listening to his lungs bilaterally, his pulse ox is running in the 90s with 2 L of O2. Laboratory value shows white blood cell 13.4 his kidney function remain normal, blood sugar still mildly elevated. He is still on 40 mg of Solu-Medrol every 8 hours which should be switched to prednisone 30 mg by tomorrow. Continue Pulmicort and DuoNeb. Observed patient through the night having significant apnea typical for obstructive sleep apnea which study should be done down the road the patient going to rehab from the hospital will probably benefit from doing BiPAP. As for his cervical spine surgery pain is under better control still has significant weakness in the right upper extremity compared to the left side but is improving gradually. REVIEW OF SYSTEMS: CONSTITUTIONAL: Well-developed alert no acute respiratory distress. EYES: No icterus sclerae, no conjunctivitis. EARS, NOSE, MOUTH, THROAT, and FACE: No sore throat, lymphadenopathy, carotid bruits or deformity. RESPIRATORY: No SOB cough or wheezes. CARDIOVASCULAR: No CP, Palpitation, PND, Orthopnea, or angina. GASTROINTESTINAL: No Abd pain, Nausea or vomiting, no Diarrhea or constipation, No GI Bleed, no distention or masses. GENITOURINARY: Negative for Hematuria or UTI, no kidney stones. INTEGUMENT/BREAST: Negative for any muscular injury with mild osteoarthritis.. HEMATOLOGIC/LYMPHATIC: Negative for bleed or purpura. MUSCULOSKELTAL: Significant myalgia and arthralgia severe neck pain. NEURLOGICAL: Alert and oriented moving all his fortunately with weakness in the right side. BEHAVIORAL/PSYCH: Negative. ENDOCRINE: Negative. PHYSICAL EXAMINATION: General Appearance: Alert oriented age-appropriate does not look in pain had very hard collar around the cervical spine area. Neck HEENT: Supple, no lymphadenopathy, no thyroid enlargement, no carotid bruits. Significant pain and discomfort in the cervical spine area incision and anterior side of the cervical spine looks fine. Lungs: Clear to auscultation without crackles or wheezes no rhonchi, no deformity. Chest Wall: Decreased expansion with deep inspiration no tenderness and no deformity was found on exam, no costochondral pain or discomfort. Decreased breath on the left side compared to the right side Heart: Regular rate and rhythm, S1, S2 normal, no murmur, rub or gallop. Back: Symmetric, no curvature, ROM normal, no CVA tenderness. Abdomen: Soft, non-tender, bowel sounds active all four quadrants, no masses, no organomegaly. Extremities: Extremities normal, atraumatic, no cyanosis or edema. Pulses: 2+ and symmetric. Skin: Skin color, texture, tugor normal, no rashes or lesions. Neurologic: Alert oriented with slight confusion moving all 4 extremity still have significant weakness in the right upper extremity compared to the left leg is little stronger. ASSESSMENT AND PLAN: _Respiratory failure: Much better so far still on BiPAP through the night and O2 during the day has been treated for Klebsiella and haemophilus influenza with antibiotics less symptomatic currently require less help. _Atypical pneumonia: Was diagnosed as a Klebsiella and haemophilus influenza continue antibiotics will switch to oral azithromycin in few days. Might benefit from remain on oxygen even when he is discharged from the hospital. _Severe cervical spine myelopathy post decompression and fusion posteriorly. Doing much better so far has not done any physical therapy but the strength in his right upper extremity is much better. _Debility: Patient will initiate physical therapy since his vent is out at this point and titrate physical therapy gradually. Will require probably to go back to SNF for more rehab. _Hypertension: Still on amlodipine 5 mg a day and keep holding lisinopril the blood pressure still slightly below. Will titrate medication higher if needed. _Hyperlipidemia: Medication on hold currently while he is on mechanical ventilation will resume as soon as the ET tube is out. _COPD: With mild exacerbation because of the atypical pneumonia, still on Solu- Medrol, along with DuoNeb and Pulmicort. _History of prostate cancer postradiation therapy no sign of obstruction still on Flomax currently still able to void on his own. _Hiatal hernia/GERD: Continue omeprazole 20 mg a day. _Chronic anemia: Has been on iron and folate acid continue both. _Chronic pain management, remain on baclofen, Story 5/325 mg every 6 hours and still on Dilaudid while in the hospital. _GI prophylaxis: Will continue omeprazole 20 mg a day. _DVT prophylaxis: Knee-high MIGDALIA hose and early mobilization to be done. Discussion: Patient should be able to move out of ICU continue to use BiPAP through the night and hopefully prepare to do more physical therapy and going back probably to rehab in the next few days. Objective - Vital Signs Vital signs: Vital Signs Temp 98.6 F 11/14/23 14:00 Pulse 80 11/14/23 20:27 Resp 18 11/14/23 18:01 BP 128/61 11/14/23 18:01 Pulse Ox 97 11/14/23 18:01 FiO2 35 11/14/23 05:00 Intake & Output 11/14/23 11/14/23 11/15/23 06:59 18:59 06:59 Intake Total 1140 225 Output Total 765 1695 Balance 375 -1470 Weight 98.5 kg 98.5 kg Intake: IV 900 225 Sodium Chloride 0.9% 1, 900 225 000 ml @ 75 mls/hr IV . [id number] [facility] Rx#:[id number] Oral 240 Output: Urine 765 1695 Uretheral (Harris) 500 Other: Voiding Method Indwelling Catheter Indwelling Catheter # Bowel Movements 0 0 ABP, PAP, CO, CI - Last Documented Arterial Blood Pressure 135/78 - Labs CBC & Chem 7: 11/14/23 04:05 11/14/23 04:05 Labs: Abnormal Lab Results - Last 24 Hours (Table) 11/13/23 11/14/23 11/14/23 Range/Units 20:49 04:05 04:05 WBC 13.4 H (3.8-10.6) k/uL RBC 2.97 L (4.30-5.90) m/uL Hgb 10.0 L (13.0-17.5) gm/dL Hct 30.7 L (39.0-53.0) % MCV 103.3 H (80.0-100.0) fL Neutrophils # 12.2 H (1.3-7.7) k/uL Lymphocytes # 0.4 L (1.0-4.8) k/uL Sodium 133 L (137-145) mmol/L Creatinine 0.56 L (0.66-1.25) mg/dL Glucose 146 H (74-99) mg/dL POC Glucose (mg/dL) 180 H (70-110) mg/dL Calcium 8.3 L (8.4-10.2) mg/dL 11/14/23 11/14/23 11/14/23 Range/Units 06:09 11:12 16:05 WBC (3.8-10.6) k/uL RBC (4.30-5.90) m/uL Hgb (13.0-17.5) gm/dL Hct (39.0-53.0) % MCV (80.0-100.0) fL Neutrophils # (1.3-7.7) k/uL Lymphocytes # (1.0-4.8) k/uL Sodium (137-145) mmol/L Creatinine (0.66-1.25) mg/dL Glucose (74-99) mg/dL POC Glucose (mg/dL) 140 H 194 H 214 H (70-110) mg/dL Calcium (8.4-10.2) mg/dL 11/14/23 Range/Units 19:59 WBC (3.8-10.6) k/uL RBC (4.30-5.90) m/uL Hgb (13.0-17.5) gm/dL Hct (39.0-53.0) % MCV (80.0-100.0) fL Neutrophils # (1.3-7.7) k/uL Lymphocytes # (1.0-4.8) k/uL Sodium (137-145) mmol/L Creatinine (0.66-1.25) mg/dL Glucose (74-99) mg/dL POC Glucose (mg/dL) 233 H (70-110) mg/dL Calcium (8.4-10.2) mg/dL
[2023-11-15 06:19] LABS: Basophils % (A) 0 %; Eosinophils % (A) 0 %; HCT 31.6 % (39.0-53.0); HGB 10.4 gm/dL (13.0-17.5); Lymphocytes # (A) 0.4 k/uL (1.0-4.8); Lymphocytes % (A) 4 %; MCH 34.2 pg (25.0-35.0); MCHC 32.8 g/dL (31.0-37.0); MCV 104.3 fL (80.0-100.0); Macrocytosis Slight; Mean Platelet Volume 9.4; Monocytes # (A) 0.8 k/uL (0-1.0); Monocytes % (A) 8 %; Neutrophils # (A) 9.4 k/uL (1.3-7.7); Neutrophils % (A) 88 %; Platelet Count 250 k/uL (150-450); RBC 3.03 m/uL (4.30-5.90); RDW 12.6 % (11.5-15.5); WBC 10.7 k/uL (3.8-10.6)
[2023-11-15 06:29] LABS: African American GFR (CKD) >90 (>60 ml/min/1.73 sqM); Anion Gap 6 mmol/L; Blood Urea Nitrogen 20 mg/dL (9-20); Calcium 8.5 mg/dL (8.4-10.2); Carbon Dioxide 29 mmol/L (22-30); Chloride 101 mmol/L (98-107); Glucose 151 mg/dL (74-99); Non-African American GFR(CKD) >90 (>60 ml/min/1.73 sqM); Potassium 4.6 mmol/L (3.5-5.1); Sodium 136 mmol/L (137-145)
[2023-11-15 06:46] LABS: Glucose,Whole Blood 164 mg/dL (70-110)
--- NOTE | 2023-11-15 08:14 | P.PN ---
Progress Note - Text Progress Note Date: 11/15/23 Postoperative day #6 for posterior cervical decompression and fusion and approximately 3 weeks for anterior cervical decompression and fusion for his severe cervical stenosis with severe cervical myelopathy Patient is seen and examined today at bedside. He is in a chair. He is requiring Bertram lift for transfers. The patient has some pain around the surgical site as expected but it is minimal. Pain is being controlled with medication. He is voiding adequately but has not yet had a bowel movement. He is tolerating his soft diet. Physical Exam Afebrile with stable vital signs he is not on any pressors currently. He is on a 5 L nasal cannula Abdomen is soft nontender. Chest has good excursion deep and space expiration The incision site is clean and intact. No erythema there is no purulence. There is some serous drainage. [place] are intact. Extremities have had some mild improvements in the left upper extremity since his surgery. He still sick be really weak in his right upper extremity and in his legs. Calves and thighs were soft nontender without evidence of DVT. Assessment/Plan Postoperative day #6 for posterior cervical decompression and fusion from C3-7 for his severe cervical stenosis with my myelopathy 3 weeks status post anterior cervical decompression and fusion for above Severe upper and lower extremity weakness Respiratory failure requiring intubation a few days ago Pneumonia Patient has had a difficult course postoperatively since the surgery. His respiratory status seems to be improving steadily and he is comfortable. He does not appear to be in acute distress and is doing well with nasal cannula. He has diagnosis of pneumonia which is being treated with medicine service. He is continuing his critical care management as per medicine and pulmonary service. He continues to have severe weakness at his upper and lower extremities. He is in good spirits and feels that he is making progress with his left upper extremity and with his legs since his surgery. Hopefully we can continue to increase his mobility and activity and hopefully his independence. We will continue to increase the patient's mobilization with therapy. We will continue pain control with oral or IV medications. He will continue his medical management as per medicine and critical care service. We'll continue to follow patient closely.
[2023-11-15] MEDS: MAGNESIUM HYDROXIDE 2,400 MG/30 ML CUP PO PRN (10:04)
--- NOTE | 2023-11-15 10:41 | P.PN ---
Subjective Progress Note Date: 11/15/23 Principal diagnosis: Neck pain and weakness. This is a 67-year-old white male with known history of cervical myelopathy and upper and lower extremities weakness with severe cervical stenosis, on November 08, patient underwent anterior cervical decompression and fusion, patient developed postoperative shortness of breath, I was notified about this patient from his primary care physician/, arrange for the patient to go to the ICU mostly because of his low O2 saturation and abnormal ABG showing a pO2 in the 40s. His initial ABG was done while the patient was on the medical floor and this was on 40% FiO2 showed a pO2 of 44 pCO2 of 46 pH of 7.43. Chest x-ray with basically unremarkable, CT angiogram of the chest was also unremarkable. Patient was sent to the ICU shortly after this ABG, and in the ICU he was noted to have more dyspnea, placed on BiPAP, went on to develop more dyspnea and I was notified by the nurse that the patient was struggling to breathe. Hence I recommended intubation and mechanical ventilation. Patient is now on assist-control rate of 20 tidal volume 450 FiO2 50% and PEEP of 5 ABG postintubation showed a pO2 of 231 pCO2 48 pH of 7.41. This morning the patient was taken off propofol which was 50 mcg/kg/min, and I recommended 8 again a trial of pressure support and CPAP with a pressure support of 8 and CPAP of 5 for 2 hours. Repeat ABG after that showed a pO2 of 89 pCO2 44 pH of 7.44 hence we will try to extubate the patient to BiPAP and will keep the patient in the ICU for close monitoring. May consider sending the patient down for a sniff test, considering his recent cervical surgery, I would be concerned about the possibility of diaphragm paralysis. In the meantime I would recommend holding narcotics and sedatives, and I would recommend placing the patient on the bronchodilators for his underlying presumptive COPD. Patient was seen and examined today while in the ICU, patient remains on 6 L nasal cannula, remains on IV fluid at 125 cc/h extubated yesterday, and he tolerated the extubation well. Patient had issues with urine output overnight, however he responded to more fluids given overnight. His blood pressure is 160/50 heart rate is 90, patient is not in any distress. Continues to have cervical collar in place. X-ray is showing mostly mild atelectasis/infiltrate in the left lower lobe, I suspect mostly atelectasis. Doubt pneumonia WBC count today is 22.2 hemoglobin is 9.4. Hematocrit is 27.1 basic metabolic profile is normal, renal profile is casey, Magnesium is 1.5, being addressed accordingly Was reevaluated today on 11/13/2023, remains in the ICU, patient is on 2 L nasal cannula, patient continues to have episodes of obstructive sleep apnea symptoms with snoring and apnea episodes. Today I recommended that he should have BiPAP at bedside and to be used during sleep time with setting of 12/6/35%. His sputum came back positive for Klebsiella pneumonia and H. influenzae, patient is now on Zithromax and Rocephin. Continues to have rhonchi bilaterally. Chest x- ray showed minimal infiltrate in the left lower lobe. For his COPD patient is receiving bronchodilators and I have recommended steroids yesterday. Improving but not back to baseline WBC count is 14.3 hemoglobin 10.3 basic metabolic profile is normal and renal profile is normal Progress note dated November 14, 2023. 67-year-old male who was admitted on November 07. The patient underwent a posterior cervical fusion, on November 08. Because of low saturations, he was transferred to the intensive care unit, where he was intubated, on November 10, and extubated on the same day. He is currently on room air. He is resting comfortably in room 260. He is getting saline at 75 cc an hour. At nighttime, he did use BiPAP, with settings of 12/6, and 35%. Current labs include a white count 13.4, hemoglobin 10, hematocrit 30.7, platelet count 237,000. Sodium 133, potassium 4, chlorides 102, CO2 28, BUN 16, creatinine 0.56. Glucose is 194. Calcium 8.3, magnesium 2.0. Sputum reveals both Haemophilus influenzae, and Klebsiella pneumonia. Chest x-ray shows patchy density left perihilar region. The patient is currently on Rocephin, which Klebsiella and I am sure haemophilus, are sensitive to. Progress note dated November 15, 2023. The patient is seen today in room 260. The patient is currently receiving a breathing treatment. The patient is on oxygen, by nasal cannula at 4 L. He did use BiPAP at nighttime, with settings of 12/6, and 35%. In addition, the patient is getting saline at 75 cc an hour. The discharge plan is for him to go to [facility], tomorrow. Current laboratory data includes a white cou nt 10.7, hemoglobin 10.4, hematocrit 31.6, and a normal platelet count. Sodium 136, potassium 4.6, chlorides 101, CO2 29, BUN 20, creatinine 0.68. Glucose is 164. Calcium is 8.5. Sputum was positive for Haemophilus influenzae, and Klebsiella pneumoniae. The patient continues on Rocephin. Objective - Vital Signs Vital signs: Vital Signs Temp 98.4 F 11/15/23 04:00 Pulse 80 11/15/23 09:07 Resp 12 11/15/23 04:00 BP 147/72 11/15/23 04:00 Pulse Ox 97 11/15/23 08:32 FiO2 35 11/15/23 04:27 Intake & Output 11/14/23 11/15/23 11/15/23 18:59 06:59 18:59 Intake Total 225 900 Output Total 1695 425 Balance -1470 475 Weight 98.5 kg Intake: IV 225 900 Sodium Chloride 0.9% 1, 225 900 000 ml @ 75 mls/hr IV . [id number] [facility] Rx#:[id number] Output: Urine 1695 425 Uretheral (Harris) 500 Other: Voiding Method Indwelling Catheter Indwelling Catheter # Bowel Movements 0 ABP, PAP, CO, CI - Last Documented Arterial Blood Pressure 135/78 - Exam No acute distress, oriented 3. The patient is currently on 4 L by nasal cannula. HEENT examination is grossly unremarkable. Mucous membranes are moist. No oral lesions. Neck supple. Full range of motion. No adenopathy thyromegaly or neck vein dist ention. Cardiovascular examination reveals regular rhythm rate. S1-S2 normal. No S3 or S4. No discernible murmur noted. Sounds are distant. Heart rate 80 bpm. Lungs reveal mostly clear breath sounds. Breath sounds are equal bilaterally. Mild expiratory rhonchi. No wheezes or crackles. Saturations are 97 % on 4 L. Abdomen soft with bowel sounds. No masses or tenderness. Extremities are intact. No cyanosis clubbing or edema. Skin is without rash or lesion. Neurologic examination is brief but nonfocal. - Labs CBC & Chem 7: 11/15/23 05:53 11/15/23 05:53 Labs: Abnormal Lab Results - Last 24 Hours (Table) 11/14/23 11/14/23 11/14/23 Range/Units 11:12 16:05 19:59 WBC (3.8-10.6) k/uL RBC (4.30-5.90) m/uL Hgb (13.0-17.5) gm/dL Hct (39.0-53.0) % MCV (80.0-100.0) fL Neutrophils # (1.3-7.7) k/uL Lymphocytes # (1.0-4.8) k/uL Sodium (137-145) mmol/L Glucose (74-99) mg/dL POC Glucose (mg/dL) 194 H 214 H 233 H (70-110) mg/dL 11/15/23 11/15/23 11/15/23 Range/Units 05:53 05:53 06:45 WBC 10.7 H (3.8-10.6) k/uL RBC 3.03 L (4.30-5.90) m/uL Hgb 10.4 L (13.0-17.5) gm/dL Hct 31.6 L (39.0-53.0) % MCV 104.3 H (80.0-100.0) fL Neutrophils # 9.4 H (1.3-7.7) k/uL Lymphocytes # 0.4 L (1.0-4.8) k/uL Sodium 136 L (137-145) mmol/L Glucose 151 H (74-99) mg/dL POC Glucose (mg/dL) 164 H (70-110) mg/dL Assessment and Plan Assessment: Acute hypoxemic respiratory failure with mild hypercapnia, noted, post cervical fusion, which required intubation/extubation, from mechanical ventilation, on November 11, 2023. Hospital-acquired pneumonia, involving the left lung, secondary to H. influenzae and Klebsiella pneumonia. Acute exacerbation of COPD. Previous history of tobacco use. Benign essential hypertension. History of cervical myelopathy. Dyslipidemia. History of underlying coronary artery disease. History of obstructive sleep apnea syndrome. Plan: Plan dated November 14, 2023. The patient is seen today in room 260. The patient is resting comfortably. He is on room air. He is getting saline at 75 cc an hour. He continues on Rocephin for the H. influenzae and Klebsiella pneumonia in the sputum. The patient was admitted back on November 07. He had surgery on the following day, November 08, and because of respiratory failure requiring intubation, on November 10, with successful extubation on the same day. He is using BiPAP at nighttime, with settings of 12/6, at 35%. Labs, x-rays, and medications are reviewed. We will continue to follow, and make recommendations along the way. Prognosis is guarded. Plan dated November 15, 2023. The patient is seen today in room 260. Currently, he is on 4 L of oxygen. He did use his BiPAP device last night, with settings of 12/6, and 35%. The patient is receiving saline at 75 cc an hour. The plan is for him to be discharged, to [facility], in the morning. Labs, x-rays, and all medications are reviewed. The patient's overall prognosis remains guarded. He is getting some significant improvement in the upper extremity range of motion. We will continue to follow and make recommendations where appropriate. Time with Patient: Less than 30
[2023-11-15 11:33] LABS: Glucose,Whole Blood 175 mg/dL (70-110)
[2023-11-15 13:43] LABS: Glucose,Whole Blood 191 mg/dL (70-110)
[2023-11-15] MEDS ORDERED: MAGNESIUM HYDROXIDE 2,400 MG/30 ML CUP PO PRN (16:14)
[2023-11-15 17:27] LABS: Glucose,Whole Blood 243 mg/dL (70-110)
[2023-11-15 20:39] LABS: Glucose,Whole Blood 220 mg/dL (70-110)
[2023-11-16 05:51] LABS: Glucose,Whole Blood 167 mg/dL (70-110)
--- NOTE | 2023-11-16 09:41 | P.DS ---
Providers Date of admission: 11/08/23 14:40 Expected date of discharge: 11/16/23 Attending physician: Yvonne Crane Consults: 11/07/23 17:39 Consult Physician Routine Consulting Provider: Jalen Au Consult Reason/Comments: medical care Do you want consulting provider notified?: Yes 11/10/23 18:16 Consult Physician Routine Consulting Provider: Vinicio Apple Consult Reason/Comments: confusion and yelling out Do you want consulting provider notified?: Yes, Notify in am 11/10/23 19:11 Consult Physician Urgent Consulting Provider: Cristina Stone Consult Reason/Comments: high flow oxygen possible tx Do you want consulting provider notified?: Yes Primary care physician: Jalen Au - Discharge Diagnosis(es) (1) Unable to mobilize in home Current Visit: Yes Status: Acute (2) Upper extremity weakness Current Visit: Yes Status: Acute (3) Lower extremity weakness Current Visit: Yes Status: Acute (4) Cervical myelopathy Current Visit: Yes Status: Acute (5) Cervical stenosis of spinal canal Current Visit: Yes Status: Acute (6) Status post cervical spinal fusion Current Visit: Yes Status: Acute (7) Hypertension Current Visit: Yes Status: Acute (8) Hyperlipidemia Current Visit: Yes Status: Acute (9) History of prostate cancer Current Visit: Yes Status: Acute (10) Degenerative cervical disc Current Visit: Yes Status: Acute (11) Cervical herniated disc Current Visit: Yes Status: Acute (12) Neck pain Current Visit: Yes Status: Acute (13) COPD (chronic obstructive pulmonary disease) Current Visit: No Status: Acute Hospital Course: This is a pleasant 67-year-old male who presented with cervical stenosis, cervical myelopathy, cervical herniated nucleus pulposus, cervical degenerative disc disease, inability to ambulate and mobilize, and upper extremity and lower extremity weakness. He underwent surgical intervention at his cervical spine. He is status post C3-4, C4-5, C5-6, and C6-7 posterior cervical decompression and fusion performed on 11/09/2023. He is status post C3-4, C4-5, C5-6, and C6-7 anterior cervical decompression and fusion performed on 10/20/2023. He was progressing significantly slowly postoperatively following his posterior cervical decompression and fusion. He did have some acute hypoxic respiratory failure with mild hypercapnia along with suspected hospital-acquired pneumonia. He was in the ICU. He was managed by pulmonology. He has been discharged out of the ICU. Pulmonology has cleared the patient for discharge to rehab today. Patient feels he has made good progress. He was able to stand at the bedside with assistance yesterday. He states he cried out of campos that he was able to stand. He does continue to have significant right upper extremity lower extremity weakness. He does have better range of motion of his hands bilaterally. He does feel he has had improvement with his right upper extre mity. His pain is controlled at his cervical spine. He continues to utilize his hard cervical collar. His hard cervical collar has been intact at all times. The harris remain intact at the posterior cervical spine. Patient is eating and voiding without any significant difficulty. He denies any abdominal pain. He does not have abdominal distention. He is passing lots of gas. We did discuss patient will need clearance by multiple medical providers prior to discharge to rehabilitation facility today. Condition on day of discharge stable. Patient will be discharged to [facility] on the [place]. Patient must keep hard cervical collar intact at all times. Avoid overhead lifting. No lifting greater than 10 pounds. Keep harris intact in the posterior cervical spine until scheduled follow-up evaluation in the office. Patient should avoid excessive neck flexion, extension, rotation, and lateral sidebending. MAPS has been reviewed. An "Opiod Start Talking" Form has been signed and p laced in the patient's chart. A prescription has been written for hydrocodone 5 mg / 325 mg, 1-2 tab, every 6 hours, as needed for acute pain, dispense #56. Prescription is placed in the patient's chart for discharge to rehab. Prescriptions were also added for baclofen 10 mg, 1 tab, 3 times daily, as needed for muscle spasm, and Senokot-S, 1 tab, twice daily, as needed for constipation. Patient's other medical diagnoses include COPD, hypertension, hyperlipidemia, acute hypoxic respiratory failure with mild hypercapnia, and suspected hospital- acquired pneumonia. Physical Exam on day of discharge: Status post surgical day number 7 Patient is awake, alert, and oriented 3 Vital signs stable Adequate chest excursion with deep inspiration and expiration Examination of the cervical spine reveals skin is intact with no abrasions, lacerations, or bruises; no erythema, purulence or signs of infection Reduced range of motion of the cervical spine with adequate flexion, extension, and bilateral rotation with hard cervical collar intact Surgical incision site over the anterior cervical spine is healing appropriately Dressing is removed with the posterior cervical spine; harris remain intact; no significant active drainage, no purulent discharge, no obvious sign of infection Dressing is reapplied with nonstick Telfa and paper tape Hard cervical collar is intact No bruising, erythema, significant active drainage, or obvious sign of infection over the surgical site of the anterior cervical spine Profound weakness with his right upper extremity and right lower extremity Patient is able to perform active range of motion of his left upper extremity and left lower extremity but continues to be weak throughout range of motion No signs or symptoms of DVT; no calf pain Patient is able to perform some dorsiflexion and plantarflexion of the lower extremities bilaterally Procedures: Status post C3-4, C4-5, C5-6, and C6-7 posterior cervical decompression and fusion performed on 11/09/2023 Status post C3-4, C4-5, C5-6, and C6-7 anterior cervical decompression and fusion performed on 10/20/2023 Patient Condition at Discharge: Stable Plan - Discharge Summary Discharge Rx Participant: No New Discharge Prescriptions: New Baclofen 10 mg PO TID PRN #60 tab PRN Reason: Spasms Sennosides-Docusate Sodium [Senokot-S] 1 tab PO BID PRN #60 tablet PRN Reason: Constipation HYDROcodone/APAP 5-325MG [Carson 5] 1 - 2 each PO Q6HR PRN #56 tab PRN Reason: Pain No Action Tamsulosin [Flomax] 0.4 mg PO HS Lisinopril-Hctz 20-12.5 mg [Zestoretic 20-12.5] 1 tab PO DAILY Atorvastatin [Lipitor] 40 mg PO HS Ferrous Sulfate [Iron] 325 mg PO DAILY Folic Acid 0.4 mg PO DAILY Fluticasone/Umeclidin/Vilanter [Trelegy Ellipta 100-62.5-25] 1 puff INHALATION RT-DAILY HYDROcodone/APAP 5-325MG [Carson 5-325] 1 - 2 tab PO Q6HR PRN #56 tab PRN Reason: Pain amLODIPine [Norvasc] 5 mg PO DAILY methocarbamoL [Robaxin-750] 750 mg PO Q8H Acetaminophen Tab [Tylenol] 650 mg PO Q6HR PRN tab PRN Reason: Mild Pain Or Fever > 100.5 Clotrimazole/Betameth Cream [Lotrisone] 1 applic TOPICAL Q12H Doxycycline Monohydrate 100 mg PO BID Ipratropium-Albuterol Nebulize [Duoneb 0.5 mg-3 mg/3 ml Soln] 3 ml INHALATION RT-QID Omeprazole 20 mg PO DAILY Discharge Medication List Atorvastatin [Lipitor] 40 mg PO HS 04/12/19 [History] Lisinopril-Hctz 20-12.5 mg [Zestoretic 20-12.5] 1 tab PO DAILY 04/12/19 [History] Tamsulosin [Flomax] 0.4 mg PO HS 04/12/19 [History] Ferrous Sulfate [Iron] 325 mg PO DAILY 09/29/23 [History] Folic Acid 0.4 mg PO DAILY 09/29/23 [History] Fluticasone/Umeclidin/Vilanter [Trelegy Ellipta 100-62.5-25] 1 puff INHALATION RT-DAILY 10/19/23 [History] Acetaminophen Tab [Tylenol] 650 mg PO Q6HR PRN tab 10/27/23 [Rx] HYDROcodone/APAP 5-325MG [Carson 5-325] 1 - 2 tab PO Q6HR PRN #56 tab 10/27/23 [Rx] Clotrimazole/Betameth Cream [Lotrisone] 1 applic TOPICAL Q12H 11/07/23 [History] Doxycycline Monohydrate 100 mg PO BID 11/07/23 [History] Ipratropium-Albuterol Nebulize [Duoneb 0.5 mg-3 mg/3 ml Soln] 3 ml INHALATION RT-QID 11/07/23 [History] Omeprazole 20 mg PO DAILY 11/07/23 [History] amLODIPine [Norvasc] 5 mg PO DAILY 11/07/23 [History] methocarbamoL [Robaxin-750] 750 mg PO Q8H 11/07/23 [History] Baclofen 10 mg PO TID PRN #60 tab 11/16/23 [Rx] HYDROcodone/APAP 5-325MG [Carson 5] 1 - 2 each PO Q6HR PRN #56 tab 11/16/23 [Rx] Sennosides-Docusate Sodium [Senokot-S] 1 tab PO BID PRN #60 tablet 11/16/23 [Rx] Follow up Appointment(s)/Referral(s): Jalen Au MD [Primary Care Provider] - 1-2 days Gilmar Lew PAC [PHYSICIAN INJECTION MACHINE OPERATOR] - 1 Week (Patient may follow-up with Gilmar Lew PA-C or Dr. Dimas Crane at [facility] in 1-2 weeks following discharge. ) [facility], [NON-STAFF] - As Needed Activity/Diet/Wound Care/Special Instructions: 1. Patient may continue with dressing changes as needed over the posterior cervical spine. 2. Keep harris intact at the surgical site at the posterior cervical spine until scheduled follow-up appointment. 3. Patient keep hard cervical collar intact at all times. 4. Patient should refrain from driving until at least after their first follow- up appointment in the office. 5. Patient should avoid excessive cervical flexion, extension, and side bending; avoid overhead lifting; no lifting greater than 10 pounds 6. Take medications as prescribed 7. Patient should avoid anti-inflammatory medications over the next 6 weeks postoperatively 8. Do not soak in tub Discharge Disposition: TRANSFER TO SNF/ECF
[2023-11-16 11:41] LABS: Glucose,Whole Blood 199 mg/dL (70-110)
--- NOTE | 2023-11-16 14:01 | P.PN ---
Subjective Progress Note Date: 11/16/23 Principal diagnosis: Neck pain and weakness. This is a 67-year-old white male with known history of cervical myelopathy and upper and lower extremities weakness with severe cervical stenosis, on November 08, patient underwent anterior cervical decompression and fusion, patient developed postoperative shortness of breath, I was notified about this patient from his primary care physician/, arrange for the patient to go to the ICU mostly because of his low O2 saturation and abnormal ABG showing a pO2 in the 40s. His initial ABG was done while the patient was on the medical floor and this was on 40% FiO2 showed a pO2 of 44 pCO2 of 46 pH of 7.43. Chest x-ray with basically unremarkable, CT angiogram of the chest was also unremarkable. Patient was sent to the ICU shortly after this ABG, and in the ICU he was noted to have more dyspnea, placed on BiPAP, went on to develop more dyspnea and I was notified by the nurse that the patient was struggling to breathe. Hence I recommended intubation and mechanical ventilation. Patient is now on assist-control rate of 20 tidal volume 450 FiO2 50% and PEEP of 5 ABG postintubation showed a pO2 of 231 pCO2 48 pH of 7.41. This morning the patient was taken off propofol which was 50 mcg/kg/min, and I recommended 8 again a trial of pressure support and CPAP with a pressure support of 8 and CPAP of 5 for 2 hours. Repeat ABG after that showed a pO2 of 89 pCO2 44 pH of 7.44 hence we will try to extubate the patient to BiPAP and will keep the patient in the ICU for close monitoring. May consider sending the patient down for a sniff test, considering his recent cervical surgery, I would be concerned about the possibility of diaphragm paralysis. In the meantime I would recommend holding narcotics and sedatives, and I would recommend placing the patient on the bronchodilators for his underlying presumptive COPD. Patient was seen and examined today while in the ICU, patient remains on 6 L nasal cannula, remains on IV fluid at 125 cc/h extubated yesterday, and he tolerated the extubation well. Patient had issues with urine output overnight, however he responded to more fluids given overnight. His blood pressure is 160/50 heart rate is 90, patient is not in any distress. Continues to have cervical collar in place. X-ray is showing mostly mild atelectasis/infiltrate in the left lower lobe, I suspect mostly atelectasis. Doubt pneumonia WBC count today is 22.2 hemoglobin is 9.4. Hematocrit is 27.1 basic metabolic profile is normal, renal profile is casey, Magnesium is 1.5, being addressed accordingly Was reevaluated today on 11/13/2023, remains in the ICU, patient is on 2 L nasal cannula, patient continues to have episodes of obstructive sleep apnea symptoms with snoring and apnea episodes. Today I recommended that he should have BiPAP at bedside and to be used during sleep time with setting of 12/6/35%. His sputum came back positive for Klebsiella pneumonia and H. influenzae, patient is now on Zithromax and Rocephin. Continues to have rhonchi bilaterally. Chest x- ray showed minimal infiltrate in the left lower lobe. For his COPD patient is receiving bronchodilators and I have recommended steroids yesterday. Improving but not back to baseline WBC count is 14.3 hemoglobin 10.3 basic metabolic profile is normal and renal profile is normal Progress note dated November 14, 2023. 67-year-old male who was admitted on November 07. The patient underwent a posterior cervical fusion, on November 08. Because of low saturations, he was transferred to the intensive care unit, where he was intubated, on November 10, and extubated on the same day. He is currently on room air. He is resting comfortably in room 260. He is getting saline at 75 cc an hour. At nighttime, he did use BiPAP, with settings of 12/6, and 35%. Current labs include a white count 13.4, hemoglobin 10, hematocrit 30.7, platelet count 237,000. Sodium 133, potassium 4, chlorides 102, CO2 28, BUN 16, creatinine 0.56. Glucose is 194. Calcium 8.3, magnesium 2.0. Sputum reveals both Haemophilus influenzae, and Klebsiella pneumonia. Chest x-ray shows patchy density left perihilar region. The patient is currently on Rocephin, which Klebsiella and I am sure haemophilus, are sensitive to. Progress note dated November 15, 2023. The patient is seen today in room 260. The patient is currently receiving a breathing treatment. The patient is on oxygen, by nasal cannula at 4 L. He did use BiPAP at nighttime, with settings of 12/6, and 35%. In addition, the patient is getting saline at 75 cc an hour. The discharge plan is for him to go to [facility], tomorrow. Current laboratory data includes a white cou nt 10.7, hemoglobin 10.4, hematocrit 31.6, and a normal platelet count. Sodium 136, potassium 4.6, chlorides 101, CO2 29, BUN 20, creatinine 0.68. Glucose is 164. Calcium is 8.5. Sputum was positive for Haemophilus influenzae, and Klebsiella pneumoniae. The patient continues on Rocephin. Progress note dated November 16, 2023. 67-year-old male seen today in room 455. The patient is currently on 4 L of oxygen. He is getting saline at 75 cc an hour. The patient did use BiPAP last night, with settings of 12/6, 35%. The patient may be discharged to [facility] today. Currently, he has no specific complaints. He denies any shortness of breath, or any chest discomfort or chest pain. Labs today include a glucose of 199. Objective - Vital Signs Vital signs: Vital Signs Temp 97.8 F 11/16/23 07:19 Pulse 82 11/16/23 12:30 Resp 16 11/16/23 07:30 BP 139/80 11/16/23 07:19 Pulse Ox 97 11/16/23 07:19 FiO2 35 11/16/23 04:11 Intake & Output 11/15/23 11/16/23 11/16/23 18:59 06:59 18:59 Intake Total 150 Output Total 300 Balance 150 -300 Intake: IV 150 Sodium Chloride 0.9% 1, 150 000 ml @ 75 mls/hr IV . [id number] [facility] Rx#:[id number] Output: Urine 300 Other: Voiding Method Urinal Urinal # Voids 1 3 2 ABP, PAP, CO, CI - Last Documented Arterial Blood Pressure 135/78 - Exam No acute distress, oriented 3. The patient is currently on 4 L by nasal cannula. HEENT examination is grossly unremarkable. Mucous membranes are moist. No oral lesions. Neck supple. Full range of motion. No adenopathy thyromegaly or neck vein distention. Cervical collar in place. Cardiovascular examination reveals regular rhythm rate. S1-S2 normal. No S3 or S4. No discernible murmur noted. Sounds are distant. Heart rate 82 bpm. Lungs reveal mostly clear breath sounds. Breath sounds are equal bilaterally. Mild expiratory rhonchi. No wheezes or crackles. Saturations are 97 % on 4 L. Abdomen soft with bowel sounds. No masses or tenderness. Extremities are intact. No cyanosis clubbing or edema. Skin is without rash or lesion. Neurologic examination is brief but nonfocal. - Labs CBC & Chem 7: 11/15/23 05:53 11/15/23 05:53 Labs: Abnormal Lab Results - Last 24 Hours (Table) 11/15/23 11/15/23 11/16/23 Range/Units 17:25 20:37 05:48 POC Glucose (mg/dL) 243 H 220 H 167 H (70-110) mg/dL 11/16/23 Range/Units 11:40 POC Glucose (mg/dL) 199 H (70-110) mg/dL Assessment and Plan Assessment: Acute hypoxemic respiratory failure with mild hypercapnia, noted, post cervical fusion, which required intubation/extubation, from mechanical ventilation, on November 11, 2023. Hospital-acquired pneumonia, involving the left lung, secondary to H. influenzae and Klebsiella pneumonia. Acute exacerbation of COPD. Previous history of tobacco use. Benign essential hypertension. History of cervical myelopathy. Dyslipidemia. History of underlying coronary artery disease. History of obstructive sleep apnea syndrome. Plan: Plan dated November 14, 2023. The patient is seen today in room 260. The patient is resting comfortably. He is on room air. He is getting saline at 75 cc an hour. He continues on Roce phin for the H. influenzae and Klebsiella pneumonia in the sputum. The patient was admitted back on November 07. He had surgery on the following day, November 08, and because of respiratory failure requiring intubation, on November 10, with successful extubation on the same day. He is using BiPAP at nighttime, with settings of 12/6, at 35%. Labs, x-rays, and medications are reviewed. We will continue to follow, and make recommendations along the way. Prognosis is guarded. Plan dated November 15, 2023. The patient is seen today in room 260. Currently, he is on 4 L of oxygen. He did use his BiPAP device last night, with settings of 12/6, and 35%. The patient is receiving saline at 75 cc an hour. The plan is for him to be discharged, to [facility], in the morning. Labs, x-rays, and all medications are reviewed. The patient's overall prognosis remains guarded. He is getting some significant improvement in the upper extremity range of motion. We will continue to follow and make recommendations where appropriate. Plan dated November 16, 2023. The patient is seen today in room 455. The patient is hoping to be discharged to [facility]. He continues on oxygen at 4 L. The patient is getting saline at 75 cc an hour. The patient is also receiving BiPAP at nighttime, with settings of 12/6, 35%. Labs, x-rays, medications are reviewed. The patient's overall prognosis remains guarded. We will continue to follow make recommendations were appropriate. Time with Patient: Less than 30
[2023-11-16 14:50] VITALS: BP 109/65; PULSE 72; RESP 17; TEMP 98.9
--- NOTE | 2023-11-16 23:09 | P.PN ---
Subjective Progress Note Date: 11/16/23 HISTORY OF PRESENT ILLNESS: 67-year-old with active medical history of cervical myelopathy, severe spinal stenosis, also known to have history of prostate cancer, hypertension, hy perlipidemia, COPD, chronic anemia, tremor, CAD with over 50 percentile blockage with angioplasty and stent placement. Patient had from October 20, 2023 C-spine decompression and fusion to C3-C7 area with some physical therapy initially and ended up going to [facility] for more physical therapy. Continue to have significant numbness and weakness on the right side mostly in the right upper extremity with some weakness in the right lower extremity as well. Was in to see Dr. Crane for his follow-up and found to have significant weakness in the right upper extremity more than expected the plan all along originally to have posterior decompression apparently was scheduled for 11/09/2023 but because of his symptoms was sent to the emergency department and decided to admit patient to the hospital for urgent surgery to go for possible decompression not a clear whether he need hardware or not of the cervical spine. 11/09/2023: Patient apparently will be going for surgery today for posterior cervical decompression and fusion at C3-4, C4-5, C5-6 and C6-7. He continues to have significant weakness in the right upper extremity and lower extremity as well from the severity of his compression, spinal stenosis, and cervical neuropathy. Hopefully will advance to physical therapy little bit faster after his procedures done this time at this point patient remain require more help than what he can do at home hopefully after 1 or 2 extra day in the hospital might require to go back to rehab. 11/10/2023: Patient had his surgery yesterday for posterior cervical wide dec ompression at C3-4, C4-5, C5-6 and C6/7. And ended up placing some hardware C5 3 4 and 5 lumbar 7. The patient is in bed still have quite a bit of pain he is bothered by the cervical collar specially the hard shell for now restricting him little bit. He had mild throat congestion mostly without any shortness of breath revealed finding no sign of aspiration no fever or chills. He is continue to have slight hypoxia. May require O2 nonproductive monoblock. Also still slightly bit confused. 11/11/2023: Slightly late in the evening yesterday patient started declining become more hypoxic after being more confused and agitated. He was started on BiPAP initially and the been transferred to the intensive care unit after speaking with Dr. Stone few hours later he become more decline and required to be intubated and On mechanical ventilation. He is resting comfortably this morning on mechanical ventilation still sedated on propofol. The etiology for his hypoxia and decline could have been either aspiration pneumonia, reaction to medication, worsening compression from the cervical spine fusion he had early or any other etiology also the possibility of left-sided diaphragmatic paralysis is there which is more testing might be required to be done for it. Patient also will be seeing cardiology he had recent cardiac testing blood pressure has been fluctuating slightly. His white blood cells still quite bit elevated at 19.1 was 26 yesterday's electrolyte with kidney function holding well troponin was done when he was declining and came back to be negative for decline. 11/12/2023: Patient was extubated successfully still in the ICU apparently had several episodes of sleep apnea with meltable apneic episode through the night. Eventually his cuca needs sleep study and if he is agreeable he should probably go to sleep with BiPAP for why he is in the hospital. Lab values today white blood cell is up to 22,200 hemoglobin at 9.4 kidney function is pretty normal with blood sugar running between 120 and 160 magnesium still slightly below. Chest x-ray shows mild developing infiltrate in the left lower lobe. Pulmonary still believe that is more lung pathology causing problem including possibility of left diaphragm paralysis the possibility of soft tissue obstruction of the cervical spine still an option specially the patient is haque ving little bit more wheezing and tightness. Patient will be monitored in ICU for 24 more hours added Solu-Medrol for COPD management pulmonary still believe SNF test and consider CT of the neck and soft tissue especially patient is still more symptomatic. Patient is awake alert interactive he is having less pain more function in the right side his leg is much stronger the right upper extremity still have slight weakness. 11/13/2023: Patient remains in ICU, still been watched for sleep apnea using BiPAP through the night. Sputum culture from late yesterday came back as haemophilus influenza and Klebsiella, he was started on azithromycin and Rocephin which will be continued for now. Still on albuterol treatment. Feeling of shortness of breath is much better he is not symptomatic with any tachycardia or any arrhythmia. His right upper extremity is recovering some have little bit more strength compared to before. Cervical spine pain and discomfort is much better. Also white blood cell is down compared to yesterday. 11/14/2023: Still in the ICU sitting in the chair comfortably had to use a BiPAP at night. Still being treated for atypical pneumonia with Klebsiella and haemophilus influenza has been on azithromycin and Rocephin which seem to respond well to it. Still has slight rhonchi when listening to his lungs bilaterally, his pulse ox is running in the 90s with 2 L of O2. Laboratory value shows white blood cell 13.4 his kidney function remain normal, blood sugar still mildly elevated. He is still on 40 mg of Solu-Medrol every 8 hours which should be switched to prednisone 30 mg by tomorrow. Continue Pulmicort and DuoNeb. Observed patient through the night having significant apnea typical for obstructive sleep apnea which study should be done down the road the patient going to rehab from the hospital will probably benefit from doing BiPAP. As for his cervical spine surgery pain is under better control still has significant weakness in the right upper extremity compared to the left side but is improving gradually. 11/15/2023: Remains ICU overflow will be transferred out of the ICU today he still having slight cough mild shortness of breath pain is under control still having his hard collar on will initiate physical therapy patient still have significant weakness in the right side specially about the extremity will require more help with SNF or inpatient rehab. Blood sugars still in the mid 100 currently white blood cell 10,700 hemoglobin 10.4 with normal kidney function and GFR. Last chest x-ray was done yesterday still showing patchy density of the left perihilar left lower lobe reflect underlying pneumonia which patient again was diagnosed with combination of Klebsiella and haemophilus still on treatment and management for it. Hope to have patient out of the ICU today for more stability with physical therapy and outpatient care. 11/16/2023: He is doing much better continue to have mild dyspnea with significant decreased cough compared to before. Continue antibiotics and patient be switched back to doxycycline as an outpatient for covering Klebsiella and haemophilus influenza. Also will continue updraft with DuoNeb along with Pulmicort and switch patient to oral prednisone at smaller dose. Patient is doing better with physical therapy and prepare hopefully for going back to [facility] today. REVIEW OF SYSTEMS: CONSTITUTIONAL: Well-developed alert no acute respiratory distress. EYES: No icterus sclerae, no conjunctivitis. EARS, NOSE, MOUTH, THROAT, and FACE: No sore throat, lymphadenopathy, carotid bruits or deformity. RESPIRATORY: No SOB cough or wheezes. CARDIOVASCULAR: No CP, Palpitation, PND, Orthopnea, or angina. GASTROINTESTINAL: No Abd pain, Nausea or vomiting, no Diarrhea or constipation, No GI Bleed, no distention or masses. GENITOURINARY: Negative for Hematuria or UTI, no kidney stones. INTEGUMENT/BREAST: Negative for any muscular injury with mild osteoarthritis.. HEMATOLOGIC/LYMPHATIC: Negative for bleed or purpura. MUSCULOSKELTAL: Significant myalgia and arthralgia severe neck pain. NEURLOGICAL: Alert and oriented moving all his fortunately with weakness in the right side. BEHAVIORAL/PSYCH: Negative. ENDOCRINE: Negative. PHYSICAL EXAMINATION: General Appearance: Alert oriented age-appropriate does not look in pain had very hard collar around the cervical spine area. Neck HEENT: Supple, no lymphadenopathy, no thyroid enlargement, no carotid bruits. Significant pain and discomfort in the cervical spine area incision and anterior side of the cervical spine looks fine. Lungs: Clear to auscultation without crackles or wheezes no rhonchi, no deformity. Chest Wall: Decreased expansion with deep inspiration no tenderness and no deformity was found on exam, no costochondral pain or discomfort. Decreased breath on the left side compared to the right side Heart: Regular rate and rhythm, S1, S2 normal, no murmur, rub or gallop. Back: Symmetric, no curvature, ROM normal, no CVA tenderness. Abdomen: Soft, non-tender, bowel sounds active all four quadrants, no masses, no organomegaly. Extremities: Extremities normal, atraumatic, no cyanosis or edema. Pulses: 2+ and symmetric. Skin: Skin color, texture, tugor normal, no rashes or lesions. Neurologic: Alert oriented with slight confusion moving all 4 extremity still have significant weakness in the right upper extremity compared to the left leg is little stronger. ASSESSMENT AND PLAN: _Respiratory failure: Much better so far still on BiPAP through the night and O2 during the day has been treated for Klebsiella and haemophilus influenza with antibiotics less symptomatic currently require less help. Patient was transfer out of the ICU yesterday has remained on BiPAP for the night still on updraft treatment will do more physical therapy and Ortho are prepared to let him go to [facility] today. _Atypical pneumonia: Was diagnosed as a Klebsiella and haemophilus influenza continue Rocephin was switched to doxycycline as an outpatient for the next 2 weeks. _Severe obstructive sleep apnea: Patient eventually required to go for sleep study will benefit from having CPAP. _Severe cervical spine myelopathy post decompression and fusion posteriorly. Doing much better so far has not done any physical therapy but the strength in his right upper extremity is much better. _Debility: Patient will initiate physical therapy since his vent is out at this point and titrate physical therapy gradually. Will require probably to go back to SNF for more rehab. _Hypertension: Still on amlodipine 5 mg a day and keep holding lisinopril the blood pressure still slightly below. Will titrate medication higher if needed. _Hyperlipidemia: Medication on hold currently while he is on mechanical ventilation will resume as soon as the ET tube is out. _COPD: With mild exacerbation because of the atypical pneumonia, still on Solu- Medrol, along with DuoNeb and Pulmicort. _History of prostate cancer postradiation therapy no sign of obstruction still on Flomax currently still able to void on his own. _Hiatal hernia/GERD: Continue omeprazole 20 mg a day. _Chronic anemia: Has been on iron and folate acid continue both. _Chronic pain management, remain on baclofen, [place] 5/325 mg every 6 hours and still on Dilaudid while in the hospital. _GI prophylaxis: Will continue omeprazole 20 mg a day. _DVT prophylaxis: Knee-high MIGDALIA hose and early mobilization to be done. Discussion: Doing much better Patient was transfer out of the ICU, doing much better with physical therapy and prepare for discharge today which she agreed with, medication reconciliation was done today the patient will be seeing Dr. Montoya in [facility] in the next few days. Also the provide for his follow-up with Ortho within 1 week. Pain is under control shortness of breath improved significantly mild to require 2 L of O2. Objective - Vital Signs Vital signs: Vital Signs Temp 97.8 F 11/16/23 02:15 Pulse 55 L 11/16/23 02:15 Resp 12 11/16/23 02:15 BP 126/76 11/16/23 02:15 Pulse Ox 92 L 11/16/23 02:15 FiO2 35 06/26/24 04:11 Intake & Output 11/15/23 11/15/23 11/16/23 06:59 18:59 06:59 Intake Total 900 150 Output Total 425 300 Balance 475 150 -300 Intake: IV 900 150 Sodium Chloride 0.9% 1, 900 150 000 ml @ 75 mls/hr IV . [id number] [facility] Rx#:[id number] Output: Urine 425 300 Other: Voiding Method Indwelling Catheter Urinal # Voids 1 ABP, PAP, CO, CI - Last Documented Arterial Blood Pressure 135/78 - Labs CBC & Chem 7: 11/15/23 05:53 11/15/23 05:53 Labs: Abnormal Lab Results - Last 24 Hours (Table) 11/15/23 11/15/23 11/15/23 Range/Units 05:53 05:53 06:45 WBC 10.7 H (3.8-10.6) k/uL RBC 3.03 L (4.30-5.90) m/uL Hgb 10.4 L (13.0-17.5) gm/dL Hct 31.6 L (39.0-53.0) % MCV 104.3 H (80.0-100.0) fL Neutrophils # 9.4 H (1.3-7.7) k/uL Lymphocytes # 0.4 L (1.0-4.8) k/uL Sodium 136 L (137-145) mmol/L Glucose 151 H (74-99) mg/dL POC Glucose (mg/dL) 164 H (70-110) mg/dL 11/15/23 11/15/23 11/15/23 Range/Units 11:31 13:42 17:25 WBC (3.8-10.6) k/uL RBC (4.30-5.90) m/uL Hgb (13.0-17.5) gm/dL Hct (39.0-53.0) % MCV (80.0-100.0) fL Neutrophils # (1.3-7.7) k/uL Lymphocytes # (1.0-4.8) k/uL Sodium (137-145) mmol/L Glucose (74-99) mg/dL POC Glucose (mg/dL) 175 H 191 H 243 H (70-110) mg/dL 06/25/24 06/26/24 Range/Units 20:37 05:48 WBC (3.8-10.6) k/uL RBC (4.30-5.90) m/uL Hgb (13.0-17.5) gm/dL Hct (39.0-53.0) % MCV (80.0-100.0) fL Neutrophils # (1.3-7.7) k/uL Lymphocytes # (1.0-4.8) k/uL Sodium (137-145) mmol/L Glucose (74-99) mg/dL POC Glucose (mg/dL) 220 H 167 H (70-110) mg/dL
--- NOTE | 2023-11-18 08:09 | CDI ---
Documentation Clarification Form Date: From: Asuncion Loo Phone: Admit Date: 11/08/2023 02:40:00 PM Patient Name: Pascual Nolan Visit Number: [id number] Discharge Date: 11/16/2023 03:47:00 PM ATTENTION: The Clinical Documentation Specialists (CDI) and [facility] Coding Staff appreciate your assistance in clarifying documentation. Please respond to the clarification below the line at the bottom and electronically sign. The CDI & [facility] Coding staff will review the response and follow-up if needed. Please note: Queries are made part of the Legal Health Record. If you have any questions, please contact the author of this message via ITS. Dr. Jalen Au, Your patient has the documented symptom of Altered Mental Status in the 11/10 progress note. Additional clarification regarding the etiology/cause of this symptom is requested. History/Risk Factors: cervical disc disorder w stenosis, myelopathy & radiculopathy, COPD, HTN, anemia, CAD, HLD, smoker, acute hypoxic respiratory failure Clinical Indicators: Alteredmentalstatus with worsening confusion: Most likely primary, Metabolic at this point hopefully treat underlying disease and should improve. Deliriumlikelymultiple etiologies including opiates, [employer] sedatives, electrolytes,painetc. 1) Labs: WBC 19.1 11/11 X Ray: Mild developinginfiltrateleft lower lobe.Correlate foratelectasisor pneumonia. CT: No acuteintracranial hemorrhage, midline shift, ormasseffect. Treatment: Altered mental statuswith worseningconfusion: Most likely primary, Metabolic at this point hopefully treat underlying disease and should improve. Please clarify the etiology of the symptom of Altered Mental Status: [ XX ] [Metabolic encephalopathy] Encephalopathy due to [Hypoxia, KALYAN and Medications] [ ] Delirium (specify cause): [ ] Dementia (if know, specify Type and if with/without Behavioral Disturbance) [ ] Other condition (please specify) [ ] Unable to determine MTDD
--- NOTE | 2023-11-23 09:26 | XR ---
EXAMINATION TYPE: XR chest 1V portable DATE OF EXAM: 11/11/2023 12:30 AM CLINICAL INDICATION:Male, 67 years old with history of Tube placement; [facility] COMPARISON: Chest radiographs from 11/10/2023 TECHNIQUE: XR chest 1V portable Frontal view of the chest. FINDINGS: Lungs/Pleura: There is no evidence of pleural effusion, focal consolidation, or pneumothorax. Pulmonary vascularity: Unremarkable. Heart/mediastinum: Cardiomediastinal silhouette is unremarkable. Musculoskeletal: No acute osseous pathology. Other findings: Postsurgical changes to the spine with skin harris present. Lines/Tubes: Endotracheal tube with distal tip 5.1 cm above the radha. Nasogastric tube with its distal tip and side-port projecting under the diaphragm. IMPRESSION: Postsurgical changes, appropriate placement of support tubes.
== END 2023-11-16 15:47 | DRG 471 ==
LOC: EC 16:17 → 4SSUR 17:40 → OBSVTOIN 11-08 14:40 → 2SICU 11-10 20:43 → 4SSUR 11-15 17:02
PROVIDERS: ADMIT Orthopaedic Surgery Orthopaedic Surgery of the Spine; ATTEND Orthopaedic Surgery Orthopaedic Surgery of the Spine
PROC: 0RB30ZZ Excision of Cervical Vertebral Disc, Open Approach (ICD-10-PCS; principal; 2023-11-09 08:30)
PROC: 00NW0ZZ Release Cervical Spinal Cord, Open Approach (ICD-10-PCS; principal; 2023-11-09 08:30)
PROC: 01N10ZZ Release Cervical Nerve, Open Approach (ICD-10-PCS; principal; 2023-11-09 08:30)
PROC: 0RG2071 Fusion of 2 or more Cervical Vertebral Joints with Autologous Tissue Substitute, Posterior Approach, Posterior Column, Open Approach (ICD-10-PCS; principal; 2023-11-09 08:30)
PROC: 4A1104G Monitoring of Peripheral Nervous Electrical Activity, Intraoperative, Open Approach (ICD-10-PCS; principal; 2023-11-09 08:30)
PROC: 5A09357 Assistance with Respiratory Ventilation, Less than 24 Consecutive Hours, Continuous Positive Airway Pressure (ICD-10-PCS; 2023-11-10)
PROC: 3E0G76Z Introduction of Nutritional Substance into Upper GI, Via Natural or Artificial Opening (ICD-10-PCS; 2023-11-10)
PROC: 0D9670Z Drainage of Stomach with Drainage Device, Via Natural or Artificial Opening (ICD-10-PCS; 2023-11-10)
PROC: 5A1935Z Respiratory Ventilation, Less than 24 Consecutive Hours (ICD-10-PCS; 2023-11-11)
PROC: 0BH17EZ Insertion of Endotracheal Airway into Trachea, Via Natural or Artificial Opening (ICD-10-PCS; 2023-11-11)
DX: M50.01 Cervical disc disorder with myelopathy, high cervical region (principal); G92.8 Other toxic encephalopathy; J14 Pneumonia due to Hemophilus influenzae; J96.01 Acute respiratory failure with hypoxia; J15.0 Pneumonia due to Klebsiella pneumoniae; G93.41 Metabolic encephalopathy; G95.89 Other specified diseases of spinal cord; J44.1 Chronic obstructive pulmonary disease with (acute) exacerbation; J44.0 Chronic obstructive pulmonary disease with (acute) lower respiratory infection; J98.6 Disorders of diaphragm; M50.11 Cervical disc disorder with radiculopathy, high cervical region; M48.02 Spinal stenosis, cervical region; Y95 Nosocomial condition; I10 Essential (primary) hypertension; D64.9 Anemia, unspecified; I25.10 Atherosclerotic heart disease of native coronary artery without angina pectoris; E78.5 Hyperlipidemia, unspecified; G47.33 Obstructive sleep apnea (adult) (pediatric); K21.9 Gastro-esophageal reflux disease without esophagitis; K44.9 Diaphragmatic hernia without obstruction or gangrene; M62.442 Contracture of muscle, left hand; M62.441 Contracture of muscle, right hand; M19.90 Unspecified osteoarthritis, unspecified site; I49.3 Ventricular premature depolarization; N42.9 Disorder of prostate, unspecified; R25.1 Tremor, unspecified; F17.210 Nicotine dependence, cigarettes, uncomplicated; Z71.6 Tobacco abuse counseling; Z79.51 Long term (current) use of inhaled steroids; Z79.899 Other long term (current) drug therapy; Z85.46 Personal history of malignant neoplasm of prostate; Z95.5 Presence of coronary angioplasty implant and graft
CPT/HCPCS: 36415; 36600; 51702; 70450; 71045; 71275; 72040; 80048; 80053; 82805; 83735; 84132; 84484; 85025; 85610; 85730; 86850; 86900; 86901; 87070; 87077; 87186; 87205; 93005; 93306; 94002; 94640; 94660; 94667; 94668; 94760; 96374; 99285

== ENCOUNTER 2023-12-07 08:26 | Inpatient (IN) | payer MEDICARE, OTHER ==
--- NOTE | 2023-12-07 09:09 | ED ---
General Adult HPI - General Chief complaint: Altered Mental Status Stated complaint: AMS Time Seen by Provider: 12/07/23 08:30 Source: patient, EMS, RN notes reviewed, old records reviewed Mode of arrival: EMS Limitations: altered mental status - History of Present Illness Initial comments: This is a 67-year-old male who comes from [facility]. Patient was sent in because his oxygen was decreasing and he was altered at times. Patient is alert and oriented x 4 but and does not know why he is here. According to staff he was having difficulty breathing and his blood pressure was low at times so they were told to watch him overnight and this morning it continued so they sent him in. Again patient has no understanding as to why he is here. Patient denies any pain. Patient denies being short of breath. Patient is only concerned with where is his . Patient's showed up later and indicated that he has been coughing quite a bit and had some episodes of low blood pressure and according to staff hypoxia. - Related Data Home Medications Medication Instructions Recorded Confirmed Lisinopril-Hctz 20-12.5 mg 1 tab PO DAILY 04/12/19 12/07/23 [Zestoretic 20-12.5] Tamsulosin [Flomax] 0.4 mg PO HS 04/12/19 12/07/23 Ferrous Sulfate [Iron] 325 mg PO DAILY 09/29/23 12/07/23 Folic Acid 0.4 mg PO DAILY 09/29/23 12/07/23 Fluticasone/Umeclidin/Vilanter 1 puff INHALATION RT-DAILY 10/19/23 12/07/23 [[place] 100-62.5-25] Clotrimazole/Betameth Cream 1 applic TOPICAL Q12H 11/07/23 12/07/23 [Lotrisone] Ipratropium-Albuterol Nebulize 3 ml INHALATION RT-QID 11/07/23 12/07/23 [Duoneb 0.5 mg-3 mg/3 ml Soln] Omeprazole 20 mg PO DAILY@0600 11/07/23 12/07/23 amLODIPine [Norvasc] 2.5 mg PO DAILY 11/07/23 12/07/23 methocarbamoL [Robaxin-750] 750 mg PO TID@0600,1400,2200 11/07/23 12/07/23 Baclofen 10 mg PO HS PRN 12/07/23 12/07/23 Benzocaine/Menthol Lozeng [Cepacol 1 lozenge MUCOUS MEM Q4HR PRN 12/07/23 12/07/23 lozenge] Cyanocobalamin [Vitamin B-12] 500 mcg PO DAILY 12/07/23 12/07/23 Ergocalciferol [Vitamin D2 (1250 1,250 mcg PO SMALLS 12/07/23 12/07/23 Mcg = 45583 Iu)] Furosemide [Lasix] 40 mg PO ONCE 12/07/23 12/07/23 HYDROcodone/APAP 5-325MG [[place] 5] 1 - 2 tab PO Q6HR PRN 12/07/23 12/07/23 House Stock Powder 1 applic TOPICAL BID 12/07/23 12/07/23 Zguard 1 applic TOPICAL BID 12/07/23 12/07/23 metroNIDAZOLE [Flagyl] 500 mg PO TID@0600,1400,2200 12/07/23 12/07/23 Previous Rx's Medication Instructions Recorded Acetaminophen Tab [Tylenol] 650 mg PO Q6HR PRN tab 10/27/23 Sennosides-Docusate Sodium 1 tab PO BID PRN #60 tablet 11/16/23 [Senokot-S] polyethylene glycoL 3350 [Miralax] 17 gm PO DAILY packet 11/16/23 Allergies Allergy/AdvReac Type Severity Reaction Status Date / Time No Known Allergies Allergy Verified 12/07/23 10:33 Review of Systems ROS Statement: Those systems with pertinent positive or pertinent negative responses have been documented in the HPI. ROS Other: All systems not noted in ROS Statement are negative. Past Medical History Past Medical History: Cancer, COPD, GERD/Reflux, Hyperlipidemia, Hypertension, Prostate Disorder Additional Past Medical History / Comment(s): Severe cervical myelopathy with upper and lower extremity weakness due to his cervical stenosis with myelomalacia. Status post anterior cervical decompression with and fusion C3-3 7 on 10/20/2023. 50% blockage in heart, anemia, tremors, prostate cancer. History of Any Multi-Drug Resistant Organisms: None Reported Past Surgical History: Back Surgery, Cholecystectomy, Heart Catheterization Additional Past Surgical History / Comment(s): heart cath 1995 Past Anesthesia/Blood Transfusion Reactions: Previous Problems w/ Anesthesia Additional Past Anesthesia/Blood Transfusion Reaction / Comment(s): "Woke up during gallbladder surgery." Past Psychological History: No Psychological Hx Reported Smoking Status: Current every day smoker Past Alcohol Use History: None Reported Past Drug Use History: None Reported - Past Family History Brother(s) Family Medical History: Cancer General Exam - General Exam Comments Initial Comments: GENERAL: Patient is well-developed and well-nourished. ENT: Neck is soft and supple. No significant lymphadenopathy is noted. Oropharynx is clear. Moist mucous membranes. Neck has full range of motion without eliciting any pain. EYES: The sclera were anicteric and conjunctiva were pink and moist. Extraocular movements were intact and pupils were equal round and reactive to light. Eyelids were unremarkable. PULMONARY: Unlabored respirations. Patient has a lot of dry but it sounds more upper airway CARDIOVASCULAR: There is a regular rate and rhythm without any murmurs gallops or rubs. ABDOMEN: Soft and nontender with normal bowel sounds. SKIN: Patient has very superficial breakdown on his sacral region NEUROLOGIC: Patient is alert and oriented x3. Cranial nerves II through XII are grossly intact. Motor and sensory are also intact. Normal speech, volume and content. Symmetrical smile. MUSCULOSKELETAL: Normal extremities with adequate strength and full range of motion. LYMPHATICS: No significant lymphadenopathy is noted PSYCHIATRIC: Normal psychiatric evaluation. Limitations: altered mental status Course Vital Signs 12/07/23 12/07/23 12/07/23 08:29 09:00 09:15 Temperature 97.7 F Pulse Rate 73 86 101 H Respiratory 20 33 H 20 Rate Blood Pressure 85/54 100/67 95/54 O2 Sat by Pulse 97 92 L 98 Oximetry 12/07/23 12/07/23 12/07/23 09:45 10:00 10:15 Temperature Pulse Rate 93 86 96 Respiratory 20 21 20 Rate Blood Pressure 103/66 107/54 107/57 O2 Sat by Pulse 92 L 92 L Oximetry 12/07/23 12/07/23 12/07/23 10:30 10:45 11:00 Temperature Pulse Rate 92 93 Respiratory 18 22 Rate Blood Pressure 103/78 113/73 105/62 O2 Sat by Pulse 95 Oximetry 12/07/23 12/07/23 12/07/23 11:15 11:30 12:49 Temperature Pulse Rate 103 H 101 H 98 Respiratory 24 18 18 Rate Blood Pressure 97/59 92/63 O2 Sat by Pulse 96 97 94 L Oximetry 12/07/23 12/07/23 13:45 14:07 Temperature 98.3 F Pulse Rate 67 105 H Respiratory 18 18 Rate Blood Pressure 108/65 99/69 O2 Sat by Pulse 90 L 92 L Oximetry Medical Decision Making - Medical Decision Making EKG is interpreted by myself. EKG shows a sinus rhythm at 75 bpm parables 171 QRS is 82 QT interval 323 QTc is 353. EKG shows no ST segment elevation Was pt. sent in by a medical professional or institution ([facility], BIOASSAYIST, urgent care, hospital, or alf...) When possible be specific @ -No Did you speak to anyone other than the patient for history (EMS, parent, family, police, friend...)? What history was obtained from this source @ -No Did you review nursing and triage notes (agree or disagree)? Why? @ -I reviewed and agree with nursing and triage notes Were old charts reviewed (outside hosp., previous admission, EMS record, old EKG, old radiological studies, urgent care reports/EKG's, alf records)? Report findings @ -No old charts were reviewed Differential Diagnosis? @ -Differential Altered Mental Status: Hypoglycemia, DKA, hypercapnia, ETOH, overdose, CO poisoning, trauma, myxedema coma, HTN encephalopathy, infection, encephalitis, psychosis, intercranial hemorrhage, hepatic encephalopathy, meningitis, CVA, this is not meant to be an all-inclusive list EKG interpreted by me (3pts min.). @ -As above X-rays interpreted by me (1pt min.). @ -Chest x-ray shows no acute abnormality CT interpreted by me (1pt min.). @ -CT of the chest shows no acute normality U/S interpreted by me (1pt. min.). @ -None done What testing was considered but not performed or refused? (CT, X-rays, U/S, labs)? Why? @ -None What meds were considered but not given or refused? Why? @ -None Did you discuss the management of the patient with other professionals (professionals i.e. [facility], BIOASSAYIST, lab, RT, psych nurse, social science instructor, putty remover, teacher, chief juvenile probation officer, case management social worker)? Give summary @ -I spoke with Dr. Au and he agreed to admit the patient Was smoking cessation discussed for >3mins.? @ -No Was critical care preformed (if so, how long)? @ -No Were there social determinants of health that impacted care today? How? (Homelessness, low income, unemployed, alcoholism, drug addiction, transportation, low edu. Level, literacy, decrease access to med. care, penitentiary, rehab)? @ -No Was there de-escalation of care discussed even if they declined (Discuss DNR or withdrawal of care, Hospice)? DNR status @ -No What co-morbidities impacted this encounter? (DM, HTN, Smoking, COPD, CAD, Cancer, CVA, ARF, Chemo, Hep., AIDS, mental health diagnosis, sleep apnea, morbid obesity)? @ -None Was patient admitted / discharged? Hospital course, mention meds given and route, prescriptions, significant lab abnormalities, going to OR and other pertinent info. @ -Patient was oxygenating fine while he was awake however when he slept his oxygenation will drop. Patient will be admitted for altered mental status and placed on a CPAP for sleep. Undiagnosed new problem with uncertain prognosis? @ -No Drug Therapy requiring intensive monitoring for toxicity (Heparin, Nitro, Insulin, Cardizem)? @ -No Were any procedures done? @ -No Diagnosis/symptom? @ -Altered mental status Acute, or Chronic, or Acute on Chronic? @ -Acute Uncomplicated (without systemic symptoms) or Complicated (systemic symptoms)? @ -Complicated Side effects of treatment? @ -No Exacerbation, Progression, or Severe Exacerbation? @ -No Poses a threat to life or bodily function? How? (Chest pain, [place], [place], pneumonia, PE, COPD, DKA, ARF, appy, cholecystitis, CVA, Diverticulitis, Homicidal, Suicidal, threat to staff... and all critical care pts) @ -No Diagnosis/symptom? @ -Sleep apnea Acute, or Chronic, or Acute on Chronic? @ -Acute Uncomplicated (without systemic symptoms) or Complicated (systemic symptoms)? @ -Complicated Side effects of treatment? @ -None Exacerbation, Progression, or Severe Exacerbation] @ -No Poses a threat to life or bodily function? @ -No - Lab Data Result diagrams: 12/07/23 09:12 12/07/23 09:12 Lab Results 12/07/23 12/07/2312/06/24 Range/Units 09:12 09:12 09:12 WBC 10.7 H (3.8-10.6) k/uL RBC 3.18 L (4.30-5.90) m/uL Hgb 10.9 L (13.0-17.5) gm/dL Hct 32.2 L (39.0-53.0) % MCV 101.2 H (80.0-100.0) fL MCH 34.1 (25.0-35.0) pg MCHC 33.7 (31.0-37.0) g/dL RDW 13.9 (11.5-15.5) % Plt Count 164 (150-450) k/uL MPV 10.2 Neutrophils % 88 % Lymphocytes % 4 % Monocytes % 7 % Eosinophils % 1 % Basophils % 0 % Neutrophils # 9.4 H (1.3-7.7) k/uL Lymphocytes # 0.4 L (1.0-4.8) k/uL Monocytes # 0.8 (0-1.0) k/uL Eosinophils # 0.1 (0-0.7) k/uL Basophils # 0.0 (0-0.2) k/uL Macrocytosis Slight PT 13.7 H (10.0-12.5) sec INR 1.3 H (<1.2) APTT 25.2 (22.0-30.0) sec D-Dimer 0.96 H (<0.60) mg/L FEU Sodium (137-145) mmol/L Potassium (3.5-5.1) mmol/L Chloride (98-107) mmol/L Carbon Dioxide (22-30) mmol/L Anion Gap mmol/L BUN (9-20) mg/dL Creatinine (0.66-1.25) mg/dL Est GFR (CKD-EPI)AfAm (>60 ml/min/1.73 sqM) Est GFR (CKD-EPI)NonAf (>60 ml/min/1.73 sqM) Glucose (74-99) mg/dL POC Glucose (mg/dL) (70-110) mg/dL POC Glu Certified Fire Investigator ID Calcium (8.4-10.2) mg/dL Total Bilirubin (0.2-1.3) mg/dL AST (17-59) U/L ALT (4-49) U/L Alkaline Phosphatase (38-126) U/L Troponin I (0.000-0.034) ng/mL NT-Pro-B Natriuret Pep pg/mL Total Protein (6.3-8.2) g/dL Albumin (3.5-5.0) g/dL Urine Color Urine Appearance (Clear) Urine pH (5.0-8.0) Ur Specific [place] (1.001-1.035) Urine Protein (Negative) Urine Glucose (UA) (Negative) Urine Ketones (Negative) Urine Blood (Negative) Urine Nitrite (Negative) Urine Bilirubin (Negative) Urine Urobilinogen (<2.0) mg/dL Ur Leukocyte Esterase (Negative) Urine RBC (0-5) /hpf Urine WBC (0-5) /hpf Ur Squamous Epith Cells (0-4) /hpf Hyaline Casts (0-2) /lpf Urine Mucus (None) /hpf Urine Opiates Screen Detected H (NotDetected) Ur Oxycodone Screen Not Detected (NotDetected) Urine Methadone Screen Not Detected (NotDetected) Ur Barbiturates Screen Not Detected (NotDetected) U Tricyclic Antidepress Detected H (NotDetected) Ur Phencyclidine Scrn Not Detected (NotDetected) Ur Amphetamines Screen Not Detected (NotDetected) U Methamphetamines Scrn Not Detected (NotDetected) U Benzodiazepines Scrn Detected H (NotDetected) Urine Cocaine Screen Not Detected (NotDetected) U Marijuana (THC) Screen Detected H (NotDetected) 12/07/23 12/07/23 12/07/23 Range/Units 09:12 09:12 09:40 WBC (3.8-10.6) k/uL RBC (4.30-5.90) m/uL Hgb (13.0-17.5) gm/dL Hct (39.0-53.0) % MCV (80.0-100.0) fL MCH (25.0-35.0) pg MCHC (31.0-37.0) g/dL RDW (11.5-15.5) % Plt Count (150-450) k/uL MPV Neutrophils % % Lymphocytes % % Monocytes % % Eosinophils % % Basophils % % Neutrophils # (1.3-7.7) k/uL Lymphocytes # (1.0-4.8) k/uL Monocytes # (0-1.0) k/uL Eosinophils # (0-0.7) k/uL Basophils # (0-0.2) k/uL Macrocytosis PT (10.0-12.5) sec INR (<1.2) APTT (22.0-30.0) sec D-Dimer (<0.60) mg/L FEU Sodium 130 L (137-145) mmol/L Potassium 4.3 (3.5-5.1) mmol/L Chloride 96 L (98-107) mmol/L Carbon Dioxide 30 (22-30) mmol/L Anion Gap 4 mmol/L BUN 29 H (9-20) mg/dL Creatinine 1.09 (0.66-1.25) mg/dL Est GFR (CKD-EPI)AfAm 80 (>60 ml/min/1.73 sqM) Est GFR (CKD-EPI)NonAf 69 (>60 ml/min/1.73 sqM) Glucose 107 H (74-99) mg/dL POC Glucose (mg/dL) 120 H (70-110) mg/dL POC Glu Certified Fire Investigator ID Jayden Richard Calcium 8.9 (8.4-10.2) mg/dL Total Bilirubin 0.5 (0.2-1.3) mg/dL AST 15 L (17-59) U/L ALT 15 (4-49) U/L Alkaline Phosphatase 62 (38-126) U/L Troponin I <0.012 (0.000-0.034) ng/mL NT-Pro-B Natriuret Pep 167 pg/mL Total Protein 5.0 L (6.3-8.2) g/dL Albumin 2.9 L (3.5-5.0) g/dL Urine Color Urine Appearance (Clear) Urine pH (5.0-8.0) Ur Specific [place] (1.001-1.035) Urine Protein (Negative) Urine Glucose (UA) (Negative) Urine Ketones (Negative) Urine Blood (Negative) Urine Nitrite (Negative) Urine Bilirubin (Negative) Urine Urobilinogen (<2.0) mg/dL Ur Leukocyte Esterase (Negative) Urine RBC (0-5) /hpf Urine WBC (0-5) /hpf Ur Squamous Epith Cells (0-4) /hpf Hyaline Casts (0-2) /lpf Urine Mucus (None) /hpf Urine Opiates Screen (NotDetected) Ur Oxycodone Screen (NotDetected) Urine Methadone Screen (NotDetected) Ur Barbiturates Screen (NotDetected) U Tricyclic Antidepress (NotDetected) Ur Phencyclidine Scrn (NotDetected) Ur Amphetamines Screen (NotDetected) U Methamphetamines Scrn (NotDetected) U Benzodiazepines Scrn (NotDetected) Urine Cocaine Screen (NotDetected) U Marijuana (THC) Screen (NotDetected) 12/07/23 Range/Units 11:56 WBC (3.8-10.6) k/uL RBC (4.30-5.90) m/uL Hgb (13.0-17.5) gm/dL Hct (39.0-53.0) % MCV (80.0-100.0) fL MCH (25.0-35.0) pg MCHC (31.0-37.0) g/dL RDW (11.5-15.5) % Plt Count (150-450) k/uL MPV Neutrophils % % Lymphocytes % % Monocytes % % Eosinophils % % Basophils % % Neutrophils # (1.3-7.7) k/uL Lymphocytes # (1.0-4.8) k/uL Monocytes # (0-1.0) k/uL Eosinophils # (0-0.7) k/uL Basophils # (0-0.2) k/uL Macrocytosis PT (10.0-12.5) sec INR (<1.2) APTT (22.0-30.0) sec D-Dimer (<0.60) mg/L FEU Sodium (137-145) mmol/L Potassium (3.5-5.1) mmol/L Chloride (98-107) mmol/L Carbon Dioxide (22-30) mmol/L Anion Gap mmol/L BUN (9-20) mg/dL Creatinine (0.66-1.25) mg/dL Est GFR (CKD-EPI)AfAm (>60 ml/min/1.73 sqM) Est GFR (CKD-EPI)NonAf (>60 ml/min/1.73 sqM) Glucose (74-99) mg/dL POC Glucose (mg/dL) (70-110) mg/dL POC Glu Certified Fire Investigator ID Calcium (8.4-10.2) mg/dL Total Bilirubin (0.2-1.3) mg/dL AST (17-59) U/L ALT (4-49) U/L Alkaline Phosphatase (38-126) U/L Troponin I (0.000-0.034) ng/mL NT-Pro-B Natriuret Pep pg/mL Total Protein (6.3-8.2) g/dL Albumin (3.5-5.0) g/dL Urine Color Yellow Urine Appearance Clear (Clear) Urine pH 5.5 (5.0-8.0) Ur Specific [place] 1.018 (1.001-1.035) Urine Protein Trace H (Negative) Urine Glucose (UA) Negative (Negative) Urine Ketones Trace H (Negative) Urine Blood Negative (Negative) Urine Nitrite Negative (Negative) Urine Bilirubin Negative (Negative) Urine Urobilinogen <2.0 (<2.0) mg/dL Ur Leukocyte Esterase Small H (Negative) Urine RBC <1 (0-5) /hpf Urine WBC <1 (0-5) /hpf Ur Squamous Epith Cells 1 (0-4) /hpf Hyaline Casts 9 H (0-2) /lpf Urine Mucus Rare H (None) /hpf Urine Opiates Screen (NotDetected) Ur Oxycodone Screen (NotDetected) Urine Methadone Screen (NotDetected) Ur Barbiturates Screen (NotDetected) U Tricyclic Antidepress (NotDetected) Ur Phencyclidine Scrn (NotDetected) Ur Amphetamines Screen (NotDetected) U Methamphetamines Scrn (NotDetected) U Benzodiazepines Scrn (NotDetected) Urine Cocaine Screen (NotDetected) U Marijuana (THC) Screen (NotDetected) Disposition Clinical Impression: Altered mental status, Sleep apnea Disposition: ADMITTED IP TO THIS [facility] Referrals: Honey Montoya MD [Primary Care Provider] - 1-2 days Time of Disposition: 14:26
[2023-12-07] MEDS: SODIUM CHLORIDE 0.9% 1,000 ML IV ONE ×2 (09:21→16:01)
[2023-12-07 09:34] LABS: Basophils % (A) 0 %; Eosinophils # (A) 0.1 k/uL (0-0.7); Eosinophils % (A) 1 %; HCT 32.2 % (39.0-53.0); HGB 10.9 gm/dL (13.0-17.5); Lymphocytes # (A) 0.4 k/uL (1.0-4.8); Lymphocytes % (A) 4 %; MCH 34.1 pg (25.0-35.0); MCHC 33.7 g/dL (31.0-37.0); MCV 101.2 fL (80.0-100.0); Macrocytosis Slight; Mean Platelet Volume 10.2; Monocytes # (A) 0.8 k/uL (0-1.0); Monocytes % (A) 7 %; Neutrophils # (A) 9.4 k/uL (1.3-7.7); Neutrophils % (A) 88 %; Platelet Count 164 k/uL (150-450); RBC 3.18 m/uL (4.30-5.90); RDW 13.9 % (11.5-15.5); WBC 10.7 k/uL (3.8-10.6)
[2023-12-07 09:41] LABS: INR 1.3 (<1.2); Partial Thromboplastin Time 25.2 sec (22.0-30.0); Prothrombin Time 13.7 sec (10.0-12.5)
[2023-12-07 09:45] LABS: Glucose,Whole Blood 120 mg/dL (70-110)
--- NOTE | 2023-12-07 09:45 | XR ---
EXAMINATION TYPE: XR chest 2V DATE OF EXAM: 12/07/2023 COMPARISON: 11/14/2023 INDICATION: Altered mental status TECHNIQUE: Frontal and lateral views of the chest are obtained. FINDINGS: The heart size is normal. The pulmonary vasculature is normal. A BB some minimal retrocardiac infiltrate with partial silhouetting of the diaphragm. Clinical correl ation recommended and follow-up recommended. IMPRESSION: 1. Mild retrocardiac infiltrate. Correlate for atelectasis and pneumonia. Follow-up recommended.
[2023-12-07 09:49] LABS: ALT 15 U/L (4-49); AST 15 U/L (17-59); African American GFR (CKD) 80 (>60 ml/min/1.73 sqM); Albumin 2.9 g/dL (3.5-5.0); Alkaline Phosphatase 62 U/L (38-126); Anion Gap 4 mmol/L; Blood Urea Nitrogen 29 mg/dL (9-20); Calcium 8.9 mg/dL (8.4-10.2); Carbon Dioxide 30 mmol/L (22-30); Chloride 96 mmol/L (98-107); Glucose 107 mg/dL (74-99); Non-African American GFR(CKD) 69 (>60 ml/min/1.73 sqM); Potassium 4.3 mmol/L (3.5-5.1); Sodium 130 mmol/L (137-145); Total Bilirubin 0.5 mg/dL (0.2-1.3)
[2023-12-07 09:58] LABS: NT-Pro-B-Type Natriuretic Pept 167 pg/mL
--- NOTE | 2023-12-07 11:18 | CT ---
EXAMINATION TYPE: CT chest angio for PE CT DLP: 536.1 mGycm, Automated exposure control for dose reduction was used. DATE OF EXAM: 12/07/2023 11:11 AM COMPARISON: Chest radiograph 12/07/2023, CT chest 11/10/2023. CLINICAL INDICATION:Male, 67 years old with history of Elevated D-dimer, difficulty breathing; Elevat ed D-dimer, difficulty breathing. recent neck sx TECHNIQUE/CONTRAST: CTA scan of the thorax is performed with IV Contrast, patient injected with 75ml mL of Isovue 370, pu lmonary embolism protocol. MIP images are created and reviewed. FINDINGS: Pulmonary Artery: There is no evidence for a filling defect within the pulmonary vasculature to sugge st acute pulmonary embolism. The pulmonary artery is of normal size. No reflux of contrast into the IVC. Lungs/Pleura: Respiratory motion limits evaluation. No pleural effusion or pneumothorax. Bilateral lo wer lobe dependent subsegmental atelectasis. Airway: Large airways are patent. Heart: Heart is within normal limits for size.. Vasculature: No evidence of aortic aneurysm. Mild atelectatic calcification of the aorta and its bran ches. Mediastinum: No evidence of adenopathy. Musculoskeletal: No acute osseous abnormalities. Anterior cervical fusion hardware. Mild multilevel d egenerative changes of the thoracic spine. Soft Tissues: Minimal bilateral gynecomastia. Lower neck: No significant findings. Upper Abdomen: Postcholecystectomy changes. Small hiatal hernia. IMPRESSION: 1. No evidence of pulmonary embolism. 2. Bilateral lower lobe subsegmental atelectasis.
[2023-12-07 11:52] LABS: Amphetamine Screen,Urine Not Detected (NotDetected); Barbiturate Screen,Urine Not Detected (NotDetected); Benzodiazepines Screen,Urine Detected (NotDetected); Cocaine Screen,Urine Not Detected (NotDetected); Methadone Screen, Urine Not Detected (NotDetected); Opiate Screen,Urine Detected (NotDetected); Oxycodone Screen, Urine Not Detected (NotDetected); Phencyclidine Screen,Urine Not Detected (NotDetected); Tricyclic Antidepressant,Urine Detected (NotDetected); Urn Cannabinoid Scrn Detected (NotDetected)
[2023-12-07 12:11] LABS: Appearance,Urine Clear (Clear); Bilirubin,Urine Negative (Negative); Blood,Urine Negative (Negative); Color,Urine Yellow; Glucose,Urine (UA) Negative (Negative); Hyaline Casts,Urine 9 /lpf (0-2); Ketones,Urine Trace (Negative); Leukocyte Esterase,Urine Small (Negative); Mucus,Urine Rare /hpf; Nitrite,Urine Negative (Negative); PH, Urine 5.5 (5.0-8.0); Protein,Urine Trace (Negative); RBC,Urine <1 /hpf (0-5); Specific Gravity,Urine 1.018 (1.001-1.035); Squamous Epithelial Cell,Urine 1 /hpf (0-4); Urobilinogen,Urine <2.0 mg/dL (<2.0); WBC,Urine <1 /hpf (0-5)
[2023-12-07 14:13] LABS: ABG Base Excess 4.3 mmol/L; ABG HCO3 29 mmol/L (21-25); ABG Oxygen Saturation 90.8 % (94-97); ABG PCO2 45 mmHg (35-45); ABG PH 7.42 (7.35-7.45); ABG TCO2 31 mmol/L (19-24); Allen Test Performed? Yes
[2023-12-07 14:22] LABS: ABG PO2 57 mmHg (83-108)
[2023-12-07] MEDS ORDERED: BACLOFEN 10 MG TAB PO PRN (14:37)
[2023-12-07] MEDS: IPRATROPIUM-ALBUTEROL 3 ML NEB INHALATION SCH (15:36)
--- NOTE | 2023-12-07 18:12 | CT ---
EXAMINATION TYPE: CT brain wo con CT DLP: 1123.4 mGycm, Automated exposure control for dose reduction was used. DATE OF EXAM: 12/07/2023 5:46 PM COMPARISON: 11/11/2023.. CLINICAL INDICATION:Male, 67 years old with history of altered mental status, AMS, neck surgery x 2 w eeks ago. TECHNIQUE: Brain: Axial CT images of the brain were obtained with coronal and sagittal reformats created and rev iewed. Contrast used: None. Oral contrast used: None. FINDINGS: Brain: Extra-axial spaces: No abnormal extra-axial fluid collections. Ventricular system: Within normal limits Cerebral parenchyma: No acute intraparenchymal hemorrhage or mass effect. The hdez-white junction is well differentiated. Cerebellum: Unremarkable. Mass effect: No evidence of midline shift. Intracranial vasculature: unremarkable Soft tissues: Normal. Calvarium/osseous structures: No depressed skull fracture. Paranasal sinuses and mastoid air cells: Mild scattered paranasal sinus disease. Visualized orbits: Orbital contents are intact. IMPRESSION: No acute intracranial process.
[2023-12-07] MEDS ORDERED: ACETAMINOPHEN TAB 325 MG TAB PO PRN (18:33)
[2023-12-07] MEDS ORDERED: BENZOCAINE/MENTHOL LOZENG 1 EACH LOZENGE MUCOUS MEM PRN (18:33)
[2023-12-07] MEDS ORDERED: SENNOSIDES-DOCUSATE SODIUM 1 EACH TAB PO PRN (18:33)
[2023-12-07] MEDS ORDERED: HYDROcodone/APAP 5-325MG 1 EACH TAB PO PRN (18:33)
[2023-12-07] MEDS: TAMSULOSIN 0.4 MG CAP.ER.24H PO SCH (22:45)
--- NOTE | 2023-12-07 23:27 | P.HPIM ---
History of Present Illness H&P Date: 12/07/23 HISTORY OF PRESENT ILLNESS: 67-year-old with active medical history of cervical myelopathy, severe spinal stenosis of the cervical spine, history of prostate cancer, hypertension, hyperlipidemia, chronic anemia, tremor, CAD without any angioplasty or stent placement, chronic COPD. He was hospitalized in October 20, 2023 for C-spine decompression and fusion of the C3-C7 and ended [facility] continue to have significant numbness and weakness mostly on the right side mostly affecting the right upper extremity seen Dr. Rangel and with the current symptoms was diagnosed with then of much worsening stenosis and myelopathy require posterior decompression which patient was hospitalized on 11/09/2023 for posterior cervical decompression and fusion of the C3-4, C4-5, C5-6 and C6/7 he continued to have significant weakness numbness in the upper extremity and the use of his hand was not that great on 620 developed to have severe hypoxia not a clear etiology the a team was called to see him and subsequently was transferred to the intensive care unit and was placed on mechanical ventilation for almost 48 hours and eventually was extubated successfully to require to use BiPAP on and off, his event was not clear etiology completely but combination of reaction to medication specially pain meds and benzodiazepine addition to finding the patient has apnea c onsistent with sleep apnea. Surprisingly the following few days patient was diagnosed with Klebsiella and haemophilus influenza pneumonia with sputum culture positive for both patient was treated with Rocephin and azithromycin. He spent in the intensive care unit bit longer time finally started on physical therapy and Occupational Therapy and when time comes was discharged to [facility] along with updraft treatment and continue to be on antibiotic with oral steroid for period of time. Surprisingly 1 more time patient developed to have severe hypoxic episode the night before when found to be hypoxic with severe apnea through the night with oxygen level through pulse ox running in the 70s and 80s only apparently decided to wait till the morning her problem did not resolve ended up calling EMS EMT found blood oxygen level to be low patient was loaded with high flow oxygen up to 15 L to bring his pulse higher and ended up coming to the emergency department. Was seen and evaluated At the emergency department with laboratory value shows white blood cell of 10,700 with hemoglobin of 10.9 normal PT/INR D-dimer was mildly elevated and ended up going for CTA of the chest finding were more consistent with no pulmonary embolism but mostly bilateral lower lobe dependent subsegmental atelectasis only. Observed patient in the emergency department continued to have apneic attack on and off similar to obstructive sleep apnea or narcolepsy. Will consult pulmonary continue BiPAP and supportive care CT of the brain in the meanwhile did not show any major finding. After complete testing and study patient seems to be little bit more clear require a lot less flow oxygen to keep his pulse ox in the 90s and has felt slightly better still having slight confusion on and off apparently he had obstructive sleep apnea was on CPAP before all his cervical spine problem arrive but patient has not been using CPAP in a while. REVIEW OF SYSTEMS: CONSTITUTIONAL: Well-developed alert no acute respiratory distress. EYES: No icterus sclerae, no conjunctivitis. EARS, NOSE, MOUTH, THROAT, and FACE: No sore throat, lymphadenopathy, carotid bruits or deformity. RESPIRATORY: No SOB cough or wheezes. CARDIOVASCULAR: No CP, Palpitation, PND, Orthopnea, or angina. GASTROINTESTINAL: No Abd pain, Nausea or vomiting, no Diarrhea or constipation, No GI Bleed, no distention or masses. GENITOURINARY: Negative for Hematuria or UTI, no kidney stones. INTEGUMENT/BREAST: Negative for any muscular injury with mild osteoarthritis.. HEMATOLOGIC/LYMPHATIC: Negative for bleed or purpura. MUSCULOSKELTAL: Significant myalgia and arthralgia severe neck pain. NEURLOGICAL: Alert and oriented moving all his fortunately with weakness in the right side. BEHAVIORAL/PSYCH: Negative. ENDOCRINE: Negative. PHYSICAL EXAMINATION: General Appearance: Alert oriented age-appropriate does not look in pain had very hard collar around the cervical spine area. Neck HEENT: Supple, no lymphadenopathy, no thyroid enlargement, no carotid bruits. Significant pain and discomfort in the cervical spine area incision and anterior side of the cervical spine looks fine. Lungs: Clear to auscultation without crackles or wheezes no rhonchi, no deformity. Chest Wall: Decreased expansion with deep inspiration no tenderness and no defor mity was found on exam, no costochondral pain or discomfort. Decreased breath on the left side compared to the right side Heart: Regular rate and rhythm, S1, S2 normal, no murmur, rub or gallop. Back: Symmetric, no curvature, ROM normal, no CVA tenderness. Abdomen: Soft, non-tender, bowel sounds active all four quadrants, no masses, no organomegaly. Extremities: Extremities normal, atraumatic, no cyanosis or edema. Pulses: 2+ and symmetric. Skin: Skin color, texture, tugor normal, no rashes or lesions. Neurologic: Alert oriented with slight confusion moving all 4 extremity still have significant weakness in the right upper extremity compared to the left leg is little stronger. ASSESSMENT AND PLAN: _Severe hypoxia: With subacute/acute respiratory failure consistent with requiring demand for higher flow O2 to keep pulse ox above 90 percentile with finding on testing only with abnormal blood gas but CAT scan of the chest and chest x-ray does not show any abnormality more than atelectasis. Consult pulmonary continue supportive care continue oxygen. _Recent respiratory failure require mechanical ventilation and BiPAP for period of time was secondary to Klebsiella and haemophilus influenza pneumonia along with recent surgery and were clear. _Obstructive sleep apnea: Patient had stopped using his CPAP since he went to [facility] and this is his second time hide failure to keep his pulse ox above 90 percentile which still can be blamed on obstructive sleep apnea not treated. _Severe cervical spine myelopathy and fusion post anterior and posterior decompression and fusion as surgery seems to be working good but still have the extra complication with breathing and significant weakness of the upper extremity. _Hiatal hernia/GERD: Continue omeprazole 20 mg a day. _Chronic anemia: Has been on iron and folate acid continue both. _Hypertension: Still on amlodipine 5 mg a day and keep holding lisinopril the blood pressure still slightly below. _Hyperlipidemia: Resume home meds will titrate dose higher if needed. _COPD: With mild exacerbation because of the atypical pneumonia, still on Solu- Medrol, along with DuoNeb and Pulmicort. _History of prostate cancer postradiation therapy no sign of obstruction still on Flomax currently still able to void on his own. _Chronic pain management, remain on baclofen, [place] 5/325 mg every 6 hours and still on Dilaudid while in the hospital. _GI prophylaxis: Will continue omeprazole 20 mg a day. _DVT prophylaxis: Knee-high MIGDALIA hose and early mobilization to be done. CODE STATUS: Full code. Admit patient to the inpatient service for more than 2 night stay. Past Medical History Past Medical History: Cancer, COPD, GERD/Reflux, Hyperlipidemia, Hypertension, Prostate Disorder Additional Past Medical History / Comment(s): Severe cervical myelopathy with upper and lower extremity weakness due to his cervical stenosis with myelomalacia. Status post anterior cervical decompression with and fusion C3-3 7 on 10/20/2023. 50% blockage in heart, anemia, tremors, prostate cancer. History of Any Multi-Drug Resistant Organisms: None Reported Past Surgical History: Back Surgery, Cholecystectomy, Heart Catheterization Additional Past Surgical History / Comment(s): heart cath 1995 Past Anesthesia/Blood Transfusion Reactions: Previous Problems w/ Anesthesia Additional Past Anesthesia/Blood Transfusion Reaction / Comment(s): "Woke up during gallbladder surgery." Past Psychological History: No Psychological Hx Reported Smoking Status: Current every day smoker Past Alcohol Use History: None Reported Past Drug Use History: None Reported - Past Family History Brother(s) Family Medical History: Cancer Medications and Allergies Home Medications Medication Instructions Recorded Confirmed Type Lisinopril-Hctz 20-12.5 mg 1 tab PO DAILY 04/12/19 12/07/23 History [Zestoretic 20-12.5] Tamsulosin [Flomax] 0.4 mg PO HS 04/12/19 12/07/23 History Ferrous Sulfate [Iron] 325 mg PO DAILY 09/29/23 12/07/23 History Folic Acid 0.4 mg PO DAILY 09/29/23 12/07/23 History Fluticasone/Umeclidin/Vilanter 1 puff INHALATION RT-DAILY 10/19/23 12/07/23 History [Trelegy Ellipta 100-62.5-25] Acetaminophen Tab [Tylenol] 650 mg PO Q6HR PRN tab 10/27/23 12/07/23 Rx Clotrimazole/Betameth Cream 1 applic TOPICAL Q12H 11/07/23 12/07/23 History [Lotrisone] Ipratropium-Albuterol Nebulize 3 ml INHALATION RT-QID 11/07/23 12/07/23 History [Duoneb 0.5 mg-3 mg/3 ml Soln] Omeprazole 20 mg PO DAILY@0600 11/07/23 12/07/23 History amLODIPine [Norvasc] 2.5 mg PO DAILY 11/07/23 12/07/23 History methocarbamoL [Robaxin-750] 750 mg PO TID@0600,1400,2200 11/07/23 12/07/23 History Sennosides-Docusate Sodium 1 tab PO BID PRN #60 tablet 11/16/23 12/07/23 Rx [Senokot-S] polyethylene glycoL 3350 [Miralax] 17 gm PO DAILY packet 11/16/23 12/07/23 Rx Baclofen 10 mg PO HS PRN 12/07/23 12/07/23 History Benzocaine/Menthol Lozeng [Cepacol 1 lozenge MUCOUS MEM Q4HR PRN 12/07/23 12/07/23 History lozenge] Cyanocobalamin [Vitamin B-12] 500 mcg PO DAILY 12/07/23 12/07/23 History Ergocalciferol [Vitamin D2 (1250 1,250 mcg PO SMALLS 12/07/23 12/07/23 History Mcg = [id number] Iu)] Furosemide [Lasix] 40 mg PO ONCE 12/07/23 12/07/23 History HYDROcodone/APAP 5-325MG [[place] 5] 1 - 2 tab PO Q6HR PRN 12/07/23 12/07/23 History House Stock Powder 1 applic TOPICAL BID 12/07/23 12/07/23 History Zguard 1 applic TOPICAL BID 12/07/23 12/07/23 History metroNIDAZOLE [Flagyl] 500 mg PO TID@0600,1400,2200 12/07/23 12/07/23 History Allergies Allergy/AdvReac Type Severity Reaction Status Date / Time No Known Allergies Allergy Verified 12/07/23 10:33 Physical Exam Vitals: Vital Signs Temp Pulse Resp BP Pulse Ox 12/07/23 18:02 101 H 18 96/62 94 L 12/07/23 16:02 99 18 105/49 98 12/07/23 15:48 98 12/07/23 15:39 91 92 L 12/07/23 14:07 98.3 F 105 H 18 99/69 92 L 12/07/23 13:45 67 18 108/65 90 L 12/07/23 12:49 98 18 92/63 94 L 12/07/23 11:30 101 H 18 97/59 97 12/07/23 11:15 103 H 24 96 12/07/23 11:00 105/62 95 12/07/23 10:45 93 22 113/73 12/07/23 10:30 92 18 103/78 12/07/23 10:15 96 20 107/57 12/07/23 10:00 86 21 107/54 92 L 12/07/23 09:45 93 20 103/66 92 L 12/07/23 09:15 101 H 20 95/54 98 12/07/23 09:00 86 33 H 100/67 92 L 12/07/23 08:29 97.7 F 73 20 85/54 97 Intake and Output 12/07/23 12/07/23 12/07/23 06:59 14:59 22:59 Other: Weight 86.545 kg Results CBC & Chem 7: 12/07/23 09:12 12/07/23 09:12 Labs: Abnormal Lab Results - Last 24 Hours (Table) 12/07/23 12/07/23 12/07/23 Range/Units 09:12 09:12 09:12 WBC 10.7 H (3.8-10.6) k/uL RBC 3.18 L (4.30-5.90) m/uL Hgb 10.9 L (13.0-17.5) gm/dL Hct 32.2 L (39.0-53.0) % MCV 101.2 H (80.0-100.0) fL Neutrophils # 9.4 H (1.3-7.7) k/uL Lymphocytes # 0.4 L (1.0-4.8) k/uL PT 13.7 H (10.0-12.5) sec INR 1.3 H (<1.2) D-Dimer 0.96 H (<0.60) mg/L FEU ABG pO2 (83-108) mmHg ABG HCO3 (21-25) mmol/L ABG Total CO2 (19-24) mmol/L ABG O2 Saturation (94-97) % Sodium (137-145) mmol/L Chloride (98-107) mmol/L BUN (9-20) mg/dL Glucose (74-99) mg/dL POC Glucose (mg/dL) (70-110) mg/dL AST (17-59) U/L Total Protein (6.3-8.2) g/dL Albumin (3.5-5.0) g/dL Urine Protein (Negative) Urine Ketones (Negative) Ur Leukocyte Esterase (Negative) Hyaline Casts (0-2) /lpf Urine Mucus (None) /hpf Urine Opiates Screen Detected H (NotDetected) U Tricyclic Antidepress Detected H (NotDetected) U Benzodiazepines Scrn Detected H (NotDetected) U Marijuana (THC) Screen Detected H (NotDetected) 12/07/23 12/07/23 12/07/23 Range/Units 09:12 09:40 11:56 WBC (3.8-10.6) k/uL RBC (4.30-5.90) m/uL Hgb (13.0-17.5) gm/dL Hct (39.0-53.0) % MCV (80.0-100.0) fL Neutrophils # (1.3-7.7) k/uL Lymphocytes # (1.0-4.8) k/uL PT (10.0-12.5) sec INR (<1.2) D-Dimer (<0.60) mg/L FEU ABG pO2 (83-108) mmHg ABG HCO3 (21-25) mmol/L ABG Total CO2 (19-24) mmol/L ABG O2 Saturation (94-97) % Sodium 130 L (137-145) mmol/L Chloride 96 L (98-107) mmol/L BUN 29 H (9-20) mg/dL Glucose 107 H (74-99) mg/dL POC Glucose (mg/dL) 120 H (70-110) mg/dL AST 15 L (17-59) U/L Total Protein 5.0 L (6.3-8.2) g/dL Albumin 2.9 L (3.5-5.0) g/dL Urine Protein Trace H (Negative) Urine Ketones Trace H (Negative) Ur Leukocyte Esterase Small H (Negative) Hyaline Casts 9 H (0-2) /lpf Urine Mucus Rare H (None) /hpf Urine Opiates Screen (NotDetected) U Tricyclic Antidepress (NotDetected) U Benzodiazepines Scrn (NotDetected) U Marijuana (THC) Screen (NotDetected) 12/07/23 Range/Units 14:09 WBC (3.8-10.6) k/uL RBC (4.30-5.90) m/uL Hgb (13.0-17.5) gm/dL Hct (39.0-53.0) % MCV (80.0-100.0) fL Neutrophils # (1.3-7.7) k/uL Lymphocytes # (1.0-4.8) k/uL PT (10.0-12.5) sec INR (<1.2) D-Dimer (<0.60) mg/L FEU ABG pO2 57 L* (83-108) mmHg ABG HCO3 29 H (21-25) mmol/L ABG Total CO2 31 H (19-24) mmol/L ABG O2 Saturation 90.8 L (94-97) % Sodium (137-145) mmol/L Chloride (98-107) mmol/L BUN (9-20) mg/dL Glucose (74-99) mg/dL POC Glucose (mg/dL) (70-110) mg/dL AST (17-59) U/L Total Protein (6.3-8.2) g/dL Albumin (3.5-5.0) g/dL Urine Protein (Negative) Urine Ketones (Negative) Ur Leukocyte Esterase (Negative) Hyaline Casts (0-2) /lpf Urine Mucus (None) /hpf Urine Opiates Screen (NotDetected) U Tricyclic Antidepress (NotDetected) U Benzodiazepines Scrn (NotDetected) U Marijuana (THC) Screen (NotDetected)
[2023-12-08] MEDS: methocarbamoL 750 MG TAB PO SCH (00:14)
--- NOTE | 2023-12-08 05:26 | P.CNPUL ---
History of Present Illness Consult date: 12/08/23 Requesting physician: Jalen Au Reason for consult: hypoxemia Chief complaint: Sent in from [facility] with hypoxia and altered mental status History of present illness: Patient is a 67-year-old white male with past medical history significant for cervical myelopathy and upper and lower extremity weakness with severe cervical stenosis, underwent ACDF of C3-C7 10/20/2023, followed by posterior cervical decompression and fusion of C3-C7 on November 08, did develop postoperative respiratory failure, was briefly intubated and placed on mechanical ventilator. He developed hospital-acquired pneumonia, secondary to H influenza and Klebsiella pneumonia. Following his hospitalization, he was discharged to [facility] rehab facility. Patient also has past medical history significant for COPD, chronic hypoxemic respiratory failure, obstructive sleep apnea noncompliant with home CPAP, hypertension, hyperlipidemia, coronary artery disease, prostate cancer, GERD, among other things. On my evaluation, patient is currently sleeping, on a hospital provided CPAP, he is having intermittent episodes of apnea. We recommended transition to BiPAP, current settings placed on 04/27 and FiO2 to be titrated. I did wake the patient up. He is currently alert and fully oriented. States he does have history of obstructive sleep apnea, does not use his home CPAP. Device is actually not even available at his [facility]. He reportedly utilizes 4 L/min nasal cannula continuously. While at [facility] he does not know why he was sent into the hospital. He has no specific complaints. Denies any change in his chronic shortness of breath. Denies cough, chest congestion, sputum production, hemoptysis, fevers. Denies any infectious-like symptoms. On review of the emergency room documentation, patient was having episodes of altered mental status and low oxygen levels. Intermittent low blood pressures were reported. While in the emergency department an ABG was done on room air, showing a PaO2 of 57, pCO2 of 45, pH of 7.42. Patient is reportedly chronically oxygen dependent, normally maintained on 4 L/min nasal cannula. Patient states that this sometimes falls off. Chest x-ray done arrival showed low lung volumes and a a mild retrocardiac infiltrate, concerning for atelectasis versus pneumonia. Follow-up chest CTA did not show any evidence of pulmonary emboli. It did show bilateral lower lobe subsegmental atelectasis. CBC: WBC count 10.7, hemoglobin 10.9, hematocrit 32.2, platelets 164. D-dimer 0.96. CMP: Sodium 130, potassium 4.3, chloride 93, serum bicarb 30, BUN 29, creatinine 1.09, glucose 107. LFTs unremarkable. Troponin less than 0.012. NT proBNP low. Urine toxicology s creen positive for opiates, TCAs, benzodiazepines, and marijuana. Afebrile. Vital signs are stable. Review of Systems Normal review of systems REVIEW OF SYSTEMS: CONSTITUTIONAL: Denies any recent significant weight loss or weight gain. Reports generalized weakness and numbness in all 4 extremities. Gets around with a wheelchair. EYES: Denies change in vision. EARS, NOSE, MOUTH, THROAT: Denies headaches, denies sore throat. CARDIOVASCULAR: Denies chest pain, palpitations or syncopal episodes. RESPIRATORY: See HPI GASTROINTESTINAL: Denies change in appetite, abdominal pain, nausea and vomiting, or diarrhea GENITOURINARY: Denies hematuria, denies infections. MUSKULOSKELETAL: Denies pain, denies swelling. INTEGUMENTARY: Denies rash, denies eczema. NEUROLOGICAL: Denies recent memory loss, no recent seizure activity. PSYCHIATRIC: Denies anxiety, denies depression. HEMATOLOGIC/LYMPHATIC: Denies anemia, denies enlarged lymph node Past Medical History Past Medical History: Cancer, COPD, GERD/Reflux, Hyperlipidemia, Hypertension, Prostate Disorder Additional Past Medical History / Comment(s): Severe cervical myelopathy with upper and lower extremity weakness due to his cervical stenosis with myelomalacia. Status post anterior cervical decompression with and fusion C3-3 7 on 10/20/2023. 50% blockage in heart, anemia, tremors, prostate cancer. History of Any Multi-Drug Resistant Organisms: None Reported Past Surgical History: Back Surgery, Cholecystectomy, Heart Catheterization Additional Past Surgical History / Comment(s): heart cath 1995 Past Anesthesia/Blood Transfusion Reactions: Previous Problems w/ Anesthesia Additional Past Anesthesia/Blood Transfusion Reaction / Comment(s): "Woke up during gallbladder surgery." Past Psychological History: No Psychological Hx Reported Smoking Status: Current every day smoker Past Alcohol Use History: None Reported Past Drug Use History: None Reported - Past Family History Brother(s) Family Medical History: Cancer Medications and Allergies Home Medications Medication Instructions Recorded Confirmed Type Lisinopril-Hctz 20-12.5 mg 1 tab PO DAILY 04/12/19 12/07/23 History [Zestoretic 20-12.5] Tamsulosin [Flomax] 0.4 mg PO HS 04/12/19 12/07/23 History Ferrous Sulfate [Iron] 325 mg PO DAILY 09/29/23 12/07/23 History Folic Acid 0.4 mg PO DAILY 09/29/23 12/07/23 History Fluticasone/Umeclidin/Vilanter 1 puff INHALATION RT-DAILY 10/19/23 12/07/23 History [Trelegy Ellipta 100-62.5-25] Acetaminophen Tab [Tylenol] 650 mg PO Q6HR PRN tab 10/27/23 12/07/23 Rx Clotrimazole/Betameth Cream 1 applic TOPICAL Q12H 11/07/23 12/07/23 History [Lotrisone] Ipratropium-Albuterol Nebulize 3 ml INHALATION RT-QID 11/07/23 12/07/23 History [Duoneb 0.5 mg-3 mg/3 ml Soln] Omeprazole 20 mg PO DAILY@0600 11/07/23 12/07/23 History amLODIPine [Norvasc] 2.5 mg PO DAILY 11/07/23 12/07/23 History methocarbamoL [Robaxin-750] 750 mg PO TID@0600,1400,2200 11/07/23 12/07/23 History Sennosides-Docusate Sodium 1 tab PO BID PRN #60 tablet 11/16/23 12/07/23 Rx [Senokot-S] polyethylene glycoL 3350 [Miralax] 17 gm PO DAILY packet 11/16/23 12/07/23 Rx Baclofen 10 mg PO HS PRN 12/07/23 12/07/23 History Benzocaine/Menthol Lozeng [Cepacol 1 lozenge MUCOUS MEM Q4HR PRN 12/07/23 12/07/23 History lozenge] Cyanocobalamin [Vitamin B-12] 500 mcg PO DAILY 12/07/23 12/07/23 History Ergocalciferol [Vitamin D2 (1250 1,250 mcg PO SMALLS 12/07/23 12/07/23 History Mcg = [id number] Iu)] Furosemide [Lasix] 40 mg PO ONCE 12/07/23 12/07/23 History HYDROcodone/APAP 5-325MG [[place] 5] 1 - 2 tab PO Q6HR PRN 12/07/23 12/07/23 History House Stock Powder 1 applic TOPICAL BID 12/07/23 12/07/23 History Zguard 1 applic TOPICAL BID 12/07/23 12/07/23 History metroNIDAZOLE [Flagyl] 500 mg PO TID@0600,1400,2200 12/07/23 12/07/23 History Allergies Allergy/AdvReac Type Severity Reaction Status Date / Time No Known Allergies Allergy Verified 12/07/23 10:33 Physical Exam Vitals: Vital Signs Temp Pulse Pulse Resp BP BP Pulse Ox 12/08/23 02:52 12/08/23 02:30 98 12/08/23 02:00 12/08/23 01:49 98.3 F 103 H 18 103/64 99 12/07/23 23:10 108/64 12/07/23 21:57 98.3 F 99 18 84/51 93 L 12/07/23 20:13 98.1 F 93 18 108/62 99 12/07/23 19:39 91 18 105/67 97 12/07/23 18:02 101 H 18 96/62 94 L 12/07/23 16:02 99 18 105/49 98 12/07/23 15:48 98 12/07/23 15:39 91 92 L 12/07/23 14:07 98.3 F 105 H 18 99/69 92 L 12/07/23 13:45 67 18 108/65 90 L 12/07/23 12:49 98 18 92/63 94 L 12/07/23 11:30 101 H 18 97/59 97 12/07/23 11:15 103 H 24 96 12/07/23 11:00 105/62 95 12/07/23 10:45 93 22 113/73 12/07/23 10:30 92 18 103/78 12/07/23 10:15 96 20 107/57 12/07/23 10:00 86 21 107/54 92 L 12/07/23 09:45 93 20 103/66 92 L 12/07/23 09:15 101 H 20 95/54 98 12/07/23 09:00 86 33 H 100/67 92 L 12/07/23 08:29 97.7 F 73 20 85/54 97 FiO2 12/08/23 02:52 35 12/08/23 02:30 35 12/08/23 02:00 35 12/08/23 01:49 12/07/23 23:10 12/07/23 21:57 12/07/23 20:13 12/07/23 19:39 12/07/23 18:02 12/07/23 16:02 12/07/23 15:48 12/07/23 15:39 12/07/23 14:07 12/07/23 13:45 12/07/23 12:49 12/07/23 11:30 12/07/23 11:15 12/07/23 11:00 12/07/23 10:45 12/07/23 10:30 12/07/23 10:15 12/07/23 10:00 12/07/23 09:45 12/07/23 09:15 12/07/23 09:00 12/07/23 08:29 Intake and Output 12/07/23 12/07/23 12/08/23 14:59 22:59 06:59 Output Total 100 Balance -100 Output: Urine 100 Other: Voiding Method Urinal Diaper Weight 86.545 kg GENERAL EXAM: Alert, 67-year-old white male, on 4 L/min nasal cannula, comfortab le in no apparent distress. HEAD: Normocephalic and atraumatic EYES: Normal reaction of pupils, equal size. NOSE: Clear with pink turbinates. THROAT: No erythema or exudates. NECK: No masses, no JVD. C-collar in place CHEST: No chest wall deformity. LUNGS: Equal air entry with no crackles, wheeze, rhonchi or dullness. On 4 L/min nasal cannula. No conversational dyspnea or accessory muscle use. CVS: S1 and S2 normal with no audible murmur, regular rhythm. No extra heart sounds ABDOMEN: No hepatosplenomegaly, active bowel sounds, no guarding or rigidity. SPINE: No scoliosis or deformity SKIN: No rashes CENTRAL NERVOUS SYSTEM: No focal deficits, tone is normal in all 4 extremities. EXTREMITIES: There is no peripheral edema, clubbing, or cyanosis. Peripheral pulses are intact. Results - Laboratory Findings CBC and BMP: 12/07/23 09:12 12/07/23 09:12 ABG ABG pH 7.42 (7.35-7.45) 12/07/23 14:09 ABG pCO2 45 mmHg (35-45) 12/07/23 14:09 ABG pO2 57 mmHg (83-108) L* 12/07/23 14:09 ABG O2 Saturation 90.8 % (94-97) L 12/07/23 14:09 PT/INR, D-dimer PT 13.7 sec (10.0-12.5) H 12/07/23 09:12 INR 1.3 (<1.2) H 12/07/23 09:12 D-Dimer 0.96 mg/L FEU (<0.60) H 12/07/23 09:12 Abnormal lab findings: Abnormal Labs 12/07/23 12/07/23 12/07/23 09:12 09:12 09:12 WBC 10.7 H RBC 3.18 L Hgb 10.9 L Hct 32.2 L MCV 101.2 H Neutrophils # 9.4 H Lymphocytes # 0.4 L PT 13.7 H INR 1.3 H D-Dimer 0.96 H ABG pO2 ABG HCO3 ABG Total CO2 ABG O2 Saturation Sodium Chloride BUN Glucose POC Glucose (mg/dL) AST Total Protein Albumin Urine Protein Urine Ketones Ur Leukocyte Esterase Hyaline Casts Urine Mucus Urine Opiates Screen Detected H U Tricyclic Antidepress Detected H U Benzodiazepines Scrn Detected H U Marijuana (THC) Screen Detected H 12/07/23 12/07/23 12/07/23 09:12 09:40 11:56 WBC RBC Hgb Hct MCV Neutrophils # Lymphocytes # PT INR D-Dimer ABG pO2 ABG HCO3 ABG Total CO2 ABG O2 Saturation Sodium 130 L Chloride 96 L BUN 29 H Glucose 107 H POC Glucose (mg/dL) 120 H AST 15 L Total Protein 5.0 L Albumin 2.9 L Urine Protein Trace H Urine Ketones Trace H Ur Leukocyte Esterase Small H Hyaline Casts 9 H Urine Mucus Rare H Urine Opiates Screen U Tricyclic Antidepress U Benzodiazepines Scrn U Marijuana (THC) Screen 12/07/23 14:09 WBC RBC Hgb Hct MCV Neutrophils # Lymphocytes # PT INR D-Dimer ABG pO2 57 L* ABG HCO3 29 H ABG Total CO2 31 H ABG O2 Saturation 90.8 L Sodium Chloride BUN Glucose POC Glucose (mg/dL) AST Total Protein Albumin Urine Protein Urine Ketones Ur Leukocyte Esterase Hyaline Casts Urine Mucus Urine Opiates Screen U Tricyclic Antidepress U Benzodiazepines Scrn U Marijuana (THC) Screen - Diagnostic Findings Chest x-ray: image reviewed Assessment and Plan Assessment: Acute on chronic hypoxemic respiratory failure chest x-ray does not show any acute cardiopulmonary process. Left retrocardiac infiltrate, favors atelectasis. Follow-up chest CTA does not demonstrate any acute pulmonary embolism. There are low lung volumes and bibasilar atelectasis. Altered mental status, likely secondary to hypoxemia, improved. Also, consider polypharmacy and medication effect. Brain CT negative for any acute intracranial abnormality. Chronic obstructive pulmonary disease, appears stable Obstructive sleep apnea, noncompliant with home CPAP Chronic hypoxemic respiratory failure, normally maintained on 4 L/min nasal cannula, 13/12 Recent history of hospital-acquired pneumonia, briefly requiring intubation/mechanical ventilation, secondary to H. influenzae and Klebsiella pneumonia, completed course of antibiotics History of cervical spinal stenosis and myelopathy, status post ACDF of C3-C7 on 10/20/2023 followed by posterior cervical decompression and fusion of C3-C7 on November 08. Patient remains weak, and has rehabbing at [facility]. History of coronary artery disease History of hyperlipidemia History of hypertension History of prostate cancer status post radiation History of GERD without esophagitis Former tobacco smoker Urine toxicology screen positive for benzodiazepines, opiates, and marijuana Plan: Patient's medications, labs, imaging were reviewed No obvious acute cardiopulmonary process ABG appears to be drawn on room air, note that he is chronically oxygen dependent on 4 L/min nasal cannula Patient was placed back on his 4 L/min nasal cannula while awake Utilize BiPAP at bedtime, with settings 12/6 and FiO2 to be titrated accordingly Will recommend CPAP machine be made available at [facility] on discharge Maintenance COPD medications have been restarted Continue to follow, and additional recommendations are forthcoming I have personally seen and examined the patient, performed the documentation and the assessment and plan as written. Number of minutes spent on the visit:20 Time with Patient: Greater than 30
[2023-12-08] MEDS: PANTOPRAZOLE 40 MG TABLET PO SCH (06:44)
[2023-12-08] MEDS: SYMBICORT 80-4.5 MCG INHALER INHALATION SCH (07:58)
[2023-12-08] MEDS: FOLIC ACID 1 MG TAB PO SCH (10:25)
[2023-12-08] MEDS: FERROUS SULFATE 325 MG TAB PO SCH (10:25)
[2023-12-08] MEDS: polyethylene glycoL 3350 17 GM POWD.PACK PO SCH (10:26)
[2023-12-08] MEDS: CYANOCOBALAMIN 500 MCG TAB PO SCH (10:26)
[2023-12-08] MEDS: amLODIPine 5 MG TAB PO SCH (10:42)
[2023-12-08] MEDS: LISINOPRIL-HCTZ 20-12.5 MG 1 EACH TAB PO SCH (10:42)
--- NOTE | 2023-12-08 13:26 | P.PN ---
Subjective Progress Note Date: 12/08/23 HISTORY OF PRESENT ILLNESS: 67-year-old with active medical history of cervical myelopathy, severe spinal stenosis of the cervical spine, history of prostate cancer, hypertension, hyperlipidemia, chronic anemia, tremor, CAD without any angioplasty or stent placement, chronic COPD. He was hospitalized in October 20, 2023 for C-spine decompression and fusion of the C3-C7 and ended [facility] continue to have significant numbness and weakness mostly on the right side mostly affecting the right upper extremity seen Dr. Rangel and with the current symptoms was diagnosed with then of much worsening stenosis and myelopathy require posterior decompression which patient was hospitalized on 11/09/2023 for posterior cervical decompression and fusion of the C3-4, C4-5, C5-6 and C6/7 he continued to have significant weakness numbness in the upper extremity and the use of his hand was not that great on 620 developed to have severe hypoxia not a clear etiology the a team was called to see him and subsequently was transferred to the intensive care unit and was placed on mechanical ventilation for almost 48 hours and eventually was extubated successfully to require to use BiPAP on and off, his event was not clear etiology completely but combination of reaction to medication specially pain meds and benzodiazepine addition to finding the patient has apnea consist ent with sleep apnea. Surprisingly the following few days patient was diagnosed with Klebsiella and haemophilus influenza pneumonia with sputum culture positive for both patient was treated with Rocephin and azithromycin. He spent in the intensive care unit bit longer time finally started on physical therapy and Occupational Therapy and when time comes was discharged to [facility] oxygen along with updraft treatment and continue to be on antibiotic with oral steroid for period of time. Surprisingly 1 more time patient developed to have severe hypoxic episode the night before when found to be hypoxic with severe apnea through the night with oxygen level through pulse ox running in the 70s and 80s only apparently decided to wait till the morning her problem did not resolve ended up calling EMS EMT found blood oxygen level to be low patient was loaded with high flow oxygen up to 15 L to bring his pulse higher and ended up coming to the emergency department. Was seen and evaluated At the emergency department with laboratory value shows white blood cell of 10,700 with hemoglobin of 10.9 normal PT/INR D-dimer was mildly elevated and ended up going for CTA of the chest finding were more co nsistent with no pulmonary embolism but mostly bilateral lower lobe dependent subsegmental atelectasis only. Observed patient in the emergency department continued to have apneic attack on and off similar to obstructive sleep apnea or narcolepsy. Will consult pulmonary continue BiPAP and supportive care CT of the brain in the meanwhile did not show any major finding. After complete testing and study patient seems to be little bit more clear require a lot less flow oxygen to keep his pulse ox in the 90s and has felt slightly better still having slight confusion on and off apparently he had ob structive sleep apnea was on CPAP before all his cervical spine problem arrive but patient has not been using CPAP in a while. 12/08/2023: Patient is alert and oriented this morning. Was on BiPAP throughout the night, no issues reported from patient or nursing staff. Vital signs are stable, patient is oxygenating well on 4L while awake. Discussed with patient importance of CPAP compliance to prevent these hypoxic episodes, he states had not been wearing his CPAP at [facility] due to mask fitting poorly with his C- Collar. Patient's is to bring CPAP from [facility] and respiratory will assist patient is refitting mask for a more comfortable fit. Will continue with nocturnal BiPAP, await further recommendations from pulmonary and neurology. If all goes well will discharge him back to [facility] tomorrow. REVIEW OF SYSTEMS: CONSTITUTIONAL: Well-developed alert no acute respiratory distress. EYES: No icterus sclerae, no conjunctivitis. EARS, NOSE, MOUTH, THROAT, and FACE: No sore throat, lymphadenopathy, carotid bruits or deformity. RESPIRATORY: No SOB cough or wheezes. CARDIOVASCULAR: No CP, Palpitation, PND, Orthopnea, or angina. GASTROINTESTINAL: No Abd pain, Nausea or vomiting, no Diarrhea or constipation, No GI Bleed, no distention or masses. GENITOURINARY: Negative for Hematuria or UTI, no kidney stones. INTEGUMENT/BREAST: Negative for any muscular injury with mild osteoarthritis.. HEMATOLOGIC/LYMPHATIC: Negative for bleed or purpura. MUSCULOSKELTAL: Significant myalgia and arthralgia severe neck pain. NEURLOGICAL: Alert and oriented moving all his fortunately with weakness in the right side. BEHAVIORAL/PSYCH: Negative. ENDOCRINE: Negative. PHYSICAL EXAMINATION: General Appearance: Alert, oriented, age-appropriate does not look in pain had very hard collar around the cervical spine area. Neck HEENT: Supple, no lymphadenopathy, no thyroid enlargement, no carotid bruits. Significant pain and discomfort in the cervical spine area incision and anterior side of the cervical spine looks fine. Lungs: Diminished breath sounds without crackles or wheezes no rhonchi, no deformity. Chest Wall: Decreased expansion with deep inspiration no tenderness and no deformity was found on exam, no costochondral pain or discomfort. Heart: Regular rate and rhythm, S1, S2 normal, no murmur, rub or gallop. Back: Symmetric, no curvature, ROM normal, no CVA tenderness. Abdomen: Soft, non-tender, bowel sounds active all four quadrants, no masses, no organomegaly. Extremities: Extremities normal, atraumatic, no cyanosis or edema. Pulses: 2+ and symmetric. Skin: Skin color, texture, tugor normal, no rashes or lesions. Neurologic: Alert oriented, moving all 4 extremities, still having significant weakness in the right upper extremity compared to the left leg is little stronger. ASSESSMENT AND PLAN: _Severe hypoxia: With subacute/acute respiratory failure consistent with requiring demand for higher flow O2 to keep pulse ox above 90 percentile with finding on testing only with abnormal blood gas but CAT scan of the chest and chest x-ray does not show any abnormality more than atelectasis. Suspect this is due to poor CPAP compliance at senior care. Patient is oxygenating well on 4LNC while awake and did well with BIPAP overnight. Continue supportive care. Pulmonary is following, restarted COPD medications. _Recent respiratory failure requiring mechanical ventilation and BiPAP for period of time was secondary to Klebsiella and haemophilus influenza pneumonia along with recent surgery and were clear. _Obstructive Sleep Apnea, patient was supposed to use CPAP on more regular basis, since moving to senior care has not been using it at all, that created more failure the last admission and this admission, encouraged patient and family to bring CPAP to the hospital to use for now on every night and to take to senior care for every night use. _Severe cervical spine myelopathy and fusion post anterior and posterior decompression and fusion as surgery seems to be working good but still have the extra complication with breathing and significant weakness of the right upper extremity. PT/OT consulted for weakness. _Hiatal hernia/GERD: Continue omeprazole 20 mg a day. _Chronic anemia: Has been on iron and folate acid continue both. _Hypertension: Still hypotensive today, blood pressure 96/64. Continue on amlodipine 5 mg a day, keep holding lisinopril for low BP. _Hyperlipidemia: Resume home meds will titrate dose higher if needed. _COPD: With mild exacerbation because of the atypical pneumonia, still on Solu- Medrol, along with DuoNeb and Pulmicort. _History of prostate cancer post radiation therapy no sign of obstruction still on Flomax currently still able to void on his own. _Chronic pain management, remain on baclofen, [place] 5/325 mg every 6 hours, pain well controlled. _GI prophylaxis: Will continue omeprazole 20 mg a day. _DVT prophylaxis: Knee-high MIGDALIA hose and early mobilization to be done. Planning: Patient is doing better today. BIPAP at night, continue supportive oxygen therapy. Awaiting neurology evaluation. PT/OT consulted. Work on getting a better fit for CPAP mask. Plan to discharge back to [facility] in next 24 hours. Objective - Vital Signs Vital signs: Vital Signs Temp 98.4 F 12/08/23 07:03 Pulse 102 H 12/08/23 10:42 Resp 18 12/08/23 07:03 BP 96/64 12/08/23 10:42 Pulse Ox 94 L 12/08/23 07:59 FiO2 35 12/08/23 05:10 Intake & Output 12/07/23 12/08/23 12/08/23 18:59 06:59 18:59 Output Total 250 210 Balance -250 -210 Weight 86.545 kg 86.545 kg Output: Urine 250 210 Other: Voiding Method Urinal Diaper # Voids 1 - Labs CBC & Chem 7: 12/07/23 09:12 12/07/23 09:12 Labs: Abnormal Lab Results - Last 24 Hours (Table) 12/07/23 12/07/23 12/07/23 Range/Units 09:12 11:56 14:09 ABG pO2 57 L* (83-108) mmHg ABG HCO3 29 H (21-25) mmol/L ABG Total CO2 31 H (19-24) mmol/L ABG O2 Saturation 90.8 L (94-97) % Urine Protein Trace H (Negative) Urine Ketones Trace H (Negative) Ur Leukocyte Esterase Small H (Negative) Hyaline Casts 9 H (0-2) /lpf Urine Mucus Rare H (None) /hpf Urine Opiates Screen Detected H (NotDetected) U Tricyclic Antidepress Detected H (NotDetected) U Benzodiazepines Scrn Detected H (NotDetected) U Marijuana (THC) Screen Detected H (NotDetected)
--- NOTE | 2023-12-08 15:11 | P.CNNES ---
History of Present Illness Consult date: 12/08/23 Requesting physician: Clint Baltazar Reason for Consult: altered mental status History of Present Illness: This is a 67-year-old gentleman with history of severe cervical stenosis and myelopathy status post anterior cervical decompression and fusion C3 to C7 on 10/20/2023 on 11/09/2023 had posterior cervical decompression and fusion of C3- C7 with residual right and left weakness predominantly right side, chronic anem ia, chronic COPD on BiPAP send emergency department because of hypoxia with altered mental status. Patient stated that he did not have his BiPAP while at [facility] and it seems patient was hypoxic with pulse ox running in the 70s to 80s according to the medical record therefore the patient was given oxygen. Denies of any new weakness numbness visual disturbance. Denies of any new neurological issue. Denies any history of seizure. Per the nurse patient's mentation has been appropriate for her. Some of the workup during this hospital visit consisted of: Pulse ox as low as 90% patient is on 2 to 4 L of nasal oxygen Sodium is 130, glucose is 107, AST is 15 ALT is 15, calcium is 8.9 EEG was pO2 was 57 bicarb is 29, dioxide is 31 oxygen saturation is 90% Urine drug screen is positive for opiates, tricyclic antidepressant, benzo and marijuana Use the head is reported as no acute intracranial process. I personally reviewed the CT and agree with the report. Review of Systems The positive and negative as per HPI. Past Medical History Past Medical History: Cancer, COPD, GERD/Reflux, Hyperlipidemia, Hypertension, P rostate Disorder Additional Past Medical History / Comment(s): Severe cervical myelopathy with upper and lower extremity weakness due to his cervical stenosis with myelomalaci a. Status post anterior cervical decompression with and fusion C3-3 7 on 10/20/2023. 50% blockage in heart, anemia, tremors, prostate cancer. History of Any Multi-Drug Resistant Organisms: None Reported Past Surgical History: Back Surgery, Cholecystectomy, Heart Catheterization Additional Past Surgical History / Comment(s): heart cath 1995 Past Anesthesia/Blood Transfusion Reactions: Previous Problems w/ Anesthesia Additional Past Anesthesia/Blood Transfusion Reaction / Comment(s): "Woke up during gallbladder surgery." Past Psychological History: No Psychological Hx Reported Smoking Status: Current every day smoker Past Alcohol Use History: None Reported Past Drug Use History: None Reported - Past Family History Brother(s) Family Medical History: Cancer Medications and Allergies Home Medications Medication Instructions Recorded Confirmed Type Lisinopril-Hctz 20-12.5 mg 1 tab PO DAILY 04/12/19 12/07/23 History [Zestoretic 20-12.5] Tamsulosin [Flomax] 0.4 mg PO HS 04/12/19 12/07/23 History Ferrous Sulfate [Iron] 325 mg PO DAILY 09/29/23 12/07/23 History Folic Acid 0.4 mg PO DAILY 09/29/23 12/07/23 History Fluticasone/Umeclidin/Vilanter 1 puff INHALATION RT-DAILY 10/19/23 12/07/23 History [Trelegy Ellipta 100-62.5-25] Acetaminophen Tab [Tylenol] 650 mg PO Q6HR PRN tab 10/27/23 12/07/23 Rx Clotrimazole/Betameth Cream 1 applic TOPICAL Q12H 11/07/23 12/07/23 History [Lotrisone] Ipratropium-Albuterol Nebulize 3 ml INHALATION RT-QID 11/07/23 12/07/23 History [Duoneb 0.5 mg-3 mg/3 ml Soln] Omeprazole 20 mg PO DAILY@0600 11/07/23 12/07/23 History amLODIPine [Norvasc] 2.5 mg PO DAILY 11/07/23 12/07/23 History methocarbamoL [Robaxin-750] 750 mg PO TID@0600,1400,2200 11/07/23 12/07/23 History Sennosides-Docusate Sodium 1 tab PO BID PRN #60 tablet 11/16/23 12/07/23 Rx [Senokot-S] polyethylene glycoL 3350 [Miralax] 17 gm PO DAILY packet 11/16/23 12/07/23 Rx Baclofen 10 mg PO HS PRN 12/07/23 12/07/23 History Benzocaine/Menthol Lozeng [Cepacol 1 lozenge MUCOUS MEM Q4HR PRN 12/07/23 12/07/23 History lozenge] Cyanocobalamin [Vitamin B-12] 500 mcg PO DAILY 12/07/23 12/07/23 History Ergocalciferol [Vitamin D2 (1250 1,250 mcg PO SMALLS 12/07/23 12/07/23 History Mcg = 34267 Iu)] Furosemide [Lasix] 40 mg PO ONCE 12/07/23 12/07/23 History HYDROcodone/APAP 5-325MG [Custer 5] 1 - 2 tab PO Q6HR PRN 12/07/23 12/07/23 History House Stock Powder 1 applic TOPICAL BID 12/07/23 12/07/23 History Zguard 1 applic TOPICAL BID 12/07/23 12/07/23 History metroNIDAZOLE [Flagyl] 500 mg PO TID@0600,1400,2200 12/07/23 12/07/23 History Allergies Allergy/AdvReac Type Severity Reaction Status Date / Time No Known Allergies Allergy Verified 12/07/23 10:33 Physical Examination - Vital Signs Vital Signs: Vital Signs Temp Pulse Pulse Resp BP BP Pulse Ox 12/08/23 13:45 98.8 F 99 16 106/48 99 12/08/23 11:37 99 12/08/23 11:25 95 99 12/08/23 10:42 102 H 96/64 12/08/23 08:07 110 H 12/08/23 07:59 107 H 94 L 12/08/23 07:50 102 H 18 12/08/23 07:03 98.4 F 101 H 18 97/63 98 12/08/23 05:10 12/08/23 02:57 96 12/08/23 02:52 12/08/23 02:30 98 12/08/23 02:00 12/08/23 01:49 98.3 F 103 H 18 103/64 99 12/07/23 23:10 108/64 12/07/23 21:57 98.3 F 99 18 84/51 93 L 12/07/23 20:13 98.1 F 93 18 108/62 99 12/07/23 19:39 91 18 105/67 97 12/07/23 18:02 101 H 18 96/62 94 L 12/07/23 16:02 99 18 105/49 98 12/07/23 15:48 98 12/07/23 15:39 91 92 L FiO2 12/08/23 13:45 12/08/23 11:37 12/08/23 11:25 12/08/23 10:42 12/08/23 08:07 12/08/23 07:59 12/08/23 07:50 12/08/23 07:03 12/08/23 05:10 35 12/08/23 02:57 12/08/23 02:52 35 12/08/23 02:30 35 12/08/23 02:00 35 12/08/23 01:49 12/07/23 23:10 12/07/23 21:57 12/07/23 20:13 12/07/23 19:39 12/07/23 18:02 12/07/23 16:02 12/07/23 15:48 12/07/23 15:39 Intake and Output 12/07/23 12/08/23 12/08/23 22:59 06:59 14:59 Output Total 250 310 Balance -250 -310 Output: Urine 250 310 Other: Voiding Method Urinal Urinal Diaper Diaper # Voids 1 Weight 86.545 kg GENERAL: The patient is lying in bed and is not in acute distress. HENT: Has cervical collar. NEUROLOGICAL: Higher mental function: The patient is awake, alert, oriented to self, place and time. Patient is following commands. No aphasia and no neglect. Cranial nerves: The pupils are round, equal and reactive to light and accommodation. Visual nunez are full to confrontation throughout. Extraocular movement is intact no nystagmus is noted. Facial sensation is normal to touch throughout. The facial strength is normal throughout. Hearing is normal bilaterally to hand rub. Tongue is midline and moved [id number] without any difficulty. No dysarthria is noted. Motor: The strength is right upper extremity is 3 while right hand manager van is 4; left forearm extension is 3- other rest of left upper extremity is 4-4+. Right lower extremity proximally is 4- to 4+ while ankles are 5-. Left lower extremit y is 5-. Cerebellum: Normal finger to nose heel to chin bilaterally. Sensation: Sensation is normal to touch throughout. Results - Laboratory Findings CBC and BMP: 12/07/23 09:12 12/07/23 09:12 Abnormal Lab Findings: Abnormal Labs 12/07/23 12/07/23 12/07/23 09:12 09:12 09:12 WBC 10.7 H RBC 3.18 L Hgb 10.9 L Hct 32.2 L MCV 101.2 H Neutrophils # 9.4 H Lymphocytes # 0.4 L PT 13.7 H INR 1.3 H D-Dimer 0.96 H ABG pO2 ABG HCO3 ABG Total CO2 ABG O2 Saturation Sodium Chloride BUN Glucose POC Glucose (mg/dL) AST Total Protein Albumin Urine Protein Urine Ketones Ur Leukocyte Esterase Hyaline Casts Urine Mucus Urine Opiates Screen Detected H U Tricyclic Antidepress Detected H U Benzodiazepines Scrn Detected H U Marijuana (THC) Screen Detected H 12/07/23 12/07/23 12/07/23 09:12 09:40 11:56 WBC RBC Hgb Hct MCV Neutrophils # Lymphocytes # PT INR D-Dimer ABG pO2 ABG HCO3 ABG Total CO2 ABG O2 Saturation Sodium 130 L Chloride 96 L BUN 29 H Glucose 107 H POC Glucose (mg/dL) 120 H AST 15 L Total Protein 5.0 L Albumin 2.9 L Urine Protein Trace H Urine Ketones Trace H Ur Leukocyte Esterase Small H Hyaline Casts 9 H Urine Mucus Rare H Urine Opiates Screen U Tricyclic Antidepress U Benzodiazepines Scrn U Marijuana (THC) Screen 12/07/23 14:09 WBC RBC Hgb Hct MCV Neutrophils # Lymphocytes # PT INR D-Dimer ABG pO2 57 L* ABG HCO3 29 H ABG Total CO2 31 H ABG O2 Saturation 90.8 L Sodium Chloride BUN Glucose POC Glucose (mg/dL) AST Total Protein Albumin Urine Protein Urine Ketones Ur Leukocyte Esterase Hyaline Casts Urine Mucus Urine Opiates Screen U Tricyclic Antidepress U Benzodiazepines Scrn U Marijuana (THC) Screen Assessment and Plan Assessment: This is a 67-year-old gentleman with history of severe cervical stenosis and myelopathy status post anterior cervical decompression and fusion on 10/20/2023 and had posterior cervical decompression and fusion on 11/09/2023 who had hypoxia and is documented as low as 70s to 80 oxygen saturation and the ABG in our facility was PaO2 of 57. Stated that he was not getting his BiPAP at his nursing facility. Altered mental status due to hypoxic encephalopathy--mentation has improved. CT of the head is unremarkable Hypoxia History of severe cervical stenosis and myelopathy status post anterior cervical decompression and fusion C3 to C7 on 10/20/2023 on 11/09/2023 had posterior cervical decompression and fusion of C3-C7 with residual right and left weakness predominantly right side Chronic anemia Chronic COPD on BiPAP Plan: Patient is resumed on his BiPAP. Patient altered mental status is due to hypoxia and his mentation has improved. Pulmonary team is consulted Upon discharge recommend the patient to follow-up with his orthopedic surgeon, Dr. Crane. Physical therapy and Occupational Therapy is consulted For the rest of the medical management the primary team and other specialist Plan discussed with the patient and his nurse Thank for the consultation There is no further neurological workup. Will sign off. Please reconsult if needed. Time with Patient: Greater than 30
[2023-12-09 13:46] VITALS: BP 97/62; RESP 18; TEMP 98.1
--- NOTE | 2023-12-09 14:07 | P.PN ---
Subjective Progress Note Date: 12/09/23 Patient is a 67-year-old white male with past medical history significant for cervical myelopathy and upper and lower extremity weakness with severe cervical stenosis, underwent ACDF of C3-C7 10/20/2023, followed by posterior cervical decompression and fusion of C3-C7 on November 08, did develop postoperative respiratory failure, was briefly intubated and placed on mechanical ventilator. He developed hospital-acquired pneumonia, secondary to H influenza and Klebsiella pneumonia. Following his hospitalization, he was discharged to [facility] rehab facility. Patient also has past medical history significant for COPD, chronic hypoxemic respiratory failure, obstructive sleep apnea noncompliant with home CPAP, hypertension, hyperlipidemia, coronary artery disease, prostate cancer, GERD, among other things. On my evaluation, patient is currently sleeping, on a hospital provided CPAP, he is having intermittent episodes of apnea. We recommended transition to BiPAP, current settings placed on 04/27 and FiO2 to be titrated. I did wake the patient up. He is currently alert and fully oriented. States he does have history of obstructive sleep apnea, does not use his home CPAP. Device is actually not even available at his halfway. He reportedly utilizes 4 L/min nasal cannula continuously. While at [facility] he does not know why he was sent into the hospital. He has no specific complaints. Denies any change in his chronic shortness of breath. Denies cough, chest congestion, sputum production, hemoptysis, fevers. Denies any infectious-like symptoms. On review of the emergency room documentation, patient was having episodes of altered mental status and low oxygen levels. Intermittent low blood pressures were reported. While in the emergency department an ABG was done on room air, showing a PaO2 of 57, pCO2 of 45, pH of 7.42. Patient is reportedly chronically oxygen dependent, normally maintained on 4 L/min nasal cannula. Patient states that this sometimes falls off. Chest x-ray done arrival showed low lung volumes and a a mild retrocardiac infiltrate, concerning for atelectasis versus pneumonia. Follow-up chest CTA did not show any evidence of pulmonary emboli. It did show bilateral lower lobe subsegmental atelectasis. CBC: WBC count 10.7, hemoglobin 10.9, hematocrit 32.2, platelets 164. D-dimer 0.96. CMP: Sodium 130, potassium 4.3, chloride 93, serum bicarb 30, BUN 29, creatinine 1.09, glucose 107. LFTs unremarkable. Troponin less than 0.012. NT proBNP low. Urine toxicology screen positive for opiates, TCAs, benzodiazepines, and marijuana. Afebrile. Vital signs are stable. the patient is seen today 12/09/2023 in follow-up on the regular medical floor. He is currently resting comfortably in bed. Maintaining O2 saturations in the 90s on 4 L/m per nasal cannula. O2 saturation 97%. No IV fluids. no new labs today. he remains on DuoNeb inhalations, Symbicort. Objective - Vital Signs Vital signs: Vital Signs Temp 98.1 F 12/09/23 13:45 Pulse 88 12/09/23 13:45 Resp 18 12/09/23 13:45 BP 97/62 12/09/23 13:45 Pulse Ox 97 12/09/23 13:45 FiO2 35 12/08/23 05:10 Intake & Output 12/08/23 12/09/23 12/09/23 18:59 06:59 18:59 Output Total 510 200 450 Balance -510 -200 -450 Output: Urine 510 200 450 Other: Voiding Method Urinal Urinal Urinal Diaper Diaper Diaper # Voids 1 - Exam GENERAL EXAM: Alert, 67-year-old male, on 4 L/min nasal cannula, in no apparent distress. HEAD: Normocephalic and atraumatic EYES: Normal reaction of pupils, equal size. NOSE: Clear with pink turbinates. THROAT: No erythema or exudates. NECK: No masses, no JVD. C-collar in place CHEST: No chest wall deformity. LUNGS: Equal air entry with no crackles, wheeze, rhonchi or dullness. CVS: S1 and S2 normal with no audible murmur, regular rhythm. No extra heart sounds ABDOMEN: No hepatosplenomegaly, active bowel sounds, no guarding or rigidity. SPINE: No scoliosis or deformity SKIN: No rashes CENTRAL NERVOUS SYSTEM: No focal deficits, tone is normal in all 4 extremities. EXTREMITIES: There is no peripheral edema, clubbing, or cyanosis. Peripheral pulses are intact. - Labs CBC & Chem 7: 12/07/23 09:12 12/07/23 09:12 Assessment and Plan Assessment: Acute on chronic hypoxemic respiratory failure chest x-ray does not show any acute cardiopulmonary process. Left retrocardiac infiltrate, favors atelectasis. Follow-up chest CTA does not demonstrate any acute pulmonary embolism. There are low lung volumes and bibasilar atelectasis. Altered mental status, likely secondary to hypoxemia, improved. Also, consider polypharmacy and medication effect. Brain CT negative for any acute intracranial abnormality. Chronic obstructive pulmonary disease, appears stable Obstructive sleep apnea, noncompliant with home CPAP Chronic hypoxemic respiratory failure, normally maintained on 4 L/min nasal cannula, 13/12 Recent history of hospital-acquired pneumonia, briefly requiring intubation/mechanical ventilation, secondary to H. influenzae and Klebsiella pneumonia, completed course of antibiotics History of cervical spinal stenosis and myelopathy, status post ACDF of C3-C7 on 10/20/2023 followed by posterior cervical decompression and fusion of C3-C7 on November 08. Patient remains weak, and has rehabbing at [facility]. History of coronary artery disease History of hyperlipidemia History of hypertension History of prostate cancer status post radiation History of GERD without esophagitis Former tobacco smoker Urine toxicology screen positive for benzodiazepines, opiates, and marijuana Plan: The patient was seen and evaluated Labs and medications reviewed Stable and on 4 L nasal cannula Continue bronchodilators this return to [facility] at discharge I have personally seen and examined the patient, performed the documentation and the assessment and plan as written. Number of minutes spent on the visit: 10.
--- NOTE | 2023-12-09 15:11 | P.DS ---
Providers Date of admission: 12/07/23 14:29 Attending physician: Jalen Au Consults: 12/07/23 14:26 Consult Physician Stat Consulting Provider: Jason Nobles Consult Reason/Comments: Altered mental status Do you want consulting provider notified?: Yes 12/07/23 18:33 Consult Physician Routine Consulting Provider: Saul Nobles Reason/Comments: Hypoxia Do you want consulting provider notified?: Yes Primary care physician: [facility] Course: HISTORY OF PRESENT ILLNESS: 67-year-old with active medical history of cervical myelopathy, severe spinal stenosis of the cervical spine, history of prostate cancer, hypertension, hyperlipidemia, chronic anemia, tremor, CAD without any angioplasty or stent placement, chronic COPD. He was hospitalized in October 20, 2023 for C-spine decompression and fusion of the C3-C7 and [facility] continue to have significant numbness and weakness mostly on the right side mostly affecting the right upper extremity seen Dr. Rangel and with the current symptoms was diagnosed with then of much worsening stenosis and myelopathy require posterior decompression which patient was hospitalized on 11/09/2023 for posterior cervical decompression and fusion of the C3-4, C4-5, C5-6 and C6/7 he continued to have significant weakness numbness in the upper extremity and the use of his hand was not that great on 620 developed to have severe hypoxia not a clear etiology the a team was called to see him and subsequently was transferred to the intensive care unit and was placed on mechanical ventilation for almost 48 hours and eventually was extubated successfully to require to use BiPAP on and off, his event was not clear etiology completely but combination of reaction to medication specially pain meds and benzodiazepine addition to finding the patient has apnea consistent with sleep apnea. Surprisingly the following few days patient was diagnosed with Klebsiella and haemophilus influenza pneumonia with sputum culture positive for both patient was treated with Rocephin and azithromycin. He spent in the intensive care unit bit longer time finally started on physical therapy and Occupational Therapy and when time comes was discharged to [facility] along with updraft treatment and continue to be on antibiotic with oral steroid for period of time. Surprisingly 1 more time patient developed to have severe hypoxic episode the night before when found to be hypoxic with severe apnea through the night with oxygen level through pulse ox running in the 70s and 80s only apparently decided to wait till the morning her problem did not resolve ended up calling EMS EMT found blood oxygen level to be low patient was loaded with high flow oxygen up to 15 L to bring his pulse higher and ended up coming to the emergency department. Was seen and evaluated At the emergency department with laboratory value shows white blood cell of 10,700 with hemoglobin of 10.9 normal PT/INR D-dimer was mildly elevated and ended up going for CTA of the chest finding were more consistent with no pulmonary embolism but mostly bilateral lower lobe dependent subsegmental atelectasis only. Observed patient in the emergency department continued to have apneic attack on and off similar to obstructive sleep apnea or narcolepsy. Will consult pulmonary continue BiPAP and supportive care CT of the brain in the meanwhile did not show any major finding. After complete testing and study patient seems to be little bit more clear require a lot less flow oxygen to keep his pulse ox in the 90s and has felt slightly better still having slight confusion on and off apparently he had obstructive sleep apnea was on CPAP before all his cervical spine problem arrive but patient has not been using CPAP in a while. 12/08/2023: Patient is alert and oriented this morning. Was on BiPAP throughout the night, no issues reported from patient or nursing staff. Vital signs are stable, patient is oxygenating well on 4L while awake. Discussed with patient importance of CPAP compliance to prevent these hypoxic episodes, he states had not been wearing his CPAP at [facility] due to mask fitting poorly with his C- Collar. Patient's is to bring CPAP from [facility] and respiratory will assist patient is refitting mask for a more comfortable fit. Will continue with nocturnal BiPAP, await further recommendations from pulmonary and neurology. If all goes well will discharge him back to [facility] tomorrow. 12/09/2023: Patient is alert and oriented this morning. His was able to bring in his CPAP machine from home and respiratory therapy was able to fit him with a more appropriate mask. Patient states this is a lot more comfortable. No shortness of breath, no issues reported overnight. Vital signs stable, patient O2 saturation remains 94% on 4L. Viral panel was negative. Neurology evaluated patient, agree with diagnosis of AMS due to hypoxia, recommend follow up outpatient with Dr. Crane. No further recommendations from pulmonology. Patient is overall doing well, discussed again the importance of compliance with CPAP while sleeping. Patient will be discharged back to [facility] today. REVIEW OF SYSTEMS: CONSTITUTIONAL: Well-developed alert no acute respiratory distress. EYES: No icterus sclerae, no conjunctivitis. EARS, NOSE, MOUTH, THROAT, and FACE: No sore throat, lymphadenopathy, carotid bruits or deformity. RESPIRATORY: No SOB cough or wheezes. CARDIOVASCULAR: No CP, Palpitation, PND, Orthopnea, or angina. GASTROINTESTINAL: No Abd pain, Nausea or vomiting, no Diarrhea or constipation, No GI Bleed, no distention or masses. GENITOURINARY: Negative for Hematuria or UTI, no kidney stones. INTEGUMENT/BREAST: Negative for any muscular injury with mild osteoarthritis.. HEMATOLOGIC/LYMPHATIC: Negative for bleed or purpura. MUSCULOSKELTAL: Significant myalgia and arthralgia severe neck pain. NEURLOGICAL: Alert and oriented moving all his fortunately with weakness in the right side. BEHAVIORAL/PSYCH: Negative. ENDOCRINE: Negative. PHYSICAL EXAMINATION: General Appearance: Alert, oriented, age-appropriate does not look in pain had very hard collar around the cervical spine area. Neck HEENT: Supple, no lymphadenopathy, no thyroid enlargement, no carotid bruits. Significant pain and discomfort in the cervical spine area incision and anterior side of the cervical spine looks fine. Lungs: Lung sounds clear bilaterally without crackles or wheezes no rhonchi, no deformity. Chest Wall: Decreased expansion with deep inspiration no tenderness and no deformity was found on exam, no costochondral pain or discomfort. Heart: Regular rate and rhythm, S1, S2 normal, no murmur, rub or gallop. Back: Symmetric, no curvature, ROM normal, no CVA tenderness. Abdomen: Soft, non-tender, bowel sounds active all four quadrants, no masses, no organomegaly. Extremities: Extremities normal, atraumatic, no cyanosis or edema. Pulses: 2+ and symmetric. Skin: Skin color, texture, tugor normal, no rashes or lesions. Neurologic: Alert oriented, moving all 4 extremities, still having significant weakness in the right upper extremity compared to the left leg is little stronger. ASSESSMENT AND PLAN: _Severe hypoxia: With subacute/acute respiratory failure consistent with requiring demand for higher flow O2 to keep pulse ox above 90 percentile with finding on testing only with abnormal blood gas but CAT scan of the chest and chest x-ray does not show any abnormality more than atelectasis. Suspect this is due to poor CPAP compliance at [facility]. Patient is oxygenating well on 4LNC while awake, did well with CPAP overnight after having mask adjusted by respiratory therapy. Continue supportive care. Pulmonary is following, restarted COPD medications. _Recent respiratory failure requiring mechanical ventilation and BiPAP for period of time was secondary to Klebsiella and haemophilus influenza pneumonia along with recent surgery and were clear. _Obstructive Sleep Apnea, patient was supposed to use CPAP on more regular basis, since moving to jail has not been using it at all, that created more failure the last admission and this admission, brought patient's CPAP to the hospital to make necessary adjustments, patient had no issues with new mask overnight, CPAP will be brought to [facility] for patient to use consistently while sleeping. _Severe cervical spine myelopathy and fusion post anterior and posterior decompression and fusion as surgery seems to be working good but still have the extra complication with breathing and significant weakness of the right upper extremity. PT/OT consulted for weakness. Pt will follow up outpatient with Dr. Crane. _Hiatal hernia/GERD: Continue omeprazole 20 mg a day. _Chronic anemia: Has been on iron and folate acid continue both. _Hypertension: Still hypotensive today, blood pressure 96/64. Continue on amlodipine 5 mg a day, keep holding lisinopril for low BP. _Hyperlipidemia: Resume home meds will titrate dose higher if needed. _COPD: With mild exacerbation because of the atypical pneumonia, still on Solu- Medrol, along with DuoNeb and Pulmicort. _History of prostate cancer post radiation therapy no sign of obstruction still on Flomax currently still able to void on his own. _Chronic pain management, remain on baclofen, [place] 5/325 mg every 6 hours, pain well controlled. _GI prophylaxis: Will continue omeprazole 20 mg a day. _DVT prophylaxis: Knee-high MIGDALIA hose and early mobilization to be done. Planning: Patient is doing better today after wearing CPAP overnight. Much happier with new mask. Patient will need continued PT/OT to improve weakness in the right side, at last another few weeks in skilled rehab setting for maximum b enefit. Patient is stable for discharge at this point, had an extensive conversation with him about the importance of wearing CPAP while sleeping to prevent further hypoxemic respiratory failure. Hospital Course: Patient presented to the emergency department on 12/06/23 for hypoxia and acute mental status changes. Patient has been completing inpatient rehab at [facility], nursing staff reported multiple hypoxic episodes the night prior, with oxygen saturation going as low as 70-80%, eventually in the morning with repeatedly low blood oxygen level EMS was called, patient required 15L non-rebreather to maintain blood oxygen saturation above 90%. In emergency department labwork showed white blood cell of 10,700 with hemoglobin of 10.9 normal PT/INR, D-dimer was mildly elevated and ended up going for CTA of the chest and findings did not demonstrate pulmonary embolism but mostly bilateral lower lobe dependent subsegmental atelectasis. While in emergency department patient continued to apneic episodes and was ultimately placed on BiPAP and admitted to inpatient for further monitoring and workup. Pulmonary was consulted for acute hypoxemic repiratory failure. For altered mental status, CT of the brain was ordered and neurology was consulted. Pulmonary saw patient, patient has history of obstructive sleep apnea and is totally oxygen dependent, it was determined that patient had not been using his CPAP machine at [facility], patient states the mask no longer fit while wearing his cervical collar. Patient dramatically improved while on BiPAP in patient, and when CPAP was brought in from home and patient was fit with a more appropriate mask, patient continued to improve. CXR and CTA were both unremarkable for any acute findings. Pulmonary agreed with diagnosis with acute on chronic hypoxemic respiratory failure, final recommendations were to make CPAP available for use and [facility] and emphasized compliance, and when not on CPAP patient was to remain on 4L NC. Patient was otherwise stable for discharge from pulmonary standpoint. Neurology evaluated the patient, CT of the head was completed which was negative for any acute intracranial process. Patient's mentation returned to baseline after spending the night on BiPAP and with consistent oxygen and CPAP use. Neurology concluded that altered mental status was due to hypoxic encephalopathy. Patient continues to have right sided weakness following C-spine decompression and fusion of the C3-C7, recommended to continue PT/OT and follow up with Dr. Crane outpatient. At time of discharge, patient is alert and oriented, reports feeling overall very well, is eager to return to [facility] to resume rehab and ultimately return home in the next few weeks. Patient's brought in his CPAP machine and he was fit for a different mask by respiratory therapy, patient states the mask worked well overnight and it happy with the fit. Patient will be discharged back to [facility] to continue his rehabilitation, he will follow up with Dr. Crane in 1 week, Dr. Nobles in 1 week, and he will follow up with our practice in 1-2 days. Time spent discharging patient: 32 minutes. The patient was seen and evaluated by Dr. Au. Plan, assessment, and medications were all discussed, reviewed, and directed by Dr. Au with Tony Sam MARY-Matthias acting as a scribe. Patient Condition at Discharge: Stable Plan - Discharge Summary New Discharge Prescriptions: Continue Tamsulosin [Flomax] 0.4 mg PO HS Lisinopril-Hctz 20-12.5 mg [Zestoretic 20-12.5] 1 tab PO DAILY Ferrous Sulfate [Iron] 325 mg PO DAILY Folic Acid 0.4 mg PO DAILY Fluticasone/Umeclidin/Vilanter [Trelegy Ellipta 100-62.5-25] 1 puff INHALATION RT-DAILY amLODIPine [Norvasc] 2.5 mg PO DAILY methocarbamoL [Robaxin-750] 750 mg PO TID@0600,1400,2200 Sennosides-Docusate Sodium [Senokot-S] 1 tab PO BID PRN #60 tablet PRN Reason: Constipation Cyanocobalamin [Vitamin B-12] 500 mcg PO DAILY Acetaminophen Tab [Tylenol] 650 mg PO Q6HR PRN tab PRN Reason: Mild Pain Or Fever > 100.5 Ipratropium-Albuterol Nebulize [Duoneb 0.5 mg-3 mg/3 ml Soln] 3 ml INHALATION RT-QID Omeprazole 20 mg PO DAILY@0600 polyethylene glycoL 3350 [Miralax] 17 gm PO DAILY packet Zguard 1 applic TOPICAL BID Furosemide [Lasix] 40 mg PO ONCE Benzocaine/Menthol Lozeng [Cepacol lozenge] 1 lozenge MUCOUS MEM Q4HR PRN PRN Reason: Sore Throat Baclofen 10 mg PO HS PRN PRN Reason: Spasms Ergocalciferol [Vitamin D2 (1250 Mcg = 26308 Iu)] 1,250 mcg PO SMALLS House Stock Powder 1 applic TOPICAL BID Changed HYDROcodone/APAP 5-325MG [[place] 5-325] 1 - 2 tab PO Q6HR PRN #24 tab PRN Reason: Pain Discontinued metroNIDAZOLE [Flagyl] 500 mg PO TID@0600,1400,2200 Clotrimazole/Betameth Cream [Lotrisone] 1 applic TOPICAL Q12H Discharge Medication List Lisinopril-Hctz 20-12.5 mg [Zestoretic 20-12.5] 1 tab PO DAILY 04/12/19 [History] Tamsulosin [Flomax] 0.4 mg PO HS 04/12/19 [History] Ferrous Sulfate [Iron] 325 mg PO DAILY 09/29/23 [History] Folic Acid 0.4 mg PO DAILY 09/29/23 [History] Fluticasone/Umeclidin/Vilanter [Trelegy Ellipta 100-62.5-25] 1 puff INHALATION RT-DAILY 10/19/23 [History] Acetaminophen Tab [Tylenol] 650 mg PO Q6HR PRN tab 10/27/23 [Rx] Ipratropium-Albuterol Nebulize [Duoneb 0.5 mg-3 mg/3 ml Soln] 3 ml INHALATION RT-QID 11/07/23 [History] Omeprazole 20 mg PO DAILY@0600 11/07/23 [History] amLODIPine [Norvasc] 2.5 mg PO DAILY 11/07/23 [History] methocarbamoL [Robaxin-750] 750 mg PO TID@0600,1400,2200 11/07/23 [History] Sennosides-Docusate Sodium [Senokot-S] 1 tab PO BID PRN #60 tablet 11/16/23 [Rx] polyethylene glycoL 3350 [Miralax] 17 gm PO DAILY packet 11/16/23 [Rx] Baclofen 10 mg PO HS PRN 12/07/23 [History] Benzocaine/Menthol Lozeng [Cepacol lozenge] 1 lozenge MUCOUS MEM Q4HR PRN 12/07/23 [History] Cyanocobalamin [Vitamin B-12] 500 mcg PO DAILY 12/07/23 [History] Ergocalciferol [Vitamin D2 (1250 Mcg = 09990 Iu)] 1,250 mcg PO SMALLS 12/07/23 [History] Furosemide [Lasix] 40 mg PO ONCE 12/07/23 [History] House Stock Powder 1 applic TOPICAL BID 12/07/23 [History] Zguard 1 applic TOPICAL BID 12/07/23 [History] HYDROcodone/APAP 5-325MG [[place] 5-325] 1 - 2 tab PO Q6HR PRN #24 tab 12/09/23 [Rx] Follow up Appointment(s)/Referral(s): Honey Montoya MD [Primary Care Provider] - 1-2 days Yvonne Crane DO [Doctor of Osteopathic Medicine] - 1 Week Saul Nobles DO [Doctor of Osteopathic Medicine] - 1 Week Discharge Disposition: TRANSFER TO SNF/ECF
[2023-12-09 15:47] VITALS: PULSE 90
[2023-12-11] MEDS ORDERED: ERGOCALCIFEROL 1,250 MCG (50,000 IU) CAPSULE PO SCH (18:33)
== END 2023-12-09 17:27 | DRG 189 ==
LOC: EC 08:26 → 4SSUR 14:29
PROVIDERS: ADMIT Internal Medicine Geriatric Medicine; ATTEND Internal Medicine Geriatric Medicine
PROC: 5A09357 Assistance with Respiratory Ventilation, Less than 24 Consecutive Hours, Continuous Positive Airway Pressure (ICD-10-PCS; principal; 2023-12-09)
DX: J96.21 Acute and chronic respiratory failure with hypoxia (principal); J44.1 Chronic obstructive pulmonary disease with (acute) exacerbation; J98.11 Atelectasis; G93.1 Anoxic brain damage, not elsewhere classified; G95.9 Disease of spinal cord, unspecified; R25.1 Tremor, unspecified; G89.29 Other chronic pain; K21.9 Gastro-esophageal reflux disease without esophagitis; K44.9 Diaphragmatic hernia without obstruction or gangrene; D64.9 Anemia, unspecified; E78.5 Hyperlipidemia, unspecified; F17.200 Nicotine dependence, unspecified, uncomplicated; G47.33 Obstructive sleep apnea (adult) (pediatric); I10 Essential (primary) hypertension; I95.9 Hypotension, unspecified; I25.10 Atherosclerotic heart disease of native coronary artery without angina pectoris; Z98.1 Arthrodesis status; Z79.899 Other long term (current) drug therapy; Z85.46 Personal history of malignant neoplasm of prostate; Z91.199 Patient's noncompliance with other medical treatment and regimen due to unspecified reason; Z92.3 Personal history of irradiation; Z99.81 Dependence on supplemental oxygen
CPT/HCPCS: 36415; 36600; 51701; 70450; 71046; 71275; 80053; 80306; 81001; 82805; 83880; 84484; 85025; 85379; 85610; 85730; 87636; 93005; 94640; 94660; 94760; 94762; 96360; 96361; 99285

== ENCOUNTER → 2024-03-07 | Outpatient (CLI) | payer MEDICARE, OTHER ==
--- NOTE | 2024-03-14 23:00 | P.PCN ---
Date of Procedure: 03/07/24 Operative Findings: Pertinent history 67-year-old male patient, known history of COPD along with other comorbidities including chronic hypoxic respiratory failure, coronary disease, hypertension hyperlipidemia, previous history of prostate cancer, was also had a diagnosis of obstructive sleep apnea. Nevertheless, the patient has not been compliant to CPAP therapy. The patient is undergoing home sleep study to reevaluate the presence of sleep apnea and decide on treatment accordingly Pertinent physical findings The patient has a weight of 86 kg Technical description The [employer] ApneaLink system was used to complete some sleep study. This is a type III home sleep study evaluation. The total recording duration was 7 hours and 3 minutes. The study started at 11:28 PM and ended at 6:32 AM. There was a total of 6 hours and 49 minutes of flow monitoring at 6 hours and 39 minutes of oxygen saturation monitoring. Results Respiratory analysis showed a total of 297 obstructive apneas and 97 obstructive hypopneas. The resulting AHI was 57.7. Oxygenation analysis The patient's baseline pulse ox while awake at rest was 94%. Average pulse ox during sleep was 91%. Patient spent approximately 1 hours and 33 minutes of sleep time and a pulse ox of less than 89%. Minimum pulse ox was 68%. Cardiac summary Average heart rate was 61 with a minimum heart rate of 46 and a maximum heart rate of 235 Assessment Severe KALYAN with an AHI of 57.7 Chronic hypoxemia with significant nocturnal oxygen desaturation secondary to KALYAN COPD History of cervical stenosis, severe and the patient has undergone decompression and fusion Coronary artery disease Hypertension Hyperlipidemia Prostate cancer Acid reflux Plan Proceed with CPAP therapy regarding severe symptomatic KALYAN.
== END ==
LOC: 3 N SLEEP 11:01
PROVIDERS: ATTEND Internal Medicine Critical Care Medicine
DX: G47.33 Obstructive sleep apnea (adult) (pediatric) (principal); G47.36 Sleep related hypoventilation in conditions classified elsewhere; J44.9 Chronic obstructive pulmonary disease, unspecified; I25.10 Atherosclerotic heart disease of native coronary artery without angina pectoris; I10 Essential (primary) hypertension; E78.5 Hyperlipidemia, unspecified; C61 Malignant neoplasm of prostate; K21.9 Gastro-esophageal reflux disease without esophagitis; J96.11 Chronic respiratory failure with hypoxia; Z87.39 Personal history of other diseases of the musculoskeletal system and connective tissue; Z98.1 Arthrodesis status; Z85.46 Personal history of malignant neoplasm of prostate; F17.200 Nicotine dependence, unspecified, uncomplicated; Z79.899 Other long term (current) drug therapy; Z79.51 Long term (current) use of inhaled steroids